=== PATIENT | female | born 1980 | race Native Hawaiian/Other Pacific Islander ===

== ENCOUNTER 2025-07-05 13:42 | Outpatient (AMB) | payer OTHER, SELFPAY ==
--- OUTSIDE RECORDS SUMMARY | 2024-07-29 15:38 | XMS_ITS | Encounter Summary ---
Author Organization [employer] Address [address] [place] [address] Care Team Providers Care National Accounts Sales Name Role Phone Sherly Donald MD Primary Care Provider [phone] Encounter Details Date Type Department Care Team [...] Description 07/19/2025 11:15 AM EDT Office Visit [facility] Hematology Oncology [address] [place] [address] Jaison Mendez MD [address] [place] [address] documented as of this encounter Visit Diagnoses Not on filedocumented in this encounter Care Teams National Accounts Sales Relationship Specialty Start Date End Date Sherly Donald MD [address] [place] [address] PCP - General Internal Medicine 05/29/21 documented as of this encounter
--- NOTE | 2025-07-05 14:00 | A.OFFPC_ITS ---
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 Protection Agent Required: No Accompanied by: Self / Same As Patient Allergies No Known Allergies Allergy (Verified 07/05/25 14:09) Tobacco use date assessed: 07/05/25 Dental Screening Dental Screen Date: 07/05/25 Did you have a dental visit in the last 12 months?: Yes Did you have a dental problem in the last 6 months where you did not have access to dental care?: No Was dental information given to patient?: Patient has dentist HPI HPI Comments History of Present Illness Details History of Present Illness The patient is a 45-year-old female presenting with metastatic colon cancer. Metastatic Colon Cancer: - Diagnosed approximately four and a chuck f years ago after severe, persistent abdominal pain led to a colonoscopy and biopsy. - Underwent multiple surgeries: one colo n surgery and four liver procedures. - Received 28-29 cycles of chemotherapy over the course of 11 months. - The disease has metastasized to the mazin ngs and possibly the pancreas. - Experiencing significant management ch allenges due to changes and discontinuities in insurance and care access. - Currently has severe discomfort, inclu ding hand sensitivity and possible cardiac-related symptoms post-chemotherapy. Health Maintenance - Hemoglobin and complete blood count, i ncluding hemoglobin A1c, lipid profile, magnesium, folate, vitamin D levels, and urinalysis were discussed. - Referral to nutrition for dietary and lifestyle management. - Recommended management with a multidis ciplinary team, including pain management, oncology, and gastroenterology. Review of Systems - General: Reports significant weight ch anges and eating pattern disruptions, eating once daily but consuming large quantities. - Respiratory: Reports shortness of monique th; denies any recent upper respiratory infections. - Cardiovascular: Reports feeling cardia c irregularities, including occasional palpitations. - Gastrointestinal: Reports significant abdominal pain leading to emergency visits prior to diagnosis. - Musculoskeletal: Reports sensitivity i n hands post-chemotherapy. - Neurological: No significant neurologi karina concerns reported. - Psychiatric: Denies any mood disorders but mentions feeling overwhelmed due to current circumstances. 10-point ROS reviewed and negative excep t as noted in HPI Allergies - No known drug allergies. Medication History - Acetaminophen - Amoxicillin 500 mg q.8h - Bupropion XL 150 mg - Bupropion XL 300 mg - Chlorhexidine gluconate 0.12% 10 mL - Fentanyl 25 mcg/hour, 1 patch Q 3D - Gabapentin 100 mg - Hydroquinone 4% topical - Ibuprofen 600 mg - Mirtazapine 45 mg - Morphine ER 60 mg P.o. b.i.d. - Oxycodone - Sennosides-docusate sodium 8.6-50 mg Current Substance Use - Limited to occasional alcohol use on s pecial occasions. Substance Use History - Occasional alcohol use, with no report ed history of substance abuse. Past Medical History - Diagnosed with metastatic colon cancer . - Persistent abdominal pain preceding di agnosis that required several emergency visits. Past Surgical History - Colon resection surgery. - Four liver resections. Family History - No specific family history provided. Social History - Currently lives alone, but children li ve in the same household occasionally. - Previously lived in [facility] before moving to [place]. - Has expressed feelings of being overwh elmed by caregiving duties due to insurance changes and cancer progression. Physical Exam - General- Well-appearing, in no acute d istress. - Vitals- Within normal limits. - HEENT- Normocephalic, atraumatic. PERR LA, EOMI. Conjunctiva clear, sclera anicteric. Oropharynx clear, moist mucous membranes. TMs intact bilaterally. - Neck- Supple, no lymphadenopathy, no t hyromegaly, no JVD or carotid bruits. - Cardiovascular- RRR, normal S1/S2, no murmurs, rubs, or gallops. Peripheral pulses 2+ and symmetric. No edema. - Respiratory- Lungs clear to auscultati on bilaterally, no wheezes, rales, or rhonchi. Normal effort. - Abdomen- Soft, non-tender, non-distend ed. Normoactive bowel sounds. No hepatosplenomegaly, no masses. - MSK- Full range of motion, no joint sw elling or deformity. Normal gait. - Skin- Warm, dry, intact. No rashes, le sions, or pallor. - Neuro- Alert and oriented x3. Cranial nerves II-XII intact. Strength 5/5 throughout. Sensation intact. Reflexes 2+ symmetric. Normal coordination and gait. - Psych- Appropriate mood and affect. No rmal judgment and insight. Discussion Notes The patient and I discussed in detail the current status of her metastatic colon cancer and the complications associated due to insurance coverage issues. I emphasized the importance of establishing a comprehensive care plan involving a multidisciplinary team approach. We reviewed the need for consistent oncological management and potential involvement in clinical trial opportunities. I provided guidance for possible symptom management and emphasized connecting with community resources for additional support. The need for nutritional support and pain management was highlighted. We also explored the logistics of referring the patient to relevant specialists, including oncology, gastroenterology, and pain management. The patient was informed about new referrals and testing planned for her current status. She was receptive to recommended interventions and understood the importance of following up on her condition. Plan 1. Malignant neoplasm of colon, unspecif ied C18.9 HCC 11 - Arrange labs for evaluation: hemoglobi n, CBC, A1c, lipids, magnesium, urinalysis, vitamin D, folate. - Refer to nutrition, pain management, a nd gastroenterology for comprehensive care. - Emphasized the need for multidisciplin michael support and regular check-ups. - Instructed patient to provide medical records to assess previous treatments. - Initiate high school social science teacher involvement for assistance with healthcare navigation. - Prescribed albuterol inhaler for respi ratory symptom relief. - Supervisor Finish End referral for further asse ssment of cardiac issues based on patient's description. Patient Instructions - Please complete the lab tests as sched uled to gain detailed insight into your current health status. - Follow up with the stretcher helper to man age dietary needs and enhance your nutrition. - Expect referrals to specialists for pa in management and gastrointestinal review. - Continue communicating with our team a nd provide medical records as available. - Use the albuterol inhaler as needed wh en experiencing any shortness of breath. - Contact a high school social science teacher for insurance and resource assistance. - Report any new or worsening symptoms, especially cardiac concerns, promptly. [facility] Medical History (Updated 07/05/25 @ 15:02 by Wan Mcknight MD) History of chemotherapy Colon cancer metastasized to lung Family History (Updated 07/05/25 @ 14:15 by Santos Briones MA) Father No problems noted. Mother High blood pressure Diabetes Social History (Updated 07/05/25 @ 14:03 by Santos Briones MA) Housing: House Alcohol intake: current Alcohol intake frequency: holidays/special occasions only Patient Tobacco Use Status: Never used Tobacco service: No Current occupational status: unemployed and disabled Cognitive needs: Yes (cane and walker) Hearing needs: No Vision needs: No Questionnaire PHQ-9 Over the last 2 weeks, how often have you been bothered by any of the following problems? 1. Little interest or pleasure in doing things: nearly every day 2. Feeling down, depressed, or hopeless: nearly every day 3. Trouble falling or staying asleep, or sleeping too much: nearly every day 4. Feeling tired or having little energy: nearly every day 5. Poor appetite or overeating: nearly every day 6. Feeling bad about yourself - or that you are a failure or have let yourself or your family down: nearly every day 7. Trouble concentrating on things, such as reading the newspaper or watching television: nearly every day 8. Moving or speaking so slowly that other people could have noticed. Or the opposite - being so fidgety or restless that you have been moving around a lot more than usual: nearly every day 9. Thoughts that you would be better off or of hurting yourself in some way: more than half the days Total score: 26 Depression Screening Interpretation: Positive Depression Screening Done: Yes Source: Developed by Drs. Bran Mason, Zoya Skinner, Dejan Olmedo and colleagues, with an educational wally from [employer]. Thrive Questionnaire Date Thrive assessed: 07/05/25 I am a: Patient What is your living situation today?: I have a place to live, but I am worried about losing it in the future Within the past 12 months, did the food you bought not last and you didn't have the money to get more?: Sometimes True Within the past 12 months, did you worry whether your food would run out before you got money to buy more?: Sometimes True Do you have trouble paying for medicines?: Yes Do you have trouble getting transportation to medical appointments?: Yes Do you have trouble paying your heating and electricity bill?: Yes Do you have trouble taking care of your child, family member or friend?: No Do you have trouble with day-to-day activities such as bathing, preparing meals, shopping, managing finances, etc.?: Yes Are you currently unemployed and looking for a job?: No Are you interested in more education?: No Please select the resources that you would like help with: Housing/Alf, Food, Paying for medicine, Transportation, Utilities and None Currently or been in a relationship where the following occur: No concerns reported THRIVE Score: 5 AUDIT C Alcohol Use Questionnaire (AUDIT-C) 1. How often do you have a drink containing alcohol?: Monthly or less 2. How many drinks containing alcohol do you have on a typical day when you are drinking?: 1 or 2 3. How often do you have six or more drinks on one occasion?: Never Total Score: 1 ALSYSA-7 AMB Questionnaire ALYSSA-7 Date ALYSSA - 7 assessed: 07/05/25 Feeling nervous, anxious, or on edge: 3 = Nearly every day Not being able to stop or control worryin = Nearly every day Worrying too much about different things: 3 = Nearly every day Trouble relaxin = Nearly every day Being so restless that it is hard to sit still: 3 = Nearly every day Becoming easily annoyed or irritable: 3 = Nearly every day Feeling afraid as if something awful might happen: 3 = Nearly every day Total ALYSSA-7 score (0-4 normal; 5-9 mild; 10-14 moderate; 15-21 severe): 21 Source: Developed by Drs. Bran Mason, Zoya Skinner, Dejan Olmedo and colleagues, with an educational wally from [employer]. Physical exam (Primary Care) Tobacco/Smoking Status: Tobacco use Status Tobacco use date assessed 07/05/25 07/05/25 14:04 Patient Tobacco Use Status Never used Tobacco 07/05/25 14:04 PHQ-9: PHQ-9 Score PHQ-9: Total score 0 07/05/25 14:04 Depression Screening Interpretation: Positive Thrive Assessment: Date of Thrive Assessment Date Thrive assessed 07/05/25 07/05/25 14:04 Currently or been in a relationship where the following occur: No concerns reported Coding Level of Care Code New Pt Level 3 (56244) Diagnoses Establishing care with new doctor, encounter for Z76.89 Routine lab draw Z01.89 Encounter for screening, unspecified Z13.9 Counseling, unspecified Z71.9 Screening for HIV (human immunodeficiency virus) Z11.4 Screening for depression Z13.31 Screening for diabetes mellitus Z13.1 Screening for lipoid disorders Z13.220 Hypertension screen Z13.6 Colon cancer metastasized to lung C18.9; C78.00 History of chemotherapy Z92.21 Assessment & Plan Assessment & Plan (1) Establishing care with new doctor, encounter for: Code(s): Z76.89 - Persons encountering health services in other specified circumstances (2) Routine lab draw: Code(s): Z01.89 - Encounter for other specified special examinations (3) Encounter for screening, unspecified: Code(s): Z13.9 - Encounter for screening, unspecified (4) Counseling, unspecified: Code(s): Z71.9 - Counseling, unspecified (5) Screening for HIV (human immunodeficiency virus): Code(s): Z11.4 - Encounter for screening for human immunodeficiency virus [HIV] (6) Screening for depression: Code(s): Z13.31 - Encounter for screening for depression (7) Screening for diabetes mellitus: Code(s): Z13.1 - Encounter for screening for diabetes mellitus (8) Screening for lipoid disorders: Code(s): Z13.220 - Encounter for screening for lipoid disorders (9) Hypertension screen: Code(s): Z13.6 - Encounter for screening for cardiovascular disorders (10) Colon cancer metastasized to lung: Code(s): C18.9 - Malignant neoplasm of colon, unspecified; C78.00 - Secondary malignant neoplasm of unspecified lung Category: Medical (11) History of chemotherapy: Code(s): Z92.21 - Personal history of antineoplastic chemotherapy Category: Medical Plan Orders: Orders Comprehensive Met. Panel Today Z13.9 - Encounter for screening, unspecified, Z76.89 - Persons encountering health services in other specified circumstances Hemoglobin A1c Today Z13.9 - Encounter for screening, unspecified, Z76.89 - Persons encountering health services in other specified circumstances Hepatitis B Surface Antigen Today Z13.9 - Encounter for screening, unspecified, Z76.89 - Persons encountering health services in other specified circumstances HIV Ab/Ag Today Z13.9 - Encounter for screening, unspecified, Z76.89 - Persons encountering health services in other specified circumstances Lipid Panel Today Z13.9 - Encounter for screening, unspecified, Z76.89 - Persons encountering health services in other specified circumstances Magnesium Today Z13.9 - Encounter for screening, unspecified, Z76.89 - Persons encountering health services in other specified circumstances XR chest 2V Today C18.9 - Malignant neoplasm of colon, unspecified, C78.00 - Secondary malignant neoplasm of unspecified lung, R06.00 - Dyspnea, unspecified Complete Blood Count Auto Diff Today Z13.9 - Encounter for screening, unspecified, Z76.89 - Persons encountering health services in other specified circumstances Hepatitis B Surface Antibody Today Z13.9 - Encounter for screening, unspecified, Z76.89 - Persons encountering health services in other specified circumstances Hepatitis C Antibody Today Z13.9 - Encounter for screening, unspecified, Z76.89 - Persons encountering health services in other specified circumstances UA CC w/rflx Micro + Cult Today Z13.9 - Encounter for screening, unspecified, Z76.89 - Persons encountering health services in other specified circumstances Vitamin B12 and Folate Today Z13.9 - Encounter for screening, unspecified, Z76.89 - Persons encountering health services in other specified circumstances Vitamin D 1,25 dihydroxy Today Z13.9 - Encounter for screening, unspecified, Z76.89 - Persons encountering health services in other specified circumstances CA Echo Limited Today C18.9 - Malignant neoplasm of colon, unspecified, C78.00 - Secondary malignant neoplasm of unspecified lung, Z13.9 - Encounter for screening, unspecified Referrals Core Fitter Referral C18.9 - Malignant neoplasm of colon, unspecified, C78.00 - Secondary malignant neoplasm of unspecified lung Cardiology Referral C18.9 - Malignant neoplasm of colon, unspecified, C78.00 - Secondary malignant neoplasm of unspecified lung, Z92.21 - Personal history of antineoplastic chemotherapy Nutrition/Dietitian Referral C18.9 - Malignant neoplasm of colon, unspecified, C78.00 - Secondary malignant neoplasm of unspecified lung, E66.01 - Morbid (severe) obesity due to excess calories Pain Management Referral C18.9 - Malignant neoplasm of colon, unspecified, C78.00 - Secondary malignant neoplasm of unspecified lung Gastroenterology Referral C18.9 - Malignant neoplasm of colon, unspecified, C78.00 - Secondary malignant neoplasm of unspecified lung Medications: New albuterol sulfate 90 mcg/actuation (Ventolin HFA) 2 puffs inhalation Q6H PRN 8.5 grams 0RF shortness of breath or wheezing
[2025-07-05 14:26] VITALS: BP 110/72; PULSE 81; RESP 16; TEMP 36.7; O2SAT 98; BMI 41.6
--- OUTSIDE RECORDS SUMMARY | 2025-07-05 17:34 | XMS_ITS | Clinical Summary ---
Author Organization [facility], Address [address] [place] [address] Phone Care Team Providers Care Survey Research Associate Name Role Phone Sherly Donald Primary Care Provider Allergies No known active allergies Medications oxyCODONE (ROXICODONE) 5 MG immediate release tablet Take 5 mg by mouth 11/27/2022 Active acetaminophen (TYLENOL 8 HOUR) 650 MG 8 hr tablet Take 650 mg by mouth 05/29/2021 Active Social History Tobacco Use Types Packs/Day Years Used Date Smoking Tobacco: Never Tobacco Cessation:Counseling Given: Not Answered Alcohol Use Standard Drinks/Week Comments Not Currently 0 (1 standard drink = 0.6 oz pur e alcohol) Comments Unknown Sex and Gender Information Value Date Recorded Sex Assigned at Not on file Legal Sex Female 1:41 PM EDT Gender Identity Not on file Sexual Orientation Not on file Last Filed Vital Signs Vital Sign Reading Time Taken Comments Blood Pressure 105/72 02/19/2024 9:10 AM EDT Pulse 85 02/19/2024 9:10 AM EDT Temperature 36.2 C (97.1 F) 02/19/2024 9:10 AM EDT Respiratory Rate - - Oxygen Saturation 99% 02/19/2024 9:10 AM EDT Inhaled Oxygen Concentration - - Weight 127 kg (280 lb) 02/19/2024 9:10 AM EDT Height 180.3 cm (5' 11 ) 02/19/2024 9:10 AM EDT Body Mass Index 39.05 02/19/2024 9:10 AM EDT Plan of Treatment Health Maintenance Due Date Last Done Comments Hepatitis B Vaccine (1 of 3 - 19+ 3-dose series) 2000 Influenza Vaccine (#1) 2025 Pneumococcal Vaccine: Peds ( 0 to 5 Years) and At-Risk Patients (6 to 49 Years) (3 of 3 - PCV20 or PCV21) 12/25/2025 05/29/2021, 12/25/2020 Insurance [facility] Medicaid [facility] Care Teams Survey Research Associate Relationship Specialty Start Date End Date Sherly Donald [address] [place] [address] PCP - General Internal Medicine 04/28/23
--- OUTSIDE RECORDS SUMMARY | 2025-07-05 17:34 | XMS_ITS | Clinical Summary ---
Author Organization [facility] Address [address] [place] [address] Phone Care Team Providers Care Camp Attendant Name Role Phone Sherly Donald MD Primary Care Provider [phone] Allergies No known active allergies Medications acetaminophen (TYLENOL) 325 mg tablet Take 2 tablets (650 mg total) by mouth every 6 (six) hours as needed for pain. Active mirtazapine (REMERON) 7.5 mg tablet Take 1 tablet (7.5 mg total) by mouth every night at bedtime. Active ondansetron (ZOFRAN) 8 mg tablet Take 1 tablet (8 mg total) by mouth every 8 (eight) hours as needed for nausea. 09/01/20 23 Active polyethylene glycol (MIRALAX) 17 gram packet Take 17 g by mouth daily. 09/01/20 23 Active senna (SENOKOT) 8.6 mg tablet Take 1 tablet (8.6 mg total) by mouth every night at bedtime. 12/01/19 24 Active traMADoL (ULTRAM) 50 mg tablet Take 50 mg by mouth every 6 (six) hours as needed for pain. 12/01/19 24 Active ascorbic acid (VITAMIN C) 500 mg tablet Take 1 tablet (500 mg total) by mouth 1 (one) time each day. Active buPROPion XL (WELLBUTRIN XL) 300 mg 24 hr tablet Take 1 tablet (300 mg total) by mouth 1 (one) time each day in the morning. 08/12/20 24 Active clonazePAM (KlonoPIN) 0.5 mg tablet Take 1 tablet (0.5 mg total) by mouth 2 (two) times a day if needed. 08/12/20 24 Active norethindrone (OLIVIA,SRAVANI,HE ATHER,MICRONOR) 0.35 mg tablet Take 1 tablet (0.35 mg total) by mouth 1 (one) time each day. Active gabapentin (NEURONTIN) 300 mg capsule Take 1 capsule (300 mg total) by mouth 2 (two) times a day. 60 capsule 1 01/27/20 25 Active oxyCODONE (ROXICODONE) 5 mg immediate release tabletIndication s:Metastatic colon cancer to liver (CMS/HCC V24, CMS/HCC V28) Take 1 tablet (5 mg total) by mouth every 4 (four) hours if needed for severe pain. Max Daily Amount: 30 mg 48 tablet 04/20/20 25 Active senna-docusate (PERICOLACE) 8.6-50 mg per tablet Take 1 tablet by mouth 1 (one) time each day. 30 tablet 11 04/21/20 25 026 Active cyclobenzaprine (FLEXERIL) 10 mg tablet TAKE 1 TABLET BY MOUTH 2 TIMES A DAY IF NEEDED FOR MUSCLE SPASMS FOR UP TO 15 DAYS. 30 tablet 05/09/20 25 Active morphine (MS CONTIN) 60 mg 12 hr tablet Take 1 tablet (60 mg total) by mouth 2 (two) times a day. Do not crush, chew, or split. Max Daily Amount: 120 mg 60 tablet 06/07/20 25 025 Active oxyCODONE (OxyCONTIN) 30 mg 12 hr abuse-deterrent tabletIndication s:Colon cancer metastasized to multiple sites (CMS/HCC V24, CMS/HCC V28),Pain management Take 1 tablet (30 mg total) by mouth every 12 (twelve) hours. Do not crush, chew, or split. Max Daily Amount: 60 mg 60 tablet 07/01/20 25 025 Active fentaNYL (DURAGESIC) 50 mcg/hrIndication s:Malignant neoplasm of splenic flexure (CMS/HCC V24, CMS/HCC V28),Metastases to the liver (CMS/HCC V24, CMS/HCC V28) Place 1 patch on the skin every 3rd (third) day. Max Daily Amount: 1 patch 10 patch 07/05/20 25 025 Active oxyCODONE (ROXICODONE) 10 mg immediate release tabletIndication s:Malignant neoplasm of splenic flexure (CMS/HCC V24, CMS/HCC V28),Metastases to the liver (CMS/HCC V24, CMS/HCC V28) Take 1 tablet (10 mg total) by mouth every 6 (six) hours if needed for severe pain for up to 12 days. Max Daily Amount: 40 mg 48 tablet 07/05/20 025 Active oxyCODONE (ROXICODONE) 10 mg immediate release tablet Take 1 tablet (10 mg total) by mouth every 6 (six) hours if needed for severe pain for up to 12 days. Max Daily Amount: 40 mg 48 tablet 05/27/20 025 Discontinued(Re order) oxyCODONE (OxyCONTIN) 30 mg 12 hr abuse-deterrent tabletIndication s:Colon cancer metastasized to multiple sites (CMS/HCC V24, CMS/HCC V28),Pain management Take 1 tablet (30 mg total) by mouth every 12 (twelve) hours. Do not crush, chew, or split. Max Daily Amount: 60 mg 60 tablet 06/06/20 025 Discontinued(Re order) oxyCODONE (ROXICODONE) 10 mg immediate release tablet Take 1 tablet (10 mg total) by mouth every 6 (six) hours if needed for severe pain for up to 12 days. Max Daily Amount: 40 mg 48 tablet 06/08/20 025 Discontinued(Re order) fentaNYL (DURAGESIC) 25 mcg/hr Place 1 patch on the skin every 3rd (third) day. Max Daily Amount: 1 patch 10 patch 06/14/20 025 Discontinued oxyCODONE (ROXICODONE) 10 mg immediate release tablet Take 1 tablet (10 mg total) by mouth every 6 (six) hours if needed for severe pain for up to 12 days. Max Daily Amount: 40 mg 48 tablet 06/17/20 025 Discontinued(Re order) fentaNYL (DURAGESIC) 50 mcg/hrIndication s:Malignant neoplasm of splenic flexure (CMS/HCC V24, CMS/HCC V28),Metastases to the liver (CMS/HCC V24, CMS/HCC V28) Place 1 patch on the skin every 3rd (third) day. Max Daily Amount: 1 patch 10 patch 07/01/20 25 025 Discontinued(Re order) Active Problems Problem Noted Date Diagnosed Date Multiple pulmonary nodules 12/14/2024 Overview (12/14/2024): -Also seen: New non enlarged mildly FDG avid Right lower quadrant lymph node in the mesentery -Seen in Pet CT scan done at [place] 10-28-24: bilateral FDG avid pulmonary nodules, new from PET/CT December 2023 suspicious for metastatic disease. No FDG avid thoracic lymphadenopathy Chronic low back pain 09/29/2024 Hypercholesterolemia 09/29/2024 Malignant neoplasm of colon (CMS/HCC V24, CMS/ C V28) 09/29/2024 Overview (09/29/2024): s/p chemotherapy and partial colectomy -PT4a, pNO, moderately differentiated carcinoma of transverse colon -Oncologist: Dr. Jason Mendez -involving pancreas and spleen. GI: Dr. Contreras. Surgeon: Dr. Anderson Metastatic malignant neoplasm (CMS/HCC V24, CMS/ HCC V28) 09/29/2024 Overview (09/29/2024): colon cancer with liver mets s/p partial hepatectomy and ablation Mild binge-eating disorder, in full remission Mixed anxiety depressive disorder 09/29/2024 Overview (09/29/2024): 04/17/12- [facility], sees both psych and therapist, whose name is Franci therapist in [place] Neuropathy 09/29/2024 Overview (09/29/2024): -2ary to chemotherapy Obstructive sleep apnea syndrome 09/29/2024 Overview (09/29/2024): -does not want to use CPAP Peripheral venous insufficiency 09/29/2024 Prediabetes 09/29/2024 Severe obesity (BMI 35.0-39. 9) with comorbidity (CMS/HCC V24, CMS/HCC V28) 09/29/2024 Steatosis of liver 09/29/2024 Overview (09/29/2024): -seen in [place] Metastases to the liver (CMS/HCC V24, CMS/HCC V2 8) 11/05/2022 Malignant neoplasm of spleni c flexure of colon (CMS/HCC V24, CMS/HCC V28) 05/27/2022 Overview (09/29/2024): Diagnosed in 04/2021 Varicose veins of bilateral lower extremities wi th pain 06/05/2017 Overview (12/29/2023): 06/05/2017 Pt reports Followed by PCP/Vein specialist, reports multiple surgeries Resolved Problems Problem Noted Date Diagnosed Date Resolved Date Abnormal Pap smear of cervix 06/05/2017 12/16/2024 Overview (12/29/2023): 05/07/2016 PAP Unsatisfactory cytology, + HPV, Neg 16, Neg 18/45 06/05/2017 PAP Neg cytology, neg HPV Repeat co-testing 3 yrs Encounters Date Type Department Care Team Description 07/05/2025 Telephone [facility] Hematology Oncology [address] [place] [phone] Moon Contreras MA 07/01/2025 Social Work [facility] [address] [place] [phone] Shade Worrell LMSW 06/16/2025 2:30 PM EDT - 06/16/2025 11:59 PM EDT Hospital Encounter [address] [phone] Jaison Mendez MD Malignant neoplasm of splenic flexure (CMS/HCC V24, CMS/HCC V28) Discharge Disposition: Home or Self Care 06/09/2025 Telephone [facility] Hematology Oncology [address] [place] [address] Moon Contreras MA 06/06/2025 11:45 AM EDT Office Visit [facility] Hematology Oncology [address] [place] [phone] Jaison Mendez MD Colon cancer metastasized to multiple sites (CMS/HCC V24, CMS/HCC V28) (Primary Dx); Pain management 05/26/2025 Telephone [facility] Hematology Oncology [address] [place] [phone] Jaison Mendez MD 05/17/2025 Telephone [facility] Hematology Oncology [address] [place] [phone] Moon Contreras MA 05/11/2025 11:15 AM EDT Office Visit [facility] Hematology Oncology [address] [place] [phone] Jaison Mendez MD Metastatic malignant neoplasm, unspecified site (CMS/HCC V24, CMS/HCC V28) (Primary Dx); Malignant neoplasm of splenic flexure of colon (CMS/HCC V24, CMS/HCC V28) 05/04/2025 Telephone [facility] Hematology Oncology [address] [place] [phone] Moon Contreras MA 04/21/2025 10:30 AM EDT Office Visit [facility] Hematology [facility]cology [address] [place] [phone] Jaison Mendez MD Metastatic colon cancer to liver (CMS/HCC V24, CMS/HCC V28) (Primary Dx); Colon cancer metastasized to lung (CMS/HCC V24, CMS/HCC V28) 04/21/2025 Telephone [facility] Hematology Oncology [address] [place] [phone] Lena Mckee MA 04/05/2025 2:30 PM EDT - 04/05/2025 11:59 PM EDT Hospital Encounter [facility] [address] [place] [address] Malignant neoplasm of splenic flexure ([facility] V24, [facility] V28) Discharge Disposition: Home or Self Care from Last 3 Months Immunizations Name Administration Dates Next Due HiB PRP-T conjugate (Acthib, Hiberix) 6wks and older 05/29/2021 Influenza Quadravalent, MDCK , 0.5ml, preservative free (Flucelvax) 6mo and older 09/16/2023,10/10/2022 Influenza Quadrivalent, 0.5m l, preservative free (Fluarix; FluLaval; Fluzone) ages 6mo and older (Afluria) 3yo and older 10/17/2021 Influenza trivalent, with pr eservative (Fluzone; Afluria) 6mo and older 09/01/2018,08/22/2017,08/16/2010,07/12 Meningococcal MCV4P 05/29/2021 Pfizer (ages 12 & older) ROSARIO S-CoV-2 COVID-19, mRNA, LNP-S, candi-sucrose, preservative free 02/06/2022 Pfizer SARS-CoV-2 COVID-19, mRNA, LNP-S, preservative free 02/06/2022,07/18/2021,06/05/2021 Pneumococcal conjugate 13 va lent (Prevnar 13, PCV13) 2mo and older 05/29/2021 Pneumococcal polysaccharide 23 valent (Pneumovax 23) 2yo and older 12/25/2020 Tdap Tetanus diptheria acell ular pertussis (Boostrix; Adacel) 7yo and older 05/11/2015 Surgical History Surgery Date Site/Laterality Comments KNEE SURGERY 2016 PROCEDURE: HISTORICAL KNEE SURGERY OTHER SURGICAL HISTORY PROCEDURE: HISTORY OTHER; COMMENT: Multiple lower extremeity venous surgeries VARICOSE VEIN SURGERY PROCEDURE: ID LIGJ DIVJ &/EXCJ VARICOSE VEIN CLUSTER 1 LEG OTHER SURGICAL HISTORY 05/18/2021 PROCEDURE: ID LAPAROSCOPY COLECTOMY PARTIAL W/ANASTOMOSIS; COMMENT: segmental colectomy with anastomosis, en bloc splenectomy, and en bloc distal pancreatectomy - to address adenocarcinoma of transverse colon (no jeronimo involvement or extension to spleen or distal pancreas) - Dr. Rossy Pierre OTHER SURGICAL HISTORY PROCEDURE: HISTORY OTHER; COMMENT: extended left hepatectomy, partial right hepatectomy, cholecystectomy @ [facility] Medical History Medical History Date Comments Anxiety state DX:Anxiety state Asthma DX:Asthma Abnormal cytological finding in specimen from cervix DX:Abnormal cytological find ing in specimen from cervix Colon cancer (CMS/HCC V24, C MS/HCC V28) 2020 DX:Colon cancer (HCC) Cancer of liver (CMS/HCC V24 , CMS/HCC V28) 2021 DX:Cancer of liver (HCC) Metastases to the liver (CMS /HCC V24, CMS/HCC V28) 11/05/2022 DX:Metastases to the liver ( HCC) Abnormal Pap smear of cervix 06/05/2017 For matting of this note might be different from the original. 05/07/2016 PAP Unsatisfactory cytology, + HPV, Neg 16, Neg 18/45 06/05/2017 PAP Neg cytology, neg HPV Repeat co-testing 3 yrs Family History Medical History Relation Name Comments No Known Problems Brother 1 No Known Problems Brother 2 No Known Problems Brother 3 Hypertension Father Cancer Maternal Grandmother Colon Diabetes Mother Other: Breast cysts- benign Mother Hypertension Sister 1 No Known Problems Sister 2 Relation Name Status Comments Brother 1 Alive Brother 2 Alive Brother 3 Alive Father Maternal Grandmother Mother Alive Sister 1 Alive Sister 2 Alive Sister 3 Alive Social History Tobacco Use Types Packs/Day Years [...] Orientation Straight 10/28/2024 2: 47 PM EST Obstetrics History Para Term AB IAB SAB Ectopic Multiple Livin g Live Births 4 4 4 4 4 Date Outcome GA Total Labor Labor/2nd/3rd Weight Sex Type Anes PTL Shikha A1 A5 Name Clin 1998 Term 40w0 d F Vag-S pont None Living 1999 Term 40w0 d M Vag-S pont None Living 2004 Term 40w0 d M Vag-S pont None Living 2005 Term 40w0 d F Vag-S pont None Living Last Filed Vital Signs Vital Sign Reading Time Taken Comments Blood Pressure 106/72 05/11/2025 11:25 AM EDT Pulse 87 05/11/2025 11:25 AM EDT Temperature 36.2 C (97.1 F) 05/11/2025 11:25 AM EDT Respiratory Rate - - Oxygen Saturation 99% 05/11/2025 11:25 AM EDT Inhaled Oxygen Concentration - - Weight 131 kg (289 lb) 05/11/2025 11:25 AM EDT Height 180.3 cm (5' 11 ) 12/16/2024 1:27 PM EST Body Mass Index 40.31 12/16/2024 1:27 PM EST Plan of Treatment Upcoming Encounters Date Type Department Care Team (Late st Contact Info) Description 07/19/2025 11:15 AM EDT Office Visit [facility] Hematology Oncology [address] [place] [phone] Jaison Mendez MD [address] [place] [address] Health Maintenance Due Date Last Done Comments Hepatitis A Vaccines (1 of 2 - Risk 2-dose series) 2000 Hepatitis B Vaccines (1 of 3 - 19+ 3-dose series) 2000 Cholesterol Screening (Lipid Panel) 09/27/2022 HIV Screening 09/27/2022 Hepatitis C Screening 09/27/2022 Social Influencers of Health Screening 09/27/2022 Depression Screening 10/20/2024 DTaP,Tdap,and Td Vaccines (2 - Td or Tdap) 05/11/2025 05/11/2015 COVID-19 Vaccine ( season) 2025 09/16/2023, 10/08/2022, 02/06/2022, Additional history exists Influenza Vaccine (#1) 2025 , 10/10/2022, 10/17/2021, Additional history exists Cervical Cancer Screening: Pap Smear 11/05/2025 11/05/2022, 08/17/2020 Pneumococcal Vaccine: Pediatrics (0 to 5 Years) and At-Risk Patients (6 to 49 Years) (3 of 3 - PPSV23, PCV20 or PCV21) 12/25/2025 05/29/2021, 12/25/2020 Breast Cancer Screening 10/29/2026 10/29/2024, 08/28 HIB Vaccines Aged Out 05/29/2021 No longer eligi ble based on patient's age to complete this topic Meningococcal ACWY Vaccine Aged Out 05/29/2021 N o longer eligible based on patient's age to complete this topic HPV Vaccines Aged Out No longer eligi ble based on patient's age to complete this topic IPV Vaccines Aged Out No longer eligi ble based on patient's age to complete this topic MMR Vaccines Aged Out No longer eligi ble based on patient's age to complete this topic Meningococcal B Vaccine Aged Out No l onger eligible based on patient's age to complete this topic RSV Immunization Patients Under 20 months Aged Out No longer eligible based on patient's age to complete this topic Varicella Vaccines Aged Out No longer eligible based on patient's age to complete this topic Procedures Procedure Name Priority Date/Time Associated Diagnosis Comments CBC WITH AUTO DIFFERENTIAL Routine 06/16/2025 3:02 PM EDT Malignant neoplasm of splenic flexure (CMS/HCC V24, CMS/HCC V28) CARCINOEMBRYONIC ANTIGEN Routine 025 3:02 PM EDT Malignant neoplasm of splenic flexure (CMS/HCC V24, CMS/HCC V28) COMPREHENSIVE METABOLIC PANEL Routine 06/16/2025 3:02 PM EDT Malignant neoplasm of splenic flexure (CMS/HCC V24, CMS/HCC V28) CBC AND DIFFERENTIAL Routine 06/16/2025 3:02 PM EDT Malignant neoplasm of splenic flexure (CMS/HCC V24, CMS/HCC V28) MOLECULAR INTELLIGENCE TUMOR PROFILING Routine 05/18/2025 10:57 AM EDT HC COLLECTION OF VENOUS BLOOD BY VENIPUNCTURE Routine 05/11/2025 2:44 PM EDT Metastatic cancer (CMS/HCC V24, CMS/HCC V28) Metastatic malignant neoplasm, unspecified site (CMS/HCC V24, CMS/HCC V28) CBC WITH AUTO DIFFERENTIAL Routine 05/11/2025 2:44 PM EDT Metastatic malignant neoplasm, unspecified site (CMS/HCC V24, CMS/HCC V28) HEPATIC FUNCTION PANEL Routine 2:44 PM EDT Metastatic malignant neoplasm, unspecified site (CMS/HCC V24, CMS/HCC V28) CBC AND DIFFERENTIAL Routine 05/11/2025 2:44 PM EDT Metastatic malignant neoplasm, unspecified site (CMS/HCC V24, CMS/HCC V28) CARCINOEMBRYONIC ANTIGEN Routine 025 2:44 PM EDT Metastatic malignant neoplasm, unspecified site (CMS/HCC V24, CMS/HCC V28) MANUAL DIFFERENTIAL - SYSMEX WAM Routine 04/05/2025 2:44 PM EDT Malignant neoplasm of splenic flexure (CMS/HCC V24, CMS/HCC V28) CBC WITH AUTO DIFFERENTIAL Routine 04/05/2025 2:44 PM EDT Malignant neoplasm of splenic flexure (CMS/HCC V24, CMS/HCC V28) CARCINOEMBRYONIC ANTIGEN Routine 025 2:44 PM EDT Malignant neoplasm of splenic flexure (CMS/HCC V24, CMS/HCC V28) COMPREHENSIVE METABOLIC PANEL Routine 04/05/2025 2:44 PM EDT Malignant neoplasm of splenic flexure (CMS/HCC V24, CMS/HCC V28) CBC AND DIFFERENTIAL Routine 04/05/2025 2:44 PM EDT Malignant neoplasm of splenic flexure (CMS/HCC V24, CMS/HCC V28) MG MAMMO DIGITAL SCREENING W VALDEMAR BILAT Routine 10/29/2024 1:49 PM EST Encounter for screening mammogram for breast cancer PAP SMEAR Routine 11/05/2022 from Last 3 Months or Most Recently Relevant to Health Maintenance Results * CBC auto differential (06/16/2025 3:02 PM EDT) Only the most recent of3 resultswithin the time period is included. WBC 8.9 4.8 - 10.8 K/mcL LAB HEMETOLOGY METHOD 06/16/2025 4:45 PM EDT [facility] RBC 4.20 3.80 - 4.80 M/mcL LAB [facility] Hemoglobin 12.3 11.5 - 16.0 g/dL LAB HEMETOLOGY METHOD 06/16/2025 4:45 PM [facility] Hematocrit 38.1 35.0 - 47.0 % LAB HEMETOLOGY METHOD 06/16/2025 4:45 PM [facility] MCV 90.1 79.0 - 98.0 FL LAB HEMETOLOGY METHOD 06/16/2025 4:45 PM [facility] MCH 29.1 27.0 - 32.0 pcg LAB HEMETOLOGY METHOD 06/16/2025 4:45 PM [facility] MCHC 32.3 32.0 - 37.0 g/dL LAB HEMETOLOGY METHOD 06/16/2025 4:45 PM [facility] RDW 14.8 11.0 - 15.0 % LAB HEMETOLOGY METHOD 06/16/2025 4:45 PM [facility] Platelets 368 130 - 400 K/mcL LAB HEMETOLOGY METHOD 06/16/2025 4:45 PM [facility] MPV 9.8 7.0 - 11.0 FL LAB HEMETOLOGY METHOD 06/16/2025 4:45 PM [facility] NRBC 0.0 <1.0 % LAB HEMETOLOGY METHOD 06/16/2025 4:45 PM EDT [facility] NRBC Absolute 0.00 <0.10 K/mcL LAB HEMETOLOGY METHOD 06/16/2025 4:45 PM [facility] Neutrophils Relative 53.0 % LAB HEMETOLOGY METHOD 06/16/2025 4:45 PM EDT [facility] Lymphocytes Relative 37.9 % LAB HEMETOLOGY METHOD 06/16/2025 4:45 PM EDT [facility] Monocytes Relative 7.3 % LAB HEMETOLOGY METHOD 06/16/2025 4:45 PM EDT [facility] Eosinophils Relative 1.0 % LAB HEMETOLOGY METHOD 06/16/2025 4:45 PM [facility] Basophils Relative 0.6 % LAB HEMETOLOGY METHOD 06/16/2025 4:45 PM [facility] Immature Granulocytes Relative 0.2 % LAB HEMETOLOGY METHOD 06/16/2025 4:45 PM [facility] Neutrophils Absolute 4.71 1.50 - 7.00 K/mcL LAB HEMETOLOGY METHOD 06/16/2025 4:45 PM [facility] Lymphocytes Absolute 3.37 1.00 - 5.00 K/mcL LAB HEMETOLOGY METHOD 06/16/2025 4:45 PM [facility] Monocytes Absolute 0.65 0.20 - 1.00 K/mcL LAB HEMETOLOGY METHOD 06/16/2025 4:45 PM [facility] Eosinophils Absolute 0.09 0.00 - 0.50 K/mcL LAB HEMETOLOGY METHOD 06/16/2025 4:45 PM [facility] Basophils Absolute 0.05 0.00 - 0.20 K/mcL LAB HEMETOLOGY METHOD 06/16/2025 4:45 PM [facility] Immature Granulocytes Absolute 0.02 0.00 - 0.03 K/mcL LAB HEMETOLOGY METHOD 06/16/2025 4:45 PM EDT [facility] Blood Blood sample taken from central line / Unknown Existing Catheter / Unknown 06/16/2025 3:02 PM EDT 06/16/2025 4:30 PM EDT [facility] Ramona Mendez MD LAB BLOOD ORDERABLES Final R esult Performing Organization Address City/[facility]/ZIP Co de Phone Number [facility] [address] [place] [address], [place] [phone] * (ABNORMAL) CEA (06/16/2025 3:02 PM EDT) Only the most recent of3 resultswithin the time period is included. CEA 79.8(H) 0.0 - 5.0 ng/mL LAB CHEMISTRY METHOD 06/16/2025 6:58 PM EDT [facility] Blood Blood sample taken from central line / Unknown Existing Catheter / Unknown 06/16/2025 3:02 PM EDT 06/16/2025 4:30 PM EDT Narrative [facility] - 06/16/2025 6:58 PM EDT The Siemens Advia Centaur Chemiluminescent Immunoassay is used. Results obtained with different assay methods or kits cannot be used interchangeably. Results cannot be interpreted as absolute evidence of the presence or absence of malignant disease. Jaison Mendez MD LAB BLOOD ORDERABLES Final R esult Performing Organization Address City/[facility]/ZIP Co de Phone Number [facility] [address] [place] [address], [place] [phone] * (ABNORMAL) Comprehensive metabolic panel (06/16/2025 3:02 PM EDT) Only the most recent of2 resultswithin the time period is included. Sodium 138 133 - 145 mmol/L LAB CHEMISTRY METHOD 06/16/2025 4:54 PM [facility] Potassium 4.1 3.5 - 5.5 mmol/L LAB CHEMISTRY METHOD 06/16/2025 4:54 PM [facility] Chloride 106 96 - 110 mmol/L LAB CHEMISTRY METHOD 06/16/2025 4:54 PM [facility] CO2 29 21 - 32 mmol/L LAB CHEMISTRY METHOD 06/16/2025 4:54 PM [facility] Anion Gap 3 3 - 11 LAB CHEMISTRY METHOD 06/16/2025 4:54 PM [facility] Glucose 107(H) 70 - 100 mg/dL LAB CHEMISTRY METHOD 06/16/2025 4:54 PM [facility] BUN 13 5 - 25 mg/dL LAB CHEMISTRY METHOD 06/16/2025 4:54 PM [facility] Creatinine 0.79 0.50 - 1.10 mg/dL LAB CHEMISTRY METHOD 06/16/2025 4:54 PM [facility] eGFR 95 >=60 mL/min/1. 73m2 LAB CHEMISTRY METHOD 06/16/2025 4:54 PM [facility] Comment:Calculation based on the Chronic Kidney Disease Epidemiology Collaboration (CKD-EPI) equation refit without adjustment for race. BUN/Creatinine Ratio 16.5 LAB CHEMISTRY METHOD 06/16/2025 4:54 PM [facility] Calcium 8.8 8.5 - 10.5 mg/dL LAB CHEMISTRY METHOD 06/16/2025 4:54 PM [facility] AST (SGOT) 20 10 - 42 unit/L LAB CHEMISTRY METHOD 06/16/2025 4:54 PM [facility] ALT (SGPT) 17 10 - 60 unit/L LAB CHEMISTRY METHOD 06/16/2025 4:54 PM [facility] Alkaline Phosphatase 89 42 - 121 unit/L LAB CHEMISTRY METHOD 06/16/2025 4:54 PM EDT [facility] Total Protein 7.0 6.0 - 8.0 g/dL LAB CHEMISTRY METHOD 06/16/2025 4:54 PM EDT [facility] Albumin 3.3 3.2 - 5.0 g/dL LAB CHEMISTRY METHOD 06/16/2025 4:54 PM EDT [facility] Total Bilirubin 0.5 0.0 - 1.4 mg/dL LAB CHEMISTRY METHOD 06/16/2025 4:54 PM EDT [facility] Blood Blood sample taken from central line / Unknown Existing Catheter / Unknown 06/16/2025 3:02 PM EDT 06/16/2025 4:30 PM EDT Jaison Mendez MD LAB BLOOD ORDERABLES Final R esult Performing Organization Address City/[facility]/ZIP Co de Phone Number [facility] [address] [place] [address], [place] [phone] * Molecular intelligence tumor profiling (05/18/2025 10:57 AM EDT) Tissue [facility] Provider LAB MOLECULAR DIAGNOSTICS ORDERABLES Final Result * Venipuncture charge (05/11/2025 2:44 PM EDT) Extra Tube Hold for add-ons. 05/11/2025 6:01 PM EDT [facility] Comment:Auto resulted. Blood Venous blood specimen / Unknown Venipuncture / Unknown 05/11/2025 2:44 PM EDT 05/11/2025 4:27 PM EDT Jaison Mendez MD LAB BLOOD ORDERABLES Final R esult Performing Organization Address City/[facility]/ZIP Co de Phone Number [facility] [address] [place] [address], [place] [phone] * Hepatic function panel (05/11/2025 2:44 PM EDT) Total Protein 7.1 6.0 - 8.0 g/dL LAB CHEMISTRY METHOD 05/11/2025 4:48 PM EDT [facility] Albumin 3.3 3.2 - 5.0 g/dL LAB CHEMISTRY METHOD 05/11/2025 4:48 PM EDT [facility] Total Bilirubin 0.6 0.0 - 1.4 mg/dL LAB CHEMISTRY METHOD 05/11/2025 4:48 PM EDT [facility] Bilirubin, Direct 0.1 0.0 - 0.3 mg/dL LAB CHEMISTRY METHOD 05/11/2025 4:48 PM EDT [facility] Bilirubin, Indirect 0.5 0.0 - 1.1 mg/dL LAB CHEMISTRY METHOD 05/11/2025 4:48 PM EDT [facility] ALT (SGPT) 17 10 - 60 unit/L LAB CHEMISTRY METHOD 05/11/2025 4:48 PM EDT [facility] AST (SGOT) 19 10 - 42 unit/L LAB CHEMISTRY METHOD 05/11/2025 4:48 PM EDT [facility] Alkaline Phosphatase 81 42 - 121 unit/L LAB CHEMISTRY METHOD 05/11/2025 4:48 PM EDT [facility] Blood Venous blood specimen / Unknown Venipuncture / Unknown 05/11/2025 2:44 PM EDT 05/11/2025 4:27 PM EDT us Jaison Mendez MD LAB BLOOD ORDERABLES Final R esult [facility] [address] [place] [address], [place] [phone] * (ABNORMAL) Manual differential (04/05/2025 2:44 PM EDT) Neutrophils % 67.0 % LAB HEMETOLOGY METHOD 04/05/2025 4:39 PM EDT [facility] Lymphocytes % 23.0 % LAB [facility] Monocytes % 8.0 % [facility]EM[facility]OLOGY [facility]25 [facility] Eosinophils % 0.0 % LAB HEMETOLOGY METHOD 04/05/2025 4:39 PM EDT [facility] Basophils % 2.0 % LAB HEMETOLOGY METHOD 04/05/2025 4:39 PM [facility] Neutrophils Absolute Manual 6.03 1.50 - 7.00 K/mcL LAB HEMETOLOGY METHOD 04/05/2025 4:39 PM [facility] Lymphocytes Absolute 2.07 1.00 - 5.00 K/mcL LAB HEMETOLOGY METHOD 04/05/2025 4:39 PM [facility] Monocytes Absolute Manual 0.72 0.20 - 1.00 K/mcL LAB HEMETOLOGY METHOD 04/05/2025 4:39 PM [facility] Eosinophils Absolute Manual 0.00 0.00 - 0.50 K/mcL LAB HEMETOLOGY METHOD 04/05/2025 4:39 PM [facility] Basophils Absolute Manual 0.18 0.00 - 0.20 K/mcL LAB HEMETOLOGY METHOD 04/05[facility]2025 4:[facility] Rbc Morphology Present( A) Consistent with indices, Normal for LAB HEMETOLOGY METHOD 04/05/2025 4:39 PM [facility] Comment:RBC: Morphology agre es with CBC Platelet Morphology - WAM See Note(A) Normal LAB HEMETOLOGY METHOD 04/05/2025 4:39 PM [facility] Comment:PLT: Normal [place] Bodies Present Present( A) (none) LAB HEMETOLOGY METHOD 04/05/2025 4:39 PM EDT [facility] Ovalocytes Present 5 - 10%(A) (none) LAB HEMETOLOGY METHOD 04/05/2025 4:39 PM EDT [facility] Target Cells Present 5 - 10%(A) (none) LAB HEMETOLOGY METHOD 04/05/2025 4:39 PM EDT [facility] Blood Blood sample taken from central line / Unknown Existing Catheter / Unknown 04/05/2025 2:44 PM EDT 04/05/2025 3:48 PM EDT us Jaison Mendez MD LAB BLOOD ORDERABLES Final R esult [facility] [address] [place] [address], [place] [phone] * MG Mammo Digital Screening w Valdemar bilat (10/29/2024 1:49 PM EST) Anatomical Region Laterality Modality Breast Bilateral Mammography 10/29/2024 3:12 PM EST Impressions 10/29/2024 3:36 PM EST No mammographic evidence of malignancy. No suspicious interval change. A negative mammogram in the presence of a clinically suspicious palpable abnormality does not preclude the possibility of malignancy or alter the indications for biopsy. ASSESSMENT: BI-RADS 1: NEGATIVE RECOMMENDATION(S): 1: Routine screening mammogram BILATERAL in 1 year. -------- FINAL REPORT -------- Dictated By: Den Larios Dictated Date: 10/29/2024 15:12 ET Assigned Physician: Den Larios Reviewed and Electronically Signed By: Den Larios Signed Date: 10/29/2024 15:36 ET Workstation ID: [id number] Transcribed By: Self Edit Transcribed Date: 10/29/2024 15:15 ET Narrative 10/29/2024 3:36 PM EST EXAM: SCREENING MAMMOGRAPHY, BILATERAL HISTORY: SCREENING. No additional history. COMPARISON: 08/27/2023, 06/28/2022 TECHNIQUE: Synthesized CC and MLO projections of each breast. Tomosynthesis of each breast in the CC and MLO projections. ADDITIONAL IMAGING: Craniocaudal view of each breast exaggerated toward the axilla using Tomosynthesis. Computer-aided detection was employed with the [email or web address] profound AI 3-D. TISSUE DENSITY: There are scattered areas of fibroglandular density. (BI-RADS category B) FINDINGS: RIGHT BREAST: No suspicious mass. No suspicious calcification. No distortion. No additional suspicious right breast findings LEFT BREAST: No suspicious mass. No suspicious calcification. No distortion. No additional suspicious left breast findings Procedure Note Den Larios MD - 10/29/2024 EXAM: SCREENING MAMMOGRAPHY, BILATERAL HISTORY: SCREENING. No additional history. COMPARISON: 08/27/2023, 06/28/2022 TECHNIQUE: Synthesized CC and MLO projections of each breast.Tomosynthesis of each breast in the CC and MLO projections. ADDITIONAL IMAGING: Craniocaudal view of each breast exaggerated towardthe axilla using Tomosynthesis. Computer-aided detection was employed with the [email or web address] profound AI 3-D. TISSUE DENSITY: There are scattered areas of fibroglandular density.(BI-RADS category B) FINDINGS: RIGHT BREAST: No suspicious mass. No suspicious calcification. No distortion. Noadditional suspicious right breast findings LEFT BREAST: No suspicious mass. No suspicious calcification. No distortion. Noadditional suspicious left breast findings IMPRESSION: No mammographic evidence of malignancy. No suspicious interval change. A negative mammogram in the presence of a clinically suspicious palpableabnormality does not preclude the possibility of malignancy or alter theindications for biopsy. ASSESSMENT: BI-RADS 1: NEGATIVE RECOMMENDATION(S): 1: Routine screening mammogram BILATERAL in 1 year. -------- FINAL REPORT -------- Dictated By: Den Larios Dictated Date: 10/29/2024 15:12 ET Assigned Physician: Den Larios Reviewed and Electronically Signed By: Den Larios Signed Date: 10/29/2024 15:36 ET Workstation ID: [id number] Transcribed By: Self Edit Transcribed Date: 10/29/2024 15:15 ET us Self Referral Sppl IMG BI PROCEDURES Final Resul t * Pap smear (11/05/2022) 11/05/2022 Narrative HISTORICAL TESTING LAB RESULTING AGENCY - 11/18/2022 7:41 AM EST [id number] THINPREP PAP: NEGATIVE FOR SQUAMOUS INTRAEPITHELIAL LESION AND MALIGNANCY . NOTE: THIS PAP TEST COULD NOT BE IMAGED UTILIZING THE IMAGING SYSTEM AND REQUIRED MANUAL REVIEW. KOLE RICHARDSON(ASCP) (CASE ELECTRONICALLY SIGNED 11 16 2022) RESULT OF APTIMA HIGH RISK HPV ASSAY: HIGH RISK HPV: NEGATIVE (SEROTYPES 16,18,31,33,35,39,45,51,52,56,58,59,66,68) COMPLETED ON 2022-11-08 ADEQUACY: SATISFACTORY ENDOCERVICAL/TRANSFORMATION ZONE COMPONENT ABSENT. SOURCE: THINPREP PAP HPV ANY DX: REFLEX 16 AND 18, CERVICAL CLINICAL INFORMATION: HPV ANY DIAGNOSIS. HORMONES, PAP HX NEGATIVE 2019, LMP 11/01/22, [Z01.419] us Katie SANTOS LAB CYTOLOGY ORDERABLES Final Result HISTORICAL TESTING LAB RESULTING AGENCY from Last 3 Months or Most Recently Relevant to Health Maintenance Insurance [facility] Advance Directives Documents on File Type Date Recorded Patient Tawer Expl anation Health Care Decision (hx) 10/02/2022 AD LEMONS DIRECTIVE Health Care Decision (hx) 10/02/2022 AD LEMONS DIRECTIVE Health Care Decision (hx) 10/02/2022 AD LEMONS DIRECTIVE Health Care Decision (hx) 10/02/2022 AD LEMONS DIRECTIVE Health Care Decision (hx) 10/02/2022 AD LEMONS DIRECTIVE Health Care Decision (hx) 10/02/2022 AD LEMONS DIRECTIVE Health Care Decision (hx) 10/02/2022 AD LEMONS DIRECTIVE Health Care Decision (hx) 10/02/2022 AD LEMONS DIRECTIVE Health Care Decision (hx) 10/02/2022 AD LEMONS DIRECTIVE Health Care Decision (hx) 10/02/2022 AD LEMONS DIRECTIVE Health Care Decision (hx) 10/02/2022 AD LEMONS DIRECTIVE Health Care Decision (hx) 10/02/2022 AD LEMONS DIRECTIVE Health Care Decision (hx) 10/02/2022 AD LEMONS DIRECTIVE Health Care Decision (hx) 10/02/2022 AD LEMONS DIRECTIVE Health Care Decision (hx) 10/02/2022 AD LEMONS DIRECTIVE Health Care Decision (hx) 10/02/2022 AD LEMONS DIRECTIVE Health Care Decision (hx) 10/02/2022 AD LEMONS DIRECTIVE Health Care Decision (hx) 10/02/2022 AD LEMONS DIRECTIVE Health Care Decision (hx) 10/02/2022 AD LEMONS DIRECTIVE Health Care Decision (hx) 10/02/2022 AD LEMONS DIRECTIVE Health Care Decision (hx) 10/02/2022 AD LEMONS DIRECTIVE Health Care Decision (hx) 10/02/2022 AD LEMONS DIRECTIVE Health Care Decision (hx) 10/02/2022 AD LEMONS DIRECTIVE Health Care Decision (hx) 10/02/2022 AD LEMONS DIRECTIVE Health Care Decision (hx) 10/02/2022 AD LEMONS DIRECTIVE Health Care Decision (hx) 10/02/2022 AD LEMONS DIRECTIVE Health Care Decision (hx) 10/02/2022 AD LEMONS DIRECTIVE Health Care Decision (hx) 10/02/2022 AD LEMONS DIRECTIVE Health Care Decision (hx) 10/02/2022 AD LEMONS DIRECTIVE Health Care Decision (hx) 10/02/2022 AD LEMONS DIRECTIVE Health Care Decision (hx) 10/02/2022 AD LEMONS DIRECTIVE Health Care Decision (hx) 10/02/2022 AD LEMONS DIRECTIVE Health Care Decision (hx) 10/02/2022 AD LEMONS DIRECTIVE Health Care Decision (hx) 10/02/2022 AD LEMONS DIRECTIVE Health Care Decision (hx) 10/02/2022 AD LEMONS DIRECTIVE Health Care Decision (hx) 10/02/2022 AD LEMONS DIRECTIVE Health Care Decision (hx) 10/02/2022 AD LEMONS DIRECTIVE Care Teams Camp Attendant Relationship Specialty Start Date End Date Sherly Donald MD [address] [place] [address] PCP - General Internal Medicine 05/29/21
--- OUTSIDE RECORDS SUMMARY | 2025-07-05 17:34 | XMS_ITS ---
Author Organization [facility] Address [address] [place] [address] Phone Care Team Providers Care Crew Manager Name Role Phone Sherly Donald MD Primary Care Provider [phone] [phone] Active Problems Problem Noted Date Diagnosed Date Multiple pulmonary nodules 12/14/2024 Overview (12/14/2024): -Also seen: New non enlarged mildly FDG avid Right lower quadrant lymph node in the mesentery -Seen in Pet CT scan done at [place] 10-28-24: bilateral FDG avid pulmonary nodules, new from PET/CT December 2023 suspicious for metastatic disease. No FDG avid thoracic lymphadenopathy Chronic low back pain 09/29/2024 Hypercholesterolemia 09/29/2024 Malignant neoplasm of colon (CMS/HCC V24, CMS/HC C V28) 09/29/2024 Overview (09/29/2024): s/p chemotherapy [...] anxiety depressive disorder 09/29/2024 Overview (09/29/2024): 04/17/12- [facility], sees both psych and therapist, whose name is Franci therapist in [place] [facility] 09/29/2024 Overview (09/29/2024): -2ary to chemotherapy [...] Followed by PCP/Vein specialist, reports multiple surgeries Current Oncology Plans CENTRAL VENOUS ACCESS ( CVA ) MAINTENANCE / BLOOD DRAW / CATHETER CLEARANCE / DRESSING CHANGE / FLUSH* Plan Start Date:01/19/2025 Plan Provider:Jaison Mendez MD Linked Problems Malignant neoplasm of spleni c flexure (CMS/HCC V24, CMS/HCC V28) Treatment Medications No medications scheduled. Past Plans No past plan information found. Radiation Treatments * No radiation treatments are documented for this patient in [facility]. Treatments may have been administered in another system. Resolved Problems Problem Noted Date Diagnosed Date Resolved Date Abnormal Pap smear of cervix 06/05/2017 12/16/2024 Overview (12/29/2023): 05/07/2016 PAP Unsatisfactory cytology, + HPV, Neg 16, Neg 18/45 06/05/2017 PAP Neg cytology, neg HPV Repeat co-testing 3 yrs
--- OUTSIDE RECORDS SUMMARY | 2025-07-05 17:35 | XMS_ITS | Encounter Summary ---
Author Organization [facility] Address [address] [place] [address] Care Team Providers Care Reception Manager Name Role Phone Sherly Donald MD Primary Care Provider [phone] Encounter Details Date Type Department Care Team (Late Contact Info) Description 02/07/2025 Lab Requisition [facility] - Main Lab [address] [place] [id number] Jorge Anderson MD [address] [place] [address] Microscopic colitis, unspecified Social History Tobacco Use Types Packs/Day Years [...] PM EST documented as of this encounter Plan of Treatment Upcoming Encounters Date Type Department Care Team (Late Contact Info) Description 07/19/2025 11:15 AM EDT Office Visit [facility] Hematology Oncology [address] [place] [phone] Jaison Mendez MD [address] [place] [address] documented as of this encounter Procedures Procedure Name Priority Date/Time Associated Diagnosis Comments HISTORICAL SURGICAL PATHOLOGY CASE Routine 02/07/2025 11:53 AM EDT Microscopic colitis, unspecified documented in this encounter Results * Historical Pathology Case (02/07/2025 11:53 AM EDT) Final Diagnosis This case was created to document slides being sent to another institution from an historical case accessioned in our prior laboratory information system. No additional diagnosis is rendered by this institution at this time. The outside institution's report is available upon request. 05/11/2025 1:33 PM EDT [facility] Clinical Information Historical slide request for [facility] ([facility]) [id number] & [id number] 05/11/2025 1:33 PM EDT [facility] Gross Description A. 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 Cabello slides ([id number] (23) and [id number] (8) sent: [facility] - path processing ([facility]) [address] [place] [address] FEDEX #[id number] 01/25/24 [place] -- received a second request for a block At the request of Dr. Cabello [phone] Block A1 sent /KK [employer] Tracking #: [id number] 05/11/2025 1:33 PM EDT EXTERNAL LAB (NON-INTERFAC ED) Disclaimer Unless otherwise specified, all tissue is 10% NB formalin fixed and paraffin embedded. 05/11/2025 1:33 PM EDT [facility] Tissue Colon structure / Unknown 02/07/2025 11:53 AM EDT 02/07/2025 11:54 AM EDT us Jorge Anderson MD LAB PATHOLOGY ORDERABLES Fi nal Result [facility] [address] [place] [address], EXTERNAL LAB (NON-INTERFACED) documented in this encounter Visit Diagnoses Diagnosis Microscopic colitis, unspecified documented in this encounter Care Teams Reception Manager Relationship Specialty Start Date End Date Sherly Donald MD [address] [place] [address] PCP - General Internal Medicine 05/29/21 documented as of this encounter
--- OUTSIDE RECORDS SUMMARY | 2025-07-05 17:35 | XMS_ITS | Encounter Summary ---
Author Organization [facility] Address [address] [place] [address] Care Team Providers Care Celery Cutter Name Role Phone Unavailable Primary Care Provider Unavailabl e Reason for Visit * Reason Onset Date Comments Appointment 07/01/2025 Referral 07/01/2025 Self-referral Encounter Details Date Type Department Care Team ([facility] Contact Info) Description 07/01/2025 Telephone [facility] [address] [place] [address] [phone] Obtain, Unable To Appointment; Referral (Self-referral) Social History Tobacco Use Types Packs/Day Years Used Date Smoking Tobacco: Never Assessed Comments Unknown Sex and Gender Information Value Date Recorded Sex Assigned at Not on file Legal Sex Female 11:37 AM EDT Gender Identity Not on file Sexual Orientation Not on file documented as of this encounter Miscellaneous Notes * Telephone Encounter - Neetu Rojas - 07/01/2025 11:39 AM EDT Received call from: Contacts Contact Date/Time Type Contact Phone/Fax 07/01/2025 11:39 AM EDT Phone (Incoming) Oscar Nieves (Self) [phone] (M) Referring provider is self-referral Referring provider office # Dr. Jaison Mendez at [facility] [place] [address] Phone: tel: fax: gave her the okay to check on her own for trials as there isn't anything for her in her area. DX is Colon Cancer Reason for referral interest in the following trials or any others Chelo may have: NCT [id number], NCT [id number], NCT [id number], NCT [id number] Was a referral entered for patient-Yes Did you request for patient records to be faxed Yes, in CareEverywhere Best telephone number for call back: [phone] Best time to return call: No particular time of day Permission to leave message: Yes *Patient is bahamian speaking and aware we are in [place] and is willing to travel. documented in this encounter Plan of Treatment Not on file documented as of this encounter Visit Diagnoses Not on filedocumented in this encounter
--- OUTSIDE RECORDS SUMMARY | 2025-07-05 17:35 | XMS_ITS | Clinical Summary ---
Author Organization [address] Address [address] [place] [phone] Care Team Providers Care Ediphone Operator Name Role Phone Unavailable Primary Care Provider Unavailabl e Encounters Date Type Department Care Team Description 07/01/2025 Telephone [facility] [address] [place] [address] [phone] Obtain, Unable To Appointment; Referral (Self-referral) from Last 3 Months Social History Tobacco Use Types Packs/Day Years Used Date Smoking Tobacco: Never Assessed Comments Unknown Sex and Gender Information Value Date Recorded Sex Assigned at Not on file Legal Sex Female 11:37 AM EDT Gender Identity Not on file Sexual Orientation Not on file Plan of Treatment Health Maintenance Due Date Last Done Comments HIV screening 1994 Hepatitis C screening 1999 Lipid disorder screening 2021 Tetanus adult (Td q 10,TDAP once) 05/11/2025 05/11/2015 Influenza vaccine 05/20/2025 09/16/2023, , 10/17/2021, Additional history exists Covid-19 vaccine series ( season) 2025 02/06/2022, 07/18/2021, 06/05/2021 Breast cancer screening 10/29/2026 10/29/2024, 10/29 Cervical cancer screening 11/05/2027 11/05/2022 RSV Immunization (1 - 1-dose 75+ series) 2056 Meningococcal Vaccine Aged Out 05/29/2021 No lesly lara eligible based on patient's age to complete this topic Pneumococcal Vaccine (2 - 49 years) Aged Out 05/29/2021, 12/25/2020 No longer eligibl e based on patient's age to complete this topic Meningococcal B Vaccine Aged Out No l onger eligible based on patient's age to complete this topic
--- OUTSIDE RECORDS SUMMARY | 2025-07-05 17:35 | XMS_ITS | Encounter Summary ---
Author Organization [facility] Address [address] [place] [address] Care Team Providers Care Oracle Applications Analyst Name Role Phone Sherly Donald MD Primary Care Provider [phone] [phone] Encounter Details Date Type Department Care Team (Late st Contact Info) Description 07/05/2025 Telephone [facility] Hematology Oncology [address] [place] [address] Moon Contreras [place] Social History Tobacco Use Types Packs/Day Years [...] PM EST documented as of this encounter Progress Notes * Pravin Estrada MA - 07/05/2025 2:35 PM EDT Pt will not be receiving oxycontin 30 per insurance. I spoke with pharmacy and resent fentranyl 50 mcg/hr and oxycodone IR 10 mg. * Moon Contreras MA - 07/05/2025 1:56 PM EDT Patient calling for refill on oxycodone 30 and fentanyl patch - patient states she went to pharmacyyesterday and was told there was nothing there for her. Patient asks that if there is a problem with her insurance approving the oxycodone 30 that if she can get 10 mg to help with the pain. documented in this encounter Plan of Treatment Upcoming Encounters Date Type Department Care Team (Late st Contact Info) Description 07/19/2025 11:15 AM EDT Office Visit [facility] Hematology Oncology [address] [place] [address] Jaison Mendez MD [address] [place] [address] documented as of this encounter Visit Diagnoses Not on filedocumented in this encounter Care Teams Oracle Applications Analyst Relationship Specialty Start Date End Date hSerly Donald MD [address] [place] [address] PCP - General Internal Medicine 05/29/21 documented as of this encounter
--- OUTSIDE RECORDS SUMMARY | 2025-07-05 17:35 | XMS_ITS | Clinical Summary ---
Author Organization [facility] Address [address] [facility] [address] [place] [address] Phone Care Team Providers Care Specification Manager Name Role Phone Sherly Hernández MD Primary Care Provider [phone] Self-Referred, Patient Unavailable Unavailab Castro Adam MD Unavailable [phone] Ying Salgado RN Unavailable [email or web address] Allergies No known active allergies Medications traMADoL (ULTRAM) 50 mg tablet Take 50 mg by mouth every 6 (six) hours as needed for pain (specific location in comments). 12/01/2023 Active senna (SENOKOT) 8.6 mg tablet Take 1 tablet by mouth nightly at bedtime. 12/01/2023 Active polyethylene glycol (MIRALAX) 17 gram packet Take 17 g by mouth daily. 09/01/2023 Active oxyCODONE 5 MG immediate release tablet Take 5 mg by mouth every 4 (four) hours as needed for pain (specific location in comments). 02/13/2024 Active ondansetron (ZOFRAN) 8 MG tablet Take 8 mg by mouth every 8 (eight) hours as needed. 09/01/2023 Active norethindrone (MICRONOR) 0.35 mg tablet Take 1 tablet by mouth daily. Active mirtazapine (REMERON) 45 MG tablet Take 45 mg by mouth nightly at bedtime. at bedtime. Active gabapentin (NEURONTIN) 300 MG capsule Take 300 mg by mouth 2 (two) times a day. 01/26/2025 Active diclofenac sodium (VOLTAREN) 75 MG EC tablet Take 75 mg by mouth 2 (two) times a day. 12/24/2023 Active clonazePAM (KLONOPIN) 0.5 MG tablet Take 0.5 mg by mouth 2 (two) times a day as needed. 08/12/2024 Active buPROPion (WELLBUTRIN XL) 300 MG ER 24 hr tablet Take 300 mg by mouth every morning. Active ascorbic acid, vitamin C, (VITAMIN C) 500 MG tablet Take 500 mg by mouth daily. Active acetaminophen (TYLENOL) 325 mg tablet Take 650 mg by mouth every 6 (six) hours as needed for pain (specific location in comments). 03/29/2024 Active Active Problems Patient Care Coordination No te Formatting of this note migh t be different from the original. Ying Problem Noted Date Diagnosed Date Steatosis of liver 01/31/2025 Overview (01/31/2025): -seen in [place] 2016 Severe obesity (BMI 35.0-39.9) with comorbidity 09/29/2024 Prediabetes 09/29/2024 Varicose veins of bilateral lower extremities wi th pain 11/29/2008 Overview (01/31/2025): 06/05/2017 Pt reports Followed by PCP/Vein specialist, reports multiple surgeries Family History Medical History Relation Comments Colon cancer Maternal Grandmother Relation Status Comments Maternal Grandmother Social History Tobacco Use Types Packs/Day Years Used Date Smoking Tobacco: Never Smokeless Tobacco: Never Tobacco Cessation:Counseling Given: Not Answered Education Answer Date Recorded Are you interested in more education? Not on nola e 12/29/2024 Are you concerned about learning? Not on file 12/29/2024 No 12/29/2024 No 12/29/2024 Digital Access Answer Date Recorded No 12/29/2024 No 12/29/2024 Reliable internet access at home? Not on file 12/29/2024 Device with a working camera? Not on file Comments Unknown Sex and Gender Information Value Date Recorded Sex Assigned at Female 07/02/2021 3:47 PM EDT Legal Sex Female 3:36 PM EDT Gender Identity Female 07/02/2021 3:47 PM EDT Sexual Orientation Straight 07/02/2021 3: 47 PM EDT Last Filed Vital Signs Vital Sign Reading Time Taken Comments Blood Pressure 104/61 01/31/2025 11:20 AM EDT Pulse 80 01/31/2025 11:20 AM EDT Temperature 36.6 C (97.9 F) 01/31/2025 11:21 AM EDT Respiratory Rate 18 01/31/2025 11:2 0 AM EDT Oxygen Saturation 96% 01/31/2025 11: 20 AM EDT Inhaled Oxygen Concentration - - Weight 127.4 kg (280 lb 13.9 oz) 2024 11:20 AM EDT Height 182.2 cm (5' 11.73 ) 01/31/2025 11:20 AM EDT Body Mass Index 38.38 01/31/2025 11:20 AM EDT Plan of Treatment Health Maintenance Due Date Last Done Comments Adult Td,Tdap Booster 1981 DEPRESSION SCREENING 1993 HEPATITIS C SCREENING 1999 HIV ONE-TIME SCREENING (18-65 YEARS) 1999 SCREENING FOR DIABETES 2016 INFLUENZA VACCINE (#1) 2025 , 10/10/2022, 10/17/2021 COVID-19 VACCINE ( season) 2025 09/16/2023, 10/08/2022, 02/06/2022, Additional history exists PAP SMEAR 11/05/2025 11/05/2022 PNEUMOCOCCAL VACCINES (0-49 years) (3 of 3 - PPSV23, PCV20 or PCV21) 12/25/2025 05/29/2021, 12/25/2020 MAMMOGRAM 10/29/2026 10/29/2024, 10/20, 10/29/2024, Additional history exists HIB VACCINES Aged Out 05/29/2021 No longer eligi ble based on patient's age to complete this topic MENINGOCOCCAL VACCINES (ACWY) Aged Out 05/29/2021 No longer eligible based on patient's age to complete this topic SMOKING STATUS SCREENING (Once After 26 Yrs) Completed 02/01/2025 HEPATITIS A VACCINES Aged Out No long er eligible based on patient's age to complete this topic MENINGOCOCCAL VACCINES (B) Aged Out N o longer eligible based on patient's age to complete this topic Medical Devices Not on file Procedures Procedure Name Priority Date/Time Associated Diagnosis Comments OUTSIDE LAB 05/18/2025 BI MAMMOGRAM OUTSIDE (NO INTERPRETATION) Routine 10/29/2024 12:00 AM EST from Last 3 Months or Most Recently Relevant to Health Maintenance Results * Outside Lab (05/18/2025) us Scanning Interface Provider LAB BLOOD ORDERABLES Final Result * Mammogram Outside (No Interpretation) (10/29/2024 12:00 AM EST) Other Narrative ALPHONSE - 01/24/2025 11:10 AM EDT This study is for PACS storage only and not for interpretation. us Castro Cabello MD IMStephanie OUTSIDE IMAGING W/OUT INT ERPRETATION Final Result Performing Organization Address City/State/[facility] Co de Phone Number RONDA_FERNIEH from Last 3 Months or Most Recently Relevant to Health Maintenance Insurance ACO ACO ACO ACO ACO ACO Care Teams Specification Manager Relationship Specialty Start Date End Date Sherly Hernández MD PCP - General 12/20/24 Self-Referred, Patient 01/14/25 Castro Cabello MD [address] [place] [phone] [email or web address] Medical Oncology 01/17/25 Ying Salgado, DIXIE [address] [place] [address] [email or web address] Registered Nurse 01/26/25 Additional Source Comments The information contained in this document represents components of the legal health record. It is not the complete legal health record.[facility]
--- OUTSIDE RECORDS SUMMARY | 2025-07-05 17:35 | XMS_ITS | Encounter Summary ---
Author Organization [facility] Address [address] [place] [address] Care Team Providers Care Production Team Leader Name Role Phone Sherly Donald MD Primary Care Provider [phone] Reason for Visit * Reason Comments Follow-up Encounter Details Date Type Department Care Team (Late Contact Info) Description 07/01/[address] [address] Shade Worrell LMSW Social History Tobacco Use Types Packs/Day Years [...] as of this encounter Progress Notes * Shade Worrell LMSW - 07/01/2025 10:47 AM EDT Progress Note: SW spoke with patient today for ongoing support.Patient requested a letter w/diagnosis for increment of [employer] hrs. ALIX explained process to follow. Beverly Worrell LMSW Petroleum Engineer . [facility] documented in this encounter Plan of Treatment Upcoming Encounters Date Type Department Care Team (Late Contact Info) Description 07/19/2025 11:15 AM EDT Office Visit [facility] Hematology Oncology [address] [place] [address] Jaison Mendez MD [address] [place] [address] documented as of this encounter Visit Diagnoses Not on filedocumented in this encounter Care Teams Production Team Leader Relationship Specialty Start Date End Date Sherly Donald MD [address] [place] [address] PCP - General Internal Medicine 05/29/21 documented as of this encounter
== END 2025-07-05 15:05 | disposition home or self-care (01) ==
LOC: HO.HMCFMS 13:42
PROVIDERS: PCP Student in an Organized Health Care Education/Training Program; Visit Provider Student in an Organized Health Care Education/Training Program
DX: C18.9 Malignant neoplasm of colon, unspecified (principal); C78.00 Secondary malignant neoplasm of unspecified lung; Z92.21 Personal history of antineoplastic chemotherapy

== ENCOUNTER → 2025-07-05 13:42 | Outpatient (BNVA) | payer OTHER, SELFPAY | PROVIDERS: PCP Family Medicine; Visit Provider Student in an Organized Health Care Education/Training Program | DX: Z76.89 Persons encountering health services in other specified circumstances (principal); C18.9 Malignant neoplasm of colon, unspecified; C78.00 Secondary malignant neoplasm of unspecified lung; Z79.891 Long term (current) use of opiate analgesic; Z79.899 Other long term (current) drug therapy; Z92.21 Personal history of antineoplastic chemotherapy; Z13.31 Encounter for screening for depression; Z13.39 Encounter for screening examination for other mental health and behavioral disorders | CPT/HCPCS: 99202 ==

== ENCOUNTER 2025-07-11 10:00 | Outpatient (REF) | payer OTHER, SELFPAY ==
--- OUTSIDE RECORDS SUMMARY | 2024-07-29 15:38 | XMS_ITS | Encounter Summary ---
Author Organization [employer] Address [address] [place] [address] Care Team Providers Care Insurance Territory Manager Name Role Phone Sherly Donald MD Primary Care Provider [phone] [phone] Encounter Details Date Type Department Care Team [...] Description 07/19/2025 11:15 AM EDT Office Visit [facility] Hematology Oncology [address] [place] [address] Jaison Mendez MD [address] [place] [address] documented as of this encounter Visit Diagnoses Not on filedocumented in this encounter Care Teams Insurance Territory Manager Relationship Specialty Start Date End Date Sherly Donald MD [address] [place] [address] PCP - General Internal Medicine 05/29/21 documented as of this encounter
--- OUTSIDE RECORDS SUMMARY | 2025-07-11 12:16 | XMS_ITS | Clinical Summary ---
Author Organization [facility] Address [address] [facility] [address] [place] [phone] Phone Care Team Providers Care Reference Investigator Name Role Phone Sherly Hernández MD Primary Care Provider [phone] Self-Referred, Patient Unavailable Unavailab Castro Adam MD Unavailable [phone] Ying Salgado RN Unavailable [email or web address] [...] INT ERPRETATION Final Result Performing Organization Address City/State/[facility] Co de Phone Number RONDA_FERNIEH from Last 3 Months or Most Recently Relevant to Health Maintenance Insurance ACO ACO ACO ACO ACO ACO Care Teams Reference Investigator Relationship Specialty Start Date End Date Sherly Hernández MD PCP - General 12/20/24 Self-Referred, Patient 01/14/25 Castro Cabello MD [address] [place] [address] [email or web address] Medical Oncology 01/17/25 Ying Salgado, DIXIE [address] [place] [phone] [email or web address] Registered Nurse 01/26/25 Additional Source Comments The information contained in this document represents components of the legal health record. It is not the complete legal health record.[facility]
--- OUTSIDE RECORDS SUMMARY | 2025-07-11 12:16 | XMS_ITS | Encounter Summary ---
Author Organization [facility] Address [address] [place] [phone] Care Team Providers Care Process Excellence Manager Name Role Phone Unavailable Primary Care Provider Unavailabl e Reason for Visit * Reason Onset Date Comments Appointment 07/01/2025 Referral 07/01/2025 Self-referral Encounter Details Date Type Department Care Team ([facility] Contact Info) Description 07/01/2025 Telephone [facility] [address] [place] [phone] Obtain, Unable To Appointment; Referral (Self-referral) Social History Tobacco Use Types Packs/Day Years Used Date Smoking Tobacco: Never Assessed Comments Unknown Sex and Gender Information Value Date Recorded Sex Assigned at Not on file Legal Sex Female 11:37 AM EDT Gender Identity Not on file Sexual Orientation Not on file documented as of this encounter Miscellaneous Notes * Telephone Encounter - Jessika Stoner RN - 07/07/2025 12:05 PM EDT Returned call to Oscar. Discussed specific trial inquiries:NCT [id number] for PDAC tx naive pt's, NCT [id number] hold by sponsor, NCT [id number] & NCT [id number]- not available at this site. Briefly discussed there potentially could be trials she maybe eligible for, but would need in-person evaluation. Pt is not on treatment-does not want chemo. Last scans 10/2024. Guardant report available in media tab. My chart sign up link sent. Will call pt for RN new pt intake closer to appointment. * Telephone Encounter - Neetu Rojas - 07/01/2025 11:39 AM EDT Received call from: Contacts Contact Date/Time Type Contact Phone/Fax 07/01/2025 11:39 AM EDT Phone (Incoming) Oscar Nieves (Self) [phone] (M) Referring provider is self-referral Referring provider office # Dr. Jaison Mendez at [facility] [place] [address] Phone: tel: fax: gave her the okay to check on her own for trials as there isn't anything for her in her area. DX is Colon Cancer Reason for referral interest in the following trials or any others [facility] may have: NCT [id number], NCT [id number], NCT [id number], NCT [id number] Was a referral entered for patient-Yes Did you request for patient records to be faxed Yes, in CareEverywhere Best telephone number for call back: [phone] Best time to return call: No particular time of day Permission to leave message: Yes *Patient is [place] speaking and aware we are in [place] and is willing to travel. documented in this encounter Plan of Treatment Upcoming Encounters Date Type Department Care Team ([facility] st Contact Info) Description 07/20/2025 10:45 AM EDT [facility] [address] [address] 07/20/2025 11:00 AM EDT Office Visit [facility] [address] [address] Gage Hussein MD [address] [place] [address] documented as of this encounter Visit Diagnoses Not on filedocumented in this encounter
--- OUTSIDE RECORDS SUMMARY | 2025-07-11 12:16 | XMS_ITS | Encounter Summary ---
Author Organization [facility] Address [address] [place] [address] Care Team Providers Care Tube Machine Operator Helper Name Role Phone Sherly Donald MD Primary Care Provider [phone] Encounter Details Date Type Department Care Team (Late Contact Info) Description 02/07/2025 Lab Requisition [facility] - Main Lab [address] [place] [phone] Jorge Anderson MD [address] [place] [address] Microscopic colitis, unspecified Social History Tobacco Use [...] Description 07/19/2025 11:15 AM EDT Office Visit [facility] Hematology Oncology [address] [place] [phone] Jaison Mendez MD [address] [place] [address] documented as of this encounter Procedures Procedure [...] available upon request. 05/11/2025 1:[address] [facility] Clinical Information Historical slide request for [facility] ([facility]) [id number] & [id number] 05/11/2025 1:[address] [facility] Gross Description A. 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 Cabello slides ([id number] ([id number]) and [id number] (8) sent: [facility] - path processing ([facility]) [address] [place] [address] FEDEX #[id number] 01/25/24 [place] -- received a second request for a block At the request of Dr. Cabello [phone] Block A1 sent /KK [employer] Tracking #: [id number] 05/11/2025 1:33 PM EDT EXTERNAL LAB (NON-INTERFAC ED) Disclaimer Unless otherwise specified, all tissue is 10% NB formalin fixed and paraffin embedded. 05/11/2025 1:[address] [facility] Tissue Colon structure / Unknown 02/07/2025 11:53 AM EDT 02/07/2025 11:54 AM EDT us Jorge Anderson MD LAB PATHOLOGY ORDERABLES Fi nal Result [facility] [address] [place] [address], EXTERNAL LAB (NON-INTERFACED) documented in this encounter Visit Diagnoses Diagnosis Microscopic colitis, unspecified documented in this encounter Care Teams Tube Machine Operator Helper Relationship Specialty Start Date End Date Sherly Donald MD [address] [place] [address] PCP - General Internal Medicine 05/29/21 documented as of this encounter
--- OUTSIDE RECORDS SUMMARY | 2025-07-11 12:16 | XMS_ITS | Clinical Summary ---
Author Organization [address] Address [address] [place] [address] Care Team Providers Care Inside Plant Supervisor Name Role Phone Unavailable Primary Care Provider Unavailabl e Encounters Date Type Department Care Team Description 07/01/2025 Telephone [facility] [address] [place] [phone] Obtain, Unable To Appointment; Referral (Self-referral) from Last 3 Months Social History Tobacco Use Types Packs/Day Years Used Date Smoking Tobacco: Never Assessed Comments Unknown Sex and Gender Information Value Date Recorded Sex Assigned at Not on file Legal Sex Female 11:37 AM EDT Gender Identity Not on file Sexual Orientation Not on file Plan of Treatment Upcoming Encounters Date Type Department Care Team ([facility] st Contact Info) Description 07/20/2025 10:45 AM EDT Clinical Support [facility] I INFUSION [address] [place] [phone] 07/20/2025 11:00 AM EDT Office Visit [facility] I CLINIC [address] [place] [phone] Gage Hussein MD [address] [place] [phone] Health Maintenance Due Date Last Done Comments [...]
--- OUTSIDE RECORDS SUMMARY | 2025-07-11 12:16 | XMS_ITS | Clinical Summary ---
Author Organization [facility] Address [address] [place] [address] Care Team Providers Care Manufacturing Operator Name Role Phone Sherly Donald Primary Care Provider Allergies No known active allergies Medications Medication Sig Dispensed Refills Start Date End Date Status ascorbic acid (VITAMIN C) 500 MG tablet Take 1 tablet (500 mg total) by mouth daily. 0 Active polyethylene glycol (MiraLax) 17 g packet Take 17 g by mouth daily. 14 each 5 09/01/2023 Active ondansetron (ZOFRAN) 8 MG tablet Take 1 tablet (8 mg total) by mouth every 8 (eight) hours as needed for nausea. 20 tablet 3 09/01/2023 Active mirtazapine (REMERON) 7.5 MG tablet Take 1 tablet (7.5 mg total) by mouth every night at bedtime. 0 Active traMADol (ULTRAM) 50 MG tablet Take 50 mg by mouth every 6 (six) hours as needed for pain. 30 tablet 0 12/01/2023 Active senna (SENOKOT) 8.6 MG TABS tablet Take 1 tablet (8.6 mg total) by mouth every night at bedtime. 120 tablet 0 12/01/2023 Active oxyCODONE (ROXICODONE) 5 MG immediate release tablet Take 1 tablet (5 mg total) by mouth every 4 (four) hours as needed for pain. 70 tablet 0 03/29/2024 Active acetaminophen (TYLENOL) 325 MG tablet Take 2 tablets (650 mg total) by mouth every 6 (six) hours as needed for pain. 120 tablet 4 03/29/2024 Active gabapentin (NEURONTIN) 300 MG capsule Take 1 capsule (300 mg total) by mouth 2 (two) times a day. 0 Active methocarbamol (ROBAXIN) 500 MG tablet Take 1 tablet (500 mg total) by mouth 2 (two) times a day. 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 06/05/2017 Overview: 06/05/2017 Pt reports Followed by PCP/Vein specialist, reports multiple surgeries Family History Medical History Relation Name Comments Cancer Maternal Grandmother Colon Relation Name Status Comments Maternal Grandmother Social History Tobacco Use Types Packs/Day Years Used Date Smoking Tobacco: Never Smokeless Tobacco: Never Alcohol Use Standard Drinks/Week Comments Yes 0 (1 standard drink = 0.6 oz pur e alcohol) Sex and Gender Information Value Date Recorded Sex Assigned at Female 06/05/2022 10:03 AM EDT Gender Identity Not on file Sexual Orientation Not on file Job Start Date Occupation Industry Not on file Not on file Not on file Last Filed Vital Signs Vital Sign Reading Time Taken Comments Blood Pressure 107/52 08/02/2024 11:39 AM EDT Pulse 75 08/02/2024 11:39 AM EDT Temperature 36 C (96.8 F) 08/02/2024 11:39 AM EDT Respiratory Rate - - Oxygen Saturation 100% 08/02/2024 11: 39 AM EDT Inhaled Oxygen Concentration - - Weight 130.7 kg (288 lb 3.2 oz) 024 11:39 AM EDT Height 180.3 cm (5' 11 ) 03/29/2024 10: 28 AM EDT Body Mass Index 40.2 03/29/2024 10:28 AM EDT Plan of Treatment Health Maintenance Due Date Last Done Comments Hepatitis B Vaccines (1 of 3 - 3-dose series) 1981 Hepatitis C Screening 1981 Depression Screening 1993 BMI Counseling 1999 Preventative Health Evaluation 1999 Cervical Cancer Screening (Pap Smear) 2002 DTap / Tdap / Td (2 - Td or Tdap) 05/11/2025 05/11/2015 COVID-19 Vaccine (4 - season) 2025 02/06/2022, 07/18/2021, 06/05/2021 Influenza Vaccine (#1) 2025 , 09/01/2018, 08/22/2017, Additional history exists Pneumococcal Vaccine (3 of 3 - PPSV23 or PCV20) 12/25/2025 05/29/2021, 12/25/2020 RSV Ped < 20 months Aged Out No longe r eligible based on patient's age to complete this topic Care Teams Manufacturing Operator Relationship Specialty Start Date End Date Sherly Donald [address] [place] [phone] PCP - General Internal Medicine 06/04/21
--- OUTSIDE RECORDS SUMMARY | 2025-07-11 12:16 | XMS_ITS ---
Author Organization [facility] Address [address] [place] [address] Phone Care Team Providers Care Fire Hydrant Operator Name Role Phone Sherly Donald MD Primary Care Provider [phone] Active Problems Problem Noted Date Diagnosed Date Multiple pulmonary nodules 12/14/2024 Overview (12/14/2024): -Also seen: New non enlarged mildly FDG avid Right lower quadrant lymph node in the mesentery -Seen in Pet CT scan done at [place] 10-28-24: bilateral FDG avid pulmonary nodules, new [...] therapist, whose name is Franci therapist in [place] [facility] 09/29/2024 Overview (09/29/2024): -2ary to chemotherapy [...] treatments are documented for this patient in [facility]. Treatments may have been administered in another system. Resolved Problems Problem Noted Date Diagnosed Date Resolved Date Abnormal Pap smear of cervix 06/05/2017 12/16/2024 Overview (12/29/2023): 05/07/2016 PAP Unsatisfactory cytology, + HPV, Neg 16, Neg 18/45 06/05/2017 PAP Neg cytology, neg HPV Repeat co-testing 3 yrs
--- OUTSIDE RECORDS SUMMARY | 2025-07-11 12:16 | XMS_ITS | Encounter Summary ---
Author Organization [facility] Address [address] [place] [address] Care Team Providers Care Head Coach Name Role Phone HernándezBenito Sherly Primary Care Provider [phone] Encounter Details Date Type Department Care Team Description 06/18/2021 Nurse Only [facility] Oncology Services [address] [place] [address] Rom Arboleda RN Social History Tobacco Use Types Packs/Day Years [...] file Not on file Not on file COVID-19 Exposure Response Date Recorded In the last month, have you been in contact with someone who was confirmed or suspected to have Coronavirus / COVID-19? No / Unsure 06/18/2021 1:27 PM EDT documented as of this encounter Progress Notes * Rom Arboleda RN - 06/18/2021 2:59 PM EDT Meet with patient and interrupter to explain process for oral chemotherapy and side effects. Scriptsent to [facility] RX awaiting out come. documented in this encounter Plan of Treatment Not on file documented as of this encounter Visit Diagnoses Not on filedocumented in this encounter Care Teams Head Coach Relationship Specialty Start Date End Date Sherly Donald [address] [place] [phone] PCP - General Internal Medicine 06/04/21 documented as of this encounter
--- OUTSIDE RECORDS SUMMARY | 2025-07-11 12:16 | XMS_ITS | Clinical Summary ---
Author Organization [facility], Address [address] [place] [address] Phone Care Team Providers Care Sustainability Officer Name Role Phone Sherly Donald Primary Care [...] Health Medicaid [facility] Medicaid Care Teams Sustainability Officer Relationship Specialty Start Date End Date Sherly Donald [address] [place] [address] PCP - General Internal Medicine 04/28/23
--- OUTSIDE RECORDS SUMMARY | 2025-07-11 12:16 | XMS_ITS | Clinical Summary ---
Author Organization [facility] Address [address] [place] [address] Phone Care Team Providers Care Education Analyst Name Role Phone Sherly Donald MD Primary Care Provider [phone] [phone] Allergies No known active allergies Medications acetaminophen [...] 15 DAYS. 30 tablet 05/09/20 25 Active oxyCODONE (OxyCONTIN) 30 mg 12 hr [...] mg 48 tablet 07/05/20 025 Active oxyCODONE (OxyCONTIN) 30 mg 12 hr abuse-deterrent tabletIndication s:Colon cancer metastasized to multiple sites (CMS/HCC V24, CMS/HCC V28),Pain management Take 1 tablet (30 mg total) by mouth every 12 (twelve) hours. Do not crush, chew, or split. Max Daily Amount: 60 mg 60 tablet 06/06/20 025 Discontinued(Re order) morphine (MS CONTIN) 60 mg 12 hr tablet Take 1 tablet (60 mg total) by mouth 2 (two) times a day. Do not crush, chew, or split. Max Daily Amount: 120 mg 60 tablet 06/07/20 oxyCODONE (ROXICODONE) 10 mg immediate release tablet [...] Daily Amount: 1 patch 10 patch 07/01/20 025 Discontinued(Re order) Active Problems Problem Noted Date Diagnosed Date Multiple pulmonary nodules 12/14/2024 Overview (12/14/2024): -Also seen: New non enlarged mildly FDG avid Right lower quadrant lymph node in the mesentery -Seen in Pet CT scan done at [place] 10-28-24: bilateral FDG avid pulmonary nodules, new [...] anxiety depressive disorder 09/29/2024 Overview (09/29/2024): 04/17/12- [facility], sees both psych and therapist, whose name is Franci therapist in [facility] 09/29/2024 Overview (09/29/2024): -2ary to chemotherapy Obstructive [...] Type Department Care Team Description 07/05/2025 Telephone [facility] Hematology Oncology [address] [place] [phone] Moon Contreras MA 07/01/2025 Social Work [facility] Infusion Center [address] [place] [phone] Shade Worrell LMSW 06/16/2025 2:30 PM EDT - 06/16/2025 11:59 PM EDT Hospital Encounter [facility] Infusion Center [address] [place] [phone] Jaison Mendez MD Malignant neoplasm of splenic flexure (CMS/HCC V24, CMS/HCC V28) Discharge Disposition: Home or Self Care 06/09/2025 Telephone [facility] Hematology Oncology [address] [place] [phone] Moon Contreras MA 06/06/2025 11:45 AM EDT Office Visit [facility] Hematology Oncology [address] [place] [phone] Jaison Mendez MD Colon cancer metastasized to multiple sites ([facility]/HCC V24, CMS/HCC V28) (Primary Dx); Pain management 05/26/2025 Telephone [facility] Hematology Oncology [address] [place] [phone] Jaison Mendez MD 05/17/2025 Telephone [facility] Hematology Oncology [address] [place] [phone] Moon Contreras [place] 05/11/2025 11:15 AM EDT Office Visit [facility] Hematology Oncology [address] [place] [phone] Jaison Mendez MD Metastatic malignant neoplasm, unspecified site (CMS/HCC V24, CMS/HCC V28) (Primary Dx); Malignant neoplasm of splenic flexure of colon (CMS/HCC V24, CMS/HCC V28) 05/04/2025 Telephone [facility] Hematology Oncology [address] [place] [phone] Moon Contreras [place] 04/21/2025 10:30 AM EDT Office Visit [facility] Hematology Oncology [address] [place] [phone] Jaison Mendez MD Metastatic colon cancer to liver (CMS/HCC V24, CMS/HCC V28) (Primary Dx); Colon cancer metastasized to lung ([facility]/HCC V24, CMS/HCC V28) 04/21/2025 Telephone [facility] Hematology Oncology [address] [place] [phone] Lena Mckee MA from Last 3 Months Immunizations Name Administration Dates Next Due HiB PRP-T conjugate (Acthib, Hiberix) 6wks and older 05/29/2021 Influenza Quadravalent, MDCK , 0.5ml, preservative free (Flucelvax) 6mo and older 09/16/2023,10/10/2022 Influenza Quadrivalent, 0.5m l, preservative free (Fluarix; FluLaval; Fluzone) ages 6mo and older (Afluria) 3yo and older 10/17/2021 Influenza trivalent, with pr eservative (Fluzone; Afluria) 6mo and older 09/01/2018,08/22/2017,08/16/2010,07/12 Meningococcal MCV4P 05/29/2021 [employer] (ages 12 & older) ROSARIO S-CoV-2 COVID-19, [...] extremeity venous surgeries VARICOSE VEIN SURGERY PROCEDURE: TX LIGJ DIVJ &/EXCJ VARICOSE VEIN CLUSTER 1 LEG OTHER SURGICAL HISTORY 05/18/2021 PROCEDURE: TX LAPAROSCOPY COLECTOMY PARTIAL W/ANASTOMOSIS; COMMENT: segmental colectomy with anastomosis, en bloc splenectomy, and en bloc distal pancreatectomy - to address adenocarcinoma of transverse colon (no jeronimo involvement or extension to spleen or distal pancreas) - Dr. Jorge Anderson [facility] OTHER SURGICAL HISTORY PROCEDURE: HISTORY OTHER; COMMENT: extended left hepatectomy, partial right hepatectomy, cholecystectomy @ [facility] Medical History Medical History Date [...] Description 07/19/2025 11:15 AM EDT Office Visit [facility] Hematology Oncology [address] [place] [phone] Jaison Mendez MD [address] [place] [address] Health Maintenance Due Date Last Done Comments [...] 12/25/2020 Breast Cancer Screening 10/29/2026 10/29/2024, 08/28 RSV Immunization Adult Patients (1 - 1-dose 75+ series) 2056 HIB Vaccines Aged Out 05/29/2021 No longer [...] neoplasm, unspecified site (CMS/HCC V24, CMS/HCC V28) MG MAMMO DIGITAL SCREENING W VALDEMAR BILAT Routine 10/29/2024 1:49 PM EST Encounter for screening mammogram for breast cancer PAP SMEAR Routine 11/05/2022 from Last 3 Months or Most Recently Relevant to Health Maintenance Results * CBC auto differential (06/16/2025 3:02 PM EDT) Only the most recent of2 resultswithin the time period is included. WBC 8.9 4.8 - 10.8 K/mcL LAB HEMETOLOGY METHOD 06/16/2025 4:45 PM EDT [facility] RBC 4.20 3.80 - 4.80 M/mcL LAB HEMETOLOGY METHOD 06/16/2025 4:45 PM EDT [facility] Hemoglobin 12.3 11.5 - 16.0 g/dL LAB HEMETOLOGY METHOD 06/16/2025 4:45 PM EDT [facility] Hematocrit 38.1 35.0 - 47.0 % LAB HEMETOLOGY METHOD 06/16/2025 4:45 PM EDT [facility] MCV 90.1 79.0 - 98.0 FL LAB HEMETOLOGY METHOD 06/16/2025 4:45 PM EDT [facility] MCH 29.1 27.0 - 32.0 pcg LAB HEMETOLOGY METHOD 06/16/2025 4:45 PM EDT [facility] MCHC 32.3 32.0 - 37.0 g/dL LAB HEMETOLOGY METHOD 06/16/2025 4:45 PM EDT [facility] RDW 14.8 11.0 - 15.0 % LAB HEMETOLOGY METHOD 06/16/2025 4:45 PM EDT [facility] Platelets 368 130 - 400 K/mcL LAB HEMETOLOGY METHOD 06/16/2025 4:45 PM EDT [facility] MPV 9.8 7.0 - 11.0 FL LAB HEMETOLOGY METHOD 06/16/2025 4:45 PM EDT [facility] NRBC 0.0 <1.0 % LAB HEMETOLOGY METHOD 06/16/2025 4:[facility] NRBC Absolute 0.00 <0.10 K/mcL LAB HEMETOLOGY METHOD 06/16/2025 4:45 [facility] Neutrophils Relative 53.0 % LAB HEMETOLOGY METHOD 06/16/2025 4:45 PM [facility] Lymphocytes Relative 37.9 % LAB HEMETOLOGY METHOD 06/16/2025 4:45 PM [facility] Monocytes Relative 7.3 % LAB HEMETOLOGY METHOD 06/16/2025 4:45 PM [facility] Eosinophils Relative 1.0 % LAB HEMETOLOGY METHOD 06/16/2025 4:45 PM [facility] Basophils Relative 0.6 % LAB HEMETOLOGY METHOD 06/16/2025 4:45 PM [facility] Immature Granulocytes Relative 0.2 % LAB HEMETOLOGY METHOD 06/16/2025 4:45 PM [facility] Neutrophils Absolute 4.71 1.50 - 7.00 K/mcL LAB HEMETOLOGY METHOD 06/16/2025 4:45 PM [facility] Lymphocytes Absolute 3.37 1.00 - 5.00 K/mcL LAB HEMETOLOGY METHOD 06/16/2025 4:45 PM EDT [facility] Monocytes Absolute 0.65 0.20 - 1.00 K/mcL LAB HEMETOLOGY METHOD 06/16/2025 4:45 PM EDT [facility] Eosinophils Absolute 0.09 0.00 - 0.50 K/[facility] LAB HEMETOLOGY METHOD 06/16/2025 4:45 PM EDT [facility] Basophils Absolute 0.05 0.00 - 0.20 K/[facility] LAB HEMETOLOGY METHOD 06/16/2025 4:45 PM EDT [facility] Immature Granulocytes Absolute 0.02 0.00 - 0.03 K/[facility] LAB HEMETOLOGY METHOD 06/16/2025 4:45 PM EDT [facility] Blood Blood sample taken from central line / Unknown Existing Catheter / Unknown 06/16/2025 3:02 PM EDT 06/16/2025 4:30 PM EDT Jaison Mendez MD LAB BLOOD ORDERABLES Final R esult [facility] [address] [place] [address], * (ABNORMAL) CEA (06/16/2025 3:02 PM EDT) Only the most recent of2 resultswithin the time period is included. CEA 79.8(H) 0.0 - 5.0 ng/mL LAB CHEMISTRY METHOD 06/16/2025 6:58 PM EDT [facility] Blood Blood sample taken from central line / Unknown Existing Catheter / Unknown 06/16/2025 3:02 PM EDT 06/16/2025 4:30 PM EDT Narrative [facility] - 06/16/2025 6:58 PM EDT The Siemens Advia Centaur Chemiluminescent Immunoassay is used. Results obtained with different assay methods or kits cannot be used interchangeably. Results cannot be interpreted as absolute evidence of the presence or absence of malignant disease. us Jaison Mendez MD LAB BLOOD ORDERABLES Final R esult [facility] [address] [place] [address], * (ABNORMAL) Comprehensive metabolic panel (06/16/2025 3:02 PM EDT) Sodium 138 133 - 145 mmol/L LAB CHEMISTRY METHOD 06/16/2025 4:54 PM EDT [facility] Potassium 4.1 3.5 - 5.5 mmol/L LAB CHEMISTRY METHOD 06/16/2025 4:54 PM [facility] Chloride 106 96 - 110 mmol/L LAB CHEMISTRY METHOD 06/16/2025 4:54 PM [facility] CO2 29 21 - 32 mmol/L LAB CHEMISTRY METHOD 06/16/2025 4:54 PM [facility] Anion Gap 3 3 - 11 LAB CHEMISTRY METHOD 06/16/2025 4:54 PM [facility] Glucose 107(H) 70 - 100 mg/dL LAB CHEMISTRY METHOD 06/16/2025 4:54 PM [facility] BUN 13 5 - 25 mg/dL LAB CHEMISTRY METHOD 06/16/2025 4:54 PM [facility] Creatinine 0.79 0.50 - 1.10 mg/dL LAB CHEMISTRY METHOD 06/16/2025 4:54 PM [facility] eGFR 95 >=60 mL/min/1. 73m2 LAB CHEMISTRY METHOD 06/16/2025 4:54 PM [facility] Comment:Calculation based on the Chronic Kidney Disease Epidemiology Collaboration (CKD-EPI) equation refit without adjustment for race. BUN/Creatinine Ratio 16.5 LAB CHEMISTRY METHOD 06/16/2025 4:54 PM [facility] Calcium 8.8 8.5 - 10.5 mg/dL LAB CHEMISTRY METHOD 06/16/2025 4:54 PM EDT [facility] AST (SGOT) 20 10 - 42 unit/L LAB CHEMISTRY METHOD 06/16/2025 4:54 PM EDT [facility] ALT (SGPT) 17 10 - 60 unit/L LAB CHEMISTRY METHOD 06/16/2025 4:54 PM EDT [facility] Alkaline Phosphatase 89 42 - 121 unit/L LAB CHEMISTRY METHOD 06/16/2025 4:54 PM EDT [facility] Total Protein 7.0 6.0 - 8.0 g/dL LAB CHEMISTRY METHOD 06/16/2025 4:54 PM EDT [facility] Albumin 3.3 3.2 - 5.0 g/dL LAB CHEMISTRY METHOD 06/16/2025 4:54 PM EDT [facility] Total Bilirubin 0.5 0.0 - 1.4 mg/dL LAB CHEMISTRY METHOD 06/16/2025 4:54 PM EDT [facility] Blood Blood sample taken from central line / Unknown Existing Catheter / Unknown 06/16/2025 3:02 PM EDT 06/16/2025 4:30 PM EDT Jaison Mendez MD LAB BLOOD ORDERABLES Final R esult [facility] [address] [place] [address], * Molecular intelligence tumor profiling (05/18/2025 10:57 AM EDT) Tissue [facility] Provider LAB MOLECULAR DIAGNOSTICS ORDERABLES Final Result * Venipuncture charge (05/11/2025 2:44 PM EDT) Extra Tube Hold for add-ons. 05/11/2025 6:01 PM EDT [facility] Comment:Auto resulted. Blood Venous blood specimen / Unknown Venipuncture / Unknown 05/11/2025 2:44 PM EDT 05/11/2025 4:27 PM EDT us Jaison Mendez MD LAB BLOOD ORDERABLES Final R esult [facility] [address] [place] [address], [place] [phone] * Hepatic function panel (05/11/2025 2:44 PM EDT) Total Protein 7.1 6.0 - 8.0 g/dL LAB CHEMISTRY METHOD 05/11/2025 4:48 PM [facility] Albumin 3.3 3.2 - 5.0 g/dL LAB CHEMISTRY METHOD 05/11/2025 4:48 PM [facility] Total Bilirubin 0.6 0.0 - 1.4 mg/dL LAB CHEMISTRY METHOD 05/11/2025 4:48 PM [facility] Bilirubin, Direct 0.1 0.0 - 0.3 mg/dL LAB CHEMISTRY METHOD 05/11/2025 4:48 PM [facility] Bilirubin, Indirect 0.5 0.0 - 1.1 mg/dL LAB CHEMISTRY METHOD 05/11/2025 4:48 PM [facility] ALT (SGPT) 17 10 - 60 unit/L LAB CHEMISTRY METHOD 05/11/2025 4:48 PM [facility] AST (SGOT) 19 10 - 42 unit/L LAB CHEMISTRY METHOD 05/11/2025 4:48 PM [facility] Alkaline Phosphatase 81 42 - 121 unit/L LAB CHEMISTRY METHOD 05/11/2025 4:48 PM [facility] Blood Venous blood specimen / Unknown Venipuncture / Unknown 05/11/2025 2:44 PM EDT 05/11/2025 4:27 PM EDT Jaison Mendez MD LAB BLOOD ORDERABLES Final R esult [facility] [address] [place] [address], [place] [phone] * MG Mammo Digital Screening w Valdemar [...] Signed Date: 10/29/2024 15:36 ET Workstation ID: [id number] Transcribed By: Self Edit Transcribed Date: 10/29/2024 [...] Tomosynthesis. Computer-aided detection was employed with the MapSense AI 3-D. TISSUE DENSITY: There are scattered [...] Tomosynthesis. Computer-aided detection was employed with the Voovio aka 3Ditize 3-D. TISSUE DENSITY: There are scattered areas [...] Signed Date: 10/29/2024 15:36 ET Workstation ID: [id number] Transcribed By: Self Edit Transcribed Date: 10/29/2024 15:15 ET us Self Referral Sppl IMG BI PROCEDURES Final Resul t * Pap smear (11/05/2022) 11/05/2022 Narrative HISTORICAL TESTING LAB RESULTING AGENCY - 11/18/2022 7:41 AM EST [id number] THINPREP PAP: NEGATIVE FOR SQUAMOUS INTRAEPITHELIAL LESION AND MALIGNANCY . NOTE: THIS PAP TEST COULD NOT BE IMAGED UTILIZING THE IMAGING SYSTEM AND REQUIRED MANUAL REVIEW. DHRUV BARBA CT(ASCP) (CASE ELECTRONICALLY SIGNED 11 16 2022) RESULT OF APTIMA HIGH RISK HPV ASSAY: HIGH RISK HPV: NEGATIVE (SEROTYPES 16,18,31,33,35,39,45,51,52,56,58,59,66,68) COMPLETED ON 2022-11-08 ADEQUACY: SATISFACTORY ENDOCERVICAL/TRANSFORMATION ZONE COMPONENT ABSENT. SOURCE: THINPREP PAP HPV ANY DX: REFLEX 16 AND 18, CERVICAL CLINICAL INFORMATION: HPV ANY DIAGNOSIS. HORMONES, PAP HX NEGATIVE 2019, LMP 11/01/22, [Z01.419] Katie Fields [facility] CYTOLOGY ORDERABLES Final Result HISTORICAL TESTING LAB RESULTING AGENCY from Last 3 Months or Most Recently Relevant to Health Maintenance Insurance Advance Directives Documents on File Type Date Recorded Patient Director Of Manufacturing Expl anation Health Care Decision (hx) 10/02/2022 [...] (hx) 10/02/2022 AD LEMONS DIRECTIVE Care Teams Education Analyst Relationship Specialty Start Date End Date Sherly Donald MD [address] [place] [address] PCP - General Internal Medicine 05/29/21
[2025-07-11 12:58] LABS: MANUAL DIFF FLAG NO
[2025-07-11 13:13] LABS: Appearance Urine Clear; Glucose Urine UA Negative (Negative); PH 6.5 (5.0-9.0); Specific Gravity - Urine 1.015 (1.005-1.025)
[2025-07-11 13:14] LABS: Hematocrit 40.1 % (37.0-47.0); Hemoglobin 13.2 g/dl (12.0-16.0); Imm Gran Abs Auto 0.02 X10*3/uL (0.00-0.03); Imm Gran Pct Auto 0.3 % (0.0-0.4); Lymphocytes Absolute Auto 2.4 X10*3/uL (1.2-4.9); Mean Corpuscular HGB Conc 32.9 g/dl (31.0-35.0); Mean Corpuscular Hemoglobin 29.6 pg (27.0-33.0); Mean Corpuscular Volume 89.9 fL (80.0-98.0); NRBC Abs Auto 0.000 X10*3/uL (0.0-0.012); NRBC Pct Auto 0.0 /100WBC (0.0-0.2); Platelet Count 341 X10*3/uL (160-400); Red Blood Count 4.46 X10*6/uL (4.20-5.50); White Blood Count 7.7 X10*3/uL (4.8-10.8)
[2025-07-11 13:27] LABS: Hemoglobin A1C 139.7538 umol/L; Total Hemoglobin (HGBA1C) 3494.6314 umol/L
[2025-07-11 13:38] LABS: Alanine Aminotransferase 20 U/L (0-31); Albumin Level 4.2 g/dL (3.5-5.0); Alkaline Phosphatase 95 U/L (39-117); Anion Gap 9 (12-20); Aspartate Amino Transferase 32 U/L (5-31); Blood Urea Nitrogen 14 mg/dL (9-16); Calcium 9.5 mg/dL (8.4-10.2); Carbon Dioxide 26 mmol/L (22-29); Chloride 107 mmol/L (96-108); Cholesterol 222 mg/dL (<200); Estimated Glomerular Filt Rate > 60; HDL Cholesterol 63 mg/dL (>40); Magnesium 2.3 mg/dL (1.6-2.6); Potassium 3.9 mmol/L (3.3-5.1); Sodium 138 mmol/L (135-145); Total Protein 8.0 g/dL (6.5-8.0); Triglycerides 93 mg/dL (<150)
[2025-07-11 14:07] LABS: HBS Num1 0.00 mIU/mL (0-7.99); HBsAGNum1 0.54 S/CO (0.00-0.99); HIV Num 1 0.07 S/CO (0.00-0.99); Hepatitis B Surface Antigen Negative (Negative); ~HepC Num1 0.12 S/CO (0.00-0.79); ~Hepatitis B Surface Antibody NONREACTIVE (Nonreactive); ~Hepatitis C Antibody Nonreactive (Nonreactive)
[2025-07-11 14:13] LABS: Folate 11.7 ng/mL (> or = 4.0); Vitamin B12 307 pg/mL (200-900)
[2025-07-17 12:38] LABS: VITAMIN D (1,25 OH) D3 67 pg/mL; Vit D (1,25-Dihydroxy) Total 67 pg/mL (18-72); Vitamin D (1,25 OH) D2 <8 pg/mL
== END 2025-07-11 10:01 | disposition home or self-care (01) ==
LOC: HO.HKASLDS 10:00
PROVIDERS: Visit Provider Student in an Organized Health Care Education/Training Program
DX: Z11.4 Encounter for screening for human immunodeficiency virus [HIV] (principal); Z13.89 Encounter for screening for other disorder; Z11.59 Encounter for screening for other viral diseases; Z76.89 Persons encountering health services in other specified circumstances
CPT/HCPCS: 36415; 80053; 80061; 81003; 82607; 82652; 82746; 83036; 83735; 85025; 86706; 86803; 87340; 87389

== ENCOUNTER 2025-07-14 07:42 | Outpatient (REF) | payer OTHER, SELFPAY ==
--- OUTSIDE RECORDS SUMMARY | 2024-07-29 15:38 | XMS_ITS | Encounter Summary ---
Author Organization [employer] Address [address] [place] [address] Care Team Providers Care Software Developer Intern Name Role Phone Sherly Donald MD Primary Care Provider [phone] Encounter Details Date Type Department Care Team [...] Care Team (Late st Contact Info) Description 07/19/2025 11:15 AM EDT Office Visit [facility] Hematology Oncology [address] [place] [address] Jaison Mendez MD [address] [place] [address] documented as of this encounter Visit Diagnoses Not on filedocumented in this encounter Care Teams Software Developer Intern Relationship Specialty Start Date End Date Sherly Donald MD [address] [place] [address] PCP - General Internal Medicine 05/29/21 documented as of this encounter
--- NOTE | ~2025-07-14 | XR_ITS ---
EXAMINATION: XR CHEST CLINICAL INFORMATION: R06.00 - Dyspnea, unspecified COMPARISON: 03/07/2017. TECHNIQUE: 2 views of the chest were obtained. FINDINGS: There is a right chest port in place with tip terminating in the right brachiocephalic vein at the junction of the SVC. The cardiac, hilar, and mediastinal contours are normal. Lungs demonstrate mild linear thickening of the lingular segment of the left upper lobe abutting the major fissure, best appreciated on the lateral projection. This may represent atelectasis although pneumonia is not excluded. The right lung is clear. There is no pneumothorax or pleural effusion. There is no focal osseous or soft tissue abnormality. Surgical clips noted in the epigastric region and left upper quadrant. XR/XR chest 2V IMPRESSION: 1. Right-sided port in place as detailed. 2. Mild linear thickening of the lingular segment of the left upper lobe abutting the major fissure, best appreciated on the lateral projection. This may represent atelectasis although pneumonia is not excluded. Recommend radiographic follow-up. Electronically signed by: Jared Elizabeth MD 07/14/2025 08:21 AM EDT
--- OUTSIDE RECORDS SUMMARY | 2025-07-14 07:47 | XMS_ITS | Encounter Summary ---
Author Organization [facility] Address [address] [place] [address] Care Team Providers Care Rotary Shear Worker Helper Name Role Phone Sherly Donald MD Primary Care Provider +1 -[phone] Encounter Details Date Type Department Care Team (Late Contact Info) Description 02/07/2025 Lab Requisition [facility] - Main Lab [address] [place] [phone] Jorge Anderson MD [address] [place] [address] Microscopic colitis, unspecified Social History Tobacco Use [...] Description 07/19/2025 11:15 AM EDT Office Visit [facility] Hematology Oncology [address] [place] [phone] Jaison Mendez MD [address] [place] [address] documented as of this encounter Procedures Procedure [...] available upon request. 05/11/2025 1:33 PM EDT [facility] Clinical Information Historical slide request for [facility] Cancer ([facility]) [id number] & [id number] 05/11/2025 1:33 PM EDT [facility] Gross Description A. 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 Cabello slides ([id number] (23) and [id number] (8) sent: [facility] - path processing ([facility]) [address] [place] [address] FEDEX #[id number] [id number] 01/25/24 [place] -- received a second request for a block At the request of Dr. Cabello [phone] Block A1 sent /KK [employer] Tracking #: [id number] 05/11/2025 1:33 PM EDT EXTERNAL LAB (NON-INTERFAC ED) Disclaimer Unless otherwise specified, all tissue is 10% NB formalin fixed and paraffin embedded. 05/11/2025 1:33 PM EDT [facility] Tissue Colon structure / Unknown 02/07/2025 11:53 AM EDT 02/07/2025 11:54 AM EDT us Jorge Anderson MD LAB PATHOLOGY ORDERABLES Fi nal Result [facility] [address] [place] [address], EXTERNAL LAB (NON-INTERFACED) documented in this encounter Visit Diagnoses Diagnosis Microscopic colitis, unspecified documented in this encounter Care Teams Rotary Shear Worker Helper Relationship Specialty Start Date End Date Sherly Donald MD [address] [place] [address] PCP - General Internal Medicine 05/29/21 documented as of this encounter
--- OUTSIDE RECORDS SUMMARY | 2025-07-14 07:47 | XMS_ITS | Clinical Summary ---
Author Organization [address] Address [address] [place] [address] Care Team Providers Care Silk Brusher Name Role Phone Castro Gomes MD Primary Care Provider +1- [phone] Encounters Date Type Department Care Team Description 07/01/2025 Telephone [facility] [address] [place] [phone] Obtain, Unable To Appointment; Referral (Self-referral) from [...] Upcoming Encounters Date Type Department Care Team ([facility] st Contact Info) Description 07/20/2025 10:45 AM EDT Clinical Support [facility] PHASE I INFUSION [address] [address] 07/20/2025 11:00 AM EDT Office Visit [facility] I CLINIC [address] [place] [address] Gage Hussein MD [address] [place] [address] Health Maintenance Due Date Last Done Comments HIV screening 1994 Hepatitis C screening 1999 Lipid disorder screening 2021 Tetanus adult (Td q 10,TDAP once) 05/11/2025 05/11/2015 Influenza vaccine 05/20/2025 09/16/2023, , 10/17/2021, Additional history exists Covid-19 vaccine series (2024- season) 2025 02/06/2022, 07/18/2021, 06/05/2021 Breast cancer [...] on patient's age to complete this topic Insurance [facility] [facility] M[facility] [employer] [facility] [facility]GD Care Teams Silk Brusher Relationship Specialty Start Date End Date Castro Gomes MD [address] [place] [address] PCP - General Family Medicine 07/12/25
--- OUTSIDE RECORDS SUMMARY | 2025-07-14 07:47 | XMS_ITS | Encounter Summary ---
Author Organization [facility] Address [address] [place] [address] Care Team Providers Care Top Hat Body Maker Name Role Phone Castro Gomes MD Primary Care Provider +1- [phone] Reason for Visit * Reason Onset Date Comments Appointment 07/01/2025 Referral 07/01/2025 Self-referral Encounter Details Date Type Department Care Team ([facility] st Contact Info) Description 07/01/2025 Telephone [facility] PHASE [facility] CLINIC [address] [place] [phone] Obtain, Unable To Appointment; Referral (Self-referral) Social [...] * Telephone Encounter - Neetu Rojas - 07/12/2025 3:19 PM EDT Spoke with Oscar to inform her of need to speak with Central Registration to have insurance information put into Epic chart as well as need to contact her insurance regarding the visit to ensure they will cover her coming next week (transferred her to Central Registration). Pathology also requested from [facility]-Pathology Dept. P. [phone] F. [phone],tracking # [id number]. Unable to get through to Radiology, will continue to try (hospital main #[phone]). * Telephone Encounter - Jessika Stoner RN - 07/07/2025 12:05 PM EDT Returned call to Oscar. Discussed specific trial inquiries:NCT [id number] for PDAC tx naive pt's, NCT [id number] hold by sponsor, NCT [id number] & NCT [id number]- not available at this site. Briefly discussed [...] AM EDT Phone (Incoming) Oscar Nieves (Self) [phone] (M) Referring provider is self-referral Referring provider office # Dr. Jaison Mendez at [facility]-[address] [place] [address] Phone: tel: fax: gave her the okay to check on her own for trials as there isn't anything for her in her area. DX is Colon Cancer Reason for referral interest in the following trials or any others Patolow may have: NCT [id number], NCT [id number], NCT [id number], NCT [id number] Was a referral entered for patient-Yes Did you request for patient records to be faxed Yes, in CareEverywhere Best telephone number for call back: [phone] Best time to return call: No particular time of day Permission to leave message: Yes *Patient is italian speaking and aware we are in [place] and is willing to travel. documented in this encounter Plan of Treatment Upcoming Encounters Date Type Department Care Team (Late st Contact Info) Description 07/20/2025 10:45 AM EDT Clinical Support [facility] PHASE I INFUSION [address] [address] 07/20/2025 11:00 AM EDT Office Visit [facility] PH[facility] CLINIC [address] [address] Gage Hussein MD [address] [place] [address] documented as of this encounter Visit Diagnoses Not on filedocumented in this encounter Care Teams Top Hat Body Maker Relationship Specialty [place] [address] [place] [address] PCP - General Family Medicine 07/12/25 documented as of this encounter
--- OUTSIDE RECORDS SUMMARY | 2025-07-14 07:47 | XMS_ITS | Clinical Summary ---
Author Organization [facility] Address [address] [place] [address] Care Team Providers Care Floor Service Worker Spring Name Role Phone Sherly Donald Primary Care [...] age to complete this topic Care Teams Floor Service Worker Spring Relationship Specialty Start Date End Date Sherly Donald [address] [place] [phone] PCP - General Internal Medicine 06/04/21
--- OUTSIDE RECORDS SUMMARY | 2025-07-14 07:47 | XMS_ITS ---
Author Organization [facility] Address [address] [place] [address] Phone Care Team Providers Care Electrical And Electronic Assembler Name Role Phone Sherly Donald MD Primary Care Provider [phone] -[phone] Active Problems Problem Noted Date Diagnosed Date Multiple pulmonary nodules 12/14/2024 Overview (12/14/2024): -Also seen: New non enlarged mildly FDG avid Right lower quadrant lymph node in the mesentery -Seen in Pet CT scan done at [place] 10-28-24: bilateral FDG avid pulmonary nodules, new [...] therapist, whose name is Franci therapist in [place] [facility] 09/29/2024 Overview (09/29/2024): -2ary to chemotherapy [...] treatments are documented for this patient in [facility]. Treatments may have been administered in another system. Resolved Problems Problem Noted Date Diagnosed Date Resolved Date Abnormal Pap smear of cervix 06/05/2017 12/16/2024 Overview (12/29/2023): 05/07/2016 PAP Unsatisfactory cytology, + HPV, Neg 16, Neg 18/45 06/05/2017 PAP Neg cytology, neg HPV Repeat co-testing 3 yrs
--- OUTSIDE RECORDS SUMMARY | 2025-07-14 07:47 | XMS_ITS | Clinical Summary ---
Author Organization [facility], Address [address] [place] [address] Phone Care Team Providers Care Roll Bucker Name Role Phone Sherly Donald Primary Care [...] Health Medicaid [employer] Medicaid Care Teams Roll Bucker Relationship Specialty Start Date End Date Sherly Donald [address] [place] [address] PCP - General Internal Medicine 04/28/23
--- OUTSIDE RECORDS SUMMARY | 2025-07-14 07:47 | XMS_ITS | Clinical Summary ---
Author Organization [facility] Address [address] [place] [address] Phone Care Team Providers Care Band Tumbler Name Role Phone Sherly Donald MD Primary Care Provider [phone] Allergies No known active allergies Medications acetaminophen [...] -Seen in Pet CT scan done at [place] 10-28-24: bilateral FDG avid pulmonary nodules, new [...] anxiety depressive disorder 09/29/2024 Overview (09/29/2024): 04/17/12- [place] psych, sees both psych and therapist, whose name is Franci therapist in [facility] 09/29/2024 Overview (09/29/2024): -2ary to chemotherapy Obstructive [...] Type Department Care Team Description 07/05/2025 Telephone [facility] Hematology Oncology [address] [place] [phone] Moon Contreras MA 07/01/2025 Social Work [facility] Infusion Center [address] [place] [phone] Shade Worrell LMSW 06/16/2025 2:30 PM EDT - 06/16/2025 11:59 PM EDT Hospital Encounter [facility] [address] [place] [phone] Jaison Mendez MD Malignant neoplasm of splenic flexure (CMS/HCC V24, CMS/HCC V28) Discharge Disposition: Home or Self Care 06/09/2025 Telephone [facility] Hematology Oncology [address] [place] [phone] Moon Contreras MA 06/06/2025 11:45 AM EDT Office Visit [facility] Hematology Oncology [address] [place] [phone] Jaison Mendez MD Colon cancer metastasized to multiple sites ([facility]/HCC V24, CMS/HCC V28) (Primary Dx); Pain management 05/26/2025 Telephone [facility] Hematology Oncology [address] [place] [phone] Jaison Mendez MD 05/17/2025 Telephone [facility] Hematology Oncology [address] [place] [phone] Moon Contreras [place] 05/11/2025 11:15 AM EDT Office Visit [facility] Hematology Oncology [address] [place] [phone] Jaison Mendez MD Metastatic malignant neoplasm, unspecified site (CMS/HCC V24, CMS/HCC V28) (Primary Dx); Malignant neoplasm of splenic flexure of colon (CMS/HCC V24, CMS/HCC V28) 05/04/2025 Telephone [facility] Hematology Oncology [address] [place] [phone] Moon Contreras CA 04/21/2025 10:30 AM EDT Office Visit [facility] Hematology Oncology [address] [place] [phone] Jaison Mendez MD Metastatic colon cancer to liver (CMS/HCC V24, CMS/HCC V28) (Primary Dx); Colon cancer metastasized to lung ([facility]/HCC V24, CMS/HCC V28) 04/21/2025 Telephone [facility] Hematology Oncology [address] [place] [phone] Lena Mckee MA from Last 3 Months [...] 6mo and older 09/01/2018,08/22/2017,08/16/2010,07/12 Meningococcal MCV4P 05/29/2021 M-Changa (ages 12 & older) ROSARIO S-CoV-2 COVID-19, [...] extremeity venous surgeries VARICOSE VEIN SURGERY PROCEDURE: OK LIGJ DIVJ &/EXCJ VARICOSE VEIN CLUSTER 1 LEG OTHER SURGICAL HISTORY 05/18/2021 PROCEDURE: OK LAPAROSCOPY COLECTOMY PARTIAL W/ANASTOMOSIS; COMMENT: segmental colectomy with anastomosis, en bloc splenectomy, and en bloc distal pancreatectomy - to address adenocarcinoma of transverse colon (no jeronimo involvement or extension to spleen or distal pancreas) - Dr. Jorge Anderson [facility] OTHER SURGICAL HISTORY PROCEDURE: HISTORY OTHER; COMMENT: extended left hepatectomy, partial right hepatectomy, cholecystectomy @ [facility] Medical History Medical History Date Comments Anxiety [...] Description 07/19/2025 11:15 AM EDT Office Visit [facility] Hematology Oncology [address] [place] [phone] Jaison Mendez MD [address] [place] [address] Health Maintenance Due Date Last Done Comments [...] % LAB [facility] Absolute 0.00 <0.10 K/mcL LAB HEMETOLOGY METHOD [facility] Neutrophils Relative 53.0 % LAB HEMETOLOGY METHOD 06/16/2025 4:45 PM [facility] Lymphocytes Relative 37.9 % LAB HEMETOLOGY METHOD 06/16/2025 4:45 PM [facility] Monocytes Relative 7.3 % LAB HEMETOLOGY METHOD 06/16/2025 4:45 PM [facility] Eosinophils Relative 1.0 % LAB HEMETOLOGY METHOD 06/16/2025 4:45 PM [facility] Basophils Relative 0.6 % LAB HEMETOLOGY METHOD [facility] Immature Granulocytes Relative 0.2 % LAB HEMETOLOGY METHOD 06/16[facility]2025 4:[facility] Neutrophils Absolute 4.71 1.50 - 7.00 K/mcL LAB HEMETOLOGY METHOD [facility]/16[facility]25 4[facility] Lymphocytes Absolute 3.37 1.00 - 5.00 K/mcL LAB HEMETOLOGY METHOD 06/16/2025 4:45 PM EDT [facility] Monocytes Absolute 0.65 0.20 - 1.00 K/mcL LAB HEMETOLOGY METHOD 06/16/2025 4:45 PM EDT [facility] Eosinophils Absolute 0.09 0.00 - 0.50 K/[facility] LAB HEMETOLOGY METHOD 06/16/2025 4:45 PM EDT [facility] Basophils Absolute 0.05 0.00 - 0.20 K/[facility] LAB HEMETOLOGY METHOD 06/16/2025 4:45 PM EDT [facility] Immature Granulocytes Absolute 0.02 0.00 - 0.03 K/[facility] LAB HEMETOLOGY METHOD 06/16/2025 4:45 PM EDT [facility] Blood Blood sample taken from central line / Unknown Existing Catheter / Unknown 06/16/2025 3:02 PM EDT 06/16/2025 4:30 PM EDT Jasion Mendez MD LAB BLOOD ORDERABLES Final R esult [facility] [address] [place] [address], * (ABNORMAL) CEA (06/16/2025 3:02 PM EDT) [...] R esult [facility] [address] [place] [address], * (ABNORMAL) Comprehensive metabolic panel (06/16/2025 3:02 PM EDT) Sodium 138 133 - 145 mmol/L LAB CHEMISTRY METHOD 06/16/2025 4:54 PM EDT [facility] Potassium 4.1 3.5 - 5.5 mmol/L LAB CHEMISTRY METHOD 06/16/2025 4:54 PM [facility] Chloride 106 96 - 110 mmol/L LAB CHEMISTRY METHOD 06/16/2025 4:54 PM [facility] CO2 29 21 - 32 mmol/L LAB CHEMISTRY METHOD 06/16/2025 4:54 PM [facility] Anion Gap 3 3 - 11 LAB CHEMISTRY METHOD 06/16/2025 4:54 PM [facility] Glucose 107(H) 70 - 100 mg/dL LAB CHEMISTRY METHOD 06/16/2025 4:54 PM [facility] BUN 13 5 - 25 mg/dL LAB CHEMISTRY METHOD 06/16/2025 4:54 PM [facility] Creatinine 0.79 0.50 - 1.10 mg/dL LAB CHEMISTRY METHOD 06/16/2025 4:54 PM [facility] eGFR 95 >=60 mL/min/1. 73m2 LAB CHEMISTRY METHOD 06/16/2025 4:54 PM [facility] Comment:Calculation based on the Chronic Kidney Disease Epidemiology Collaboration (CKD-EPI) equation refit without adjustment for race. BUN/Creatinine Ratio 16.5 LAB CHEMISTRY METHOD 06/16/2025 4:54 PM [facility] Calcium 8.8 8.5 - 10.5 mg/dL [...] R esult [facility] [address] [place] [address], * Molecular intelligence tumor profiling (05/18/2025 10:57 AM EDT) Tissue [facility] Provider LAB MOLECULAR DIAGNOSTICS ORDERABLES Final Result * Venipuncture charge (05/11/2025 2:44 PM EDT) Extra Tube Hold for add-ons. 05/11/2025 6:01 PM EDT [facility] Comment:Auto resulted. Blood Venous blood specimen / Unknown Venipuncture / Unknown 05/11/2025 2:44 PM EDT 05/11/2025 4:27 PM EDT us Jaison Mendez MD LAB BLOOD ORDERABLES Final R esult [facility] [address] [place] [address], [place] [phone] * Hepatic function panel (05/11/2025 2:44 PM EDT) Total Protein 7.1 6.0 - 8.0 g/dL LAB CHEMISTRY METHOD 05/11/2025 4:48 PM [facility] Albumin 3.3 3.2 - 5.0 g/dL LAB CHEMISTRY METHOD 05/11/2025 4:48 PM [facility] Total Bilirubin 0.6 0.0 - 1.4 mg/dL LAB CHEMISTRY METHOD 05/11/2025 4:48 PM [facility] Bilirubin, Direct 0.1 0.0 - 0.3 mg/dL LAB CHEMISTRY METHOD 05/11/2025 4:48 PM [facility] Bilirubin, Indirect 0.5 0.0 - 1.1 mg/dL LAB CHEMISTRY METHOD 05/11/2025 4:48 PM [facility] ALT (SGPT) 17 10 - 60 unit/L LAB CHEMISTRY METHOD 05/11/2025 4:48 PM [facility] AST (SGOT) 19 10 - 42 unit/L LAB CHEMISTRY METHOD 05/11/2025 4:48 PM [facility] Alkaline Phosphatase 81 42 - 121 unit/L LAB CHEMISTRY METHOD 05/11/2025 4:48 PM [facility] Blood Venous blood specimen / Unknown Venipuncture / Unknown 05/11/2025 2:44 PM EDT 05/11/2025 4:27 PM EDT Jaison Mendez MD LAB BLOOD ORDERABLES Final R esult [facility] [address] [place] [address], [place] [phone] * MG Mammo Digital Screening w Valdemar [...] Signed Date: 10/29/2024 15:36 ET Workstation ID: [id number] Transcribed By: Self Edit Transcribed Date: 10/29/2024 [...] Tomosynthesis. Computer-aided detection was employed with the [employer] 3-D. TISSUE DENSITY: There are scattered [...] Tomosynthesis. Computer-aided detection was employed with the [employer] 3-D. TISSUE DENSITY: There are scattered areas [...] Signed Date: 10/29/2024 15:36 ET Workstation ID: [id number] Transcribed By: Self Edit Transcribed Date: 10/29/2024 15:15 ET us Self Referral Sppl IMG BI PROCEDURES Final Resul t * Pap smear (11/05/2022) 11/05/2022 Narrative HISTORICAL TESTING LAB RESULTING AGENCY - 11/18/2022 7:41 AM EST [id number] THINPREP PAP: NEGATIVE FOR SQUAMOUS INTRAEPITHELIAL LESION [...] NEGATIVE 2019, LMP 11/01/22, [[id number]] Katie Fields [facility] CYTOLOGY ORDERABLES Final Result HISTORICAL TESTING LAB RESULTING AGENCY from Last 3 Months or Most Recently Relevant to Health Maintenance Insurance Advance Directives Documents on File Type Date Recorded Patient Monitor Technician Expl anation Health Care Decision (hx) 10/02/2022 [...] (hx) 10/02/2022 AD LEMONS DIRECTIVE Care Teams Band Tumbler Relationship Specialty Start Date End Date Sherly Donald MD [address] [place] [address] PCP - General Internal Medicine 05/29/21
--- OUTSIDE RECORDS SUMMARY | 2025-07-14 07:47 | XMS_ITS | Clinical Summary ---
Author Organization [facility] Address [address] [facility] [address] [place] [phone] Phone Care Team Providers Care Quality And Reliability Engineer Name Role Phone Sherly Hernández MD Primary Care Provider [phone] Self-Referred, Patient Unavailable Unavailab Castro Adam MD Unavailable [phone] Ying Salgado RN Unavailable [email or web address] Allergies [...] not for interpretation. us Castro Cabello MD IMG OUTSIDE IMAGING W/OUT INT ERPRETATION Final Result Performing Organization Address City/State/[facility] Co de Phone Number [facility] from Last 3 Months or Most Recently Relevant to Health Maintenance Insurance ACO ACO ACO ACO ACO ACO Care Teams Quality And Reliability Engineer Relationship Specialty Start Date End Date Sherly Hernández MD PCP - General 12/20/24 Self-Referred, Patient 01/14/25 Castro Cabello MD [address] [place] [phone] [email or web address] Medical Oncology 01/17/25 Ying Salgado, DIXIE [address] [place] [phone] [email or web address] Registered Nurse 01/26/25 Additional Source Comments The information contained in this document represents components of the legal health record. It is not the complete legal health record.[facility]
--- OUTSIDE RECORDS SUMMARY | 2025-07-14 07:47 | XMS_ITS | Encounter Summary ---
Author Organization [facility] Address [address] [place] [address] Care Team Providers Care Tool Design Draftsperson Name Role Phone HernándezBenito Sherly Primary Care Provider Encounter Details Date Type Department Care Team Description 06/18/2021 Nurse Only [facility] Oncology Services [address] [place] [address] Rom Arboleda RN Social History Tobacco Use [...] oral chemotherapy and side effects. Scriptsent to [facility] awaiting out come. documented in this encounter Plan of Treatment Not on file documented as of this encounter Visit Diagnoses Not on filedocumented in this encounter Care Teams Tool Design Draftsperson Relationship Specialty Start Date End Date Sherly Donald [address] [place] [phone] PCP - General Internal Medicine 06/04/21 documented as of this encounter
== END 2025-07-14 07:43 | disposition home or self-care (01) ==
LOC: HO.XRAY 07:42
PROVIDERS: PCP Student in an Organized Health Care Education/Training Program; Visit Provider Student in an Organized Health Care Education/Training Program
DX: R06.00 Dyspnea, unspecified (principal); C18.9 Malignant neoplasm of colon, unspecified; C78.00 Secondary malignant neoplasm of unspecified lung; R74.8 Abnormal levels of other serum enzymes; E78.5 Hyperlipidemia, unspecified; R06.2 Wheezing; Z71.2 Person consulting for explanation of examination or test findings
CPT/HCPCS: 71046

== ENCOUNTER → 2025-07-14 07:48 | Outpatient (BNV) | payer OTHER, SELFPAY | PROVIDERS: PCP Student in an Organized Health Care Education/Training Program; Visit Provider Radiology Diagnostic Radiology | DX: R06.00 Dyspnea, unspecified (principal) | CPT/HCPCS: 71046 ==

== ENCOUNTER 2025-07-14 09:55 | Outpatient (AMB) | payer OTHER, SELFPAY ==
--- NOTE | 2025-07-14 10:15 | A.OFFPC_ITS ---
Vital Signs 07/14/25 10:17 Height 5 ft 11.85 in Weight 300 lb BMI 40.9 BP 109/62 Blood Pressure Location Lt brachial Position Sitting Respiration 16 Pulse 85 Pulse Source Pulse Oximeter Temp 97.7 F Temp Source Rectal Pulse Oximetry (%) 98 Oxygen Delivery Method Room Air Intake Visit Reasons: 1 week follow up Intake Note: establish care have colon cancer stage 4 metastasized shes in her last days. Foreign Car Mechanic Required: No Accompanied by: Self / Same As Patient Allergies No Known Allergies Allergy (Verified 07/14/25 10:15) Tobacco use date assessed: 07/05/25 Dental Screening Dental Screen Date: 07/05/25 Did you have a dental visit in the last 12 months?: Yes Did you have a dental problem in the last 6 months where you did not have access to dental care?: No Was dental information given to patient?: Patient has dentist HPI HPI Comments History of Present Illness Details History of Present Illness The patient is a 45-year-old female presenting for follow-up on labs ordered on 1st encounter. She has received numerous calls and hamate appointments with all referrals provided to her. She is nervous about her current situation and little anxious Hyperlipidemia: - The patient has elevated cholesterol l evels with a total cholesterol of 222 mg/dL and LDL cholesterol of 141 mg/dL, which should be below 200 mg/dL and 100 mg/dL respectively. - The patient acknowledges a diet high i n cheese, which may contribute to the elevated cholesterol levels. Liver enzyme elevation: - The patient has a slight elevation in liver enzymes, with a level of 32 U/L, just above the normal range of 5-31 U/L. - Other liver enzymes are within normal limits, and the patient does not express concern over this finding. Respiratory symptoms: - The patient reports feeling like her b reathing is obstructed and is using albuterol to manage symptoms. Instructed to continue use of inhalers and if gets worse to go immediately to the emergency room she did perform her chest x-ray this morning Review of Systems - Respiratory: Reports feeling like monique thing is obstructed, using albuterol. Denies other respiratory symptoms. 10-point ROS reviewed and negative excep t as noted in HPI Health Maintenance - Hepatitis B and C screenings are negat venus. - HIV screening is negative. Physical Exam General: Well-appearing, in no acute distress. Vital signs: Within normal limits. HEENT: Normocephalic, atraumatic. PERRLA, EOMI. Conjunctiva clear, sclera anicteric. Oropharynx clear, mucous membranes moist. TMs intact bilaterally. Neck: Supple, no lymphadenopathy, no thyromegaly, no JVD or carotid bruits. Cardiovascular: RRR, normal S1/S2, no murmurs, rubs, or gallops. Peripheral pulses 2+ and symmetric. No edema. Respiratory: Lungs clear to auscultation bilaterally, no wheezes, rales, or rhonchi. Normal effort. Patient reports feeling like breathing is getting stuck, uses albuterol. Abdomen: Soft, non-tender, non-distended. Normoactive bowel sounds. No hepatosplenomegaly, no masses. MSK: Full range of motion, no joint swelling or deformity. Normal gait. Skin: Warm, dry, intact. No rashes, lesions, or pallor. Patient reports waking up with a lot of pimples again. Neuro: Alert and oriented x3. Cranial nerves II-XII intact. Strength 5/5 throughout. Sensation intact. Reflexes 2+ symmetric. Normal coordination and gait. Psych: Appropriate mood and affect. Normal judgment and insight. Plan 1. Hyperlipidemia - Discussed dietary modifications to red uce cholesterol intake, particularly reducing cheese consumption. - Recommended follow-up lipid panel to m onitor cholesterol levels. 2. Liver Enzyme Elevation - Advised monitoring liver enzyme levels , although current elevation is slight and not concerning. 3. Respiratory Symptoms - Recommended continued use of albuterol as needed for respiratory symptoms. - Suggested further evaluation if sympto ms persist or worsen. ED instructions provided Discussion Notes I discussed with the patient the importance of managing her cholesterol levels through dietary changes, specifically reducing cheese intake. We also reviewed her liver enzyme levels, noting the slight elevation, and agreed to monitor them. For her respiratory symptoms, I advised continued use of albuterol and suggested further evaluation if symptoms persist. Patient was informed and verbally consented to the use of an ambient scribe for clinic note documentation during this visit. Patient Instructions - Reduce cheese intake to help lower cho lesterol levels. - Continue using albuterol as needed for breathing difficulties. - Schedule a follow-up appointment for a lipid panel. - Monitor liver enzyme levels and report any new symptoms. [facility] Medical History History of chemotherapy Colon cancer metastasized to lung Family History Father No problems noted. Mother High blood pressure Diabetes Social History Housing: House Alcohol intake: current Alcohol intake frequency: holidays/special occasions only Patient Tobacco Use Status: Never used Tobacco service: No Current occupational status: unemployed and disabled Cognitive needs: Yes (cane and walker) Hearing needs: No Vision needs: No Questionnaire PHQ-9 Over the last 2 weeks, how often have you been bothered by any of the following problems? 1. Little interest or pleasure in doing things: more than half the days 2. Feeling down, depressed, or hopeless: nearly every day 3. Trouble falling or staying asleep, or sleeping too much: nearly every day 4. Feeling tired or having little energy: nearly every day 5. Poor appetite or overeating: nearly every day 6. Feeling bad about yourself - or that you are a failure or have let yourself or your family down: more than half the days 7. Trouble concentrating on things, such as reading the newspaper or watching television: nearly every day 8. Moving or speaking so slowly that other people could have noticed. Or the opposite - being so fidgety or restless that you have been moving around a lot more than usual: more than half the days 9. Thoughts that you would be better off or of hurting yourself in some way: several days Total score: 22 Source: Developed by Drs. Bran Mason, Zoya Skinner, Dejan Olmedo and colleagues, with an educational wally from [employer]. Thrive Questionnaire Date Thrive assessed: 07/05/25 I am a: Patient What is your living situation today?: I have a steady place to live Within the past 12 months, did the food you bought not last and you didn't have the money to get more?: Often true Within the past 12 months, did you worry whether your food would run out before you got money to buy more?: Sometimes True Do you have trouble paying for medicines?: Yes Do you have trouble getting transportation to medical appointments?: No Do you have trouble paying your heating and electricity bill?: Yes Do you have trouble taking care of your child, family member or friend?: No Are you currently unemployed and looking for a job?: No Are you interested in more education?: No Please select the resources that you would like help with: None Currently or been in a relationship where the following occur: I choose not to answer THRIVE Score: 3 AUDIT C Alcohol Use Questionnaire (AUDIT-C) 1. How often do you have a drink containing alcohol?: Never Total Score: 0 ALYSSA-7 AMB Questionnaire ALYSSA-7 Date ALYSSA - 7 assessed: 07/05/25 Feeling nervous, anxious, or on edge: 2 = More than half the days Not being able to stop or control worryin = More than half the days Worrying too much about different things: 2 = More than half the days Trouble relaxin = More than half the days Being so restless that it is hard to sit still: 2 = More than half the days Becoming easily annoyed or irritable: 2 = More than half the days Feeling afraid as if something awful might happen: 2 = More than half the days Total ALYSSA-7 score (0-4 normal; 5-9 mild; 10-14 moderate; 15-21 severe): 14 Source: Developed by Drs. Bran Mason, Zoya Skinner, Dejan Olmedo and colleagues, with an educational wally from [employer]. Physical exam (Primary Care) Vital Signs: Last Vital Signs Temp 97.7 F 07/14/25 10:17 Pulse 85 07/14/25 10:17 Resp 16 07/14/25 10:17 BP 109/62 07/14/25 10:17 Pulse Ox 98 07/14/25 10:17 Oxygen Delivery Method Room Air 07/14/25 10:17 BMI result Body Mass Index 40.9 Tobacco/Smoking Status: Tobacco use Status Tobacco use date assessed 07/05/25 07/14/25 10:26 Patient Tobacco Use Status Never used Tobacco 07/14/25 10:26 PHQ-9: PHQ-9 Score PHQ-9: Total score 22 07/14/25 10:26 Thrive Assessment: Date of Thrive Assessment Date Thrive assessed 09/16/25 09/25/25 10:26 Currently or been in a relationship where the following occur: I choose not to answer Coding Level of Care Code Est Pt Level 3 (33893) Diagnoses Encounter to discuss test results Z71.2 Elevated liver enzymes R74.8 Dyslipidemia E78.5 Wheezing R06.2 Assessment & Plan Assessment & Plan (1) Encounter to discuss test results: Code(s): Z71.2 - Person consulting for explanation of examination or test findings (2) Elevated liver enzymes: Code(s): R74.8 - Abnormal levels of other serum enzymes (3) Dyslipidemia: Code(s): E78.5 - Hyperlipidemia, unspecified (4) Wheezing: Code(s): R06.2 - Wheezing Plan
[2025-07-14 10:17] VITALS: BP 109/62; PULSE 85; RESP 16; TEMP 36.5; O2SAT 98; BMI 40.9
== END 2025-07-14 10:38 | disposition home or self-care (01) ==
LOC: HO.HMCFMS 09:56
PROVIDERS: PCP Student in an Organized Health Care Education/Training Program; Visit Provider Student in an Organized Health Care Education/Training Program
DX: R74.8 Abnormal levels of other serum enzymes (principal); E78.5 Hyperlipidemia, unspecified; R06.2 Wheezing

== ENCOUNTER 2025-07-22 14:03 | Outpatient (AMB) | payer OTHER, SELFPAY ==
--- OUTSIDE RECORDS SUMMARY | 2024-07-29 15:38 | XMS_ITS | Encounter Summary ---
Author Organization [employer] Address [address] [place] [address] Care Team Providers Care Open Hearth Door Liner Name Role Phone Sherly Donald MD Primary Care Provider [phone] [phone] Encounter Details Date Type Department Care Team [...] 10:28 AM EDT documented in this encounter Progress Notes * Historical, Notes [...] Description 08/30/2025 11:00 AM EST Office Visit [facility] Hematology Oncology [address] [place] [address] Jaison Mendez MD [address] [place] [address] documented as of this encounter Visit Diagnoses Not on filedocumented in this encounter Care Teams Open Hearth Door Liner Relationship Specialty Start Date End Date Sherly Donald MD [address] [place] [address] PCP - General Internal Medicine 05/29/21 documented as of this encounter
--- OUTSIDE RECORDS SUMMARY | 2025-07-19 11:15 | XMS_ITS | Encounter Summary ---
Author Organization Powered Address [address] [place] [address] Care Team Providers Care Drapery Worker Name Role Phone Sherly Donald MD Primary Care Provider [phone] Reason for Visit * Reason Comments Follow-up Encounter Details Date Type Department Care Team ([facility] st Contact Info) Description 07/19/2025 11:15 AM EDT Office Visit [facility] Hematology Oncology [address] [place] [phone] Jaison Mendez MD [address] [place] [address] Colon cancer metastasized to multiple sites (CMS/HCC V24, CMS/HCC V28) (Primary Dx) Social History Tobacco Use Types Packs/Day Years [...] Sign Reading Time Taken Comments Blood Pressure 108/59 07/19/2025 11:25 AM EDT Pulse 89 07/19/2025 11:25 AM EDT Temperature 36.3 C (97.3 F) 07/19/2025 11:25 AM EDT Respiratory Rate - - Oxygen Saturation 99% 07/19/2025 11:25 AM EDT Inhaled Oxygen Concentration - - Weight 137 kg (301 lb) 07/19/2025 11:25 AM EDT Height - - Body Mass Index 41.98 12/16/2024 1:27 PM EST documented in this encounter Ordered Prescriptions Prescription Sig Dispense Quantity Refills Last Filled Start Date End Date albuterol HFA (PROAIR HFA ; PROVENTIL HFA ; VENTOLIN HFA) 90 mcg/actuation inhaler Inhale 2 puffs by mouth every 6 (six) hours if needed for wheezing. 6.7 g 11 07/19/2025 07/19/2026 documented in this encounter Progress Notes * Jaison Mendez MD - 07/19/2025 11:15 AM EDT CHIEF COMPLAINT: Follow-up IDENTIFIER:Oscar Morrow is a 45 y.o. female. HPI: 45-year-old Chinese-speaking female (history and physical done with the help of interpretation), who has metastatic colon cancer, treated with different therapy regimen but patient for last many months does not want to have any palliative chemotherapy, we were looking into clinical trial as well astargeted therapy, unfortunately molecular studies of the tumor as well as liquid biopsy did not show any significant finding for targeted therapy, patient apparently is still exploring for phase 1 phase 2 clinical trial (like KRAS inhibitor etc.), patient is here today with her daughter, has not been feeling great ROS: Has been noticing increasing shortness of breath and wheezing Had no weight loss Still having some significant pain despite taking pain medication, though pain medication helped but not enough Patient had no black stool blood in stool Patient neurological symptoms are unchanged Oncology History Malignant neoplasm of colon (CMS/HCC V24, CMS/HCC V28) 09/29/2024 Initial Diagnosis Malignant neoplasm of colon 01/19/2025 - Supportive Therapy CENTRAL VENOUS ACCESS ( CVA ) MAINTENANCE / BLOOD DRAW / CATHETER CLEARANCE / DRESSING CHANGE / FLUSH Plan Provider: Jaison Mendez MD Oncology History Overview Note Patient was having intermittent abdominal pain since early 2019 but ignored because of pandemic, her pain gradually got worse In February of this year patient noticed that her pain is not intermittent anymore and it was constant, she apparently went to emergency room without any work-up and treated for UTI On May 15 patient had worsening abdominal pain and she was unable to take this pain and came to emergency room and had a CT scan that showed thickening of the distal transverse colon and some evidence of pericolonic inflammation and mesenteric lymphadenopathy, there was also a 2 cm lesion in the liver of unclear etiology Patient underwent colonoscopy by Dr. Contreras and found to have near obstructing transverse colon tumor Patient underwent partial colectomy by Dr. Anderson on 05/18/2021, pathology results showed moderately differentiated adenocarcinoma tumor was 9 cm in maximum dimension, perineural invasion not identified, lymphovascular invasion not identified but unfortunately tumor has perforation identified, there were 33 lymph node resected none of them have any evidence of malignancy, patient has pathological stage T4a N0 disease (stage IIb) I sawpatient on 06/04/2021, because of some abnormal finding on the CT scan I did a PET scan and tumor marker CEA, her tumor marker CEA was 32.6 (high), patient's PET CT scan showed some uptake in theright lobe of the liver which was very small, also some FDG activity in the region of hepatic vein confluence I saw patient again on June 18, 2021 and discuss in detail about PET scan finding, after discussion decision made to have further work-up like tissue sampling of the liver lesion if possible, but unfortunately according to interventional radiologist and general surgery/Dr. Anderson it is difficult to biopsy those areas of FDG activity (Dr. Anderson thinks, there is a possibility it could be metastatic disease), so decision made to start patient on capecitabine with oxaliplatin and after 4-6 cycle reassess with a follow-up scan to make further recommendation After 3 cycle of [place] ox, patient was switched to FOLFOX because of GI toxicity and significant hand-foot syndrome, patient tolerated FOLFOX except for some neuropathy and finish total of 8 cycle in third week of October [address]'s [address] scan showed no evidence of any recurrence or adenopathy but there is a hypoattenuating hepatic lesion noted on the initial study is less conspicuous now, there is no new lesion, patient CEA is normal around 3 as well as normal liver function test Patient repeat CT scan on 03/22/2022 showed again no evidence of any recurrence or metastatic disease Patient's CEA in January was 4.6 Patient CEA increased to 34 in June 2022, patient underwent a follow-up CT scan in July 2022 that showed a new 3 cm lesion in the liver suspicious for malignancy Patient was evaluated by Dr. Rigo Lopez in July 2022, he did further work-up including PET scanning/MRI and he is planning to do resection of liver mets in first week of September Patient underwent resection of oligometastatic disease on 09/26/2022, have to excise lesion 1 was 3.8 cm which has focally involves inked margin and the other lesion was completely excised with clear margin which was 1.3 cm in size Patient surveillance labs including CEA only 2.0 and LFTs normal on 12/16/2022, patient continued toimprove clinically Patient CT scan on 02/25/2023 showed new hypodensity within segment 5 of the liver compatible with new hepatic metastasis, patient CEA also increased to 21 Patient was seen by Dr. Rigo Lopez, who did further workup including PET scan that showed some worsening of liver disease otherwise no distant disease, patient underwent local liver directed therapy by interventional radiologist in [facility] in first week of May 2023, patient was supposed to have laparoscopic procedure but turned into laparotomy with frequency ablation of metastatic lesion of the liver Patient on surveillance of CT scan in 2023 has no evidence of any recurrence until CT scan done in the fall 2023 that showed a subcentimeter suspicious lesion in the lung as well as slight increase in CEA Patient underwent PET CT scan in October 2024 that showed extensive metastatic disease, there is bilateral FDG avid lung lesion as well as non-FDG avid enlarging mass/lymph node in the right mesentery/right lower quadrant Patient was seen by Dr. Castro Kamara at [facility] GI oncology, in January 2025, not eligible for any clinical trial, he recommended palliative chemotherapy with FOLFIRI but patient chose not to haveany cytotoxic therapy because there is no potential cure I did liquid biopsy (360 guardian) that unfortunately showed no high MSI but K- zelda G12D mutation, for that there is a clinical trial in [place] PAST MEDICAL HISTORY: Asthma Metastatic colon cancer Anxiety disorder Abnormal Pap smear SOCIAL HISTORY: She never smoked She drinks occasionally She is single Her daughters are very involved in her care FAMILY HISTORY: Noncontributory Current Medications[1] Current Allergies[2] PHYSICAL EXAM: Visit Vitals BP 108/59 (BP Location: Left arm, Patient Position: Sitting, BP Cuff Size: Adult long) Pulse 89 Temp 36.3 ??C (97.3 ??F) (Temporal) Wt 137 kg (301 lb) SpO2 99% BMI 41.98 kg/m?? OB Status Having periods Smoking Status Never BSA 2.51 m?? ECOG 1 APPEARANCE: Alert and oriented in no acute distress EYES: nonicteric sclera pink conjunctiva ORAL CAVITY: No mucositis or thrush NECK: Neck supple, no significant cervical adenopathy, HEART: normal S1 and S2 with mild tachycardia LUNG: Distant breath sounds with few wheezing LYMPH NODES: No palpable superficial adenopathy ABDOMEN: Obese, distended, soft, with mild generalized tenderness, no gross organomegaly or significant palpable mass appreciated EXTREMITIES: No significant edema erythema or tenderness IMPRESSION: Encounter Diagnosis Name Primary? Colon cancer metastasized to multiple sites (CMS/HCC V24, CMS/HCC V28) Yes Patient is a 45-year-old Chinese-speaking female who has metastatic colon cancer, has been treated with different therapeutic regimen (please see oncology history for detail), currently patient has not been on any therapeutic intervention, patient unfortunately does not have any significant molecular marker for targeted therapy, patient refused to have palliative chemotherapy. I discussed with the patient and her daughter with the help of interpretation that her liquid biopsy as well as molecular marker on tissue were not significant for any targeted therapy, I told her she does not have PD-L1 or high MSI etc. for checkpoint inhibitor treatment. I told patient she had some K-rasp G12D mutation and there may be some phase 1 phase 2 clinical trial around but apparently there is no clinical trial available in [place] at this time. Patient will be going to [facility] [place] tomorrow to discuss with some oncologist regarding extremital trial We discussed about her symptom management, I told patient since she have some wheezing and gets short of breath I would like to try albuterol inhaler as needed I also told patient since current dose of oxycodone 10 mg has been helping but not enough so I willincrease the dose of oxycodone, again explained about potential risk benefit of narcotic pain medication PLAN: Patient will be going for discussion regarding possible clinical trial at [facility] tomorrow I will send prescription of albuterol as well as oxycodone higher dose I will see her back in 6 to 8 weeks but earlier if any issues Patient change her mind for palliative chemotherapy because start palliative chemotherapy like FOLFIRI with bevacizumab etc. Jaison Mendez MD [1] Current Outpatient Medications: acetaminophen (TYLENOL) 325 mg tablet, Take 2 tablets (650 mg total) by mouth every 6 (six) hours as needed for pain., Disp: , Rfl: ascorbic acid (VITAMIN C) 500 mg tablet, Take 1 tablet (500 mg total) by mouth 1 (one) time each day., Disp: , Rfl: buPROPion XL (WELLBUTRIN XL) 300 mg 24 hr tablet, Take 1 tablet (300 mg total) by mouth 1 (one) time each day in the morning., Disp: , Rfl: clonazePAM (KlonoPIN) 0.5 mg tablet, Take 1 tablet (0.5 mg total) by mouth 2 (two) times a day if needed., Disp: , Rfl: cyclobenzaprine (FLEXERIL) 10 mg tablet, TAKE 1 TABLET BY MOUTH 2 TIMES A DAY IF NEEDED FOR MUSCLE SPASMS FOR UP TO 15 DAYS., Disp: 30 tablet, Rfl: 0 fentaNYL (DURAGESIC) 50 mcg/hr, Place 1 patch on the skin every 3rd (third) day. Max Daily Amount: 1 patch, Disp: 10 patch, Rfl: 0 gabapentin (NEURONTIN) 300 mg capsule, Take 1 capsule (300 mg total) by mouth 2 (two) times a day.,Disp: 60 capsule, Rfl: 1 mirtazapine (REMERON) 7.5 mg tablet, Take 1 tablet (7.5 mg total) by mouth every night at bedtime.,Disp: , Rfl: norethindrone (OLIVIA,SRAVANI,PETE,MICRONOR) 0.35 mg tablet, Take 1 tablet (0.35 mg total) by mouth 1 (one) time each day., Disp: , Rfl: ondansetron (ZOFRAN) 8 mg tablet, Take 1 tablet (8 mg total) by mouth every 8 (eight) hours as needed for nausea., Disp: , Rfl: oxyCODONE (OxyCONTIN) 30 mg 12 hr abuse-deterrent tablet, Take 1 tablet (30 mg total) by mouth every 12 (twelve) hours. Do not crush, chew, or split. Max Daily Amount: 60 mg, Disp: 60 tablet, Rfl: 0 oxyCODONE (ROXICODONE) 10 mg immediate release tablet, Take 1 tablet (10 mg total) by mouth every 6(six) hours if needed for severe pain for up to 12 days. Max Daily Amount: 40 mg, Disp: 48 tablet, Rfl: 0 oxyCODONE (ROXICODONE) 5 mg immediate release tablet, Take 1 tablet (5 mg total) by mouth every 4 (four) hours if needed for severe pain. Max Daily Amount: 30 mg, Disp: 48 tablet, Rfl: 0 polyethylene glycol (MIRALAX) 17 gram packet, Take 17 g by mouth daily., Disp: , Rfl: senna (SENOKOT) 8.6 mg tablet, Take 1 tablet (8.6 mg total) by mouth every night at bedtime., Disp:, Rfl: senna-docusate (PERICOLACE) 8.6-50 mg per tablet, Take 1 tablet by mouth 1 (one) time each day., Disp: 30 tablet, Rfl: 11 traMADoL (ULTRAM) 50 mg tablet, Take 50 mg by mouth every 6 (six) hours as needed for pain., Disp: , Rfl: [2] No Known Allergies documented in this encounter Plan of Treatment Upcoming Encounters Date Type Department Care Team (Late st Contact Info) Description 08/30/2025 11:00 AM EST Office Visit [facility] Hematology Oncology [address] [place] [phone] Jaison Mendez MD [address] [place] [address] documented as of this encounter Visit Diagnoses Diagnosis Colon cancer metastasized to multiple sites (CMS/HCC V24, CMS/HCC V28)- Primary documented in this encounter Care Teams Drapery Worker Relationship Specialty Start Date End Date Sherly Donald MD [address] [place] [address] PCP - General Internal Medicine 05/29/21 documented as of this encounter
--- OUTSIDE RECORDS SUMMARY | 2025-07-20 10:45 | XMS_ITS | Encounter Summary ---
Author Organization [facility] Address [address] [place] [phone] Care Team Providers Care Online Marketing Strategist Name Role Phone Castro Gomes MD Primary Care Provider [phone] Encounter Details Date Type Department Care Team ([facility] st Contact Info) Description 07/20/2025 10:45 AM EDT Clinical Support [facility] [address] [id number] Gage Hussein MD [address] [place] [phone] Arrived Social History Tobacco Use Types Packs/Day Years Used Date Smoking Tobacco: Never Assessed Comments Unknown Sex and Gender Information Value Date Recorded Sex Assigned at Not on file Legal Sex Female 11:37 AM EDT Gender Identity Not on file Sexual Orientation Not on file documented as of this encounter Last Filed Vital Signs Vital Sign Reading Time Taken Comments Blood Pressure 111/75 07/20/2025 10:47 AM EDT Pulse 81 07/20/2025 10:47 AM EDT Temperature 36.4 C (97.5 F) 07/20/2025 10:47 AM EDT Respiratory Rate 18 07/20/2025 10:47 AM EDT Oxygen Saturation 97% 07/20/2025 10:47 AM EDT Inhaled Oxygen Concentration - - Weight 136 kg (299 lb 12.8 oz) 07/20/2025 10:47 AM EDT Height 181.6 cm (5' 11.5 ) 07/20/2025 10:47 AM E DT Body Mass Index 41.24 07/20/2025 10:47 AM EDT documented in this encounter Plan of Treatment Not on file documented as of this encounter Visit Diagnoses Not on filedocumented in this encounter Care Teams Online Marketing Strategist Relationship Specialty Start Date End Date Castro Gomes MD [address] [place] [address] PCP - General Family Medicine 07/12/25 documented as of this encounter
--- OUTSIDE RECORDS SUMMARY | 2025-07-20 11:00 | XMS_ITS | Encounter Summary ---
Author Organization [facility] Address [address] [place] [id number] Care Team Providers Care Crabber Name Role Phone Castro Gomes MD Primary Care Provider [phone] Reason for Referral * Imaging (Routine) - New Request Specialty Diagnoses / Procedures Referred By Contac t Referred To Contact Diagnostic Radiology Diagnoses Malignant neoplasm of colon, unspecified part of colon (HC Code) (HC CODE) Procedures CT Abdomen Pelvis w IV Contrast Gage Posadas MD [address] [place] [phone] Phone: tel: fax: Referral ID Status Reason Start Date Expiration Date V isits Requested Visits Authorized [id number] New Request 07/21/2025 07/21/2026 1 1 * Imaging (Routine) - New Request Specialty Diagnoses / Procedures Referred By Contac t Referred To Contact Diagnostic Radiology Diagnoses Malignant neoplasm of colon, unspecified part of colon (HC Code) (HC CODE) Procedures CT Chest w IV Contrast Gage Posadas MD [address] [place] [phone] Phone: tel: fax: Referral ID Status Reason Start Date Expiration Date V isits Requested Visits Authorized [id number] New Request 07/21/2025 07/21/2026 1 1 Reason for Visit * Consultation (Routine) - New Request Specialty Diagnoses / Procedures Referred By Contac t Referred To Contact Oncology Diagnoses Colon cancer (HC Code) (HC CODE) Referral, Self [facility] [address] [address] Phone: tel: Referral ID Status Reason Start Date Expiration Date V isits Requested Visits Authorized [id number] New Request 06/28/2025 06/28/2026 1 1 Encounter Details Date Type Department Care Team ([facility] Contact Info) Description 07/20/2025 11:00 AM EDT Office Visit [facility] PHASE I [facility] [address] [address] Gage Posadas MD [address] [place] [id number] Malignant neoplasm of colon, unspecified part of colon (HC Code) (HC CODE) (Primary Dx) Social History Tobacco Use Types Packs/Day Years Used Date Smoking Tobacco: Never Assessed Comments Unknown Sex and Gender Information Value Date Recorded Sex Assigned at Not on file Legal Sex Female 11:37 AM EDT Gender Identity Not on file Sexual Orientation Not on file documented as of this encounter Progress Notes * Gage Posadas MD - 07/20/2025 11:00 AM EDT [facility] - PHASE I CLINIC Re: Pricilla Nieves (1980) Provider: Fran Posadas* Referring Provider: Castro Cabello ([facility]). Dr. Damon ([facility]) Race:I Do Not Know Ethnicity: Or /A/E Date of Service: 07/20/2025 NEW CONSULTATION NOTE Reason for Referral: mCRC Current Treatment: None Previous Treatments: 05/2021-10/2021 CapeOx ? FOLFOX (adjuvant/systemic, total 8 cycles) Tumor Profiling: Liquid biopsy ([facility]): KRAS G12D APC [id number]* TA 03/21/2025 Liver NGS: [id number] Anticoagulation: None History of Present Illness: Early 2019 - Patient initially developed intermittent abdominal pain which became constant by February 2021. 05/15/21 - She presented to the ER on with worsening abdominal pain. CT showed distal transverse colon thickening, pericolonic inflammation, mesenteric adenopathy, and a 2 cm liver lesion. Colonoscopy revealed a near-obstructing transverse colon mass. 05/18/21 partial colectomy (Dr. [place]): 9 cm moderately differentiated adenocarcinoma, perineural and lymphovascular invasion negative, but tumor perforation present. nodes negative. Pathologic stage pT4aN0 (stage IIb). 06/04/21 PET scan showed uptake in right hepatic lobe and hepatic vein confluence; CEA 32.6. Lesionnot biopsyable. Decision for systemic therapy. 05/2021-10/2021: Capecitabine/oxaliplatin, switched to FOLFOX after 3 cycles due to GI toxicity, skin toxicity and hand-foot syndrome. Completed 8 cycles total. Post-therapy CT: no recurrence, hepatic lesion less conspicuous, CEA normalized (~3). 03/22/22 CT: no recurrence. CEA January 2022: 4.6. 06/2022: CEA 34. 07/2022 CT: new 3 cm liver lesion. Evaluated by Dr. Lopez; work-up confirmed resectable oligometastatic disease. 09/26/22 liver resection: 3.8 cm lesion with focal positive margin; 1.3 cm lesion clear margin. 12/16/22 surveillance: CEA 2.0, LFTs normal. 02/25/23 CT: new hepatic lesion (segment 5); CEA 21. PET confirmed isolated liver progression. 05/2023 underwent laparotomy with frequency ablation (Dr. Velásquez). 11/2023 - Resection of a liver lesion (Per patient, did not see records of it) Surveillance CTs through early 2023: JODY. Fall 2023 CT: subcentimeter suspicious lung lesion, rising CEA. 10/2024 PET: extensive bilateral lung mets (FDG-avid) and enlarging non-FDG avid RLQ mesenteric mass/lymph node. 01/2025: Evaluated by Dr. Castro Kamara ([facility]). Not eligible for trials. Recommended palliative FOLFIRI. Patient declined cytotoxic therapy given no curative potential. Since October, she has not been on any treatment. The rational was that the treatments are not curative, and since she had very bad side effects from it in the past, she feels that being off treatment offers. Abdominal pain, daily, pressure. Can be severe some times, 07/29. She also has anxiety, and feels mentally poor. However, physically, she is still doing relatively well, and able to do most of her ADLs, with some rest in between. She washes the dishes, but has some back pain, and has to sit down for example. No constitutional symptoms, no f/c/ns/wt loss. Stable appetite and energy. No headaches, lightheadedness, or vision changes. No dyspnea/cough/chest pain, no abd pain/n/v/d/c/melena/brbpr, no back pain, no new edema. No new lumps or bumps concerning for adenopathy. ROS: 12pt ROS queried and negative except as per HPI Past Medical History[1] Anxiety/Depression Past Surgical History[2] Family History Problem Relation Age of Onset Colon cancer Maternal Grandmother Social History: ETOH: has no history on file for alcohol use. Nicotine: has no history on file for tobacco use. Recreational drug use: has no history on file for drug use. Medications: No outpatient medications have been marked as taking for the 07/20/25 encounter (Appointment) with Gage Posadas MD. Allergies: Allergies[3] Social: Annie 1 h and 30min from hospital She has 4 kids, and lives with them, but they are in their house frequently. 2 small ones. 18, 19. 25 27 Physical Exam: Temp: [97.5 ??F (36.4 ??C)] 97.5 ??F (36.4 ??C) Pulse: [81] 81 Resp: [18] 18 BP: (111)/(75) 111/75 SpO2: [97 %] 97 % Wt Readings from Last 3 Encounters: 07/20/25 136 kg ECOG 1 Gen: appears well, comfortable, pleasant. Obese HEENT: moist mucous membranes, no oral lesions, PERRLA CV: regular rate and rhythm, no murmurs, gallops, rubs appreciated. No bruits Pulm: clear to auscultation bilaterally, no wheezes, rhonchi, rales Back: no spinal or CVA tenderness with palpation Abdomen: + bowel sounds, soft, nontender, no masses, no hepatomegaly, no splenomegaly Extremities: warm, no lower extremity edema, no calf tenderness Lymph node survey: no evidence of cervical, supraclavicular, axillary or inguinal LAD Neurologic: alert and oriented, grossly intact, CN II-XII intact, light touch intact and symmetric UE/LE, motor strength 5/5 UE/LE bilaterally, normal DTRs patellar, achilles, and radial Skin: no rash, ecchymoses, petechiae Port in place, and clean Labs: Results for orders placed or performed in visit on 07/15/25 Surgical consults ([facility]) Collection Time: 07/15/25 10:52 AM Result Value Ref Range Surgical Consults SURGICAL PATHOLOGY CONSULT REPORT Patient: PRICILLA NIEVES MR #: [id number] Submitted by: Gage Vidal MD FINAL DIAGNOSIS 1. [place], [id number], 8 [facility], 81: COLON, TRANSVERSE, BIOPSY: - INVASIVE MODERATELY DIFFERENTIATED ADENOCARCINOMA, SEE NOTE NOTE: The provided immunostains of MMR stains (MLH1, MSH2, MSH6, and PMS2) performed at the referring hospital and reviewed show no loss of expression of any of the proteins. HER2 immunostain score 1+ (negative). 2. [place], [place], [id number], 24 [facility], 05/18/21: COLON, SPLENIC FLEXURE WITH SPLEEN AND DISTAL PANCREASE, SEGMENTAL RESECTION: - MODERATELY-DIFFERENTIATED ADENOCARCINOMA (9.0 CM). - PERFORATION OF THE BOWEL THROUGH TUMOR AND CONTINUOUS INVASION OF TUMOR THROUGH AREA OF THE INFLAMMATION TO THE SURFACE OF THE VISCERAL PERITONIUM - SURGICAL RESECTION MARGINS ARE NEGATIVE - NONE OF 32 LYMPH NODES ARE POSITIVE FOR METASTASIS (0/32) - NO LYMPHOVASCULAR OR PERINEURAL INVASION IDENTIFIED - SPLEEN AND PANCREAS WITHOUT SIGNIFICANT ABNORMALITY - AJCC STAGING: pT4a pN0 Note: For details see pathology report from the primary pathologist. Pathologist: Vandana Johnson M.D. 07/19/2025 16:06 * Report Electronically Signed Out * This electronic signature indicates that the pathologist has personally reviewed the available gross and/or microscopic material as well as reviewed and edited the final report. Specimen(s) Received: 1:[place], [id number], 8 [facility], 81 2:[place], [id number], 24 [facility], 05/18/21 Clinical History and Impression: 1. Carcinoma colon 2. Colitis Impressions/Recommendations: Ms. Nieves is a 45 y.o. female is here for a new patient visit. She has been off systemic therapyfor a long period of time, because she felt that the impact of a palliative intent chemotherapy in her quality of life was not worth the gain in OS. Thus, she has not getting regular scans, and priorto actually going on a trial, she will need to re-establish the stat ef her disease. She has a [id number], and although we have 6 trials, slots are extremely hard, and waiting list is very long. The trials that she should be screen for are: [facility]#: [id number] - [employer]ili[employer] [id number] (BYRD KHADRA) HIC#: [id number] - [employer] [id number] The following two will be screened if she is not eligible for the first two: [facility]# [id number] - [employer] [id number] (TGF?) [employer] -[id number] (anti-CEA ADC) I will call her Friday or Friday after the meeting to discuss if she is eligible for the trials All of Ms. Nieves's questions were answered during today's visit. I encouraged Ms. Nieves to call if she has any further questions or concerns. I spent greater than 50% of our over 90 minute visit in direct counseling and coordination of care. Signed: Gage Vidal Manager Of Financial Reporting Phase I / [employer] 07/20/2025 [1] Past Medical History: Diagnosis Date Hypercholesterolemia Malignant neoplasm of colon Obstructive sleep apnea syndrome [2] Past Surgical History: Procedure Laterality Date extended left hepatectomy, partial right hepatectomy, cholecystectomy KNEE SURGERY 2016 segmental colectomy with distal pancreatectomy and splenectomy 05/18/2021 VARICOSE VEIN SURGERY [3] No Known Allergies documented in this encounter Miscellaneous Notes * Addendum Note - Gage Posadas MD - 07/20/2025 11:00 AM EDT Addended by: GAGE POSADAS on: 07/21/2025 08:15 AM Modules accepted: Orders documented in this encounter Plan of Treatment Scheduled Orders Name Type Priority Associated Diagnoses Order Schedule CBC and differential Lab - Test Panel Order Routine Malignant neoplasm of colon, unspecified part of colon (HC Code) Expected: 07/19/2025, Expires: 07/19/2026 Comprehensive metabolic panel Lab - Test Panel Order Routine Malignant neoplasm of colon, unspecified part of colon (HC Code) Expected: 07/19/2025, Expires: 07/19/2026 CT Chest w IV Contrast Imaging Routine Malignant neoplasm of colon, unspecified part of colon (HC Code) 1 Occurrences starting 07/21/2025 until 07/21/2026 CT Abdomen Pelvis w IV Contrast Imaging Routine Malignant neoplasm of colon, unspecified part of colon (HC Code) 1 Occurrences starting 07/21/2025 until 07/21/2026 documented as of this encounter Visit Diagnoses Diagnosis Malignant neoplasm of colon, unspecified part of colon (HC Code) (HC CODE)- Primary documented in this encounter Care Teams Crabber Relationship Specialty Start Date End Date Castro Gomes MD [address] [place] [address] PCP - General Family Medicine 07/12/25 documented as of this encounter
[2025-07-22 14:05] VITALS: BP 126/73; PULSE 92; RESP 16; TEMP 36.7; O2SAT 96; BMI 41.0
--- NOTE | 2025-07-22 14:05 | A.OFFPC_ITS ---
Vital Signs 07/22/25 14:05 Height 5 ft 11.85 in Weight 301 lb BMI 41.0 BP 126/73 Blood Pressure Location Rt brachial Position Sitting Respiration 16 Pulse 92 Pulse Source Pulse Oximeter Temp 98.1 F Temp Source Oral Pulse Oximetry (%) 96 Oxygen Delivery Method Room Air Intake Visit Reasons: 1 week follow up Intake Note: establish care have colon cancer stage 4 metastasized shes in her last days. Tearer Press Clipping Required: No Accompanied by: Self / Same As Patient Allergies No Known Allergies Allergy (Verified 07/22/25 14:09) Tobacco use date assessed: 07/05/25 Dental Screening Dental Screen Date: 07/05/25 Did you have a dental visit in the last 12 months?: Yes Did you have a dental problem in the last 6 months where you did not have access to dental care?: No Was dental information given to patient?: Patient has dentist HPI HPI Comments History of Present Illness Details History of Present Illness The patient is a 45-year-old female presenting with concerns related colon cancer with mets and its management options. She also recently had a chest x- ray performed which was ordered on initial encounter she wants to go over the results Metastatic cancer: - The cancer has metastasized, and the p atient is exploring treatment options, including clinical trials involving chemotherapy and immunotherapy. - The patient is hesitant about chemothe rapy due to previous adverse effects and is considering immunotherapy, although there are concerns about its efficacy for her specific cancer type. Respiratory distress: - The patient reports episodes of respir atory distress, which cause panic and anxiety. She is using the albuterol inhaler prescribed to her on the last visit which has helped her with her breathing - These episodes contribute to her overa ll reluctance to pursue aggressive cancer treatments. Imaging review Discuss x-ray results of the chest which showed no acute processes at the current moment MOLST form discussion Had a lengthy discussion with the patient about medical orders for life- sustaining treatments since her prognosis at this current moment does not look good due to her current diagnosis of colon cancer metastasized to lung and liver as per patient's I have not received medical records to review MOLST form was handed to patient and she will review and decide on what treatments she desires will discuss on next encounter Review of Systems - Respiratory: Reports episodes of dyspn ea and associated panic. 10-point ROS reviewed and negative excep t as noted in HPI Past Medical History - Bladder cancer diagnosed three years a go, initially stage 2. - Previous treatments included chemother apy and radiotherapy. Health Maintenance Physical Exam General: Well-appearing, in no acute distress. Vital signs: Within normal limits. HEENT: Normocephalic, atraumatic. PERRLA, EOMI. Conjunctiva clear, sclera anicteric. Oropharynx clear, mucous membranes moist. TMs intact bilaterally. Neck: Supple, no lymphadenopathy, no thyromegaly, no JVD or carotid bruits. Cardiovascular: RRR, normal S1/S2, no murmurs, rubs, or gallops. Peripheral pulses 2+ and symmetric. No edema. Respiratory: Lungs clear to auscultation bilaterally, no wheezes, rales, or rhonchi. Normal effort. Abdomen: Soft, non-tender, non-distended. Normoactive bowel sounds. No hepatosplenomegaly, no masses. MSK: Full range of motion, no joint swelling or deformity. Normal gait. Skin: Warm, dry, intact. No rashes, lesions, or pallor. Port-A-Cath in place on the right side Neuro: Alert and oriented x3. Cranial nerves II-XII intact. Strength 5/5 throughout. Sensation intact. Reflexes 2+ symmetric. Normal coordination and gait. Psych: Appropriate mood and affect. Normal judgment and insight. Plan 1. Bladder Cancer - The patient is considering participati on in clinical trials for new treatments, including chemotherapy and immunotherapy. - The patient is advised to weigh the po tential benefits and risks of these treatments, considering her previous adverse experiences with chemotherapy. 2. Metastatic Cancer - The patient is exploring clinical tria ls aimed at targeting metastatic cancer cells, including advanced immunotherapy options. - Discussions include the potential for these treatments to reduce tumor size significantly, although availability and eligibility remain concerns. 3. Respiratory Distress - The patient is advised to manage anxie ty related to respiratory distress through supportive care and monitoring. Discussion Notes During the consultation, we discussed the patient's current condition of colon cancer and its metastasis. We explored various treatment options, including chemotherapy and immunotherapy, and the patient expressed concerns about the side effects of chemotherapy based on past experiences. We also discussed the potential benefits of participating in clinical trials, which may offer advanced treatment options. The patient was advised to consider the risks and benefits of these treatments carefully. Additionally, we addressed the patient's respiratory distress and the importance of managing anxiety related to this symptom. We also discussed the MOLST form which she will go over and discuss with her family members and bringing any other documentation as far as proxy [id number] etc. Patient was informed and verbally consented to the use of an ambient scribe for clinic note documentation during this visit. Patient Instructions - Consider participation in clinical tri als for new cancer treatments. - Weigh the potential benefits and risks of chemotherapy and immunotherapy. - Manage anxiety related to respiratory distress through supportive care. Total time spent caring for the patient today was 30 minutes. This includes time spent before the visit reviewing the chart, time spent documenting, and time spent reviewing laboratory results, diagnostic imaging, medications, performing a medically necessary evaluation, counseling on diagnoses, care coordination,reporting test results with the patient [facility] Medical History (Updated 07/23/25 @ 11:39 by Wan Mcknight MD) Morbid obesity due to excess calories History of chemotherapy Colon cancer metastasized to lung Family History Father No problems noted. Mother High blood pressure Diabetes Social History Housing: House Alcohol intake: current Alcohol intake frequency: holidays/special occasions only Patient Tobacco Use Status: Never used Tobacco service: No Current occupational status: unemployed and disabled Cognitive needs: Yes (cane and walker) Hearing needs: No Vision needs: No Questionnaire PHQ-9 Over the last 2 weeks, how often have you been bothered by any of the following problems? 1. Little interest or pleasure in doing things: more than half the days 2. Feeling down, depressed, or hopeless: nearly every day 3. Trouble falling or staying asleep, or sleeping too much: nearly every day 4. Feeling tired or having little energy: nearly every day 5. Poor appetite or overeating: nearly every day 6. Feeling bad about yourself - or that you are a failure or have let yourself or your family down: more than half the days 7. Trouble concentrating on things, such as reading the newspaper or watching television: nearly every day 8. Moving or speaking so slowly that other people could have noticed. Or the opposite - being so fidgety or restless that you have been moving around a lot more than usual: more than half the days 9. Thoughts that you would be better off or of hurting yourself in some way: several days Total score: 22 Source: Developed by Drs. Bran Mason, Dejan Thornton and colleagues, with an educational wally from [employer]. Thrive Questionnaire Date Thrive assessed: 07/14/25 I am a: Patient What is your living situation today?: I have a steady place to live Within the past 12 months, did the food you bought not last and you didn't have the money to get more?: Often true Within the past 12 months, did you worry whether your food would run out before you got money to buy more?: Sometimes True Do you have trouble paying for medicines?: Yes Do you have trouble getting transportation to medical appointments?: No Do you have trouble paying your heating and electricity bill?: Yes Do you have trouble taking care of your child, family member or friend?: No Are you currently unemployed and looking for a job?: No Are you interested in more education?: No Please select the resources that you would like help with: None Currently or been in a relationship where the following occur: I choose not to answer THRIVE Score: 3 AUDIT C Alcohol Use Questionnaire (AUDIT-C) 1. How often do you have a drink containing alcohol?: Never Total Score: 0 ALYSSA-7 AMB Questionnaire ALYSSA-7 Date ALYSSA - 7 assessed: 07/05/25 Feeling nervous, anxious, or on edge: 2 = More than half the days Not being able to stop or control worryin = More than half the days Worrying too much about different things: 2 = More than half the days Trouble relaxin = More than half the days Being so restless that it is hard to sit still: 2 = More than half the days Becoming easily annoyed or irritable: 2 = More than half the days Feeling afraid as if something awful might happen: 2 = More than half the days Total ALYSSA-7 score (0-4 normal; 5-9 mild; 10-14 moderate; 15-21 severe): 14 Source: Developed by Drs. Bran Mason, Dejan Thornton and colleagues, with an educational wally from [employer]. Physical exam (Primary Care) Vital Signs: Last Vital Signs Temp 98.1 F 07/22/25 14:05 Pulse 92 07/22/25 14:05 Resp 16 07/22/25 14:05 BP 126/73 07/22/25 14:05 Pulse Ox 96 07/22/25 14:05 Oxygen Delivery Method Room Air 07/22/25 14:05 BMI result Body Mass Index 41.0 Tobacco/Smoking Status: Tobacco use Status Tobacco use date assessed 07/05/25 07/22/25 14:08 Patient Tobacco Use Status Never used Tobacco 07/22/25 14:08 PHQ-9: PHQ-9 Score PHQ-9: Total score 22 07/22/25 14:33 Thrive Assessment: Date of Thrive Assessment Date Thrive assessed 07/14/25 07/22/25 14:08 Currently or been in a relationship where the following occur: I choose not to answer Coding Level of Care Code Est Pt Level 4 (74158) Diagnoses Colon cancer metastasized to lung C18.9; C78.00 Dyspnea R06.00 Fatigue R53.83 Port-A-Cath in place Z95.828 Morbid obesity due to excess calories E66.01 Assessment & Plan Assessment & Plan (1) Colon cancer metastasized to lung: Code(s): C18.9 - Malignant neoplasm of colon, unspecified; C78.00 - Secondary malignant neoplasm of unspecified lung Category: Medical (2) Dyspnea: Code(s): R06.00 - Dyspnea, unspecified (3) Fatigue: Code(s): R53.83 - Other fatigue (4) Port-A-Cath in place: Code(s): Z95.828 - Presence of other vascular implants and grafts (5) Morbid obesity due to excess calories: Code(s): E66.01 - Morbid (severe) obesity due to excess calories Category: Medical Plan
--- OUTSIDE RECORDS SUMMARY | 2025-07-22 14:16 | XMS_ITS | Encounter Summary ---
Author Organization [facility] Address [address] [place] [address] Care Team Providers Care Billing Customer Service Representative Name Role Phone HernándezBenito Sherly Primary Care Provider [phone] Encounter Details Date Type Department Care Team Description 06/18/2021 Nurse Only [facility] Oncology Services [address] [place] [address] Rom Arboleda RN Social History Tobacco Use [...] oral chemotherapy and side effects. Scriptsent to [facility] RX awaiting out come. documented in this encounter Plan of Treatment Not on file documented as of this encounter Visit Diagnoses Not on filedocumented in this encounter Care Teams Billing Customer Service Representative Relationship Specialty Start Date End Date Sherly Donald [address] [place] [phone] PCP - General Internal Medicine 06/04/21 documented as of this encounter
--- OUTSIDE RECORDS SUMMARY | 2025-07-22 14:16 | XMS_ITS | Clinical Summary ---
Author Organization [facility], Address [address] [place] [address] Phone Care Team Providers Care Government Program Manager Name Role Phone Sherly Donald Primary Care Provider [phone] Allergies No known active allergies Medications oxyCODONE [...] Health Medicaid [facility] Medicaid Care Teams Government Program Manager Relationship Specialty Start Date End Date Sherly Donald [address] [place] [address] PCP - General Internal Medicine 04/28/23
--- OUTSIDE RECORDS SUMMARY | 2025-07-22 14:16 | XMS_ITS | Clinical Summary ---
Author Organization [facility] Address [address] [place] [address] Care Team Providers Care Smoking Pipe Mounter Name Role Phone Sherly Donald Primary Care [...] age to complete this topic Care Teams Smoking Pipe Mounter Relationship Specialty Start Date End Date Sherly Donald [address] [place] [phone] PCP - General Internal Medicine 06/04/21
--- OUTSIDE RECORDS SUMMARY | 2025-07-22 14:16 | XMS_ITS | Encounter Summary ---
Author Organization [facility] Address [address] [place] [phone] Care Team Providers Care Client Delivery Specialist Name Role Phone Castro Gomes MD Primary Care Provider [phone] Encounter Details Date Type Department Care Team (Late st Contact Info) Description 07/19/2025 Abstract [facility] [address] [place] [phone] Jessika Stoner, RN Social History Tobacco Use Types Packs/Day Years Used Date Smoking Tobacco: Never Assessed Comments Unknown Sex and Gender Information Value Date Recorded Sex Assigned at Not on file Legal Sex Female 11:37 AM EDT Gender Identity Not on file Sexual Orientation Not on file documented as of this encounter Plan of Treatment Not on file documented as of this encounter Visit Diagnoses Not on filedocumented in this encounter Care Teams Client Delivery Specialist Relationship Specialty Start Date End Date Castro Gomes MD [address] [place] [address] PCP - General Family Medicine 07/12/25 documented as of this encounter
--- OUTSIDE RECORDS SUMMARY | 2025-07-22 14:16 | XMS_ITS | Encounter Summary ---
Author Organization [facility] Address [address] [place] [phone] Care Team Providers Care Territory Sales Representative Name Role Phone Castro Gomes MD Primary Care Provider [phone] Reason for Visit * Reason Onset Date Comments RN New Pt Intake 07/19/2025 Encounter Details Date Type Department Care Team ([facility] st Contact Info) Description 07/19/2025 Telephone [facility] [address] [place] [address] Jessika Stoner RN RN New Pt Intake Social History Tobacco Use Types Packs/Day Years Used Date Smoking Tobacco: Never Assessed Comments Unknown Sex and Gender Information Value Date Recorded Sex Assigned at Not on file Legal Sex Female 11:37 AM EDT Gender Identity Not on file Sexual Orientation Not on file documented as of this encounter Miscellaneous Notes * Telephone Encounter - Jessika Stoner RN - 07/19/2025 2:37 PM EDT Called pt for RN new pt intake with mold stamper ID# [id number]. Call was disconnected. Called back with 2nd mold stamper ID# [id number]. No answer. Delicatessen Slicer left voicemail to returncall. documented in this encounter Plan of Treatment Not on file documented as of this encounter Visit Diagnoses Not on filedocumented in this encounter Care Teams Territory Sales Representative Relationship Specialty Start Date End Date Castro Gomes MD [address] [place] [address] PCP - General Family Medicine 07/12/25 documented as of this encounter
--- OUTSIDE RECORDS SUMMARY | 2025-07-22 14:16 | XMS_ITS | Encounter Summary ---
Author Organization [facility] Address [address] [place] [address] Care Team Providers Care Roll Setter Name Role Phone Sherly Donald MD Primary Care Provider [phone] Reason for Visit * Reason Onset Date Comments Referral 07/21/2025 Encounter Details Date Type Department Care Team (Late st Contact Info) Description 07/21/2025 Telephone [facility] [address] [phone] Jaison Mendez MD [address] [place] [address] Social History Tobacco Use Types Packs/Day Years [...] Progress Notes * Pravin Estrada MA - 07/21/2025 1:25 PM EDT Please inform pt she has already seen [facility] and there is nothing new, she must wait for Angelo do her own research to find clinical trials. * Kelsey Lujan - 07/21/2025 10:00 AM EDT Niuean speaking patient [facility] Had a consult with [facility] but they are not offering anything for a few weeks. Please contact patient's main number. documented in this encounter Plan of Treatment Upcoming Encounters Date Type Department Care Team (Late st Contact Info) Description 08/30/2025 11:00 AM EST Office Visit [facility] Hematology Oncology [address] [place] [address] Jaison Mendez MD [address] [place] [address] documented as of this encounter Visit Diagnoses Not on filedocumented in this encounter Care Teams Roll Setter Relationship Specialty Start Date End Date Sherly Donald MD [address] [place] [address] PCP - General Internal Medicine 05/29/21 documented as of this encounter
--- OUTSIDE RECORDS SUMMARY | 2025-07-22 14:16 | XMS_ITS | Encounter Summary ---
Author Organization [facility] Address [address] [place] [address] Care Team Providers Care Clinical Trials Nurse Name Role Phone Sherly Donald MD Primary Care Provider [phone] Encounter Details Date Type Department Care Team (Late Contact Info) Description 02/07/2025 Lab Requisition [facility] - Main Lab [address] [place] [phone] Jorge Anderson MD [address] [place] [address] Microscopic colitis, unspecified Social History Tobacco Use [...] Department Care Team (Late Contact Info) Description 08/30/2025 11:00 AM EST Office Visit [facility] Hematology Oncology [address] [place] [phone] Jaison Mendez MD [address] [place] [address] documented as of this encounter Procedures Procedure [...] available upon request. 05/11/2025 1:33 PM EDT [facility] Clinical Information Historical slide request for [facility] ([facility]) [id number] & [id number] 05/11/2025 1:33 PM EDT [facility] Gross Description A. 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 Cabello slides ([id number] ([id number]) and [id number] (8) sent: [facility] - path processing ([facility]) [address] [place] [address] [employer] #[id number] 01/25/24 NE -- received a second request for a block At the request of Dr. Cabello [phone] Block A1 sent /KK [employer] Tracking #: [id number] 05/11/2025 1:33 PM EDT EXTERNAL LAB (NON-INTERFAC ED) Disclaimer Unless otherwise specified, all tissue is 10% NB formalin fixed and paraffin embedded. 05/11/2025 1:33 PM EDT [facility] Tissue Colon structure / Unknown 02/07/2025 11:53 AM EDT 02/07/2025 11:54 AM EDT us Jorge Anderson MD LAB PATHOLOGY ORDERABLES Fi nal Result [facility] [address] [place] [address], EXTERNAL LAB (NON-INTERFACED) documented in this encounter Visit Diagnoses Diagnosis Microscopic colitis, unspecified documented in this encounter Care Teams Clinical Trials Nurse Relationship Specialty Start Date End Date Sherly Donald MD [address] [place] [address] PCP - General Internal Medicine 05/29/21 documented as of this encounter
--- OUTSIDE RECORDS SUMMARY | 2025-07-22 14:16 | XMS_ITS | Encounter Summary ---
Author Organization [facility] Address [address] [place] [phone] Care Team Providers Care Plaster Die Maker Name Role Phone Castro Gomes MD Primary Care Provider [phone] Reason for Visit * Reason Onset Date Comments Appointment 07/20/2025 Encounter Details Date Type Department Care Team ([facility] st Contact Info) Description 07/20/2025 [facility] [address] [place] [phone] CatGage Mendoza MD [address] [place] [phone] Appointment Social History Tobacco Use Types Packs/Day Years Used Date Smoking Tobacco: Never Assessed Comments Unknown Sex and Gender Information Value Date Recorded Sex Assigned at Not on file Legal Sex Female 11:37 AM EDT Gender Identity Not on file Sexual Orientation Not on file documented as of this encounter Miscellaneous Notes * Telephone Encounter - Ade Saunders - 07/20/2025 9:28 AM EDT Oscar is calling to verify facility address for todays visit with Phase 1; pt given address [address] [place] [facility]. 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 documented in this encounter Plan of Treatment Not on file documented as of this encounter Visit Diagnoses Not on filedocumented in this encounter Care Teams Plaster Die Maker Relationship Specialty Start Date End Date Castro Gomes MD [address] [place] [address] PCP - General Family Medicine 07/12/25 documented as of this encounter
--- OUTSIDE RECORDS SUMMARY | 2025-07-22 14:17 | XMS_ITS ---
Author Organization [facility] Address [address] [place] [address] Phone Care Team Providers Care Outpatient Case Manager Name Role Phone Sherly Donald MD Primary Care Provider [phone] Active Problems Problem Noted Date Diagnosed Date Multiple pulmonary nodules 12/14/2024 Overview (12/14/2024): -Also seen: New non enlarged mildly FDG avid Right lower quadrant lymph node in the mesentery -Seen in Pet CT scan done at [place] 10-28-24: bilateral FDG avid pulmonary nodules, new [...] therapist, whose name is Franci therapist in [place] Neuropathy 09/29/2024 Overview (09/29/2024): -2ary to chemotherapy [...] by PCP/Vein specialist, reports multiple surgeries Current Treatment and Therapy Plans CENTRAL VENOUS ACCESS ( CVA ) MAINTENANCE / BLOOD DRAW / CATHETER CLEARANCE / DRESSING CHANGE / FLUSH* Plan Start Date:01/19/2025 Plan Provider:Jaison Mendez MD Linked Problems Malignant neoplasm of spleni c flexure (CMS/HCC V24, CMS/HCC V28) Treatment Medications No medications scheduled. Past Treatment and Therapy Plans No past plan information found. Resolved Problems Problem Noted Date Diagnosed Date Resolved Date Abnormal Pap smear of cervix 06/05/2017 12/16/2024 Overview (12/29/2023): 05/07/2016 PAP Unsatisfactory cytology, + HPV, Neg 16, Neg 18/45 06/05/2017 PAP Neg cytology, neg HPV Repeat co-testing 3 yrs
--- OUTSIDE RECORDS SUMMARY | 2025-07-22 14:17 | XMS_ITS | Clinical Summary ---
Author Organization [facility] Address [address] [place] [address] Phone Care Team Providers Care Auto Machinist Name Role Phone Sherly Donald MD Primary Care Provider [phone] Allergies No known active allergies Medications acetaminophen [...] 15 DAYS. 30 tablet 05/09/20 25 Active fentaNYL (DURAGESIC) 50 mcg/hrIndication s:Malignant neoplasm of splenic flexure (CMS/HCC V24, CMS/HCC V28),Metastases to the liver (CMS/HCC V24, CMS/HCC V28) Place 1 patch on the skin every 3rd (third) day. Max Daily Amount: 1 patch 10 patch 07/05/20 25 025 Active oxyCODONE (OxyCONTIN) 30 mg 12 hr abuse-deterrent tabletIndication s:Colon cancer metastasized to multiple sites (CMS/HCC V24, CMS/HCC V28),Pain management Take 1 tablet (30 mg total) by mouth every 12 (twelve) hours. Do not crush, chew, or split. Max Daily Amount: 60 mg 60 tablet 07/15/20 25 025 Active oxyCODONE (ROXICODONE) 10 mg immediate release tabletIndication s:Malignant neoplasm of splenic flexure (CMS/HCC V24, CMS/HCC V28),Metastases to the liver (CMS/HCC V24, CMS/HCC V28) Take 1 tablet (10 mg total) by mouth every 6 (six) hours if needed for severe pain for up to 12 days. Max Daily Amount: 40 mg 48 tablet 07/15/20 25 025 Active albuterol HFA (PROAIR HFA ; PROVENTIL HFA ; VENTOLIN HFA) 90 mcg/actuation inhaler Inhale 2 puffs by mouth every 6 (six) hours if needed for wheezing. 6.7 g 11 07/19/20 026 Active oxyCODONE (ROXICODONE) 15 mg immediate release tabletIndication s:Colon cancer metastasized to multiple sites (CMS/HCC V24, CMS/HCC V28) Take 1 tablet (15 mg total) by mouth every 4 (four) hours if needed (as needed for severe pain). Max Daily Amount: 90 mg 90 tablet 07/19/20 25 Active oxyCODONE (OxyCONTIN) 30 mg 12 [...] 120 mg 60 tablet 06/07/20 25 025 fentaNYL (DURAGESIC) 25 mcg/hr Place 1 patch on the skin every 3rd (third) day. Max Daily Amount: 1 patch 10 patch 06/14/20 25 025 Discontinued oxyCODONE (ROXICODONE) 10 mg immediate release tablet Take 1 tablet (10 mg total) by mouth every 6 (six) hours if needed for severe pain for up to 12 days. Max Daily Amount: 40 mg 48 tablet 06/17/20 25 025 Discontinued(Re order) oxyCODONE (OxyCONTIN) 30 mg 12 hr abuse-deterrent tabletIndication s:Colon cancer metastasized to multiple sites (CMS/HCC V24, CMS/HCC V28),Pain management Take 1 tablet (30 mg total) by mouth every 12 (twelve) hours. Do not crush, chew, or split. Max Daily Amount: 60 mg 60 tablet 07/01/20 025 Discontinued(Re order) fentaNYL (DURAGESIC) 50 mcg/hrIndication s:Malignant neoplasm of splenic flexure (CMS/HCC V24, CMS/HCC V28),Metastases to the liver (CMS/HCC V24, CMS/HCC V28) Place 1 patch on the skin every 3rd (third) day. Max Daily Amount: 1 patch 10 patch 07/01/20 025 Discontinued(Re order) oxyCODONE (ROXICODONE) 10 mg immediate release tabletIndication s:Malignant neoplasm of splenic flexure (CMS/HCC V24, CMS/HCC V28),Metastases to the liver (CMS/HCC V24, CMS/HCC V28) Take 1 tablet (10 mg total) by mouth every 6 (six) hours if needed for severe pain for up to 12 days. Max Daily Amount: 40 mg 48 tablet 07/05/20 025 Discontinued(Re order) Active Problems Problem Noted Date Diagnosed Date Multiple pulmonary nodules 12/14/2024 Overview (12/14/2024): -Also seen: New non enlarged mildly FDG avid Right lower quadrant lymph node in the mesentery -Seen in Pet CT scan done at [facility] 10-28-24: bilateral FDG avid pulmonary nodules, new [...] therapist, whose name is Franci therapist in [place] Neuropathy 09/29/2024 Overview (09/29/2024): -2ary to chemotherapy [...] Encounters Date Type Department Care Team Description 07/21/2025 Telephone [facility] [address] [place] [phone] Jaison Mendez MD 07/19/2025 11:15 AM EDT Office Visit [facility] [address] [place] [phone] Jaison Mendez MD Colon cancer metastasized to multiple sites (CMS/HCC V24, CMS/HCC V28) (Primary Dx) 07/05/2025 Telephone [facility] [address] [place] [phone] Moon Contreras MA 07/01/[address] [phone] Shade Worrell LMSW 06/16/2025 2:30 PM EDT - 06/16/2025 11:59 PM EDT Hospital Encounter [facility] [address] [place] [phone] Jaison Mendez MD Malignant neoplasm of splenic flexure (CMS/HCC V24, [facility]/HCC V28) Discharge Disposition: Home or Self Care 06/09/2025 Telephone [facility] [address] [place] [phone] Moon Contreras MA 06/06/2025 11:45 AM EDT Office Visit [facility] [address] [place] [phone] Jaison Mendez MD Colon cancer metastasized to multiple sites (CMS/HCC V24, CMS/HCC V28) (Primary Dx); Pain management 05/26/2025 Telephone [facility] [address] [place] [phone] Jaison Mendez MD 05/17/2025 Telephone [facility] [address] [place] [phone] Moon Contreras MA 05/11/2025 11:15 AM EDT Office Visit [facility] [address] [place] [phone] Jaison Mendez MD Metastatic malignant neoplasm, unspecified site ([facility]/HCC V24, [facility]/HCC V28) (Primary Dx); Malignant neoplasm of splenic flexure of colon ([facility]/HCC V24, [facility]/HCC V28) 05/04/2025 Telephone [facility] [address] [place] [phone] Moon Contreras MA 04/21/2025 10:30 AM EDT Office Visit [facility] [address] [place] [phone] Jaison Mendez MD Metastatic colon cancer to liver ([facility]/HCC V24, [facility]/HCC V28) (Primary Dx); Colon cancer metastasized to lung ([facility]/HCC V24, [facility]/HCC V28) 04/21/2025 Telephone [facility] [address] [place] [phone] Lena Mckee MA from Last 3 Months Immunizations Immunization Administration Dates Next Due HiB PRP-T conjugate [...] History Surgery Date Site/Laterality Comments KNEE SURGERY 2015 PROCEDURE: HISTORICAL KNEE SURGERY OTHER SURGICAL HISTORY PROCEDURE: HISTORY OTHER; COMMENT: Multiple lower extremeity venous surgeries VARICOSE VEIN SURGERY PROCEDURE: [place] LIGJ DIVJ &/EXCJ VARICOSE VEIN CLUSTER 1 LEG OTHER SURGICAL HISTORY 05/18/2021 PROCEDURE: [place] LAPAROSCOPY COLECTOMY PARTIAL W/ANASTOMOSIS; COMMENT: segmental colectomy with anastomosis, en bloc splenectomy, and en bloc distal pancreatectomy - to address adenocarcinoma of transverse colon (no jeronimo involvement or extension to spleen or distal pancreas) - Dr. Jorge Anderson, [facility] OTHER SURGICAL HISTORY PROCEDURE: HISTORY OTHER; COMMENT: extended left hepatectomy, partial right hepatectomy, cholecystectomy @ [facility] Medical History Medical History Date Comments Anxiety state DX:Anxiety state Asthma DX:Asthma Abnormal cytological finding in specimen from cervix DX:Abnormal cytological find ing in specimen from cervix Colon cancer (CMS/HCC V24, C HI/HCC V28) 2020 DX:Colon cancer (HCC) Cancer of [...] (301 lb) 07/19/2025 11:25 AM EDT Height 180.3 cm (5' 11 ) 12/16/2024 1:27 PM EST Body Mass Index 41.98 12/16/2024 1:27 PM EST Plan of Treatment Upcoming Encounters Date Type Department Care Team (Late st Contact Info) Description 08/30/2025 11:00 AM EST Office Visit [facility] [address] [place] [phone] Jaison Mendez MD [address] [place] [address] Health Maintenance Due Date Last Done Comments Hepatitis A Vaccines (1 of 2 - Risk 2-dose series) 2000 Hepatitis B Vaccines (1 of 3 - 19+ 3-dose series) 2000 HPV Vaccines (1 - Risk 3-dose SCDM series) 2008 Cholesterol Screening (Lipid Panel) 09/27/2022 HIV Screening [...] - PCV20 or PCV21) 12/25/2025 05/29/2021, 12/25/2020 Breast [...] V24, CMS/HCC V28) HEPATIC FUNCTION PANEL Routine 5 2:44 PM EDT Metastatic malignant neoplasm, unspecified [...] HEMETOLOGY METHOD 06/16/2025 4:45 PM EDT [facility] RBC 4.20 3.80 - 4.80 M/mcL LAB HEMETOLOGY METHOD 06/16/2025 4:45 PM EDT [facility] Hemoglobin 12.3 11.5 - 16.0 g/dL LAB HEMETOLOGY METHOD [facility]25 [facility] Hematocrit 38.1 35.0 - 47.0 % LAB HEMETOLOGY METHOD 06/16/2025 4:45 PM EDT [facility] MCV 90.1 79.0 - 98.0 FL LAB HEMETOLOGY METHOD 06/16/2025 4:45 PM EDT [facility] MCH 29.1 27.0 - 32.0 pcg LAB HEMETOLOGY METHOD 06/16/2025 4:[facility] MCHC 32.3 32.0 - 37.0 g/dL LAB HEMETOLOGY METHOD 06/16/2025 4:45 PM EDT [facility] RDW 14.8 11.0 - 15.0 % LAB HEMETOLOGY METHOD 06/16/2025 4:45 PM EDT [facility] Platelets 368 130 - 400 K/mcL LAB HEMETOLOGY METHOD 06/16/2025 4:45 PM EDT [facility] MPV 9.8 7.0 - 11.0 FL LAB HEMETOLOGY METHOD 06/16/2025 4:45 PM EDT [facility] NRBC 0.0 <1.0 % LAB HEMETOLOGY METHOD 06/16/2025 4:45 PM EDT [facility] NRBC Absolute 0.00 <0.10 K/mcL LAB HEMETOLOGY METHOD 06/16/2025 4:[facility] Neutrophils Relative 53.0 % LAB HEMETOLOGY METHOD 06/16/2025 4:45 PM EDT [facility] Lymphocytes Relative 37.9 % LAB HEMETOLOGY METHOD 06/16/2025 4:45 PM EDT [facility] Monocytes Relative 7.3 % LAB HEMETOLOGY METHOD 06/16/2025 4:[facility] Eosinophils Relative 1.0 % LAB HEMETOLOGY METHOD 06/16/2025 4:[facility] Basophils Relative 0.6 % LAB HEMETOLOGY METHOD 06/16/2025 4:45 PM [facility] Immature Granulocytes Relative 0.2 % LAB HEMETOLOGY METHOD 06/16/2025 4:[facility] Neutrophils Absolute 4.71 1.50 - 7.00 K/mcL LAB HEMETOLOGY METHOD 06/16/2025 4:[facility] Lymphocytes Absolute 3.37 1.00 - 5.00 K/mcL LAB HEMETOLOGY METHOD 06/16/2025 4:45 PM EDT [facility] Monocytes Absolute 0.65 0.20 - 1.00 K/mcL LAB HEMETOLOGY METHOD 06/16/2025 4:[facility] Eosinophils Absolute 0.09 0.00 - 0.50 K/mcL LAB HEMETOLOGY METHOD 06/16/2025 4:[facility] Basophils Absolute 0.05 0.00 - 0.20 K/mcL LAB HEMETOLOGY METHOD 06/16/2025 4:45 PM EDT [facility] Immature Granulocytes Absolute 0.02 0.00 - 0.03 K/[facility] LAB HEMETOLOGY METHOD 06/16/2025 4:45 PM EDT [facility] Blood Blood sample taken from central line / Unknown Existing Catheter / Unknown 06/16/2025 3:02 PM EDT 06/16/2025 4:30 PM EDT Jaison Mendez MD LAB BLOOD ORDERABLES Final R esult Performing Organization Address City/[facility]/ZIP Co de Phone Number [facility] [address] [place] [address], [place] [phone] * (ABNORMAL) CEA (06/16/2025 3:02 PM EDT) Only the most recent of2 resultswithin the time period is included. CEA 79.8(H) 0.0 - 5.0 ng/mL LAB CHEMISTRY METHOD 06/16/2025 6:58 PM EDT [facility] Blood Blood sample taken from central line / Unknown Existing Catheter / Unknown 06/16/2025 3:02 PM EDT 06/16/2025 4:30 PM EDT Narrative [facility] - 06/16/2025 6:58 PM EDT The Siemens Advia Centaur Chemiluminescent Immunoassay is used. Results obtained with different assay methods or kits cannot be used interchangeably. Results cannot be interpreted as absolute evidence of the presence or absence of malignant disease. Jaison Mendez MD LAB BLOOD ORDERABLES Final R esult Performing Organization Address City/[facility]/ZIP Co de Phone Number [facility] [address] [place] [address], [place] [phone] * (ABNORMAL) Comprehensive metabolic panel (06/16/2025 3:02 PM EDT) Sodium 138 133 - 145 mmol/L LAB CHEMISTRY METHOD 06/16/2025 4:54 PM [facility] Potassium 4.1 3.5 - 5.5 mmol/L LAB CHEMISTRY METHOD 06/16/2025 4:54 PM [facility] Chloride 106 96 - 110 mmol/L LAB CHEMISTRY METHOD 06/16/2025 4:54 PM [facility] CO2 29 21 - 32 mmol/L LAB CHEMISTRY METHOD 06/16/2025 4:54 PM [facility] Anion Gap 3 3 - 11 LAB CHEMISTRY METHOD 06/16/2025 4:54 PM [facility] Glucose 107(H) 70 - 100 mg/dL LAB CHEMISTRY METHOD 06/16/2025 4:54 PM [facility] BUN 13 5 - 25 mg/dL LAB CHEMISTRY METHOD 06/16/2025 4:54 PM [facility] Creatinine 0.79 0.50 - 1.10 mg/dL LAB CHEMISTRY METHOD 06/16/2025 4:54 PM [facility] eGFR 95 >=60 mL/min/1. 73m2 LAB CHEMISTRY METHOD 06/16/2025 4:54 PM [facility] Comment:Calculation based on the Chronic Kidney Disease Epidemiology Collaboration (CKD-EPI) equation refit without adjustment for race. BUN/Creatinine Ratio 16.5 LAB CHEMISTRY METHOD 06/16/2025 4:54 PM [facility] Calcium 8.8 8.5 - 10.5 mg/dL LAB CHEMISTRY METHOD 06/16/2025 4:54 PM [facility] AST (SGOT) 20 10 - 42 unit/L LAB CHEMISTRY METHOD 06/16/2025 4:54 PM [facility] ALT (SGPT) 17 10 - 60 unit/L LAB CHEMISTRY METHOD 06/16/2025 4:54 PM [facility] Alkaline Phosphatase 89 42 - 121 unit/L LAB CHEMISTRY METHOD 06/16/2025 4:54 PM EDT [facility] Total Protein 7.0 6.0 - 8.0 g/dL LAB CHEMISTRY METHOD 06/16/2025 4:54 PM EDT [facility] Albumin 3.3 3.2 - 5.0 g/dL LAB CHEMISTRY METHOD 06/16/2025 4:54 PM EDT [facility] Total Bilirubin 0.5 0.0 - 1.4 mg/dL LAB CHEMISTRY METHOD 06/16/2025 4:54 PM EDT [facility] Blood Blood sample taken from central line / Unknown Existing Catheter / Unknown 06/16/2025 3:02 PM EDT 06/16/2025 4:30 PM EDT Jaison Mendez MD LAB BLOOD ORDERABLES Final R esult Performing Organization Address City/[facility]/ZIP Co de Phone Number [facility] [address] [place] [address], [place] [phone] * Molecular intelligence tumor profiling (05/18/2025 10:57 AM EDT) Tissue [facility] Provider LAB MOLECULAR DIAGNOSTICS ORDERABLES Final Result * Venipuncture charge (05/11/2025 2:44 PM EDT) Extra Tube Hold for add-ons. 05/11/2025 6:01 PM EDT [facility] Comment:Auto resulted. Blood Venous blood specimen / Unknown Venipuncture / Unknown 05/11/2025 2:44 PM EDT 05/11/2025 4:27 PM EDT Jaison Mendez MD LAB BLOOD ORDERABLES Final R esult [facility] [address] [place] [address], [place] [phone] * Hepatic function panel (05/11/2025 2:44 PM EDT) Total Protein 7.1 6.0 - 8.0 g/dL LAB CHEMISTRY METHOD 05/11/2025 4:48 PM EDT [facility] Albumin 3.3 3.2 - 5.0 g/dL LAB CHEMISTRY METHOD 05/11/2025 4:48 PM EDT [facility] Total Bilirubin 0.6 0.0 - 1.4 mg/dL LAB CHEMISTRY METHOD 05/11/2025 4:48 PM EDT [facility] Bilirubin, Direct 0.1 0.0 - 0.3 mg/dL LAB CHEMISTRY METHOD 05/11/2025 4:48 PM EDT [facility] Bilirubin, Indirect 0.5 0.0 - 1.1 mg/dL LAB CHEMISTRY METHOD 05/11/2025 4:48 PM EDT [facility] ALT (SGPT) 17 10 - 60 unit/L LAB CHEMISTRY METHOD 05/11/2025 4:48 PM EDT [facility] AST (SGOT) 19 10 - 42 unit/L LAB CHEMISTRY METHOD 05/11/2025 4:48 PM EDT [facility] Alkaline Phosphatase 81 42 - 121 unit/L LAB CHEMISTRY METHOD 05/11/2025 4:48 PM EDT [facility] Blood Venous blood specimen / Unknown Venipuncture / Unknown 05/11/2025 2:44 PM EDT 05/11/2025 4:27 PM EDT Jaison Mendez MD LAB BLOOD ORDERABLES Final R esult [facility] [address] [place] [address], [place] [phone] * MG Mammo Digital Screening w Valdemar [...] Signed Date: 10/29/2024 15:36 ET Workstation ID: [id number] Transcribed By: Self Edit Transcribed Date: 10/29/2024 [...] Tomosynthesis. Computer-aided detection was employed with the [employer] AI 3-D. TISSUE DENSITY: There are scattered [...] Tomosynthesis. Computer-aided detection was employed with the [employer] AI 3-D. TISSUE DENSITY: There are scattered [...] Signed Date: 10/29/2024 15:36 ET Workstation ID: [id number] Transcribed By: Self Edit Transcribed Date: 10/29/2024 15:15 ET us Self Referral Sppl IMG BI PROCEDURES Final Resul t * Pap smear (11/05/2022) 11/05/2022 Narrative HISTORICAL TESTING LAB RESULTING AGENCY - 11/18/2022 7:41 AM EST [id number] THINPREP PAP: NEGATIVE FOR SQUAMOUS INTRAEPITHELIAL LESION [...] HX NEGATIVE 2019, LMP 11/01/22, [Z01.419] Katie Donnie [facility] CYTOLOGY ORDERABLES Final Result HISTORICAL TESTING LAB RESULTING AGENCY from Last 3 Months or Most Recently Relevant to [place] [address] Advance Directives Documents on File Type Date Recorded 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
--- OUTSIDE RECORDS SUMMARY | 2025-07-22 14:17 | XMS_ITS | Clinical Summary ---
Author Organization [address] Address [address] [place] [phone] Care Team Providers Care Marble Polisher Name Role Phone Castro Gomes MD Primary Care Provider [phone] Allergies No known active allergies Medications albuterol sulfate 90 mcg/actuation HFA aerosol inhaler Inhale 2 puffs into the lungs every 6 (six) hours as needed. 5 07/19/20 26 Active oxyCODONE (OXYCONTIN) 30 mg 12 hr extended release tablet Take 1 tablet (30 mg total) by mouth every 12 (twelve) hours. 5 08/14/20 25 Active oxyCODONE (ROXICODONE) 10 mg Immediate Release tablet Take 1 tablet (10 mg total) by mouth every 6 (six) hours as needed. 5 07/27/20 25 Active senna-docusate (SENNOSIDES-DOCU SATE SODIUM) 8.6-50 mg tablet Take 1 tablet by mouth daily. Active cyclobenzaprine (FLEXERIL) 10 mg tablet Take 1 tablet (10 mg total) by mouth 3 (three) times daily as needed for muscle spasms. Active acetaminophen (TYLENOL) [address] 1 suppository (650 mg total) rectally every 4 (four) hours as needed. Active ascorbic Acid (VITAMIN C) 500 mg CpSR SR capsule Take 1 capsule (500 mg total) by mouth daily. Active buPROPion XL (WELLBUTRIN XL) 300 mg 24 hr tablet Take 1 tablet (300 mg total) by mouth every morning. Active clonazePAM (KLONOPIN) 0.5 mg tablet Take 1 tablet (0.5 mg total) by mouth 2 (two) times daily. Active fentaNYL (DURAGESIC) 50 mcg/hr transdermal patch Place 1 patch onto the skin every third day. Active gabapentin (NEURONTIN) 300 mg capsule Take 1 capsule (300 mg total) by mouth 3 (three) times daily with meals. Active mirtazapine (REMERON) 7.5 mg tablet Take 1 tablet (7.5 mg total) by mouth nightly. Active ondansetron (ZOFRAN) 8 mg tablet Take 1 tablet (8 mg total) by mouth every 8 (eight) hours as needed for nausea or vomiting. Active norethindrone (MICRONOR) 0.35 mg tablet Take 1 tablet (0.35 mg total) by mouth daily. Active polyethylene glycol (MIRALAX) 17 gram packet Take 1 packet (17 g total) by mouth daily. Mix in 8 ounces of water, juice, soda, coffee or tea prior to taking. Active senna (SENOKOT) 8.6 mg tablet Take 1 tablet (8.6 mg total) by mouth every evening before dinner. Active Encounters Date Type Department Care Team Description 07/21/2025 Telephone [facility] PHASE I [address] [address] Obtain, Unable To 07/20/2025 11:00 AM EDT Office Visit [facility] I [address] [address] Gage Hussein MD Malignant neoplasm of colon, unspecified part of colon (HC Code) (HC CODE) (Primary Dx) 07/20/2025 10:45 AM EDT Clinical Support [facility] I [address] [address] Gage Hussein MD Arrived 07/20/2025 Telephone [facility] I [address] [address] Gage Hussein MD Appointment 07/19/2025 Telephone [facility] I [address] [address] Jessika Stoner RN RN New Pt Intake 07/19/2025 Abstract [facility] I [address] [address] Jessika Stoner RN 07/01/2025 Telephone [facility] PHASE I CLINIC [address] [address] Obtain, Unable To Appointment; Referral (Self-referral) from Last 3 Months Immunizations Immunization Administration Dates Next Due Hib (PRP-T) 05/29/2021 Influenza, injectable, MDCK, quad, preservative free 09/16/2023,10/10/2022 Influenza, injectable, quadr ivalent, preservative free 10/17/2021 Influenza, trivalent, inject able, contains preservative 09/01/2018,08/22/2017,08/16/2010,07/12 Meningococcal MCV4P - Menactra 05/29/2021 Pneumococcal conjugate PCV 13 05/29/2021 Pneumococcal polysaccharide PPSV23 12/25/2020 Tdap 05/11/2015 Family History Medical History Relation Name Comments Colon cancer Maternal Grandmother Relation Name Status Comments Maternal Grandmother Social [...] Mass Index 41.24 07/20/2025 10:47 AM EDT Plan of Treatment Health Maintenance [...] Procedure Name Priority Date/Time Associated Diagnosis Comments SURGICAL CONSULTS ([facility]) Routine 07/15/2025 10:52 AM EDT from Last 3 Months Results * Surgical consults ([facility]) (07/15/2025 10:52 AM EDT) Surgical Consults SURGICAL PATHOLOGY CONSULT REPORT Patient: PRICILLA NIEVES MR #: [id number] Submitted by: Gage Vidal MD FINAL DIAGNOSIS 1. [place], [id number], 8 SLS, 81: COLON, TRANSVERSE, BIOPSY: - INVASIVE MODERATELY DIFFERENTIATED ADENOCARCINOMA, SEE NOTE NOTE: The provided immunostains of MMR stains (MLH1, MSH2, MSH6, and PMS2) performed at the referring hospital and reviewed show no loss of expression of any of the proteins. HER2 immunostain score 1+ (negative). 2. [place], [place], [id number], 24 SLS, 05/18/21: COLON, SPLENIC FLEXURE WITH SPLEEN AND DISTAL PANCREASE, SEGMENTAL RESECTION: - MODERATELY-DIFFERE NTIATED ADENOCARCINOMA (9.0 CM). - PERFORATION OF THE [...] and edited the final report. Specimen(s) Received: 1:[place], [id number], 8 [facility], 81 2:[place], [id number], 24 [facility], 05/18/21 Clinical History and Impression: 1. Carcinoma colon 2. Colitis [facility] SURGICAL PATHOLOGY 07/15/2025 10:5 2 AM EDT Comment:[place], [place], [id number], 8 SLS, 81/[place], [place], [id number], 24 SLS, 05/18/21 Gage Vidal MD PATHOLOGY/CYTOLOGY ORDERABLES Final Result Performing Organization Address [facility]/State/[facility] Co de Phone Number [facility] SURGICAL PATHOLOGY Department of Pathology [address] [place] [phone] from Last 3 Months [facility] [place] [address] [employer] [facility] MGD Care Teams Marble Polisher Relationship Specialty Start Date End Date Castro Gomes MD [address] [place] [address] PCP - General Family Medicine 07/12/25
--- OUTSIDE RECORDS SUMMARY | 2025-07-22 14:17 | XMS_ITS | Encounter Summary ---
Author Organization [facility] Address [address] [place] [id number] Care Team Providers Care Mophead Sewer Name Role Phone Castro Gomes MD Primary Care Provider [phone] Encounter Details Date Type Department Care Team ([facility] st Contact Info) Description 07/21/2025 Telephone [facility] [address] [place] [id number] Obtain, Unable To Social History Tobacco Use Types Packs/Day Years [...] on filedocumented in this encounter Care Teams Mophead Sewer Relationship Specialty Start Date End Date Castro Gomes MD [address] [place] [address] PCP - General Family Medicine 07/12/25 documented as of this encounter
--- OUTSIDE RECORDS SUMMARY | 2025-07-22 14:17 | XMS_ITS | Clinical Summary ---
Author Organization [facility] Address [address] [place] [phone] Phone Care Team Providers Care Automation Sales Manager Name Role Phone Sherly Hernández MD Primary Care Provider [phone] Self-Referred, Patient Unavailable Unavailab Castro Adam MD Unavailable [phone] Ying Salgado RN Unavailable [email or web address] [...] INT ERPRETATION Final Result Performing Organization Address City/State/[facility] Co de Phone Number [facility] from Last 3 Months or Most Recently Relevant to Health Maintenance Insurance ACO ACO ACO ACO ACO ACO Care Teams Automation Sales Manager Relationship Specialty Start Date End Date Sherly Hernández MD PCP - General 12/20/24 Self-Referred, Patient 01/14/25 Castro Cabello MD [address] [place] [id number] [email or web address] Oncology 01/17/25 Ying Salgado, DIXIE [address] [place] [id number] [email or web address] Registered Nurse 01/26/25 Additional Source Comments The information contained in this document represents components of the legal health record. It is not the complete legal health record.[facility]
== END 2025-07-22 14:40 | disposition home or self-care (01) ==
LOC: HO.HMCFMS 14:04
PROVIDERS: PCP Student in an Organized Health Care Education/Training Program; Visit Provider Student in an Organized Health Care Education/Training Program
DX: C18.9 Malignant neoplasm of colon, unspecified (principal); C78.00 Secondary malignant neoplasm of unspecified lung; R06.00 Dyspnea, unspecified; R53.83 Other fatigue; Z95.828 Presence of other vascular implants and grafts; E66.01 Morbid (severe) obesity due to excess calories

== ENCOUNTER → 2025-07-22 14:03 | Outpatient (BNVA) | payer OTHER, SELFPAY | PROVIDERS: PCP Student in an Organized Health Care Education/Training Program; Visit Provider Student in an Organized Health Care Education/Training Program | DX: C18.9 Malignant neoplasm of colon, unspecified (principal); C78.00 Secondary malignant neoplasm of unspecified lung; R06.00 Dyspnea, unspecified; R53.83 Other fatigue; E66.01 Morbid (severe) obesity due to excess calories; Z95.828 Presence of other vascular implants and grafts; Z68.41 Body mass index [BMI] 40.0-44.9, adult | CPT/HCPCS: 99212 ==

== ENCOUNTER 2025-08-05 10:06 | Outpatient (AMB) | payer OTHER, SELFPAY ==
--- OUTSIDE RECORDS SUMMARY | 2024-07-29 15:38 | XMS_ITS | Encounter Summary ---
Author Organization [employer] Address [address] [place] [address] Care Team Providers Care Monument Erector Name Role Phone Sherly Donald MD Primary Care Provider [phone] [phone] Encounter Details Date Type Department Care Team [...] Date of Assessment Author No Risk Indicated 07/31/2025 11:09 PM EDT Angella Herrera, DIXIE * [place] Suicide Severity Rating Scale (Screener/Recent Self-Report) Question Answer Date of Assessment Author 1. Wish to be (Past 1 Month) No 10/12/2 025 11:09 PM EDT Angella Herrera, RN 2. Non-Specific Active Suici nathan Thoughts (Past 1 Month) No 07/31/2025 11:09 PM EDT Rehan Herrera i, DIXIE 6. Suicidal Behavior (Lifetime) No 11:09 PM EDT Angella Herrera, RN documented as of this encounter Progress [...] Care Team (Late st Contact Info) Description 08/05/2025 3:30 PM EDT Appointment [facility] CT Scan [address] [place] [address] 08/30/2025 11:00 AM EST Office Visit [facility] Hematology Oncology [address] [place] [address] Jaison Mendez MD [address] [place] [address] documented as of this encounter Visit Diagnoses Not on filedocumented in this encounter Additional Health Concerns Infection Onset Date Last Indicated Resolved Time Respiratory Rule-Out 08/01/2025 08/01/2025 025 6:13 AM EDT COVID-19 Rule-Out 08/01/2025 08/01/2025 08/01/2025 6:13 AM EDT documented as of this encounter Care Teams Monument Erector Relationship Specialty Start Date End Date Sherly Donald MD [address] [place] [address] PCP - General Internal Medicine 05/29/21 documented as of this encounter
--- OUTSIDE RECORDS SUMMARY | 2025-07-31 23:19 | XMS_ITS | Encounter Summary ---
Author Organization [employer] Address [address] [place] [address] Care Team Providers Care Director Of Teaching And Learning Name Role Phone Sherly Donald MD Primary Care Provider [phone] Reason for Visit * Reason Comments Chest Pain Since yesterday Encounter Details Date Type Department Care Team (Late st Contact Info) Description 07/31/2025 11:19 PM EDT - 08/01/2025 7:[address] [facility] Emergency [address] [place] [id number] Sheyla Mazariegos MD [address] [place] [address] Chest pain, unspecified type (Primary Dx); Left upper quadrant abdominal pain; Gastritis without bleeding, unspecified chronicity, unspecified gastritis type Discharge Disposition: Home or Self Care Social History Tobacco Use Types Packs/Day Years [...] Sign Reading Time Taken Comments Blood Pressure 114/65 08/01/2025 5:20 AM EDT Pulse 77 08/01/2025 5:20 AM EDT Temperature 36.8 C (98.3 F) 08/01/2025 5:20 AM EDT Respiratory Rate 15 08/01/2025 5:20 AM EDT Oxygen Saturation 96% 08/01/2025 5:20 AM EDT Inhaled Oxygen Concentration - - Weight 132 kg (290 lb) 07/31/2025 11:07 PM EDT Height 180.3 cm (5' 11 ) 07/31/2025 11:07 PM EDT Body Mass Index 40.45 07/31/2025 11:07 PM EDT documented in this encounter Functional Status * Calculated C-SSRS Risk Score (Lifetime/Recent) Answer Date of Assessment Author No Risk Indicated 07/31/2025 11:09 PM EDT Angella Herrera RN * [place] Suicide Severity Rating Scale (Screener/Recent Self-Report) Question Answer Date of Assessment Author 1. Wish to be (Past 1 Month) No 025 11:09 PM EDT Angella Hererra RN 2. Non-Specific Active Suici nathan Thoughts (Past 1 Month) No 07/31/2025 11:09 PM EDT Rehan Herrera i, RN 6. Suicidal Behavior (Lifetime) No 11:09 PM EDT Angella Herrera RN documented as of this encounter Discharge Instructions * Discharge Instructions* Sheyla Mazarigeos MD - 08/01/2025 6:43 AM EDT Please keep your follow-up with your cancer doctors. A prescription for Protonix for acid lowering was sent to your pharmacy. Please take this every morning before eating first thing in the morning. Return to the emergency department if you develop any chest pain or trouble breathing. * Attachments The following attachments cannot be sent through Care Everywhere. * Abdominal Pain (Togolese) * Chest Pain (Togolese) * Gastritis (Togolese) documented in this encounter Medications at Time of Discharge acetaminophen (TYLENOL) 325 mg tablet Take 2 tablets (650 mg total) by mouth every 6 (six) hours as needed for pain. albuterol HFA (PROAIR HFA ; PROVENTIL HFA ; VENTOLIN HFA) 90 mcg/actuation inhaler Inhale 2 puffs by mouth every 6 (six) hours if needed for wheezing. 6.7 g 11 07/27/2025 albuterol HFA (PROAIR HFA ; PROVENTIL HFA ; VENTOLIN HFA) 90 mcg/actuation inhaler Inhale 2 puffs by mouth every 6 (six) hours if needed for wheezing. 6.7 g 11 07/27/2025 ascorbic acid (VITAMIN C) 500 mg tablet Take 1 tablet (500 mg total) by mouth 1 (one) time each day. buPROPion XL (WELLBUTRIN XL) 300 mg 24 hr tablet Take 1 tablet (300 mg total) by mouth 1 (one) time each day in the morning. 08/12/2024 clonazePAM (KlonoPIN) 0.5 mg tablet Take 1 tablet (0.5 mg total) by mouth 2 (two) times a day if needed. 08/12/2024 cyclobenzaprine (FLEXERIL) 10 mg tablet TAKE 1 TABLET BY MOUTH 2 TIMES A DAY IF NEEDED FOR MUSCLE SPASMS FOR UP TO 15 DAYS. 30 tablet 05/09/2025 gabapentin (NEURONTIN) 300 mg capsule Take 1 capsule (300 mg total) by mouth 2 (two) times a day. 60 capsule 1 01/26/2025 mirtazapine (REMERON) 7.5 mg tablet Take 1 tablet (7.5 mg total) by mouth every night at bedtime. norethindrone (OLIVIA,SRAVANI,HEAT HER,MICRONOR) 0.35 mg tablet Take 1 tablet (0.35 mg total) by mouth 1 (one) time each day. ondansetron (ZOFRAN) 8 mg tablet Take 1 tablet (8 mg total) by mouth every 8 (eight) hours as needed for nausea. 09/01/2023 oxyCODONE (OxyCONTIN) 30 mg 12 hr abuse-deterrent tabletIndications: Colon cancer metastasized to multiple sites (CMS/HCC V24, CMS/HCC V28),Pain management Take 1 tablet (30 mg total) by mouth every 12 (twelve) hours. Do not crush, chew, or split. Max Daily Amount: 60 mg 60 tablet 07/15/2025 5 oxyCODONE (ROXICODONE) 10 mg immediate release tabletIndications: Malignant neoplasm of splenic flexure (CMS/HCC V24, CMS/HCC V28),Metastases to the liver (CMS/HCC V24, CMS/HCC V28) Take 1 tablet (10 mg total) by mouth every 6 (six) hours if needed for severe pain for up to 12 days. Max Daily Amount: 40 mg 48 tablet 07/27/2025 5 oxyCODONE (ROXICODONE) 10 mg immediate release tabletIndications: Malignant neoplasm of splenic flexure (CMS/HCC V24, CMS/HCC V28),Metastases to the liver (CMS/HCC V24, CMS/HCC V28) Take 1 tablet (10 mg total) by mouth every 6 (six) hours if needed for severe pain for up to 12 days. Max Daily Amount: 40 mg 48 tablet 07/27/2025 5 oxyCODONE (ROXICODONE) 5 mg immediate release tabletIndications: Metastatic colon cancer to liver (CMS/HCC V24, CMS/HCC V28) Take 1 tablet (5 mg total) by mouth every 4 (four) hours if needed for severe pain. Max Daily Amount: 30 mg 48 tablet 04/20/2025 pantoprazole (PROTONIX) 40 mg EC tablet Take 1 tablet (40 mg total) by mouth 1 (one) time each day before breakfast. Do not crush, chew, or split. 30 each 08/01/2025 polyethylene glycol (MIRALAX) 17 gram packet Take 17 g by mouth daily. 09/01/2023 senna (SENOKOT) 8.6 mg tablet Take 1 tablet (8.6 mg total) by mouth every night at bedtime. 12/01/2023 senna-docusate (PERICOLACE) 8.6-50 mg per tablet Take 1 tablet by mouth 1 (one) time each day. 30 tablet 11 04/21/2025 traMADoL (ULTRAM) 50 mg tablet Take 50 mg by mouth every 6 (six) hours as needed for pain. 12/01/2023 fentaNYL (DURAGESIC) 50 mcg/hrIndications: Malignant neoplasm of splenic flexure (CMS/HCC V24, CMS/HCC V28),Metastases to the liver (CMS/HCC V24, CMS/HCC V28) Place 1 patch on the skin every 3rd (third) day. Max Daily Amount: 1 patch 10 patch 07/05/2025 oxyCODONE (ROXICODONE) 15 mg immediate release tabletIndications: Colon cancer metastasized to multiple sites (CMS/HCC V24, CMS/HCC V28) Take 1 tablet (15 mg total) by mouth every 4 (four) hours if needed (as needed for severe pain). Max Daily Amount: 90 mg 90 tablet 07/19/2025 documented as of this encounter Ordered Prescriptions Prescription Sig Dispense Quantity Refills Last Filled Start Date End Date pantoprazole (PROTONIX) 40 mg EC tablet Take 1 tablet (40 mg total) by mouth 1 (one) time each day before breakfast. Do not crush, chew, or split. 30 each 08/01/2025 08/31/2025 documented in this encounter Discharge Disposition Disposition Code Departure Means Destination Comment s Home or Self Care documented in this encounter Progress Notes * Angella Herrera RN - 07/31/2025 11:08 PM EDT Pt here with c/o mid sternal chest pain since yesterday. Also c/o dry cough * Sheyla Mazariegos MD - 07/31/2025 10:54 PM EDT EMERGENCY DEPARTMENT Provider Note Room: Patient: Oscar Morrow PCP: Sherly Donald MD Patient : 1980 Patient Department: [facility] EMERGENCY [address] [facility] [address] Dept: [phone] Triage Chief Complaint: Chest Pain (Since yesterday ) History of Present Illness: 45-year-old female resenting with substernal and left-sided chest pain as well as left upper quadrant abdominal pain ongoing for the last few days but worsened from yesterday into today. No nausea orvomiting. No diarrhea. She has history of metastatic colon cancer with lung and liver metastasis. Not currently undergoingany treatment. Previously had chemotherapy about 3 years ago and states she does not want to do chemotherapy again. She has also had several surgeries, partial colectomy and several to remove some kind of mass in her liver per the patient. She has noticed she felt some wheezing when she was breathing and her doctor told her to use an inhaler. She does not have any known history of asthma. ED Course / Medications given / MDM: Patient with chest pain, no dyspnea but pain worse with inspiration. Also has some left upper quadrant abdominal pain. Active colon cancer, untreated, newly, recurrent and with metastasis to lung and liver. Differential diagnosis: Pulmonary embolism, cardiac event, costochondritis, pericarditis, pleurisy,pneumonia, URI, intra-abdominal pathology/colitis/diverticulitis/gastritis. Will check CTA chest/abdomen/pelvis to evaluate her multiple sources of pain and for potential pulmonary embolism. ED Course as of 08/01/252100Aug 01, [id number] CT scan shows no pulmonary embolism but early/ low-grade SBO. Discussed with surgery. [AK] 0355 Updated the patient on CT findings and need for surgery evaluation and possibly NG tube. She states she thinks she had a bowel obstruction in the past related to adhesions or scarring. [AK] 0432 The surgical PA came to evaluate the patient. Nontender on exam now. No distention. The patient is passing gas and has had bowel movements and no vomiting. They do not believe the patient has a small bowel obstruction based on her physical exam findings and clinical history. They recommend GI cocktail and p.o. challenge. They do not recommend admission at this time. [AK] 0642 Patient tolerated the GI cocktail well. Did not vomit. P.o. challenge was successful as well. The patient is feeling better. Stable for discharge. [AK] ED Course User Index [AK] Sheyla Mazariegos MD Clinical Impressions as of 08/01/252100 Chest pain, unspecified type Left upper quadrant abdominal pain Gastritis without bleeding, unspecified chronicity, unspecified gastritis type Medications ketorolac (TORADOL) injection 15 mg (has no administration in time range) Clinical Impression(s): Final diagnoses: [R07.9] Chest pain, unspecified type Disposition: Data Unavailable Physical Examination: Temp: 36.6 ??C (97.8 ??F) BP: (!) 132/92 Heart Rate: 76 Resp: 18 SpO2: 98 % Nursing notes and vitals reviewed. Constitutional: Well-developed, well-nourished, and in no distress. Head: Normocephalic and atraumatic. Eyes: Conjunctivae and EOM are normal. ENT: Moist mucous membranes Neck: Normal range of motion. No tracheal deviation present. Cardiovascular: Normal rate, extremities warm and well-perfused. Pulmonary/Chest: Effort normal. No respiratory distress. Abdominal: Soft. No distension. Left upper quadrant tenderness, no rebound or guarding. Musculoskeletal: Normal range of motion. No deformity. Calves symmetric, soft, nontender to palpation. Neurological: Alert. GCS 15. Psych: Normal mood, normal affect Skin: Warm and dry. Lab & Imaging Results: Encounter Date: 07/31/25 ECG 12 lead Result Value Ventricular Rate ECG 84 Atrial Rate 84 P-R Interval 156 QRS Duration 88 Q-T Interval 374 QTc 441 P Wave [place] 71 R [place] 74 T [place] 49 ECG Interpretation Normal sinus rhythm Normal ECG When compared with ECG of 27-SEP-2022 16:25, No significant change was found *Note: Due to a large number of results and/or encounters for the requested time period, some results have not been displayed. A complete set of results can be found in Results Review. If an EKG was performed on today's visit and is documented above I independently interpreted/read the EKG as noted above at the time of service as above. EKG: At 11 PM. Normal sinus rhythm rate 84, no acute ischemia, no STEMI. Labs Reviewed TROPONIN I HIGH SENSITIVITY TROPONIN I HIGH SENSITIVITY CBC AND DIFFERENTIAL Narrative: The following orders were created for panel order CBC and differential. Procedure Abnormality Status --------- ------ CBC auto differential[[id number]] Please view results for these tests on the individual orders. COMPREHENSIVE METABOLIC PANEL LIPASE MAGNESIUM B-TYPE NATRIURETIC PEPTIDE CBC WITH AUTO DIFFERENTIAL URINALYSIS WITH REFLEX MICROSCOPIC POC , URINE DIAGNOSTIC CT Angio Chest/Abdomen/Pelvis wo and/or w Contrast (Results Pending) Procedures: Procedures Previous Medications ACETAMINOPHEN (TYLENOL) 325 MG TABLET Take 2 tablets (650 mg total) by mouth every 6 (six) hours asneeded for pain. ALBUTEROL HFA (PROAIR HFA ; PROVENTIL HFA ; VENTOLIN HFA) 90 MCG/ACTUATION INHALER Inhale 2 puffs by mouth every 6 (six) hours if needed for wheezing. ALBUTEROL HFA (PROAIR HFA ; PROVENTIL HFA ; VENTOLIN HFA) 90 MCG/ACTUATION INHALER Inhale 2 puffs by mouth every 6 (six) hours if needed for wheezing. ASCORBIC ACID (VITAMIN C) 500 MG TABLET Take 1 tablet (500 mg total) by mouth 1 (one) time each day. BUPROPION XL (WELLBUTRIN XL) 300 MG 24 HR TABLET Take 1 tablet (300 mg total) by mouth 1 (one) timeeach day in the morning. CLONAZEPAM (KLONOPIN) 0.5 MG TABLET Take 1 tablet (0.5 mg total) by mouth 2 (two) times a day if needed. CYCLOBENZAPRINE (FLEXERIL) 10 MG TABLET TAKE 1 TABLET BY MOUTH 2 TIMES A DAY IF NEEDED FOR MUSCLE SPASMS FOR UP TO 15 DAYS. FENTANYL (DURAGESIC) 50 MCG/HR Place 1 patch on the skin every 3rd (third) day. Max Daily Amount: 1patch GABAPENTIN (NEURONTIN) 300 MG CAPSULE Take 1 capsule (300 mg total) by mouth 2 (two) times a day. MIRTAZAPINE (REMERON) 7.5 MG TABLET Take 1 tablet (7.5 mg total) by mouth every night at bedtime. NORETHINDRONE (OLIVIA,SRAVANI,PETE,MICRONOR) 0.35 MG TABLET Take 1 tablet (0.35 mg total) by mouth1 (one) time each day. ONDANSETRON (ZOFRAN) 8 MG TABLET Take 1 tablet (8 mg total) by mouth every 8 (eight) hours as needed for nausea. OXYCODONE (OXYCONTIN) 30 MG 12 HR ABUSE-DETERRENT TABLET Take 1 tablet (30 mg total) by mouth every12 (twelve) hours. Do not crush, chew, or split. Max Daily Amount: 60 mg OXYCODONE (ROXICODONE) 10 MG IMMEDIATE RELEASE TABLET Take 1 tablet (10 mg total) by mouth every 6 (six) hours if needed for severe pain for up to 12 days. Max Daily Amount: 40 mg OXYCODONE (ROXICODONE) 10 MG IMMEDIATE RELEASE TABLET Take 1 tablet (10 mg total) by mouth every 6 (six) hours if needed for severe pain for up to 12 days. Max Daily Amount: 40 mg OXYCODONE (ROXICODONE) 15 MG IMMEDIATE RELEASE TABLET Take 1 tablet (15 mg total) by mouth every 4 (four) hours if needed (as needed for severe pain). Max Daily Amount: 90 mg OXYCODONE (ROXICODONE) 5 MG IMMEDIATE RELEASE TABLET Take 1 tablet (5 mg total) by mouth every 4 (four) hours if needed for severe pain. Max Daily Amount: 30 mg POLYETHYLENE GLYCOL (MIRALAX) 17 GRAM PACKET Take 17 g by mouth daily. SENNA (SENOKOT) 8.6 MG TABLET Take 1 tablet (8.6 mg total) by mouth every night at bedtime. SENNA-DOCUSATE (PERICOLACE) 8.6-50 MG PER TABLET Take 1 tablet by mouth 1 (one) time each day. TRAMADOL (ULTRAM) 50 MG TABLET Take 50 mg by mouth every 6 (six) hours as needed for pain. Allergies: Patient has no known allergies. Medical History[1] Surgical History[2] Social History[3] Sheyla Mazariegos MD 07/31/25 9988 [1] Past Medical History: Diagnosis Date ??? Abnormal cytological finding in specimen from cervix DX:Abnormal cytological finding in specimen from cervix ??? Abnormal Pap smear of cervix 06/05/2017 05/07/2016 PAP Unsatisfactory cytology, + HPV, Neg 16, Neg 18/45 06/05/2017 PAP Neg cytology, neg HPV Repeat co-testing 3 yrs ??? Anxiety state DX:Anxiety state ??? Asthma DX:Asthma ??? Cancer of liver (CMS/HCC V24, CMS/HCC V28) 2021 DX:Cancer of liver (HCC) ??? Colon cancer (CMS/HCC V24, CMS/HCC V28) 2020 DX:Colon cancer (HCC) ??? Metastases to the liver (CMS/HCC V24, CMS/HCC V28) 11/05/2022 DX:Metastases to the liver (HCC) [2] Past Surgical History: Procedure Laterality Date ??? KNEE SURGERY 2016 PROCEDURE: HISTORICAL KNEE SURGERY ??? OTHER SURGICAL HISTORY PROCEDURE: HISTORY OTHER; COMMENT: Multiple lower extremeity venous surgeries ??? OTHER SURGICAL HISTORY 05/18/2021 PROCEDURE: DE LAPAROSCOPY COLECTOMY PARTIAL W/ANASTOMOSIS; COMMENT: segmental colectomy with anastomosis, en bloc splenectomy, and en bloc distal pancreatectomy - to address adenocarcinoma of transverse colon (no jeronimo involvement or extension to spleen or distal pancreas) - Rossy Alejandro ??? OTHER SURGICAL HISTORY PROCEDURE: HISTORY OTHER; COMMENT: extended left hepatectomy, partial right hepatectomy, cholecystectomy @ [facility] ??? VARICOSE VEIN SURGERY PROCEDURE: DE LIGJ DIVJ &/EXCJ VARICOSE VEIN CLUSTER 1 LEG [3] Social History Tobacco Use ??? Smoking status: Never ??? Smokeless tobacco: Never Substance Use Topics ??? Alcohol use: Yes ??? Drug use: Never Sheyla Mazariegos MD 08/01/252102 documented in this encounter Consult Notes * DEVIKA Kelly - 08/01/2025 6:23 AM EDT General Surgery Consult Note Date of Consult: 08/01/2025 Patient's Primary Care Physician: Sherly Donald MD Physician Requesting Consult: ER Reason for Consultation: concern for ileus/psbo on CT Name: Oscar Morrow Age: 45 y.o. Sex: female Chief Complaint Left sided chest pain History of Present Illness This is a 45-year-old pleasant Togolese-speaking female with a history is as follows: In 2020 was found to have an obstruction colon mass and liver lesion. Underwent a partial colectomywith anastomosis. Pathology consistent with moderately differentiated adenocarcinoma. 05/2021 had a positive PET scan but the liver mass was not able to be biopsied and was initiated on systemic treatment with chemotherapy. 06/2022 a new 3 cm liver lesion was noted and Dr. Lopez did a liver resection 05/2023 underwent a laparotomy with frequency ablation In 2023 underwent a third surgery which included a liver lesion resection with a midline incisionalhernia repair with mesh October 2024 was found to have bilateral lung metastatic disease In January 2025 was seen by [facility] and found to be not eligible for current clinical trials. Recommended palliative chemotherapy but patient declined. July 2025 underwent a bone scan without bone mets noted Currently in talks with [place] to discuss clinical trials for metastatic cancer She presents to the ER today with complaints of left-sided chest pain worse on inspiration. She hasrecently been under a lot of stress. She denies any nausea, vomiting, fever, chills, shortness of breath. She has been passing flatus and having bowel movements. She denies any abdominal pain at thistime. She has been tolerating a diet. States she typically gets a respiratory infection around this time of year. She is not currently on chemotherapy treatment at this time. States she came to the ER for her respiratory complaints. Her cough has been dry and nonproductive and although she has not been feeling well for the past month has been worse the past 48 hours. In the emergency department underwent a CT angio of the chest with no evidence of pulmonary embolism just persistent metastatic lung disease. CT of the abdomen and pelvis showed findings concerning for an ileus versus early partial small bowel obstruction. Anticoagulation: none Review of Systems Review of Systems Constitutional: Negative for chills and fever. HENT: Negative for drooling, mouth sores, postnasal drip, rhinorrhea, sore throat and trouble swallowing. Respiratory: Positive for cough and shortness of breath. Negative for chest tightness and wheezing. Cardiovascular: Negative for chest pain and palpitations. Gastrointestinal: Negative for abdominal distention, constipation, diarrhea, nausea and vomiting. Genitourinary: Negative for dysuria. Neurological: Negative for dizziness, light-headedness and headaches. Objective Past History Medical History[1] Surgical History[2] Family History[3] Social History Tobacco Use Smoking status: Never Smokeless tobacco: Never Substance Use Topics Alcohol use: Yes Allergies Allergies[4] Physical Exam Patient Vitals for the past 8 hrs: BP Temp Temp src Pulse Resp SpO2 Height Weight 08/01/25 0520 114/65 36.8 ??C (98.3 ??F) Oral 77 15 96 % -- -- 08/01/25 0210 115/59 36.9 ??C (98.4 ??F) Oral 87 14 98 % -- -- 07/31/25 2307 (!) 132/92 36.6 ??C (97.8 ??F) Oral 76 18 98 % 1.803 m (71 ) 132 kg (290 lb) No intake or output data in the 24 hours ending 08/01/25 0623 Physical Exam Constitutional: General: She is not in acute distress. Appearance: She is obese. She is not ill-appearing, toxic-appearing or diaphoretic. HENT: Head: Normocephalic and atraumatic. Eyes: Pupils: Pupils are equal, round, and reactive to light. Cardiovascular: Rate and Rhythm: Normal rate. Heart sounds: No murmur heard. Pulmonary: Effort: Pulmonary effort is normal. No respiratory distress. Breath sounds: Normal breath sounds. No stridor. No rales. Chest: Chest wall: No tenderness. Abdominal: General: Bowel sounds are normal. There is no distension. Tenderness: There is no abdominal tenderness. Hernia: No hernia is present. Musculoskeletal: Right lower leg: No edema. Left lower leg: No edema. Skin: Coloration: Skin is not jaundiced. Neurological: Mental Status: She is alert. Psychiatric: Mood and Affect: Mood normal. Relevant data reviewed Lab Results Component Value Date WBC 12.3 (H) 07/31/2025 HGB 12.6 07/31/2025 HCT 38.0 07/31/2025 MCV 89.8 07/31/2025 PLT 320 07/31/2025 Lab Results Component Value Date GLUCOSE 99 07/31/2025 CALCIUM 9.2 07/31/2025 NA 138 07/31/2025 K 3.9 07/31/2025 CO2 25 07/31/2025 CL 106 07/31/2025 BUN 13 07/31/2025 CREATININE 0.77 07/31/2025 Lab Results Component Value Date ALT 22 07/31/2025 AST 25 07/31/2025 ALKPHOS 86 07/31/2025 BILITOT 0.4 07/31/2025 No results found for: INR , PROTIME No results found for: ABORH Imaging Studies CT Abdomen Pelvis w Contrast Addendum Date: 08/01/2025 Addendum: ADDENDUM: This report was discussed with MEREDITH Brown MD on Aug 01, 2025 03:27:00 EDT. This document has been electronically signed by: Marianne Gerber on 08/01/2025 03:29:15 Result Date: 08/01/2025 Narrative: INDICATION: abdo pain colon CA LUQ pain CT abdomen and pelvis with contrast Comparison: CT/OT/SR - ABDOMEN AND PELVIS C+ CT - 07/01/24 09:01 EDT Findings: The gallbladder is surgically absent. Postsurgical changes compatible with partial hepatectomy present. The spleen is surgically absent. The pancreas and bilateral adrenal glands are within normal limits for appearance. No hydronephrosis or hydroureter. There is mildly limited evaluation of the stomach related to gastric underdistention. No free intraperitoneal air. Mildly dilated small bowel loops are present at the left upper abdominal quadrant, measuring up to 3.2 cm in diameter. There are postsurgical changes of the distal colon of the left upper abdominal quadrant with mild upstream gaseous distention of the colon. Tiny, fat containing umbilical hernia. Pelvic contents unremarkable. No focal bladder wall thickening. Normal appendix. No acute fracture visualized. Impression: 1. Mildly dilated small bowel loops present at the left upper abdominal quadrant, measuring up to 3.2 cm in maximum diameter, possibly consistent with a partial/low-grade small bowel obstruction or mild bowel ileus. There are also postsurgical changes of the colon at the left upper abdominal quadrant with mild upstream gaseous distention of the colon. The mild/partial colonic obstruction related to postsurgical change at this site is not excluded. Clinical correlation is advised. This document has been electronically signed by: Cale Meléndez MD on 08/01/2025 03:23:11 CT Angio Chest wo and/or w Contrast Result Date: 08/01/2025 Narrative: INDICATION: pulmonary embolism CT angiography chest using contrast. 3-D postprocessing Comparison: CT/KO/DE/SR - CT CHEST ABD PEL W CONTRAST - 08/26/24 10:29 EST Findings: Evaluation of thepulmonary arterial system is mildly limited by motion artifact. This limits evaluation of the subsegmental pulmonary arterial branches. Mildly limited evaluation of the segmental pulmonary arterial branches. No pulmonary embolism visualized. No thoracic aorta aneurysm or dissection identified. Limited evaluation of the aortic root and ascending thoracic aorta related to motion artifact at these sites. Right-sided chest port in place. Enlarged subcarinal lymph node present, measuring up to a proximally 1.6 cm in maximal short axis dimension. Heart size within normal limits. RV/LV ratio normal.2.7 x 2.5 cm nodule present at the right lower lobe with a 2.6 x 1.9 cm nodule at the medial aspectof the left lower lobe. There are [id number] opacities at the left upper lobe/lingula with associated volume loss, suggesting some degree of atelectasis. There is partial obstruction of the left upper lobe bronchus. No pneumothorax or pleural effusion. No acute fractures. Impression: Impression: 1. Mildly motion limited examination as described above, limiting evaluation of the distal pulmonary arterial branches. No pulmonary embolism identified. 2. Bilateral lower lobe pulmonary nodules present with partial obliteration of the left upper lobe bronchus, suggesting sequela of malignancy/metastatic disease. There are zasa-[id number] left upper lobe and lingula opacities with volume loss in this region, suggesting postobstructive atelectasis. 3. Enlarged subcarinal lymph node. This document has been electronically signed by: Cale Meléndez MD on 08/01/2025 03:11:21 NM Bone/Joint Scan Whole Body Addendum Date: 07/25/2025 Addendum: Addendum: The patient returned for additional spot imaging of the upper extremities to fully include the humeri. No evidence of osteoblastic disease is seen. NC -------- ADDENDUM -------- Dictated By: Hanane Chen Dictated Date: 07/25/2025 15:34 ET Assigned Physician: Hanane Chen Reviewed and Electronically Signed By: Hanane Chen Signed Date: 07/25/2025 15:35 ET Workstation ID: [id number] Transcribed By: Self Edit Transcribed Date: 07/25/2025 15:34 ET Result Date: 07/25/2025 Narrative: HISTORY: Personal history of metastatic colon carcinoma. Bilateral shoulder pain. COMPARISON: PET/CT 10/28/24 TECHNIQUE: 3 hour delayed whole body bone imaging was performed in the anterior and posterior projections from the top of the head through the tips the toes following the intravenous administration of 25.5 mCi technetium 99m MDP. Delayed anterior and posterior oblique spot imaging of the thorax was also performed. Note: Due to patient body habitus, the upper extremities are incompletely imaged on the whole-body views and no specific upper extremity spot imaging was performed.The bilateral shoulders and the proximal half to two thirds of the humeri are included on the wholebody images. FINDINGS: Radiotracer distribution throughout the axial skeleton is within normal limits. No focal accumulation of abnormal radiotracer activity is seen to suggest osteoblastic metastatic disease. The included portions of the appendicular skeleton are also unremarkable. Normal bladder and bilateral renal activity is demonstrated. Impression: No evidence of osteoblastic metastatic disease is seen. Teledivina FORTUNE ([id number]) -------- FINAL REPORT -------- Dictated By: Hanane Chen Dictated Date: 07/25/2025 14:08 ET Assigned Physician: Hanane Chen Reviewed and Electronically Signed By: Hanane Chen Signed Date: 07/25/2025 14:18 ET Workstation ID: [id number] Transcribed By: Self Edit Transcribed Date: 07/25/2025 14:08 ET Assessment & Plan This is a 45-year-old complex patient who presented herself with complaints of shortness of breath and chest pain/upper quadrant discomfort who was incidentally found on imaging to have a PSBO versusa an ileus. I recommended a GI cocktail and an hour later she started to feel better with her chest discomfort.This pain was not reproducible on exam and mostly upper left chest. She had no abdominal pain nausea or vomiting. EKG and troponins within normal limits. I recommended a nasal swab and a p.o. challenge with PPI. There is no need for any sort of intervention at this time. If patient tolerates her diet she can be discharged home without patient follow-up with her oncologist. Patient discussed with Dr. Ruiz who is in agreement. Sign: Sim Bass PA-C General Surgery [facility] Available on wikifolio/Staff Physician [1] Past Medical History: Diagnosis Date Abnormal cytological finding in specimen from cervix DX:Abnormal cytological finding in specimen from cervix Abnormal Pap smear of cervix 06/05/2017 05/07/2016 PAP Unsatisfactory cytology, + HPV, Neg 16, Neg 18/45 06/05/2017 PAP Neg cytology, neg HPV Repeat co-testing 3 yrs Anxiety state DX:Anxiety state Asthma DX:Asthma Cancer of liver (CMS/HCC V24, CMS/HCC V28) 2021 DX:Cancer of liver (HCC) Colon cancer (CMS/HCC V24, CMS/HCC V28) 2020 DX:Colon cancer (HCC) Metastases to the liver (CMS/HCC V24, CMS/HCC V28) 11/05/2022 DX:Metastases to the liver (HCC) [2] Past Surgical History: Procedure Laterality Date KNEE SURGERY 2015 PROCEDURE: HISTORICAL KNEE SURGERY OTHER SURGICAL HISTORY PROCEDURE: HISTORY OTHER; COMMENT: Multiple lower extremeity venous surgeries OTHER SURGICAL HISTORY 05/18/2021 PROCEDURE: DE LAPAROSCOPY COLECTOMY PARTIAL W/ANASTOMOSIS; COMMENT: segmental colectomy with anastomosis, en bloc splenectomy, and en bloc distal pancreatectomy - to address adenocarcinoma of transverse colon (no jeronimo involvement or extension to spleen or distal pancreas) - Dr. Jorge Anderson [facility] OTHER SURGICAL HISTORY PROCEDURE: HISTORY OTHER; COMMENT: extended left hepatectomy, partial right hepatectomy, cholecystectomy @ [facility] VARICOSE VEIN SURGERY PROCEDURE: DE LIGJ DIVJ &/EXCJ VARICOSE VEIN CLUSTER 1 LEG [3] Family History Problem Relation Name Age of Onset Hypertension Sister No Known Problems Sister No Known Problems Brother No Known Problems Brother No Known Problems Brother Diabetes Mother Other (Other: Breast cysts- benign) Mother Hypertension Father 38.00 Cancer Maternal Grandmother Colon [4] No Known Allergies Cosigned by Cristina Ruiz MD at 08/01/2025 9:49 AM EDT Associated attestation - Cristina Ruiz MD - 08/01/2025 9:49 AM EDT Discussed patient's care with PA, went over history, exam, results, images.... agree with plan. documented in this encounter Plan of Treatment Upcoming Encounters Date Type Department Care Team (Late st Contact Info) Description 08/05/2025 3:[address] [facility] CT Scan [address] [place] [phone] 08/30/2025 11:00 AM EST Office Visit [facility] Hematology Oncology [address] [place] [phone] Jaison Mendez MD [address] [place] [address] documented as of this encounter Procedures Procedure Name Priority Date/Time Associated Diagnosis Comments ECG ANNOTATED 08/02/2025 [id number], RSV, FLU A AND B QUALITATIVE RT-PCR, INTERNAL LAB STAT 08/01/2025 4:[address] ABDOMEN PELVIS W CONTRAST STAT 08/01/2025 2:[address] ANGIO CHEST WO AND/OR W CONTRAST Routine 08/01/2025 2:08 AM EDT Chest pain, unspecified type TROPONIN I HIGH SENSITIVITY Timed 08/01/2025 1:24 AM EDT ECG 12-LEAD STAT 08/01/2025 1:08 AM EDT POC , URINE DIAGNOSTIC STAT 08/01/2025 12:21 AM EDT URINALYSIS WITH REFLEX MICROSCOPIC STAT 08/01/2025 12:15 AM EDT URINALYSIS WITH REFLEX MICROSCOPIC STAT 08/01/2025 12:15 AM EDT TROPONIN I HIGH SENSITIVITY Timed 07/31/2025 11:50 PM EDT CBC WITH AUTO DIFFERENTIAL STAT 07/31/2025 11:50 PM EDT CBC AND DIFFERENTIAL STAT 07/31/2025 11:50 PM EDT B-TYPE NATRIURETIC PEPTIDE STAT 07/31/2025 11:50 PM EDT MAGNESIUM STAT 07/31/2025 11:50 PM EDT LIPASE STAT 07/31/2025 11:50 PM EDT COMPREHENSIVE METABOLIC PANEL STAT 07/31/2025 11:50 PM EDT ECG 12-LEAD STAT 07/31/2025 11:00 PM EDT documented in this encounter Results * ECG-Annotated (08/02/2025) us Provider Onbase MD ECG ORDERABLES Final Result * [id number], RSV, Influenza A and B qualitative RT-PCR (08/01/2025 4:36 AM EDT) Influenza A PCR Not Detected Not Detected LAB MICROBIOLOGY METHOD 08/01/2025 6:13 AM EDT [facility] Influenza B PCR Not Detected Not Detected LAB MICROBIOLOGY METHOD 08/01/2025 6:13 AM EDT [facility] RSV PCR Not Detected Not Detected LAB MICROBIOLOGY METHOD 08/01/2025 6:13 AM EDT [facility] SARS COV-2 Not Detected Not Detected LAB MICROBIOLOGY METHOD 08/01/2025 6:13 AM EDT [facility] Swab Both anterior nares / Unknown Non-blood Collection / Unknown 08/01/2025 4:36 AM EDT 08/01/2025 5:29 AM EDT Sheyla Mazariegos MD LAB MICROBIOLOGY - GENERAL ORDERABLES Final Result [facility] [address] [place] [address], [place] [phone] * CT Abdomen Pelvis w Contrast (08/01/2025 2:08 AM EDT) Anatomical Region Laterality Modality Body Computed Tomogra phy 08/01/2025 3:23 AM EDT Addenda Addendum by Cale Meléndez MD on 08/01/2025 3:29 AM EDT ADDENDUM: This report was discussed with MEREDITH Brown MD on Aug 01, 2025 03:27:00 EDT. This document has been electronically signed by: Marianne Gerber on 08/01/2025 03:29:15 Impressions 08/01/2025 3:23 AM EDT 1. Mildly dilated small bowel loops present at the left upper abdominal quadrant, measuring up to 3.2 cm in maximum diameter, possibly consistent with a partial/low-grade small bowel obstruction or mild bowel ileus. There are also postsurgical changes of the colon at the left upper abdominal quadrant with mild upstream gaseous distention of the colon. The mild/partial colonic obstruction related to postsurgical change at this site is not excluded. Clinical correlation is advised. This document has been electronically signed by: Cale Meléndez MD on 08/01/2025 03:23:11 Narrative 08/01/2025 3:23 AM EDT INDICATION: abdo pain colon CA LUQ pain CT abdomen and pelvis with contrast Comparison: CT/OT/SR - ABDOMEN AND PELVIS C+ CT - 07/01/24 09:01 EDT Findings: The gallbladder is surgically absent. Postsurgical changes compatible with partial hepatectomy present. The spleen is surgically absent. The pancreas and bilateral adrenal glands are within normal limits for appearance. No hydronephrosis or hydroureter. There is mildly limited evaluation of the stomach related to gastric underdistention. No free intraperitoneal air. Mildly dilated small bowel loops are present at the left upper abdominal quadrant, measuring up to 3.2 cm in diameter. There are postsurgical changes of the distal colon of the left upper abdominal quadrant with mild upstream gaseous distention of the colon. Tiny, fat containing umbilical hernia. Pelvic contents unremarkable. No focal bladder wall thickening. Normal appendix. No acute fracture visualized. Procedure Note Cale Meléndez MD - 08/01/2025 INDICATION: abdo pain colon CA LUQ pain CT abdomen and pelvis with contrast Comparison: CT/OT/SR - ABDOMEN AND PELVIS C+ CT - 07/01/24 09:01 EDT Findings: The gallbladder is surgically absent. Postsurgical changes compatiblewith partial hepatectomy present. The spleen is surgically absent. Thepancreas and bilateral adrenal glands are within normal limits for appearance. No hydronephrosis or hydroureter. There is mildly limited evaluation of the stomach related to gastric underdistention. No free intraperitoneal air. Mildly dilated small bowel loops are present at the left upper abdominal quadrant, measuring up to 3.2 cm in diameter. There are postsurgical changes of the distal colonof the left upper abdominal quadrant with mild upstream gaseous distentionof the colon. Tiny, fat containing umbilical hernia. Pelvic contents unremarkable. No focal bladder wall thickening. Normal appendix. No acute fracture visualized. IMPRESSION: 1. Mildly dilated small bowel loops present at the left upper abdominal quadrant, measuring up to 3.2 cm in maximum diameter, possiblyconsistent with a partial/low-grade small bowel obstruction or mild bowel ileus. There are also postsurgical changes of the colon at the left upper abdominal quadrant with mild upstream gaseous distention of the colon.The mild/partial colonic obstruction related to postsurgical change at this site is not excluded. Clinical correlation is advised. This document has been electronically signed by: Cale Meléndez MD on 08/01/2025 03:23:11 us Sheyla Mazariegos MD IMG CT PROCEDURES Edited Re sult - Final * CT Angio Chest wo and/or w Contrast (08/01/2025 2:08 AM EDT) Anatomical Region Laterality Modality Body Computed Tomogra phy 08/01/2025 3:11 AM EDT Impressions 08/01/2025 3:11 AM EDT Impression: 1. Mildly motion limited examination as described above, limiting evaluation of the distal pulmonary arterial branches. No pulmonary embolism identified. 2. Bilateral lower lobe pulmonary nodules present with partial obliteration of the left upper lobe bronchus, suggesting sequela of malignancy/metastatic disease. There are [id number] left upper lobe and lingula opacities with volume loss in this region, suggesting postobstructive atelectasis. 3. Enlarged subcarinal lymph node. This document has been electronically signed by: Cale Meléndez MD on 08/01/2025 03:11:21 Narrative 08/01/2025 3:11 AM EDT INDICATION: pulmonary embolism CT angiography chest using contrast. 3-D postprocessing Comparison: CT/KO/DE/SR - CT CHEST ABD PEL W CONTRAST - 08/26/24 10:29 EST Findings: Evaluation of the pulmonary arterial system is mildly limited by motion artifact. This limits evaluation of the subsegmental pulmonary arterial branches. Mildly limited evaluation of the segmental pulmonary arterial branches. No pulmonary embolism visualized. No thoracic aorta aneurysm or dissection identified. Limited evaluation of the aortic root and ascending thoracic aorta related to motion artifact at these sites. Right-sided chest port in place. Enlarged subcarinal lymph node present, measuring up to a proximally 1.6 cm in maximal short axis dimension. Heart size within normal limits. RV/LV ratio normal. 2.7 x 2.5 cm nodule present at the right lower lobe with a 2.6 x 1.9 cm nodule at the medial aspect of the left lower lobe. There are [id number] opacities at the left upper lobe/lingula with associated volume loss, suggesting some degree of atelectasis. There is partial obstruction of the left upper lobe bronchus. No pneumothorax or pleural effusion. No acute fractures. Procedure Note Cale Meléndez MD - 08/01/2025 INDICATION: pulmonary embolism CT angiography chest using contrast. 3-D postprocessing Comparison: CT/KO/DE/SR - CT CHEST ABD PEL W CONTRAST - 08/26/24 10:29EST Findings: Evaluation of the pulmonary arterial system is mildly limited by motion artifact. This limits evaluation of the subsegmental pulmonary arterial branches. Mildly limited evaluation of the segmental pulmonary arterial branches. No pulmonary embolism visualized. No thoracic aorta aneurysm or dissection identified. Limited evaluationof the aortic root and ascending thoracic aorta related to motion artifactat these sites. Right-sided chest port in place. Enlarged subcarinal lymph node present, measuring up to a proximally 1.6 cm in maximal short axis dimension. Heart size within normal limits. RV/LV ratio normal. 2.7 x 2.5 cm nodule present at the right lower lobe with a 2.6 x 1.9 cm nodule at the medial aspect of the left lower lobe. There are fxdk-[id number]-[id number] opacities at the left upper lobe/lingula withassociated volume loss, suggesting some degree of atelectasis. There is partial obstruction of the left upper lobe bronchus. No pneumothorax or pleural effusion. No acute fractures. IMPRESSION: Impression: 1. Mildly motion limited examination as described above, limiting evaluation of the distal pulmonary arterial branches. No pulmonary embolism identified. 2. Bilateral lower lobe pulmonary nodules present with partial obliteration of the left upper lobe bronchus, suggesting sequela of malignancy/metastatic disease. There are kldk-wi-hlcuxblc left upperlobe and lingula opacities with volume loss in this region, suggesting postobstructive atelectasis. 3. Enlarged subcarinal lymph node. This document has been electronically signed by: Cale Meléndez MD on 08/01/2025 03:11:21 us Sheyla Mazariegos MD IMG CT PROCEDURES Final Res ult * Troponin I high sensitivity (08/01/2025 1:24 AM EDT) [facility] High Sensitivity Troponin I 4 <=54 ng/L LAB CHEMISTRY METHOD 08/01/2025 2:02 AM EDT [facility] Blood Venous blood specimen / Unknown Venipuncture / Unknown 08/01/2025 1:24 AM EDT 08/01/2025 1:30 AM EDT Narrative [facility] - 08/01/2025 2:02 AM EDT High levels of biotin in samples may falsely decrease hsTroponin values. Use caution when interpreting hsTroponin results in patients taking biotin who exhibit renal impairment (eGFR <60) or in patients taking more than 20 mg/day of biotin. Xuan An QUAL RESEARCH MANAGER LAB BLOOD ORDERABLES Eboni l Result [facility] [address] [place] [address], * ECG 12 lead (08/01/2025 1:08 AM EDT) [facility] Ventricular Rate ECG 76 BPM GEMUSE Atrial Rate 76 BPM GEMUSE P-R Interval 172 ms GEMUSE QRS Duration 94 ms GEMUSE Q-T Interval 392 ms GEMUSE QTc 441 ms GEMUSE P Wave [place] 71 degrees GEMUSE R [place] 75 degrees GEMUSE T [place] 51 degrees GEMUSE ECG Interpretation Normal sinus rhythm Incomplete right bundle branch block Borderline ECG When compared with ECG of 31-JUL-2025 23:00, (unconfirmed) No significant change was found Confirmed by Latanya LI JAMES ([id number]) on 08/01/2025 5:00:13 PM GEMUSE 08/01/2025 1:08 AM EDT 08/01/2025 5:00 PM EDT us Xuan An QUAL RESEARCH MANAGER ECG ORDERABLES Final Res ult GEMUSE * POC , urine manually resulted (08/01/2025 12:21 AM EDT) HCG, Ur POC Negative Negative POC hCG Int QC Pass? Yes Yes Urine Urine specimen obtained by clean catch procedure / Unknown 08/01/2025 12:21 AM EDT us Sheyla Mazariegos MD POINT OF CARE TEST ENTER/ED IT ORDERABLES Final Result * Urinalysis with reflex microscopic (08/01/2025 12:15 AM EDT) Specific [place] Urine 1.006 1.003 - 1.030 LAB URINALYSIS - AUTOMATED METHOD 08/01/2025 12:36 AM [facility] pH, Urine 7.0 5.0 - 8.0 pH LAB URINALYSIS - AUTOMATED METHOD 08/01/2025 12:36 AM [facility] Leukocytes, Urine Negative Negative LAB URINALYSIS - AUTOMATED METHOD 08/01/2025 12:36 AM [facility] Nitrite, Urine Negative Negative LAB URINALYSIS - AUTOMATED METHOD 08/01/2025 12:36 AM [facility] Protein, Urine Negative <=Trace mg/dL LAB URINALYSIS - AUTOMATED METHOD 08/01/2025 12:36 AM [facility] Glucose, Urine Negative Negative mg/dL LAB URINALYSIS - AUTOMATED METHOD 08/01/2025 12:36 AM [facility] Ketones, Urine Negative Negative mg/dL LAB URINALYSIS - AUTOMATED METHOD 08/01/2025 12:36 AM EDT [facility] Urobilinogen, Urine 0.2 0.2 - 1.0 mg/dL LAB URINALYSIS - AUTOMATED METHOD 08/01/2025 12:36 AM T [facility] Bilirubin, Urine Negative Negative LAB URINALYSIS - AUTOMATED METHOD 08/01/2025 12:36 AM [facility] Blood, Urine Negative Negative LAB URINALYSIS - AUTOMATED METHOD 08/01/2025 12:36 AM [facility] Urine Urine specimen obtained by clean catch procedure / Unknown Non-blood Collection / Unknown 08/01/2025 12:15 AM EDT 08/01/2025 12:30 AM EDT Sheyla Mazariegos MD LAB URINE ORDERABLES Final Result [facility] [address] [place] [address], [place] [phone] * (ABNORMAL) CBC auto differential (07/31/2025 11:50 PM EDT) WBC 12.3(H) 4.8 - 10.8 K/mcL LAB HEMETOLOGY METHOD 08/01/2025 12:36 AM T [facility] RBC 4.20 3.80 - 4.80 M/[facility] LAB HEMETOLOGY METHOD 08/01/2025 12:36 AM T [facility] Hemoglobin 12.6 11.5 - 16.0 g/dL LAB HEMETOLOGY METHOD 08/01/2025 12:36 AM [facility] Hematocrit 38.0 35.0 - 47.0 % LAB HEMETOLOGY METHOD 08/01/2025 12:36 AM [facility] MCV 89.8 79.0 - 98.0 FL LAB HEMETOLOGY METHOD 08/01/2025 12:36 AM [facility] MCH 29.8 27.0 - 32.0 pcg LAB HEMETOLOGY METHOD 08/01/2025 12:36 AM [facility] MCHC 33.2 32.0 - 37.0 g/dL LAB HEMETOLOGY METHOD 08/01/2025 12:36 AM [facility] RDW 14.6 11.0 - 15.0 % LAB HEMETOLOGY METHOD 08/01/2025 12:36 AM [facility] Platelets 320 130 - 400 K/mcL LAB HEMETOLOGY METHOD 08/01/2025 12:36 AM [facility] MPV 10.0 7.0 - 11.0 FL LAB HEMETOLOGY METHOD 08/01/2025 12:36 AM [facility] NRBC 0.0 <1.0 % LAB HEMETOLOGY METHOD 08/01/2025 12:36 AM [facility] NRBC Absolute 0.00 <0.10 K/mcL LAB HEMETOLOGY METHOD 08/01/2025 12:36 AM [facility] Neutrophils Relative 59.5 % LAB HEMETOLOGY METHOD 08/01/2025 12:36 AM [facility] Lymphocytes Relative 30.7 % LAB HEMETOLOGY METHOD 08/01/2025 12:36 AM [facility] Monocytes Relative 7.8 % LAB HEMETOLOGY METHOD 08/01/2025 12:36 AM [facility] Eosinophils Relative 1.2 % LAB HEMETOLOGY METHOD 08/01/2025 12:36 AM [facility] Basophils Relative 0.5 % LAB HEMETOLOGY METHOD 08/01/2025 12:36 AM [facility] Immature Granulocytes Relative 0.3 % LAB HEMETOLOGY METHOD 08/01/2025 12:36 AM EDT [facility] Neutrophils Absolute 7.30(H) 1.50 - 7.00 K/mcL LAB HEMETOLOGY METHOD 08/01/2025 12:36 AM EDT [facility] Lymphocytes Absolute 3.77 1.00 - 5.00 K/mcL LAB HEMETOLOGY METHOD 08/01/2025 12:36 AM EDT [facility] Monocytes Absolute 0.96 0.20 - 1.00 K/mcL LAB HEMETOLOGY METHOD 08/01/2025 12:36 AM EDT [facility] Eosinophils Absolute 0.15 0.00 - 0.50 K/[facility] LAB HEMETOLOGY METHOD 08/01/2025 12:36 AM EDT [facility] Basophils Absolute 0.06 0.00 - 0.20 K/mcL LAB HEMETOLOGY METHOD 08/01/2025 12:36 AM EDT [facility] Immature Granulocytes Absolute 0.04(H) 0.00 - 0.03 K/[facility] LAB HEMETOLOGY METHOD 08/01/2025 12:36 AM EDT [facility] Blood Venous blood specimen / Unknown Venipuncture / Unknown 07/31/2025 11:50 PM EDT 08/01/2025 12:30 AM EDT us Xuan An QUAL RESEARCH MANAGER LAB BLOOD ORDERABLES Eboni l Result [facility] [address] [place] [address], * B-type natriuretic peptide (07/31/2025 11:50 PM EDT) BNP 13 <=100 pcg/mL LAB CHEMISTRY METHOD 08/01/2025 1:05 AM EDT [facility] Blood Venous blood specimen / Unknown Venipuncture / Unknown 07/31/2025 11:50 PM EDT 08/01/2025 12:30 AM EDT us Xuan An NP LAB BLOOD ORDERABLES Eboni l Result Performing Organization Address City/[facility]/ZIP Co de Phone Number [facility] [address] [place] [address], [place] [phone] * Magnesium (07/31/2025 11:50 PM EDT) [facility] Magnesium 2.0 1.9 - 2.6 mg/dL LAB CHEMISTRY METHOD 08/01/2025 12:58 AM EDT [facility] Blood Venous blood specimen / Unknown Venipuncture / Unknown 07/31/2025 11:50 PM EDT 08/01/2025 12:30 AM EDT us Xuan An NP LAB BLOOD ORDERABLES Eboni l Result Performing Organization Address [facility]/ZIP Co de Phone Number [facility] [address] [place] [address], [place] [phone] * Lipase (07/31/2025 11:50 PM EDT) [facility] Lipase 23 13 - 75 unit/L LAB CHEMISTRY METHOD 08/01/2025 12:58 AM EDT [facility] Blood Venous blood specimen / Unknown Venipuncture / Unknown 07/31/2025 11:50 PM EDT 08/01/2025 12:30 AM EDT us Xuan An NP LAB BLOOD ORDERABLES Eboni l Result [facility] [address] [place] [address], [place] [phone] * Comprehensive metabolic panel (07/31/2025 11:50 PM EDT) [facility] Sodium 138 133 - 145 mmol/L LAB CHEMISTRY METHOD 08/01/2025 12:58 AM [facility] Potassium 3.9 3.5 - 5.5 mmol/L LAB CHEMISTRY METHOD 08/01/2025 12:58 AM [facility] Chloride 106 96 - 110 mmol/L LAB CHEMISTRY METHOD 08/01/2025 12:58 AM [facility] CO2 25 21 - 32 mmol/L LAB CHEMISTRY METHOD 08/01/2025 12:58 AM [facility] Anion Gap 7 3 - 11 LAB CHEMISTRY METHOD 08/01/2025 12:58 AM [facility] Glucose 99 70 - 100 mg/dL LAB CHEMISTRY METHOD 08/01/2025 12:58 AM [facility] BUN 13 5 - 25 mg/dL LAB CHEMISTRY METHOD 08/01/2025 12:58 AM [facility] Creatinine 0.77 0.50 - 1.10 mg/dL LAB CHEMISTRY METHOD 08/01/2025 12:58 AM [facility] eGFR 98 >=60 mL/min/1. 73m2 LAB CHEMISTRY METHOD 08/01/2025 12:58 AM [facility] Comment:Calculation based on the Chronic Kidney Disease Epidemiology Collaboration (CKD-EPI) equation refit without adjustment for race. BUN/Creatinine Ratio 16.9 LAB CHEMISTRY METHOD 08/01/2025 12:58 AM [facility] Calcium 9.2 8.5 - 10.5 mg/dL LAB CHEMISTRY METHOD 08/01/2025 12:58 AM [facility] AST (SGOT) 25 10 - 42 unit/L LAB CHEMISTRY METHOD 08/01/2025 12:58 AM [facility] ALT (SGPT) 22 10 - 60 unit/L LAB CHEMISTRY METHOD 08/01/2025 12:58 AM [facility] Alkaline Phosphatase 86 42 - 121 unit/L LAB CHEMISTRY METHOD 08/01/2025 12:58 AM EDT [facility] Total Protein 7.3 6.0 - 8.0 g/dL LAB CHEMISTRY METHOD 08/01/2025 12:58 AM EDT [facility] Albumin 3.5 3.2 - 5.0 g/dL LAB CHEMISTRY METHOD 08/01/2025 12:58 AM EDT [facility] Total Bilirubin 0.4 0.0 - 1.4 mg/dL LAB CHEMISTRY METHOD 08/01/2025 12:58 AM EDT [facility] Blood Venous blood specimen / Unknown Venipuncture / Unknown 07/31/2025 11:50 PM EDT 08/01/2025 12:30 AM EDT Xuan An NP LAB BLOOD ORDERABLES Eboni l Result Performing Organization Address City/[facility]/ZIP Co de Phone Number [facility] [address] [place] [address], [place] [phone] * Troponin I high sensitivity (07/31/2025 11:50 PM EDT) [facility] High Sensitivity Troponin I 4 <=54 ng/L LAB CHEMISTRY METHOD 08/01/2025 12:59 AM EDT [facility] Blood Venous blood specimen / Unknown Venipuncture / Unknown 07/31/2025 11:50 PM EDT 08/01/2025 12:30 AM EDT Narrative [facility] - 08/01/2025 12:59 AM EDT High levels of biotin in samples may falsely decrease hsTroponin values. Use caution when interpreting hsTroponin results in patients taking biotin who exhibit renal impairment (eGFR <60) or in patients taking more than 20 mg/day of biotin. Xuan An NP LAB BLOOD ORDERABLES Eboni l Result [facility] [address] [place] [address], * ECG 12 lead (07/31/2025 11:00 PM EDT) Ventricular Rate ECG 84 BPM GEMUSE Atrial Rate 84 BPM GEMUSE P-R Interval 156 ms GEMUSE QRS Duration 88 ms GEMUSE Q-T Interval 374 ms GEMUSE QTc 441 ms GEMUSE P Wave [place] 71 degrees GEMUSE R [place] 74 degrees GEMUSE T [place] 49 degrees GEMUSE ECG Interpretation Normal sinus rhythm Normal ECG When compared with ECG of 27-SEP-2022 16:25, No significant change was found Confirmed by Latanya LI JAMES ([id number]) on 08/01/2025 12:57:25 PM GEMUSE 07/31/2025 11:0 0 PM EDT 08/01/2025 12:57 PM EDT us Sheyla Mazariegos MD ECG ORDERABLES Final Resul t CHRISTOPHER documented in this encounter Visit Diagnoses Diagnosis Chest pain, unspecified type- Primary Left upper quadrant abdominal pain Gastritis without bleeding, unspecified chronicity, unspecified gastritis type documented in this encounter Administered Medications Inactive Administered Medications - up to 3 most recent administrations Medication Order MAR Action Action Date Dose Rate Site aluminum-magnesium hydroxide-simethicone (MAALOX) 200-200-20 mg/5 mL suspension 30 mL 30 mL, oral, Once, On Fri08/01/25 at 0434, For 1 dose Given 08/01/2025 4:58 AM EDT 30 mL iopamidoL (ISOVUE-370) 370 mg iodine /mL (76 %) injection 90 mL 90 mL, intravenous, Once in imaging, Starting on Fri08/01/25 at 0139, For 1 dose Given 08/01/2025 1:56 AM EDT 90 mL ketorolac (TORADOL) injection 15 mg 15 mg, intravenous, Once, On 07/31/25 at 2343, For 1 dose Given 08/01/2025 12:03 AM EDT 15 mg ketorolac (TORADOL) injection 15 mg 15 mg, intravenous, Once, On Fri08/01/25 at 0653, For 1 dose Given 08/01/2025 6:54 AM EDT 15 mg sodium chloride 0.9 % flush 10 mL 10 mL, intravenous, Once, On Fri08/01/25 at 0140, For 1 dose Given 08/01/2025 1:56 AM EDT 10 mL documented in this encounter Active and Recently Administered Medications Times are shown in EDT. Scheduled Medication Order 07/30/2025 07/31/2025 08/01/2025 aluminum-magnesium hydroxide-simethicone (MAALOX) 200-200-20 mg/5 mL suspension 30 mL (COMPLETED) 30 mL, oral, Once, On Fri08/01/25 at 0434, For 1 dose 0458 (Given - Provid er: Leonarda Lee RN) iopamidoL (ISOVUE-370) 370 mg iodine /mL (76 %) injection 90 mL (COMPLETED) 90 mL, intravenous, Once in imaging, Starting on Fri08/01/25 at 0139, For 1 dose 0156 (Given - Provid er: Konrad Kinsey) ketorolac (TORADOL) injection 15 mg (COMPLETED) 15 mg, intravenous, Once, On Fri07/31/25 at 2343, For 1 dose 0003 (Given - Provid er: Leonarda Lee RN) ketorolac (TORADOL) injection 15 mg (COMPLETED) 15 mg, intravenous, Once, On Fri08/01/25 at 0653, For 1 dose 0654 (Given - Provid er: Leonarda Lee RN) sodium chloride 0.9 % flush 10 mL (COMPLETED) 10 mL, intravenous, Once, On Fri08/01/25 at 0140, For 1 dose 0156 (Given - Provid er: Konrad Kinsey) documented in this encounter Orders EKG Orders Without Results Count Last Ordered D ate First Ordered Date ECG 12-LEAD 1 07/31/2025 documented in this encounter Additional Health Concerns Infection Onset Date Last Indicated Resolved Time Respiratory Rule-Out 08/01/2025 08/01/2025 025 6:13 AM EDT COVID-19 Rule-Out 08/01/2025 08/01/2025 08/01/2025 6:13 AM EDT documented as of this encounter Care Teams Director Of Teaching And Learning Relationship Specialty Start Date End Date Sherly Donald MD [address] [place] [address] PCP - General Internal Medicine 05/29/21 documented as of this encounter
--- OUTSIDE RECORDS SUMMARY | 2025-08-01 11:17 | XMS_ITS | Encounter Summary ---
Author Organization [facility] Address [address] [place] [phone] Care Team Providers Care Cnc Maintenance Mechanic Name Role Phone Castro Gomes MD Primary Care Provider [phone] Encounter Details Date Type Department Care Team ([facility] st Contact Info) Description 08/01/2025 11:17 AM EDT Hospital Encounter [facility] ROOM [address] [place] [address] System, Provider Not In Social History Tobacco Use Types Packs/Day Years Used Date Smoking Tobacco: Never Assessed Comments Unknown Sex and Gender Information Value Date Recorded Sex Assigned at Not on file Legal Sex Female 11:37 AM EDT Gender Identity Not on file Sexual Orientation Not on file documented as of this encounter Plan of Treatment Not on file documented as of this encounter Procedures Procedure Name Priority Date/Time Associated Diagnosis Comments [facility] CT CHEST Routine 08/01/2025 11:17 AM EDT documented in this encounter Results * [facility] CT Chest (08/01/2025 11:17 AM EDT) Narrative [facility] - 08/01/2025 11:17 AM EDT DISCLAIMER This procedure captures images only. There is no report. us Provider Not In System IMG [facility] NON REP ORDERABLE S Final Result [facility] documented in this encounter Visit Diagnoses Not on filedocumented in this encounter Care Teams Cnc Maintenance Mechanic Relationship Specialty Start Date End Date Castro Gomes MD [address] [place] [address] PCP - General Family Medicine 07/12/25 documented as of this encounter
--- OUTSIDE RECORDS SUMMARY | 2025-08-01 11:18 | XMS_ITS | Encounter Summary ---
Author Organization [facility] Address [address] [place] [phone] Care Team Providers Care Ranger Aide Name Role Phone Castro Gomes MD Primary Care Provider [phone] Encounter Details Date Type Department Care Team ([facility] st Contact Info) Description 08/01/2025 11:18 AM EDT Hospital Encounter [facility] ROOM [address] [place] [address] System, Provider Not In Social History Tobacco [...] Priority Date/Time Associated Diagnosis Comments [facility] CT ABDOMEN PELVIS Routine 08/01/2025 11:18 AM EDT documented in this encounter Results * [facility] CT Abdomen Pelvis (08/01/2025 11:18 AM EDT) Narrative [facility] - 08/01/2025 11:18 AM EDT DISCLAIMER This procedure captures images only. There is no report. us Provider Not In System IMG [facility] NON REP ORDERABLE S Final Result [facility] documented in this encounter Visit Diagnoses Not on filedocumented in this encounter Care Teams Ranger Aide Relationship Specialty Start Date End Date Castro Gomes MD [address] [place] [address] PCP - General Family Medicine 07/12/25 documented as of this encounter
[2025-08-05 10:11] VITALS: BP 115/65; PULSE 89; RESP 16; TEMP 36.4; O2SAT 95; BMI 39.8
--- NOTE | 2025-08-05 10:11 | MHC.PC.OV ---
Vital Signs 08/05/25 10:11 Height 5 ft 11.85 in Weight 292 lb 8 oz BMI 39.8 BP 115/65 Blood Pressure Location Rt brachial Position Sitting Respiration 16 Pulse 89 Pulse Source Pulse Oximeter Temp 97.5 F Temp Source Oral Pulse Oximetry (%) 95 Oxygen Delivery Method Room Air Intake Visit Reasons: 2 wk f/u Intake Note: establish care have colon cancer stage 4 metastasized shes in her last days. Merchandise Processor Required: No Accompanied by: Self / Same As Patient Allergies No Known Allergies Allergy (Verified 08/05/25 10:11) Tobacco use date assessed: 08/05/25 Dental Screening Dental Screen Date: 08/05/25 Did you have a dental visit in the last 12 months?: Yes Did you have a dental problem in the last 6 months where you did not have access to dental care?: No Was dental information given to patient?: Patient has dentist HPI HPI Comments History of Present Illness Details Consent Patient was informed and verbally consented to the use of an ambient scribe for clinic note documentation during this visit. History of Present Illness The patient is a 45-year-old female presenting with follow-up for metastatic colon cancer and respiratory symptoms. Colon cancer with metastasis to liver and lungs: The patient has a history of colon cancer initially diagnosed with metastasis to the liver and lungs, for which she has undergone multiple abdominal surgeries. She was recorded as exploring clinical trials for YARDAGE TUFTING MACHINE OPERATOR G12D mutation-targeted immunotherapy, seeking alternatives due to her preference to avoid chemotherapy. She had previously not filled out the MOLST form due to distress and intended to discuss it with her family for future care planning. She reported receiving calls from multiple investigational sites, thus indicating God's intervention in her treatment quest. The patient is awaiting the oncologist's guidance on proceeding with the selected trial and has reflected a proactive stance on making informed treatment decisions for her cancer management. Wheezing and difficulty breathing: The patient reports a history of wheezing and difficulty breathing for which a chest X-ray previously concluded with normal findings. She is prescribed an albuterol inhaler, which has been effective in relieving symptoms. During a recent emergency room visit additional chest scans revealed nodules and sequelae of metastatic malignancy, with suggestive obstructive respiratory implications causing her shortness of breath. Emotional and physical stress appears to exacerbate respiratory issues, although pharmacologic management has provided symptomatic relief. Surgical History: - Multiple abdominal surgeries related to colon cancer Medications: - Albuterol inhaler for wheezing and difficulty breathing as needed Social History: - The patient reports experiencing fatigue and requires assistance with daily tasks. She is supported by a Manager Home Healthcare (COMMISSIONED SECURITY OFFICER) but is seeking more COMMISSIONED SECURITY OFFICER hours due to her health status and frequent aid necessity. Diagnostic Results: - Tests and Diagnostics: - Chest X-ray: Normal - CT of chest, abdomen, and pelvis: Pulmonary nodules, partial obliteration of left upper lobe bronchus, sequelae of metastatic disease Review of Systems - Respiratory: Reports wheezing, difficulty breathing, and shortness of breath 10-point ROS reviewed and negative except as noted in HPI Past Medical History - Colon cancer with metastasis to liver and lungs Health Maintenance Physical Exam General: Well-appearing, in no acute distress. Vital signs: Within normal limits. HEENT: Normocephalic, atraumatic. PERRLA, EOMI. Conjunctiva clear, sclera anicteric. Oropharynx clear, mucous membranes moist. TMs intact bilaterally. Neck: Supple, no lymphadenopathy, no thyromegaly, no JVD or carotid bruits. Cardiovascular: RRR, normal S1/S2, no murmurs, rubs, or gallops. Peripheral pulses 2+ and symmetric. No edema. Respiratory: Lungs clear to auscultation bilaterally, no wheezes, rales, or rhonchi. Normal effort. Abdomen: Soft, non-tender, non-distended. Normoactive bowel sounds. No hepatosplenomegaly, no masses. MSK: Full range of motion, no joint swelling or deformity. Normal gait. Skin: Warm, dry, intact. No rashes, lesions, or pallor. Neuro: Alert and oriented x3. Cranial nerves II-XII intact. Strength 5/5 throughout. Sensation intact. Reflexes 2+ symmetric. Normal coordination and gait. Psych: Appropriate mood and affect. Normal judgment and insight. Patient reports fatigue and difficulty sleeping despite medication. Plan 1. Colon Cancer With Metastasis To Liver And Lungs - Continue exploration of clinical trials for YARDAGE TUFTING MACHINE OPERATOR G12D mutation immunotherapy - Facilitate discussion and completion of the MOLST form with family - Consider consults for oncology referral to Dr. Mario Rodriguez at [facility] for potential trial enrollment 2. Wheezing And Difficulty Breathing - Continue using albuterol inhaler as needed for symptom relief - Referral to pulmonology for further evaluation due to CT findings of bronchial obstruction and nodules - Discuss possible interventions, including bronchoscopy, to assess and manage metastatic respiratory involvement Discussion Notes During this visit, I reviewed the patient's cancer diagnosis with metastasis to the liver and lungs. We discussed various treatment options, including targeted immunotherapy trials relevant to her YARDAGE TUFTING MACHINE OPERATOR G12D mutation. The patient expressed a strong preference against chemotherapy and elected to pursue trials despite the emotional difficulty of facing MOLST form decisions. Additionally, for her respiratory symptoms, I emphasized continued use of the albuterol inhaler and outlined the potential need for further pulmonology intervention given the CT findings suggestive of metastatic involvement. Detailed consideration was given to the overall treatment trajectory and emergency management preparedness, including better COMMISSIONED SECURITY OFFICER coverage. Patient Instructions - Continue using the albuterol inhaler as prescribed for respiratory symptoms. - Discuss MOLST form with family and complete it as soon as possible. - Reach out to your oncologist for guidance on the clinical trial at [facility]. - Follow up with any calls from pulmonology regarding evaluation and potential bronchoscopy. Medical Decision Making I reviewed the patient's history of metastatic colon cancer and her determination to explore targeted immunotherapy trials due to her genetic mutation. My decision to recommend advancing on this trial was influenced by the patient's strong chemotherapy aversion and patient-driven trial access initiative. The completion of the MOLST form is advised for her holistic plan of care. Regarding her wheezing and breathing difficulties, continual monitoring with an albuterol inhaler was essential, grounded on the observed improvement of symptoms, while emphasizing pulmonary referral due to CT findings of bronchial obstruction and potential malignant replication. Balancing cancer advancement and respiratory symptom management remains critical, with all decisions aligned with the patient?s informed preferences and overall health strategy. Total time spent caring for the patient today was 45 minutes. This includes time spent before the visit reviewing the chart, time spent documenting, and time spent reviewing laboratory results, diagnostic imaging, medications, performing a medically necessary evaluation, counseling on diagnoses, care coordination, ordering appropriate tests, ordering appropriate medications, review of tests performed by other providers, reporting test results with the patient. [facility] Medical History (Updated 08/05/25 @ 11:12 by Wan Mcknight MD) Atelectasis pulmonary Metastatic carcinoma Pulmonary nodules Morbid obesity due to excess calories History of chemotherapy Colon cancer metastasized to lung Family History Father No problems noted. Mother High blood pressure Diabetes Social History Housing: House Alcohol intake: current Alcohol intake frequency: holidays/special occasions only Patient Tobacco Use Status: Never used Tobacco service: No Current occupational status: unemployed and disabled Cognitive needs: Yes (cane and walker) Hearing needs: No Vision needs: No Questionnaire Thrive Questionnaire Date Thrive assessed: 08/05/25 I am a: Patient What is your living situation today?: I have a steady place to live Within the past 12 months, did the food you bought not last and you didn't have the money to get more?: Often true Within the past 12 months, did you worry whether your food would run out before you got money to buy more?: Sometimes True Do you have trouble paying for medicines?: Yes Do you have trouble getting transportation to medical appointments?: No Do you have trouble paying your heating and electricity bill?: Yes Do you have trouble taking care of your child, family member or friend?: No Are you currently unemployed and looking for a job?: No Are you interested in more education?: No Please select the resources that you would like help with: None Currently or been in a relationship where the following occur: I choose not to answer THRIVE Score: 3 AUDIT C Alcohol Use Questionnaire (AUDIT-C) 1. How often do you have a drink containing alcohol?: Never Total Score: 0 ALYSSA-7 AMB Questionnaire ALYSSA-7 Date ALYSSA - 7 assessed: 08/05/25 Source: Developed by Drs. Bran Mason, Zoya Skinner, Dejan Olmedo and colleagues, with an educational wally from [employer]. Physical exam (Primary Care) Vital Signs: Last Vital Signs Temp 97.5 F 08/05/25 10:11 Pulse 89 08/05/25 10:11 Resp 16 08/05/25 10:11 BP 115/65 08/05/25 10:11 Pulse Ox 95 08/05/25 10:11 Oxygen Delivery Method Room Air 08/05/25 10:11 BMI result Body Mass Index 39.8 Tobacco/Smoking Status: Tobacco use Status Tobacco use date assessed 08/05/25 08/05/25 10:13 Patient Tobacco Use Status Never used Tobacco 08/05/25 10:13 Thrive Assessment: Date of Thrive Assessment Date Thrive assessed 08/05/25 08/05/25 10:13 Currently or been in a relationship where the following occur: I choose not to answer Coding Level of Care Code Est Pt Level 4 (62786) Diagnoses Colon cancer metastasized to lung C18.9; C78.00 Metastatic carcinoma C79.9 History of chemotherapy Z92.21 Pulmonary nodules R91.8 Atelectasis pulmonary J98.11 Morbid obesity due to excess calories E66.01 Dyspnea R06.00 Fatigue R53.83 Port-A-Cath in place Z95.828 Assessment & Plan Assessment & Plan (1) Colon cancer metastasized to lung: Code(s): C18.9 - Malignant neoplasm of colon, unspecified; C78.00 - Secondary malignant neoplasm of unspecified lung Category: Medical (2) Metastatic carcinoma: Code(s): C79.9 - Secondary malignant neoplasm of unspecified site Category: Medical (3) History of chemotherapy: Code(s): Z92.21 - Personal history of antineoplastic chemotherapy Category: Medical (4) Pulmonary nodules: Code(s): R91.8 - Other nonspecific abnormal finding of lung field Category: Medical (5) Atelectasis pulmonary: Code(s): J98.11 - Atelectasis Category: Medical (6) Morbid obesity due to excess calories: Code(s): E66.01 - Morbid (severe) obesity due to excess calories Category: Medical (7) Dyspnea: Code(s): R06.00 - Dyspnea, unspecified (8) Fatigue: Code(s): R53.83 - Other fatigue (9) Port-A-Cath in place: Code(s): Z95.828 - Presence of other vascular implants and grafts Plan Orders: Referrals Hematology & Oncology Referral C18.9 - Malignant neoplasm of colon, unspecified, C78.00 - Secondary malignant neoplasm of unspecified lung, Z92.21 - Personal history of antineoplastic chemotherapy Pulmonology Referral C79.9 - Secondary malignant neoplasm of unspecified site, J98.11 - Atelectasis, R91.8 - Other nonspecific abnormal finding of lung field
--- OUTSIDE RECORDS SUMMARY | 2025-08-05 11:52 | XMS_ITS | Encounter Summary ---
Author Organization [facility] Address [address] [place] [address] Care Team Providers Care Feather Maker Name Role Phone HernándezBenito Sherly Primary Care Provider [phone] Encounter Details Date Type Department Care Team Description 06/18/2021 Nurse Only [facility] Oncology Services [address] [place] [address] Rom Arboleda RN Social History Tobacco Use [...] oral chemotherapy and side effects. Scriptsent to [facility] RX awaiting out come. documented in this encounter Plan of Treatment Not on file documented as of this encounter Visit Diagnoses Not on filedocumented in this encounter Care Teams Feather Maker Relationship Specialty Start Date End Date Sherly Donald [address] [place] [phone] PCP - General Internal Medicine 06/04/21 documented as of this encounter
--- OUTSIDE RECORDS SUMMARY | 2025-08-05 11:52 | XMS_ITS | Encounter Summary ---
Author Organization [facility] Address [address] [place] [address] Care Team Providers Care Tile Fitter Name Role Phone Sherly Donald MD Primary Care Provider [phone] Encounter Details Date Type Department Care Team (Late Contact Info) Description 02/07/2025 Lab Requisition [facility] - Main Lab [address] [place] [phone] Jorge Anderson MD [address] [place] [address] Microscopic colitis, unspecified Social History Tobacco Use [...] Department Care Team (Late Contact Info) Description 08/05/2025 3:[address] [facility] CT Scan [address] [place] [phone] 08/30/2025 11:00 AM EST Office Visit [facility] Hematology Oncology [address] [place] [phone] Jaison Mendez MD [address] [place] [address] documented as of this encounter Procedures Procedure [...] available upon request. 05/11/2025 1:33 PM EDT [facility] Clinical Information Historical slide request for [facility] ([facility]) [id number] & [id number] 05/11/2025 1:33 PM EDT [facility] Gross Description A. 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 Cabello slides ([id number] (23) and [id number] (8) sent: DFCI - path processing ([facility]) [address] [facility] [address] [address] FED[employer] #[id number] 01/25/24 OK -- received a second request for a block At the request of Dr. Cabello [phone] Block A1 sent /KK [employer] Tracking #: [id number] 05/11/2025 1:33 PM EDT EXTERNAL LAB (NON-INTERFAC ED) Disclaimer Unless otherwise specified, all tissue is 10% NB formalin fixed and paraffin embedded. 05/11/2025 1:33 PM EDT [facility] Tissue Colon structure / Unknown 02/07/2025 11:53 AM EDT 02/07/2025 11:54 AM EDT us Jorge Anderson MD LAB PATHOLOGY ORDERABLES Fi nal Result [facility] ([facility]) [facility] [address] [place] [address], EXTERNAL LAB (NON-INTERFACED) documented in this encounter Visit Diagnoses Diagnosis Microscopic colitis, unspecified documented in this encounter Additional Health Concerns Infection Onset Date Last Indicated Resolved Time Respiratory Rule-Out 08/01/2025 08/01/2025 025 6:13 AM EDT COVID-19 Rule-Out 08/01/2025 08/01/2025 08/01/2025 6:13 AM EDT documented as of this encounter Care Teams Tile Fitter Relationship Specialty Start Date End Date Sherly Donald MD [address] [place] [address] PCP - General Internal Medicine 05/29/21 documented as of this encounter
--- OUTSIDE RECORDS SUMMARY | 2025-08-05 11:52 | XMS_ITS | Clinical Summary ---
Author Organization [employer] [facility] Address [address] [place] [address] Care Team Providers Care Shooting Gallery Operator Name Role Phone Sherly Donald Primary [...] age to complete this topic Care Teams Shooting Gallery Operator Relationship Specialty Start Date End Date Sherly Donald [address] [place] [phone] PCP - General Internal Medicine 06/04/21
--- OUTSIDE RECORDS SUMMARY | 2025-08-05 11:52 | XMS_ITS | Encounter Summary ---
Author Organization [facility] Address [address] [place] [phone] Care Team Providers Care Edi Programmer Name Role Phone Castro Gomes MD Primary Care Provider [phone] Encounter Details Date Type Department Care Team ([facility] st Contact Info) Description 07/21/2025 [facility] [address] [place] [address] Obtain, Unable To Social History Tobacco Use [...] on filedocumented in this encounter Care Teams Edi Programmer Relationship Specialty Start Date End Date Castro Gomes MD [address] [place] [address] PCP - General Family Medicine 07/12/25 documented as of this encounter
--- OUTSIDE RECORDS SUMMARY | 2025-08-05 11:52 | XMS_ITS | Encounter Summary ---
Author Organization [facility] Address [address] [place] [address] Care Team Providers Care Sports Medicine Masseur Name Role Phone Sherly Donald MD Primary Care Provider [phone] Encounter Details Date Type Department Care Team (Late st Contact Info) Description 08/04/2025 Telephone [facility] Hematology Oncology [address] [place] [address] Moon Contreras MA Social History [...] as of this encounter Progress Notes * Moon Contreras MA - 08/04/2025 2:12 PM EDT Patient is next in line for Phase 1 Bispecific antibody clinical trial at [facility] [place] and would like to know if recommends this for her since is with immunotherapy. If not, there will be ainhibitor KRAS clinical trial coming up at [place] but not sure when. Patient also asks for a referralto be sent to Dr. Mario Stearns @ [facility] - - KRAS clinical trial [id number] Phase 2. documented in this encounter Plan of Treatment Upcoming Encounters Date Type Department Care Team (Late st Contact Info) Description 08/05/2025 3:30 PM EDT Appointment [facility] CT Scan [address] [place] [address] 08/30/2025 11:00 AM EST Office Visit [facility] Hematology Oncology [address] [place] [address] Jaison Mendez MD [address] [place] [address] documented as of this encounter Visit Diagnoses Not on filedocumented in this encounter Care Teams Sports Medicine Masseur Relationship Specialty Start Date End Date Sherly Donald MD [address] [place] [address] PCP - General Internal Medicine 05/29/21 documented as of this encounter
--- OUTSIDE RECORDS SUMMARY | 2025-08-05 11:53 | XMS_ITS | Clinical Summary ---
Author Organization [facility] Address [address] [facility] [address] [place] [address] Phone Care Team Providers Care Aeronautical Inspector Name Role Phone Sherly Hernández MD Primary Care Provider [phone] Self-Referred, Patient Unavailable Unavailab Castro Adam MD Unavailable [phone] Ying Salgado RN Unavailable [email or web address] [...] Health Maintenance Due Date Last Done Comments DEPRESSION SCREENING 1993 HEPATITIS C SCREENING 1999 HIV ONE-TIME SCREENING (18-65 YEARS) 1999 SCREENING FOR DIABETES 2016 Adult Td,Tdap Booster 05/11/2025 05/11/2015 INFLUENZA VACCINE (#1) 2025 , 10/10/2022, 10/17/2021 COVID-19 VACCINE (2024- season) 2025 09/16/2023, 10/08/2022, 02/06/2022, Additional history [...] INT ERPRETATION Final Result Performing Organization Address City/State/[facility] Co de Phone Number [email or web address] from Last 3 Months or Most Recently Relevant to Health Maintenance Insurance ACO ACO ACO ACO ACO ACO Care Teams Aeronautical Inspector Relationship Specialty Start Date End Date Sherly Hernández MD PCP - General 12/20/24 Self-Referred, Patient 01/14/25 Castro Cabello MD [address] [place] [phone] [email or web address] Medical Oncology 01/17/25 Ying Salgado, DIXIE [address] [place] [address] Registered Nurse 4/9/25 Additional Source Comments The information contained in this document represents components of the legal health record. It is not the complete legal health record.[facility]
--- OUTSIDE RECORDS SUMMARY | 2025-08-05 11:53 | XMS_ITS | Clinical Summary ---
Author Organization [facility] Address [address] [place] [address] Phone Care Team Providers Care Head Of Strategy Name Role Phone Sherly Donald MD Primary Care Provider [phone] Allergies No known active allergies Medications acetaminophen [...] 8 (eight) hours as needed for nausea. 3 Active polyethylene glycol (MIRALAX) 17 gram packet Take 17 g by mouth daily. 3 Active senna (SENOKOT) 8.6 mg tablet Take 1 tablet (8.6 mg total) by mouth every night at bedtime. 4 Active traMADoL (ULTRAM) 50 mg tablet Take 50 mg by mouth every 6 (six) hours as needed for pain. 4 Active ascorbic acid (VITAMIN C) 500 mg tablet Take 1 tablet (500 mg total) by mouth 1 (one) time each day. Active buPROPion XL (WELLBUTRIN XL) 300 mg 24 hr tablet Take 1 tablet (300 mg total) by mouth 1 (one) time each day in the morning. 4 Active clonazePAM (KlonoPIN) 0.5 mg tablet Take 1 tablet (0.5 mg total) by mouth 2 (two) times a day if needed. 4 Active norethindrone (OLIVIA,SRAVANI,HE ATHER,MICRONOR) 0.35 mg tablet Take 1 tablet (0.35 mg total) by mouth 1 (one) time each day. Active gabapentin (NEURONTIN) 300 mg capsule Take 1 capsule (300 mg total) by mouth 2 (two) times a day. 60 capsule 1 5 Active oxyCODONE (ROXICODONE) 5 mg immediate release tabletIndication s:Metastatic colon cancer to liver (CMS/HCC V24, CMS/HCC V28) Take 1 tablet (5 mg total) by mouth every 4 (four) hours if needed for severe pain. Max Daily Amount: 30 mg 48 tablet 5 Active senna-docusate (PERICOLACE) 8.6-50 mg per tablet Take 1 tablet by mouth 1 (one) time each day. 30 tablet 11 5 04/21/20 26 Active cyclobenzaprine (FLEXERIL) 10 mg tablet TAKE 1 TABLET BY MOUTH 2 TIMES A DAY IF NEEDED FOR MUSCLE SPASMS FOR UP TO 15 DAYS. 30 tablet 5 Active oxyCODONE (OxyCONTIN) 30 mg 12 hr abuse-deterrent tabletIndication s:Colon cancer metastasized to multiple sites (CMS/HCC V24, CMS/HCC V28),Pain management Take 1 tablet (30 mg total) by mouth every 12 (twelve) hours. Do not crush, chew, or split. Max Daily Amount: 60 mg 60 tablet 5 08/14/20 25 Active oxyCODONE (ROXICODONE) 10 mg immediate release tabletIndication s:Malignant neoplasm of splenic flexure (CMS/HCC V24, CMS/HCC V28),Metastases to the liver (CMS/HCC V24, CMS/HCC V28) Take 1 tablet (10 mg total) by mouth every 6 (six) hours if needed for severe pain for up to 12 days. Max Daily Amount: 40 mg 48 tablet 5 08/08/20 25 Active albuterol HFA (PROAIR HFA ; PROVENTIL HFA ; VENTOLIN HFA) 90 mcg/actuation inhaler Inhale 2 puffs by mouth every 6 (six) hours if needed for wheezing. 6.7 g 11 5 07/27/20 26 Active oxyCODONE (ROXICODONE) 10 mg immediate release tabletIndication s:Malignant neoplasm of splenic flexure (CMS/HCC V24, CMS/HCC V28),Metastases to the liver (CMS/HCC V24, CMS/HCC V28) Take 1 tablet (10 mg total) by mouth every 6 (six) hours if needed for severe pain for up to 12 days. Max Daily Amount: 40 mg 48 tablet 5 08/08/20 25 Active albuterol HFA (PROAIR HFA ; PROVENTIL HFA ; VENTOLIN HFA) 90 mcg/actuation inhaler Inhale 2 puffs by mouth every 6 (six) hours if needed for wheezing. 6.7 g 11 5 07/27/20 26 Active pantoprazole (PROTONIX) 40 mg EC tablet Take 1 tablet (40 mg total) by mouth 1 (one) time each day before breakfast. Do not crush, chew, or split. 30 each 5 08/31/20 25 Active oxyCODONE (ROXICODONE) 15 mg immediate release tabletIndication s:Colon cancer metastasized to multiple sites (CMS/HCC V24, CMS/HCC V28) Take 1 tablet (15 mg total) by mouth every 4 (four) hours if needed (as needed for severe pain). Max Daily Amount: 90 mg 90 tablet 5 Active morphine (MS CONTIN) 60 mg 12 hr tablet Take 1 tablet (60 mg total) by mouth 2 (two) times a day. Do not crush, chew, or split. Max Daily Amount: 120 mg 60 tablet 5 07/07/20 25 oxyCODONE (OxyCONTIN) 30 mg 12 hr abuse-deterrent tabletIndication s:Colon cancer metastasized to multiple sites (CMS/HCC V24, CMS/HCC V28),Pain management Take 1 tablet (30 mg total) by mouth every 12 (twelve) hours. Do not crush, chew, or split. Max Daily Amount: 60 mg 60 tablet 5 07/14/20 25 Discontinue d(Reorder) fentaNYL (DURAGESIC) 50 mcg/hrIndication s:Malignant neoplasm of splenic flexure (CMS/HCC V24, CMS/HCC V28),Metastases to the liver (CMS/HCC V24, CMS/HCC V28) Place 1 patch on the skin every 3rd (third) day. Max Daily Amount: 1 patch 10 patch 5 08/04/20 oxyCODONE (ROXICODONE) 10 mg immediate release tabletIndication s:Malignant neoplasm of splenic flexure (CMS/HCC V24, CMS/HCC V28),Metastases to the liver (CMS/HCC V24, CMS/HCC V28) Take 1 tablet (10 mg total) by mouth every 6 (six) hours if needed for severe pain for up to 12 days. Max Daily Amount: 40 mg 48 tablet 5 07/14/20 Discontinue d(Reorder) oxyCODONE (ROXICODONE) 10 mg immediate release tabletIndication s:Malignant neoplasm of splenic flexure (CMS/HCC V24, CMS/HCC V28),Metastases to the liver (CMS/HCC V24, CMS/HCC V28) Take 1 tablet (10 mg total) by mouth every 6 (six) hours if needed for severe pain for up to 12 days. Max Daily Amount: 40 mg 48 tablet 5 07/25/20 Discontinue d(Reorder) albuterol HFA (PROAIR HFA ; PROVENTIL HFA ; VENTOLIN HFA) 90 mcg/actuation inhaler Inhale 2 puffs by mouth every 6 (six) hours if needed for wheezing. 6.7 g 11 5 07/25/20 25 Discontinue d(Reorder) oxyCODONE (ROXICODONE) 15 mg immediate release tabletIndication s:Colon cancer metastasized to multiple sites (CMS/HCC V24, CMS/HCC V28) Take 1 tablet (15 mg total) by mouth every 4 (four) hours if needed (as needed for severe pain). Max Daily Amount: 90 mg 90 tablet 5 08/02/20 25 Discontinue d(Reorder) Active Problems Problem Noted Date Diagnosed Date Multiple pulmonary nodules 12/14/2024 Overview (12/14/2024): -Also seen: New non enlarged mildly FDG avid Right lower quadrant lymph node in the mesentery -Seen in Pet CT scan done at [facility] 10-28-24: bilateral FDG avid pulmonary nodules, new [...] anxiety depressive disorder 09/29/2024 Overview (09/29/2024): 04/17/12- [facility], sees both psych and therapist, whose name is Franci therapist in [facility] 09/29/2024 Overview (09/29/2024): -2ary to chemotherapy [...] Encounters Date Type Department Care Team Description 08/04/2025 Telephone [facility] Hematology Oncology [address] [place] [phone] Moon Contreras [place] 07/31/2025 11:19 PM EDT - 08/01/2025 7:15 AM EDT Emergency [facility] Emergency [address] [place] [phone] Sheyla Mazariegos MD Chest pain, unspecified type (Primary Dx); Left upper quadrant abdominal pain; Gastritis without bleeding, unspecified chronicity, unspecified gastritis type Discharge Disposition: Home or Self Care 07/29/2025 Telephone [facility] Hematology Oncology [address] [place] [phone] Jaison Mendez MD 07/26/2025 [facility] Hematology Oncology [address] [place] [phone] Lena Mckee MA 07/25/2025 1:00 PM EDT - 07/25/2025 11:59 PM EDT Hospital Encounter [facility] Nuclear Medicine [address] [place] [phone] Discharge Disposition: Home or Self Care 07/25/2025 8:00 AM EDT - 07/25/2025 11:59 PM EDT Hospital Encounter [facility] Nuclear Medicine [address] [place] [phone] Metastatic colon cancer to liver ([facility]/HCC V24, [facility]/HCC V28); Colon cancer metastasized to lung ([facility]/HCC V24, [facility]/HCC V28) Discharge Disposition: Home or Self Care 07/21/2025 Telephone [facility] Infusion Center [address] [place] [phone] Jaison Mendez MD 07/19/2025 11:15 AM EDT Office Visit [facility] Hematology Oncology [address] [place] [phone] Jaison Mendez MD Colon cancer metastasized to multiple sites ([facility]/HCC V24, [facility]/HCC V28) (Primary Dx) 07/05/2025 Telephone [facility] Hematology Oncology [address] [place] [phone] Moon Contreras MA 07/01/2025 Social Work [facility] Infusion [facility] [address] [place] [phone] Shade Worrell LMSW 06/16/2025 2:30 PM EDT - 06/16/2025 11:59 PM EDT Hospital Encounter [facility] Infusion Center [address] [place] [phone] Jaison Mendez MD Malignant ne[facility] splenic flexure [facility]) Discharge Disposition: Home or Self Care 06/09/2025 Telephone [facility] Hematology Oncology [address] [place] [phone] Moon Contreras MA 06/06/2025 11:45 AM EDT Office Visit [facility] Hematology Oncology [address] [place] [phone] Jaison Mendez MD Colon cancer metastasized to multiple sites ([facility] V24, [facility] V28) (Primary Dx); Pain management 05/26/2025 Telephone [facility] Hematology Oncology [address] [place] [phone] Jaison Mendez MD 05/17/2025 Telephone [facility] Hematology Oncology [address] [place] [phone] Moon Contreras [place] 05/11/2025 11:15 AM EDT Office Visit [facility] Hematology Oncology [address] [place] [phone] Jaison Mendez MD Metastatic malignant neoplasm, unspecified site ([facility]/HCC V24, [facility]/HCC V28) (Primary Dx); Malignant neoplasm of splenic flexure of colon ([facility] V24, [facility] V28) from Last 3 Months Immunizations Immunization Administration [...] extremeity venous surgeries VARICOSE VEIN SURGERY PROCEDURE: WA LIGJ DIVJ &/EXCJ VARICOSE VEIN CLUSTER 1 LEG OTHER SURGICAL HISTORY 05/18/2021 PROCEDURE: WA LAPAROSCOPY COLECTOMY PARTIAL W/ANASTOMOSIS; COMMENT: segmental colectomy with anastomosis, en bloc splenectomy, and en bloc distal pancreatectomy - to address adenocarcinoma of transverse colon (no jeronimo involvement or extension to spleen or distal pancreas) - Dr. Jorge Anderson, [facility] OTHER SURGICAL HISTORY PROCEDURE: HISTORY OTHER; COMMENT: extended left hepatectomy, partial right hepatectomy, cholecystectomy @ [facility] Medical History Medical History Date Comments Anxiety state DX:Anxiety state Asthma DX:Asthma Abnormal cytological finding in specimen from cervix DX:Abnormal cytological find ing in specimen from cervix Colon cancer (CMS/HCC V24, [place]/HCC V28) 2020 DX:Colon cancer (HCC) Cancer of [...] Mass Index 40.45 07/31/2025 11:07 PM EDT Plan of Treatment Upcoming Encounters Date Type Department Care Team (Late st Contact Info) Description 08/05/2025 3:30 PM EDT Appointment [facility] CT Scan [address] [place] [phone] 08/30/2025 11:00 AM EST Office Visit [facility] Hematology Oncology [address] [place] [phone] Jaison Mendez MD [address] [place] [address] Health Maintenance Due Date Last Done Comments [...] Date/Time Associated Diagnosis Comments ECG ANNOTATED 08/02/2025 [id number], RSV, FLU A AND B QUALITATIVE RT-PCR, INTERNAL LAB STAT 08/01/2025 4:[address] ANGIO CHEST WO AND/OR W CONTRAST Routine 08/01/2025 2:08 AM EDT Chest pain, unspecified type CT ABDOMEN PELVIS W CONTRAST STAT 08/01/2025 2:08 AM EDT TROPONIN I HIGH SENSITIVITY Timed 08/01/2025 1:24 AM EDT ECG 12-LEAD STAT 08/01/2025 1:08 AM EDT POC , URINE DIAGNOSTIC STAT 08/01/2025 12:21 AM EDT URINALYSIS WITH REFLEX MICROSCOPIC STAT 08/01/2025 12:15 AM EDT URINALYSIS WITH REFLEX MICROSCOPIC STAT 08/01/2025 12:15 AM EDT CBC WITH AUTO DIFFERENTIAL STAT 07/31/2025 11:50 PM EDT B-TYPE NATRIURETIC PEPTIDE STAT 07/31/2025 11:50 PM EDT MAGNESIUM STAT 07/31/2025 11:50 PM EDT LIPASE STAT 07/31/2025 11:50 PM EDT COMPREHENSIVE METABOLIC PANEL STAT 07/31/2025 11:50 PM EDT CBC AND DIFFERENTIAL STAT 07/31/2025 11:50 PM EDT TROPONIN I HIGH SENSITIVITY Timed 07/31/2025 11:50 PM EDT ECG 12-LEAD STAT 07/31/2025 11:00 PM EDT NM BONE/JOINT SCAN WHOLE BODY STAT 07/25/2025 1:50 PM EDT Metastatic colon cancer to liver (CMS/HCC V24, CMS/HCC V28) Colon cancer metastasized to lung (CMS/HCC V24, CMS/HCC V28) CBC WITH AUTO DIFFERENTIAL Routine 06/16/2025 3:02 [...] Recently Relevant to Health Maintenance Results * ECG-Annotated (08/02/2025) us Provider Onbase MD ECG ORDERABLES Final Result * [id number], RSV, Influenza A and B qualitative RT-PCR (08/01/2025 4:36 AM EDT) Influenza A PCR Not Detected Not Detected LAB MICROBIOLOGY METHOD 08/01/2025 6:13 AM EDT [facility] Influenza B PCR Not Detected Not Detected LAB MICROBIOLOGY METHOD 08/01/2025 6:13 AM EDT [facility] RSV PCR Not Detected Not Detected LAB MICROBIOLOGY METHOD 08/01/2025 6:13 AM EDT [facility] SARS COV-2 Not Detected Not Detected LAB MICROBIOLOGY METHOD 08/01/2025 6:13 AM EDT [facility] Swab Both anterior nares / Unknown Non-blood Collection / Unknown 08/01/2025 4:36 AM EDT 08/01/2025 5:29 AM EDT Sheyla Mazariegos MD LAB MICROBIOLOGY - GENERAL ORDERABLES Final Result [facility] [address] [place] [address], [place] [phone] * CT Abdomen Pelvis w Contrast (08/01/2025 [...] by: Cale Meléndez MD on 08/01/2025 03:23:11 Sheyla Mazariegos MD IMG CT PROCEDURES Edited [...] suggesting sequela of malignancy/metastatic disease. There are isrp-ni-mqszictg left upper lobe and lingula opacities with volume loss in this region, suggesting postobstructive atelectasis. 3. Enlarged subcarinal lymph node. This document has been electronically signed by: Cale Meléndez MD on 08/01/2025 03:11:21 Narrative 08/01/2025 3:11 AM EDT INDICATION: pulmonary embolism CT angiography chest using contrast. 3-D postprocessing Comparison: CT/KO/WA/SR - CT CHEST ABD PEL W CONTRAST [...] of the left lower lobe. There are skrn-hi-cutpizyl opacities at the left upper lobe/lingula with associated volume loss, suggesting some degree of atelectasis. There is partial obstruction of the left upper lobe bronchus. No pneumothorax or pleural effusion. No acute fractures. Procedure Note Cale Meléndez MD - 08/01/2025 INDICATION: pulmonary embolism CT angiography chest using contrast. 3-D postprocessing Comparison: CT/KO/WA/SR - CT CHEST ABD PEL W CONTRAST [...] of the left lower lobe. There are qbgu-yh-qidchwte opacities at the left upper lobe/lingula withassociated [...] suggesting sequela of malignancy/metastatic disease. There are ggyn-pe-ugkwamwr left upperlobe and lingula opacities with volume loss in this region, suggesting postobstructive atelectasis. 3. Enlarged subcarinal lymph node. This document has been electronically signed by: Cale Meléndez MD on 08/01/2025 03:11:21 Sheyla Mazariegos MD IMG CT PROCEDURES Final Res ult * Troponin I high sensitivity (08/01/2025 1:24 AM EDT) Only the most recent of2 resultswithin the time period is included. [facility] High Sensitivity Troponin I 4 <=54 ng/L LAB CHEMISTRY METHOD 08/01/2025 2:02 AM EDT [facility] Blood Venous blood specimen / Unknown Venipuncture / Unknown 08/01/2025 1:24 AM EDT 08/01/2025 1:30 AM EDT Narrative [facility] - 08/01/2025 2:02 AM EDT High levels of biotin in samples may falsely decrease hsTroponin values. Use caution when interpreting hsTroponin results in patients taking biotin who exhibit renal impairment (eGFR <60) or in patients taking more than 20 mg/day of biotin. Xuan An CYTOLOGIST LAB BLOOD ORDERABLES Eboni l Result [facility] [address] [place] [address], * ECG 12 lead (08/01/2025 1:08 AM EDT) Only the most recent of2 resultswithin the time period is included. [facility] Ventricular Rate ECG 76 BPM GEMUSE Atrial Rate 76 BPM GEMUSE P-R Interval 172 ms GEMUSE QRS Duration 94 ms GEMUSE Q-T Interval 392 ms GEMUSE QTc 441 ms GEMUSE P Wave [place] 71 degrees GEMUSE R [place] 75 degrees GEMUSE T [place] 51 degrees GEMUSE ECG Interpretation Normal sinus rhythm Incomplete right bundle branch block Borderline ECG When compared with ECG of 31-JUL-2025 23:00, (unconfirmed) No significant change was found Confirmed by Latanya LI JAMES ([id number]) on 08/01/2025 5:00:13 PM GEMUSE 08/01/2025 1:08 AM EDT 08/01/2025 5:00 PM EDT us Xuan An CYTOLOGIST ECG ORDERABLES Final Res ult GEMUSE * POC , urine manually resulted (08/01/2025 12:21 AM EDT) Pathologist [facility] HCG, Ur POC Negative Negative POC hCG Int QC Pass? Yes Yes Urine Urine specimen obtained by clean catch procedure / Unknown 08/01/2025 12:21 AM EDT Sheyla Mazariegos MD POINT OF CARE TEST ENTER/ED IT ORDERABLES Final Result * Urinalysis with reflex microscopic (08/01/2025 12:15 AM EDT) Pathologist [facility] Specific [place] Urine 1.006 1.003 - 1.030 LAB URINALYSIS - AUTOMATED METHOD 08/01/2025 12:36 AM EDT [facility] pH, Urine 7.0 5.0 - 8.0 pH LAB URINALYSIS - AUTOMATED METHOD 08/01/2025 12:36 AM T [facility] Leukocytes, Urine Negative Negative LAB URINALYSIS - AUTOMATED METHOD 08/01/2025 12:36 AM [facility] Nitrite, Urine Negative Negative LAB URINALYSIS - AUTOMATED METHOD 08/01/2025 12:36 AM [facility] Protein, Urine Negative <=Trace mg/dL LAB URINALYSIS - AUTOMATED METHOD 08/01/2025 12:36 AM EDT [facility] Glucose, Urine Negative Negative mg/dL LAB URINALYSIS - AUTOMATED METHOD 08/01/2025 12:36 AM EDT [facility] Ketones, Urine Negative Negative mg/dL LAB URINALYSIS - AUTOMATED METHOD 08/01/2025 12:36 AM EDT [facility] Urobilinogen, Urine 0.2 0.2 - 1.0 mg/dL LAB URINALYSIS - AUTOMATED METHOD 08/01/2025 12:36 AM EDT [facility] Bilirubin, Urine Negative Negative LAB URINALYSIS - AUTOMATED METHOD 08/01/2025 12:36 AM EDT [facility] Blood, Urine Negative Negative LAB URINALYSIS - AUTOMATED METHOD 08/01/2025 12:36 AM T [facility] Urine Urine specimen obtained by clean catch procedure / Unknown Non-blood Collection / Unknown 08/01/2025 12:15 AM EDT 08/01/2025 12:30 AM EDT us Sheyla Mazariegos MD LAB URINE ORDERABLES Final Result [facility] [address] [place] [address], [place] [phone] * (ABNORMAL) CBC auto differential (07/31/2025 11:50 PM EDT) Only the most recent of3 resultswithin the time period is included. WBC 12.3(H) 4.8 - 10.8 K/mcL LAB HEMETOLOGY METHOD 08/01/2025 12:36 AM EDT [facility] RBC 4.20 3.80 - 4.80 [facility] LAB HEMETOLOGY METHOD 08/01/2025 12:36 AM EDT [facility] Hemoglobin 12.6 11.5 - 16.0 g/dL LAB HEMETOLOGY METHOD [facility] Hematocrit 38.0 35.0 - 47.0 % LAB HEMETOLOGY METHOD 08/01/2025 12:36 AM [facility] MCV 89.8 79.0 - 98.0 FL LAB HEMETOLOGY METHOD 08/01/2025 12:36 AM [facility] MCH 29.8 27.0 - 32.0 pcg LAB HEMETOLOGY METHOD 08/01/2025 12:36 AM [facility] MCHC 33.2 32.0 - 37.0 g/dL LAB HEMETOLOGY METHOD 08/01/2025 12:36 AM [facility] RDW 14.6 11.0 - 15.0 % LAB HEMETOLOGY METHOD 08/01/2025 12:36 AM [facility] Platelets 320 130 - 400 K/mcL LAB HEMETOLOGY METHOD 08/01/2025 12:36 AM [facility] MPV 10.0 7.0 - 11.0 FL LAB HEMETOLOGY METHOD 08/01/2025 12:36 AM [facility] NRBC 0.0 <1.0 % LAB HEMETOLOGY METHOD 08/01/2025 12:36 AM [facility] NRBC Absolute 0.00 <0.10 K/mcL LAB HEMETOLOGY METHOD 08/01/2025 12:36 AM [facility] Neutrophils Relative 59.5 % LAB HEMETOLOGY METHOD 08/01/2025 12:36 AM [facility] Lymphocytes Relative 30.7 % LAB HEMETOLOGY METHOD 08/01/2025 12:36 AM [facility] Monocytes Relative 7.8 % LAB HEMETOLOGY METHOD 08/01/2025 12:36 AM [facility] Eosinophils Relative 1.2 % LAB HEMETOLOGY METHOD 08/01/2025 12:36 AM EDT [facility] Basophils Relative 0.5 % LAB HEMETOLOGY METHOD 08/01/2025 12:36 AM EDT [facility] Immature Granulocytes Relative 0.3 % LAB HEMETOLOGY METHOD 08/01/2025 12:36 AM EDT [facility] Neutrophils Absolute 7.30(H) 1.50 - 7.00 K/mcL LAB HEMETOLOGY METHOD 08/01/2025 12:36 AM EDT [facility] Lymphocytes Absolute 3.77 1.00 - 5.00 K/mcL LAB HEMETOLOGY METHOD 08/01/2025 12:36 AM EDT [facility] Monocytes Absolute 0.96 0.20 - 1.00 K/mcL LAB HEMETOLOGY METHOD 08/01/2025 12:36 AM EDT [facility] Eosinophils Absolute 0.15 0.00 - 0.50 K/mcL LAB HEMETOLOGY METHOD 08/01/2025 12:36 AM EDT [facility] Basophils Absolute 0.06 0.00 - 0.20 K/mcL LAB HEMETOLOGY METHOD 08/01/2025 12:36 AM EDT [facility] Immature Granulocytes Absolute 0.04(H) 0.00 - 0.03 K/mcL LAB HEMETOLOGY METHOD 08/01/2025 12:36 AM EDT [facility] Blood Venous blood specimen / Unknown Venipuncture / Unknown 07/31/2025 11:50 PM EDT 08/01/2025 12:30 AM EDT us Xuan An NP LAB BLOOD ORDERABLES Eboni l Result [facility] [address] [place] [address], * B-type natriuretic peptide (07/31/2025 11:50 PM EDT) [facility] BNP 13 <=100 pcg/mL LAB CHEMISTRY METHOD 08/01/2025 1:05 AM EDT [facility] Blood Venous blood specimen / Unknown Venipuncture / Unknown 07/31/2025 11:50 PM EDT 08/01/2025 12:30 AM EDT us Xuan An CYTOLOGIST LAB BLOOD ORDERABLES Eboni l Result [facility] [address] [place] [address], [place] [phone] * Magnesium (07/31/2025 11:50 PM EDT) [facility] Magnesium 2.0 1.9 - 2.6 mg/dL LAB CHEMISTRY METHOD 08/01/2025 12:58 AM EDT [facility] Blood Venous blood specimen / Unknown Venipuncture / Unknown 07/31/2025 11:50 PM EDT 08/01/2025 12:30 AM EDT us Xuan An NP LAB BLOOD ORDERABLES Eboni l Result Performing Organization Address [facility] Co de Phone Number [facility] [address] [place] [address], [place] [phone] * Lipase (07/31/2025 11:50 PM EDT) [facility] Lipase 23 13 - 75 unit/L LAB CHEMISTRY METHOD 08/01/2025 12:58 AM EDT [facility] Blood Venous blood specimen / Unknown Venipuncture / Unknown 07/31/2025 11:50 PM EDT 08/01/2025 12:30 AM EDT us Xuan An NP LAB BLOOD ORDERABLES Eboni l Result [facility] [address] [place] [address], * Comprehensive metabolic panel (07/31/2025 11:50 PM EDT) Only the most recent of2 resultswithin the time period is included. Sodium 138 133 - 145 mmol/L LAB CHEMISTRY METHOD 08/01/2025 12:58 AM [facility] Potassium 3.9 3.5 - 5.5 mmol/L LAB CHEMISTRY METHOD 08/01/2025 12:58 AM [facility] Chloride 106 96 - 110 mmol/L LAB CHEMISTRY METHOD 08/01/2025 12:58 AM [facility] CO2 25 21 - 32 mmol/L LAB CHEMISTRY METHOD 08/01/2025 12:58 AM [facility] Anion Gap 7 3 - 11 LAB CHEMISTRY METHOD 08/01/2025 12:58 AM [facility] Glucose 99 70 - 100 mg/dL LAB CHEMISTRY METHOD 08/01/2025 12:58 AM [facility] [facility] BUN 13 5 - 25 mg/dL LAB CHEMISTRY METHOD 08/01/2025 12:58 AM [facility] Creatinine 0.77 0.50 - 1.10 mg/dL LAB CHEMISTRY METHOD 08/01/2025 12:58 AM [facility] eGFR 98 >=60 mL/min/1. 73m2 LAB CHEMISTRY METHOD 08/01/2025 12:58 AM [facility] Comment:Calculation based on the Chronic Kidney Disease Epidemiology Collaboration (CKD-EPI) equation refit without adjustment for race. BUN/Creatinine Ratio 16.9 LAB CHEMISTRY METHOD 08/01/2025 12:58 AM [facility] Calcium 9.2 8.5 - 10.5 mg/dL LAB CHEMISTRY METHOD 08/01/2025 12:58 AM [facility] AST (SGOT) 25 10 - 42 unit/L LAB CHEMISTRY METHOD 08/01/2025 12:58 AM EDT [facility] ALT (SGPT) 22 10 - 60 unit/L LAB CHEMISTRY METHOD 08/01/2025 12:58 AM EDT [facility] Alkaline Phosphatase 86 42 - 121 unit/L LAB CHEMISTRY METHOD 08/01/2025 12:58 AM EDT [facility] Total Protein 7.3 6.0 - 8.0 g/dL LAB CHEMISTRY METHOD 08/01/2025 12:58 AM EDT [facility] Albumin 3.5 3.2 - 5.0 g/dL LAB CHEMISTRY METHOD 08/01/2025 12:58 AM EDT [facility] Total Bilirubin 0.4 0.0 - 1.4 mg/dL LAB CHEMISTRY METHOD 08/01/2025 12:58 AM EDT [facility] Blood Venous blood specimen / Unknown Venipuncture / Unknown 07/31/2025 11:50 PM EDT 08/01/2025 12:30 AM EDT Xuan An NP LAB BLOOD ORDERABLES Eboni hart Result [facility] [address] [place] [address], [place] [phone] * NM Bone/Joint Scan Whole Body (07/25/2025 1:50 PM EDT) Anatomical Region Laterality Modality Nuclear Medicine 07/25/2025 2:08 PM EDT Addenda Addendum by Hanane Chen MD on 07/25/2025 3:35 PM EDT Addendum: The patient returned for additional spot imaging of the upper extremities to fully include the humeri. No evidence of osteoblastic disease is seen. NC -------- ADDENDUM -------- Dictated By: Hanane Chen Dictated Date: 07/25/2025 15:34 ET Assigned Physician: Hanane Chen Reviewed and Electronically Signed By: Hanane Chen Signed Date: 07/25/2025 15:35 ET Workstation ID: [id number] Transcribed By: Self Edit Transcribed Date: 07/25/2025 15:34 ET Impressions 07/25/2025 2:18 PM EDT No evidence of osteoblastic metastatic disease is seen. Telerad PA ([id number]) -------- FINAL REPORT -------- Dictated By: Hanane Chen Dictated Date: 07/25/2025 14:08 ET Assigned Physician: Hanane Chen Reviewed and Electronically Signed By: Hanane Chen Signed Date: 07/25/2025 14:18 ET Workstation ID: [id number] Transcribed By: Self Edit Transcribed Date: 07/25/2025 14:08 ET Narrative 07/25/2025 2:18 PM EDT HISTORY: Personal history of metastatic colon carcinoma. [...] no specific upper extremity spot imaging was performed. The bilateral shoulders and the proximal half to two thirds of the humeri are included on the whole body images. FINDINGS: Radiotracer distribution throughout the axial skeleton is within normal limits. No focal accumulation of abnormal radiotracer activity is seen to suggest osteoblastic metastatic disease. The included portions of the appendicular skeleton are also unremarkable. Normal bladder and bilateral renal activity is demonstrated. Procedure Note Hanane Chen MD - 07/25/2025 HISTORY: Personal history of metastatic colon carcinoma. Bilateralshoulder pain. COMPARISON: PET/CT 10/28/24 TECHNIQUE: 3 hour delayed whole body bone imaging was performed in theanterior and posterior projections from the top of the head through thetips the toes following the intravenous administration of 25.5 mCitechnetium 99m MDP. Delayed anterior and posterior oblique spot imaging ofthe thorax was also performed. Note: Due to patient body habitus, the upper extremities are incompletelyimaged on the whole-body views and no specific upper extremity spotimaging was performed. The bilateral shoulders and the proximal half totwo thirds of the humeri are included on the whole body images. FINDINGS: Radiotracer distribution throughout the axial skeleton is within normallimits. No focal accumulation of abnormal radiotracer activity is seen tosuggest osteoblastic metastatic disease. The included portions of theappendicular skeleton are also unremarkable. Normal bladder and bilateral renal activity is demonstrated. IMPRESSION: No evidence of osteoblastic metastatic disease is seen. Telerad PA ([id number]) -------- FINAL REPORT -------- Dictated By: Hanane Chen Dictated Date: 07/25/2025 14:08 ET Assigned Physician: Hanane Chen Reviewed and Electronically Signed By: Hanane Chen Signed Date: 07/25/2025 14:18 ET Workstation ID: [id number] Transcribed By: Self Edit Transcribed Date: 07/25/2025 14:08 ET Jaison Mendez MD IMG NM PROCEDURES Edited Res ult - Final * (ABNORMAL) CEA (06/16/2025 3:02 PM EDT) Only the most recent of2 resultswithin the time period is included. CEA 79.8(H) 0.0 - 5.0 ng/mL LAB CHEMISTRY METHOD 06/16/2025 6:58 PM EDT [facility] Blood Blood sample taken from central line / Unknown Existing Catheter / Unknown 06/16/2025 3:02 PM EDT 06/16/2025 4:30 PM EDT Narrative [facility] - 06/16/2025 6:58 PM EDT The Siemens Advia Centaur Chemiluminescent Immunoassay is used. Results obtained with different assay methods or kits cannot be used interchangeably. Results cannot be interpreted as absolute evidence of the presence or absence of malignant disease. Jaison Mendez MD LAB BLOOD ORDERABLES Final R esult Performing Organization Address City/[facility]/ZIP Co de Phone Number [facility] [address] [place] [address], * Molecular intelligence tumor profiling (05/18/2025 10:57 AM EDT) Tissue [facility] Provider LAB MOLECULAR DIAGNOSTICS ORDERABLES Final Result * Venipuncture charge (05/11/2025 2:44 PM EDT) [facility] Extra Tube Hold for add-ons. 05/11/2025 6:01 PM EDT [facility] Comment:Auto resulted. Blood Venous blood specimen / Unknown Venipuncture / Unknown 05/11/2025 2:44 PM EDT 05/11/2025 4:27 PM EDT Jaison Mendez MD LAB BLOOD ORDERABLES Final R esult Performing Organization Address [facility]/ZIP Co de Phone Number [facility] [address] [place] [address], * Hepatic function panel (05/11/2025 2:44 PM EDT) [facility] Total Protein 7.1 6.0 - 8.0 g/dL LAB CHEMISTRY METHOD 05/11/2025 4:48 PM EDT [facility] Albumin 3.3 3.2 - 5.0 g/dL LAB CHEMISTRY METHOD 05/11/2025 4:48 PM EDT [facility] Total Bilirubin 0.6 0.0 - 1.4 mg/dL LAB CHEMISTRY METHOD 05/11/2025 4:48 PM EDT [facility] Bilirubin, Direct 0.1 0.0 - 0.3 mg/dL LAB CHEMISTRY METHOD 05/11/2025 4:48 PM EDT [facility] Bilirubin, Indirect 0.5 0.0 - 1.1 mg/dL LAB CHEMISTRY METHOD 05/11/2025 4:48 PM EDT [facility] ALT (SGPT) 17 10 - 60 unit/L LAB CHEMISTRY METHOD 05/11/2025 4:48 PM EDT [facility] AST (SGOT) 19 10 - 42 unit/L LAB CHEMISTRY METHOD 05/11/2025 4:48 PM EDT [facility] Alkaline Phosphatase 81 42 - 121 unit/L LAB CHEMISTRY METHOD 05/11/2025 4:48 PM EDT [facility] Blood Venous blood specimen / Unknown Venipuncture / Unknown 05/11/2025 2:44 PM EDT 05/11/2025 4:27 PM EDT Jaison U Andrea ARITA LAB BLOOD ORDERABLES Final R esult [facility] [address] [place] [address], [place] [phone] * MG Mammo Digital Screening w Valdemar [...] Signed Date: 10/29/2024 15:36 ET Workstation ID: [id number] Transcribed By: Self Edit Transcribed Date: 10/29/2024 [...] Tomosynthesis. Computer-aided detection was employed with the Nevro AI 3-D. TISSUE DENSITY: There are scattered [...] Tomosynthesis. Computer-aided detection was employed with the Anctu profound AI 3-D. TISSUE DENSITY: There are [...] Signed Date: 10/29/2024 15:36 ET Workstation ID: [id number] Transcribed By: Self Edit Transcribed Date: 10/29/2024 15:15 ET us Self Referral Sppl IMG BI PROCEDURES Final Resul t * Pap smear (11/05/2022) 11/05/2022 Narrative HISTORICAL TESTING LAB RESULTING AGENCY - 11/18/2022 7:41 AM EST [id number] THINPREP PAP: NEGATIVE FOR SQUAMOUS INTRAEPITHELIAL LESION [...] Most Recently Relevant to Health Maintenance Insurance [employer] Advance Directives Documents on File Type Date Recorded Patient Pre School Manager Expl anation Health Care Decision (hx) 10/02/2022 [...] (hx) 10/02/2022 AD LEMONS DIRECTIVE Care Teams Head Of Strategy Relationship Specialty Start Date End Date Sherly Donald MD [address] [place] [address] PCP - General Internal Medicine 05/29/21
--- OUTSIDE RECORDS SUMMARY | 2025-08-05 11:53 | XMS_ITS | Encounter Summary ---
Author Organization [facility] Address [address] [place] [phone] Care Team Providers Care Purchasing Intern Name Role Phone Castro Gomes MD Primary Care Provider [phone]- [phone] Encounter Details Date Type Department Care Team (Late st Contact Info) Description 08/01/2025 Orders Only [facility] [address] [place] [address] System, Provider Not In Social History Tobacco [...] on file documented as of this encounter Results * [facility] CT Abdomen Pelvis (08/01/2025 11:18 AM EDT) Narrative [facility] - 08/01/2025 11:18 AM EDT DISCLAIMER This procedure captures images only. There is no report. us Provider Not In System IMG [facility] NON REP ORDERABLE S Final Result [facility] documented in this encounter Visit Diagnoses Not on filedocumented in this encounter Care Teams Purchasing Intern Relationship Specialty Start Date End Date Castro Gomes MD [address] [place] [address] PCP - General Family Medicine 07/12/25 documented as of this encounter
--- OUTSIDE RECORDS SUMMARY | 2025-08-05 11:53 | XMS_ITS | Encounter Summary ---
Author Organization [facility] Address [address] [place] [phone] Care Team Providers Care Candy Dipper Hand Name Role Phone Castro Gomes MD Primary Care Provider +1 [phone] Encounter Details Date Type Department Care Team ([facility] st Contact Info) Description 08/01/[address] [facility] [address] [phone] Felicity Rodriguez, SENIOR GAMEMASTER [address] [place] [address] Social History Tobacco Use Types Packs/Day Years [...] on filedocumented in this encounter Care Teams Candy Dipper Hand Relationship Specialty Start Date End Date Castro Gomes MD [address] [place] [id number] PCP - General Family Medicine 07/12/25 documented as of this encounter
--- OUTSIDE RECORDS SUMMARY | 2025-08-05 11:53 | XMS_ITS | Encounter Summary ---
Author Organization [facility] Address [address] [place] [phone] Care Team Providers Care Shorthand Reporter Name Role Phone Castro Gomes MD Primary Care Provider [phone]- [phone] Encounter Details Date Type Department Care Team (Late st Contact Info) Description 08/01/2025 Orders Only [facility] [address] [place] [address] System, Provider Not In Social History Tobacco [...] of this encounter Results * [facility] CT Chest (08/01/2025 11:17 AM EDT) Narrative [facility] - 08/01/2025 11:17 AM EDT DISCLAIMER This procedure captures images only. There is no report. us Provider Not In System IMG [facility] NON REP ORDERABLE S Final Result [facility]4 documented in this encounter Visit Diagnoses Not on filedocumented in this encounter Care Teams Shorthand Reporter Relationship Specialty Start Date End Date Csatro Gomes MD [address] [place] [address] PCP - General Family Medicine 07/12/25 documented as of this encounter
--- OUTSIDE RECORDS SUMMARY | 2025-08-05 11:53 | XMS_ITS | Encounter Summary ---
Author Organization [facility] Address [address] [place] [phone] Care Team Providers Care Chiropractic Care Name Role Phone Castro Gomes MD Primary Care Provider [phone] Reason for Visit * Reason Onset Date Comments Appointment 08/01/2025 FYI 08/01/2025 Encounter Details Date Type Department Care Team ([facility] st Contact Info) Description 08/01/2025 Telephone [facility] [address] [phone] Gage Hussein MD [address] [place] [phone] Appointment; I Social History Tobacco Use Types Packs/Day Years Used Date Smoking Tobacco: Never Assessed Comments Unknown Sex and Gender Information Value Date Recorded Sex Assigned at Not on file Legal Sex Female 11:37 AM EDT Gender Identity Not on file Sexual Orientation Not on file documented as of this encounter Miscellaneous Notes * Telephone Encounter - Neetu Rojas - 08/01/2025 11:01 AM EDT Oscar called in looking to set up her next visit with Dr. Juan Francisco Vidal. She says he instructed her tolet him know when she had her scans in order to move forward with clinical trials. She reports having some CT scans and blood work while in the ER today at [facility] ([facility]) and a Bone scan last week-07/25/25. *I am currently working on having images sent to us to be pushed into Epic from [facility]-Radiology [phone]. documented in this encounter Plan of Treatment Not on file documented as of this encounter Visit Diagnoses Not on filedocumented in this encounter Care Teams Chiropractic Care Relationship Specialty Start Date End Date Castro Gomes MD [address] [place] [address] PCP - General Family Medicine 07/12/25 documented as of this encounter
--- OUTSIDE RECORDS SUMMARY | 2025-08-05 11:53 | XMS_ITS | Encounter Summary ---
Author Organization [facility] Address [address] [place] [phone] Care Team Providers Care Material Expediter Name Role Phone Castro Gomes MD Primary Care Provider [phone] [phone] Reason for Visit * Reason Onset Date Comments Advice Only 08/02/2025 Encounter Details Date Type Department Care Team ([facility] st Contact Info) Description 08/02/2025 Telephone [facility] [address] [place] [phone] Gage Hussein MD [address] [place] [phone] Advice Only Social History Tobacco Use Types Packs/Day Years Used Date Smoking Tobacco: Never Assessed Comments Unknown Sex and Gender Information Value Date Recorded Sex Assigned at Not on file Legal Sex Female 11:37 AM EDT Gender Identity Not on file Sexual Orientation Not on file documented as of this encounter Miscellaneous Notes * Telephone Encounter - Gage Hussein MD - 08/02/2025 3:57 PM EDT I spoke with her, and she is currently in the wait list for Exelexis immunotherapy trial and Arvinas KRAS trial. She reports that the reason she went to the hospital was bc of cough, and phlem, which feels that is improving, but still has some. She feelings that is an upper respiratory infection. In the scans they did in the hospital there were some signs that could suggest a mild SBO, but she has no symptoms. I told her that we will see if slots in those two trials will be available, and if not, I will lookfor other ones on . documented in this encounter Plan of Treatment Not on file documented as of this encounter Visit Diagnoses Not on filedocumented in this encounter Care Teams Material Expediter Relationship Specialty Start Date End Date Castro Gomes MD [address] [place] [address] PCP - General Family Medicine 07/12/25 documented as of this encounter
--- OUTSIDE RECORDS SUMMARY | 2025-08-05 11:53 | XMS_ITS ---
Author Organization [facility] Address [address] [place] [address] Phone Care Team Providers Care Journal Clerk Name Role Phone Sherly Donald MD Primary Care Provider +1 -[phone] Active Problems Problem Noted Date Diagnosed Date Multiple pulmonary nodules 12/14/2024 Overview (12/14/2024): -Also seen: New non enlarged mildly FDG avid Right lower quadrant lymph node in the mesentery -Seen in Pet CT scan done at [facility] 10-28-24: bilateral FDG avid pulmonary nodules, new [...] therapist, whose name is Franci therapist in [place] [facility] 09/29/2024 Overview (09/29/2024): -2ary to chemotherapy [...]
--- OUTSIDE RECORDS SUMMARY | 2025-08-05 11:53 | XMS_ITS | Encounter Summary ---
Author Organization [facility] Address [address] [place] [phone] Care Team Providers Care Perinatal Coordinator Name Role Phone Castro Gomes MD Primary Care Provider +1- [phone] Encounter Details Date Type Department Care Team (Late st Contact Info) Description 08/01/2025 Orders Only [facility] [address] [place] [address] System, Provider Not In Social History Tobacco [...] as of this encounter Results * [facility] [place] Bone Scan (07/25/2025 12:00 AM EDT) Narrative RAD4 - 08/01/2025 11:18 AM EDT DISCLAIMER This procedure captures images only. There is no report. us Provider Not In System IMG [facility] NON REP ORDERABLE S Final Result RAD4 documented in this encounter Visit Diagnoses Not on filedocumented in this encounter Care Teams Perinatal Coordinator Relationship Specialty Start Date End Date Castro Gomes MD [address] [place] [address] PCP - General Family Medicine 07/12/25 documented as of this encounter
--- OUTSIDE RECORDS SUMMARY | 2025-08-05 11:53 | XMS_ITS | Encounter Summary ---
Author Organization [facility] Address [address] [place] [phone] Care Team Providers Care Rabbet Operator Name Role Phone Castro Gomes MD Primary Care Provider +1- [phone] Encounter Details Date Type Department Care Team (Late st Contact Info) Description 08/01/2025 Orders Only [facility] [address] [place] [address] System, Provider Not In Social History Tobacco [...] Results * [facility] [place] Bone Scan (07/25/2025 12:05 AM EDT) Narrative RAD4 - 08/01/2025 11:20 AM EDT DISCLAIMER This procedure captures images only. There is no report. us Provider Not In System IMG [facility] NON REP ORDERABLE S Final Result RAD4 documented in this encounter Visit Diagnoses Not on filedocumented in this encounter Care Teams Rabbet Operator Relationship Specialty Start Date End Date Castro Gomes MD [address] [place] [address] PCP - General Family Medicine 07/12/25 documented as of this encounter
--- OUTSIDE RECORDS SUMMARY | 2025-08-05 11:53 | XMS_ITS | Clinical Summary ---
Author Organization [address] Address [address] [place] [phone] Care Team Providers Care Rn Clinical Appeals Name Role Phone Castro Gomes MD Primary Care Provider [phone]- [phone] Allergies No known active allergies Medications albuterol sulfate 90 mcg/actuation HFA aerosol inhaler Inhale 2 puffs into the lungs every 6 (six) hours as needed. 5 07/19/20 26 Active oxyCODONE (OXYCONTIN) 30 mg 12 hr extended release tablet Take 1 tablet (30 mg total) by mouth every 12 (twelve) hours. 5 08/14/20 25 Active senna-docusate (SENNOSIDES-DOC USATE SODIUM) 8.6-50 mg tablet Take 1 tablet [...] by mouth every evening before dinner. Active oxyCODONE (ROXICODONE) 10 mg Immediate Release tablet Take 1 tablet (10 mg total) by mouth every 6 (six) hours as needed. 07/27/20 25 Encounters Date Type Department Care Team Description 08/02/2025 Telephone [facility] [address] [place] [address] Gage Hussein MD Advice Only 08/01/2025 11:18 AM EDT Hospital Encounter [facility] [address] [place] [address] System, Provider Not In 08/01/2025 11:17 AM EDT Hospital Encounter [facility] [address] [place] [address] System, Provider Not In 08/01/2025 Orders Only [facility] [address] [place] [address] System, Provider Not In 08/01/2025 Orders Only [facility] [address] [place] [address] System, Provider Not In 08/01/2025 Orders Only [facility] [address] [place] [address] System, Provider Not In 08/01/2025 Orders Only [facility] [address] [place] [address] System, Provider Not In 08/01/2025 Telephone [facility] [address] [place] [phone] Gage Hussein MD Appointment; FYI 08/01/2025 Documentation [facility] [address] [place] [address] Felicity Rodriguez NP 07/27/2025 Orders Only [facility] [address] [place] [address] System, Provider Not In 07/27/2025 Orders Only [facility] [address] [place] [address] System, Provider Not In 07/27/2025 Orders Only [facility] [address] [place] [address] System, Provider Not In 07/27/2025 Orders Only [facility] [address] [place] [address] System, Provider Not In 07/25/2025 12:05 AM EDT - 07/25/2025 11:59 PM EDT Hospital Encounter [facility] [address] [place] [address] System, Provider Not In Discharge Disposition: Home or Self Care 07/25/2025 - 07/25/2025 12:04 AM EDT Hospital Encounter [facility] ROOM [address] [place] [address] System, Provider Not In Discharge Disposition: Home or Self Care 07/21/2025 Telephone [facility] [address] [place] [address] Obtain, Unable To 07/20/2025 11:00 AM EDT Office Visit [facility] [address] [place] [address] Gage Hussein MD Malignant neoplasm of colon, unspecified part of colon (HC Code) (HC CODE) (Primary Dx) 07/20/2025 10:45 AM EDT Clinical Support [facility] [address] [address] Gage Hussein MD 07/20/2025 Telephone [facility] [address] [address] Gage Hussein MD Appointment 07/19/2025 Telephone [facility] [address] [address] Jessika Stoner RN RN New Pt Intake 07/19/2025 Abstract [facility] [address] [address] Jessika Stoner RN 07/01/2025 Telephone [facility] [address] [place] [phone] Obtain, Unable To Appointment; Referral (Self-referral) from [...] ABDOMEN PELVIS Routine 08/01/2025 11:[address] [facility] [address] CHEST Routine 08/01/2025 11:17 AM EDT [facility] BONE SCAN Routine 07/25/2025 12:0 5 AM EDT [facility] NM BONE SCAN Routine 07/25/2025 12:0 0 AM EDT SURGICAL CONSULTS ( [facility] LMW YH) Routine 07/15/2025 10:52 AM EDT from Last 3 Months Results * [facility] CT Abdomen Pelvis (08/01/2025 11:18 AM EDT) Narrative RAD4 - 08/01/2025 11:18 AM EDT DISCLAIMER This procedure captures images only. There is no report. us Provider Not In System IMG [facility] NON REP ORDERABLE S Final Result Performing Organization Address [facility] de Phone Number RAD4 * [facility] CT Chest (08/01/2025 11:17 AM EDT) Narrative RAD4 - 08/01/2025 11:17 AM EDT DISCLAIMER This procedure captures images only. There is no report. us Provider Not In System IMG [facility] NON REP ORDERABLE S Final Result Performing Organization Address [facility] de Phone Number RAD4 * [facility] NM Bone Scan (07/25/2025 12:05 AM EDT) Only the most recent of2 resultswithin the time period is included. Narrative RAD4 - 08/01/2025 11:20 AM EDT DISCLAIMER This procedure captures images only. There is no report. us Provider Not In System IMG [facility] NON REP ORDERABLE S Final Result Performing Organization Address [facility] de Phone Number RAD4 * Surgical consults ([facility]) (07/15/2025 10:52 AM EDT) Surgical Consults SURGICAL PATHOLOGY CONSULT REPORT Patient: PRICILLA NIEVES MR #: [id number] Submitted by: Gage Vidal MD FINAL DIAGNOSIS 1. [place], [place], [id number], 8 SLS, 81: COLON, TRANSVERSE, BIOPSY: - INVASIVE MODERATELY DIFFERENTIATED ADENOCARCINOMA, SEE NOTE NOTE: The provided immunostains of MMR stains (MLH1, MSH2, MSH6, and PMS2) performed at the referring hospital and reviewed show no loss of expression of any of the proteins. HER2 immunostain score 1+ (negative). 2. [place], [place], [id number], 24 SLS, 05/18/21: COLON, SPLENIC FLEXURE WITH [...] and edited the final report. Specimen(s) Received: 1:[place], [place], [id number], 8 SLS, 81 2:[place], [place], [id number], 24 [facility], 05/18/21 Clinical History and Impression: 1. Carcinoma colon 2. Colitis [facility] SURGICAL PATHOLOGY 07/15/2025 10:5 2 AM EDT Comment:[place], [place], [id number], 8 [facility], 81/[place], [place], [id number], 24 SLS, 05/18/21 us Gage Vidal MD PATHOLOGY/CYTOLOGY ORDERABLES Final Result Performing Organization Address City/State/[facility] Co de Phone Number [facility] SURGICAL PATHOLOGY Department of Pathology [address] [place] [phone] from Last 3 Months Insurance [facility] [place] [address] [place] [address] [employer] [facility] [place] [address] [place] [address] [employer] [facility] MGD Care Teams Rn Clinical Appeals Relationship Specialty Start Date End Date Castro Gomes MD [address] [place] [phone] PCP - General Family Medicine 07/12/25
--- OUTSIDE RECORDS SUMMARY | 2025-08-05 11:53 | XMS_ITS | Clinical Summary ---
Author Organization [facility], Address [address] [place] [address] Phone Care Team Providers Care Custom Studio Coordinator Name Role Phone Sherly Donald Primary Care [...] Health Medicaid [facility] Medicaid Care Teams Custom Studio Coordinator Relationship Specialty Start Date End Date Sherly Donald [address] [place] [address] PCP - General Internal Medicine 04/28/23
== END 2025-08-05 11:20 | disposition home or self-care (01) ==
LOC: HO.HMCFMS 10:07
PROVIDERS: PCP Student in an Organized Health Care Education/Training Program; Visit Provider Student in an Organized Health Care Education/Training Program
DX: C18.9 Malignant neoplasm of colon, unspecified (principal); C78.00 Secondary malignant neoplasm of unspecified lung; C79.9 Secondary malignant neoplasm of unspecified site; Z92.21 Personal history of antineoplastic chemotherapy; R91.8 Other nonspecific abnormal finding of lung field; J98.11 Atelectasis; E66.01 Morbid (severe) obesity due to excess calories; R06.00 Dyspnea, unspecified; R53.83 Other fatigue; Z95.828 Presence of other vascular implants and grafts

== ENCOUNTER → 2025-08-05 10:06 | Outpatient (BNVA) | payer OTHER, SELFPAY | PROVIDERS: PCP Student in an Organized Health Care Education/Training Program; Visit Provider Student in an Organized Health Care Education/Training Program | DX: R91.8 Other nonspecific abnormal finding of lung field (principal); C18.9 Malignant neoplasm of colon, unspecified; C78.7 Secondary malignant neoplasm of liver and intrahepatic bile duct; C78.02 Secondary malignant neoplasm of left lung; J98.11 Atelectasis; E66.01 Morbid (severe) obesity due to excess calories; R06.00 Dyspnea, unspecified; R53.83 Other fatigue; Z95.828 Presence of other vascular implants and grafts; Z92.21 Personal history of antineoplastic chemotherapy; Z68.39 Body mass index [BMI] 39.0-39.9, adult | CPT/HCPCS: 99212 ==

== ENCOUNTER → 2025-08-08 14:11 | Outpatient (REF) | payer OTHER, SELFPAY ==
--- NOTE | 2025-08-08 14:14 | CA_ITS ---
Transthoracic Echocardiogram Patient (Last, First, Middle): Oscar Nieves, Gender: F Date of : 1980 Age: 45 Procedure Date: 08/08/2025 Procedure Type: Transthoracic Echocardiogram Location: OP Height: 180.34 cm Weight: 129.73 kg BSA: 2.46 m2 Heart Rate: bpm BP: 124 / 70 mmHg Semiconductor Processor: Referring MD: Wan Mcknight MD Supervisor Scouring Pads: Wild Marie MD Symptoms: C18.9 Malignant neoplasm of colon, Z13.9 screening Study Quality: Adequate ECG Rhythm: Sinus Conclusions: - Essentially normal study Findings Left Ventricle Normal left ventricular size, thickness, and systolic function. The visually estimated ejection fraction is between 60-65%. Spectral Doppler is indicative of a normal filling pattern. Peak GLS is -20.0%, within normal limits Right Ventricle Normal right ventricular cavity size and systolic function. Atria Both atria are normal in size. There is no evidence of interatrial shunt. Aortic Valve Normal aortic valve structure and function. There is no aortic valve stenosis. There is no aortic valve regurgitation. Mitral Valve Normal mitral valve structure and function. There is trace mitral valve regurgitation. There is no mitral valve stenosis. Pulmonic Valve The pulmonic valve is likely normal. Tricuspid Valve Normal tricuspid valve structure. There is trace tricuspid valve regurgitation. The right ventricular systolic pressure is normal. The right ventricular systolic pressure is 13 mmHg. Normal right atrial pressure. There is no evidence of pulmonary hypertension. Great Vessels All visible segments of the aorta are normal in size. The pulmonary artery was not well visualized. Venous The inferior vena cava is normal in size and collapses greater than 50% with inspiration. Pericardium/Pleural There is no evidence of pericardial effusion. Prior Study Comparison No prior study available for comparison. Measurements 2D Linear Measurements IVSd: 1.00 0.6-0.9/0.6-1.0 cm LVIDd: 4.71 3.9-5.3/4.2-5.9 cm LVIDd Index: 1.91 2.4-3.2/2.2-3.1 cm/m2 LVIDs: 2.92 2.0-3.6 cm LVPWd: 1.04 0.7-1.1 cm Ao Root: 2.50 2.1-3.5 cm LA Diam: 3.40 2.7-3.8/3.0-4.0 cm LAIDs Index: 1.38 1.5-2.3 cm/m2 LV Mass: 211.18 67-162/88-224 g LV Mass Index: 85.85 43-95/49-115 g/m2 LVOT Diam: 2.10 3.0+(-)1.3 cm 2D Systolic Function EF 4C: 60.40 >55% EF 2C: 68.00 >55% EF BiP: 63.30 >55% Mitral Valve MV Pk E: 0.66 MV PK A: 0.57 MV Decel Time: 121.00 E/A: 1.10 E'Lateral: 12.10 E'Medial: 8.05 E/E' Med: 8.10 E/E' Lat: 5.40 PHT: 36.00 MVA PHT: 6.11 Decel [place]: 5.41 Aortic Valve AoV Pk Rm: 1.16 AoV Mn Rm: 0.80 AoV VTI: 0.23 AoV Pk Grad: 5.00 Aov Mn Grad: 3.00 MARIBEL Cont.VTI: 2.96 LVOT LVOT Pk Rm: 0.93 LVOT Mn Rm: 0.66 LVOT VTI: 0.20 LVOT Pk Grad: 3.00 LVOT Mn Grad: 2.00 LVOT Diam: 2.10 LVOT Area: 3.46 Diastolic Function MV Pk E: 0.66 MV Pk A: 0.57 E/A: 1.10 E'Medial: 8.05 E/E' Med: 8.10 E' Laterial: 12.10 E/E' Lat: 5.40 Right Ventricle TAPSE (mm): 26.00 TVS' Rm: 14.00 Tricuspid Valve TR Pk Rm: 1.59 TR Pk Grad: 10.00 RA Press: 3.00 RVSP: 13.00 Great Vessels Aorta Ao Root-2D: 2.50 2.0-3.7 cm Ao Asc: 2.50 2.1-3.4 cm Pulmonary Valve PV Pk Rm: 1.46 Peak PV Grad: 9.00 Updated in Other Vendor System with Status of Final Wild Marie MD electronically signed on 08/08/2025 3:09:45 PM with status of Final
== END ==
LOC: HO.CARD 14:11
PROVIDERS: PCP Student in an Organized Health Care Education/Training Program; Visit Provider Student in an Organized Health Care Education/Training Program
DX: Z13.6 Encounter for screening for cardiovascular disorders (principal); C18.9 Malignant neoplasm of colon, unspecified; C78.00 Secondary malignant neoplasm of unspecified lung
CPT/HCPCS: 93306

== ENCOUNTER → 2025-08-08 14:14 | Outpatient (BNV) | payer OTHER, SELFPAY | PROVIDERS: PCP Student in an Organized Health Care Education/Training Program; Visit Provider Internal Medicine Cardiovascular Disease | DX: Z01.818 Encounter for other preprocedural examination (principal); C18.9 Malignant neoplasm of colon, unspecified | CPT/HCPCS: 93306 ==

== ENCOUNTER 2025-08-12 15:43 | Outpatient (AMB) | payer OTHER, SELFPAY ==
--- OUTSIDE RECORDS SUMMARY | 2024-07-29 15:38 | XMS_ITS | Encounter Summary ---
Author Organization [employer] Address [address] [place] [address] Care Team Providers Care Logistics Administrator Name Role Phone Sherly Donald MD Primary Care Provider [phone] [phone] Encounter Details Date Type Department Care Team [...] 10:22 PM EDT Danielle France RN * [place] Suicide Severity Rating Scale (Screener/Recent Self-Report) Question [...] Description 08/30/2025 11:00 AM EST Office Visit [facility] Hematology Oncology [address] [place] [phone] Jaison Mendez MD [address] [place] [address] 02/27/2026 8:20 AM EDT Consult Gastroenterology - [address] [place] [phone] Missy Allen NP [address] [facility] [address] [place] [address] documented as of this encounter Visit Diagnoses Not on filedocumented in this encounter Additional Health Concerns Infection Onset Date Last Indicated Resolved Time Respiratory Rule-Out 08/01/2025 08/01/2025 025 6:13 AM EDT COVID-19 Rule-Out 08/01/2025 08/01/2025 08/01/2025 6:13 AM EDT documented as of this encounter Care Teams Logistics Administrator Relationship Specialty Start Date End Date Sherly Donald MD [address] [place] [address] PCP - General Internal Medicine 05/29/21 documented as of this encounter
--- OUTSIDE RECORDS SUMMARY | 2025-08-01 | XMS_ITS | Encounter Summary ---
Author Organization [facility] Address [address] [facility] [address] [place] [phone] Phone Care Team Providers Care Chief Knowledge Officer Name Role Phone Sherly Hernández MD Primary Care Provider [phone] Self-Referred, Patient Unavailable Unavailab Castro Adam MD Unavailable [phone] Ying Salgado RN Unavailable [email or web address] Encounter Details Date Type Department Care Team (Late st Contact Info) Description 08/01/2025 Hospital Encounter [facility] General Imaging [address] [place] [address] Mario Stearns MD, PhD [address] [place] [phone] [email or web address] Social History Tobacco Use Types Packs/Day Years Used Date Smoking Tobacco: Never Smokeless Tobacco: Never Education Answer Date Recorded Are you interested [...] Orientation Straight 07/02/2021 3: 47 PM EDT documented as of this encounter Plan of Treatment Upcoming Encounters Date Type Department Care Team (Late st Contact Info) Description 08/22/2025 8:00 AM EST Office Visit [facility] [address] [facility] 7th [address], [address] [place] [address] Mario Stearns MD, PhD [address] [facility] [address] [place] [address] [email or web address] [email or web address] Results Name Type Priority Associated Diagnoses Date /Time CT Abdomen/Pelvis Outside with Interpretation or Consult Imaging Routine 08/01/2025 12:00 AM EDT Scheduled Orders Name Type Priority Associated Diagnoses Orde r Schedule CT Abdomen/Pelvis Outside with Interpretation or Consult Imaging Routine As Needed for 1 Occurrences starting 08/10/2025 until 08/10/2025 documented as of this encounter Visit Diagnoses Not on filedocumented in this encounter Care Teams Chief Knowledge Officer Relationship Specialty Start Date End Date Sherly Hernández MD PCP - General 12/20/24 Self-Referred, Patient 01/14/25 Castro Cabello MD [address] [place] [phone] [email or web address] Medical Oncology 01/17/25 Ying Salgado, DIXIE [address] [place] [address] [email or web address] Registered Nurse 01/26/25 documented as of this encounter Additional Source Comments The information contained in this document represents components of the legal health record. It is not the complete legal health record.[facility]
--- OUTSIDE RECORDS SUMMARY | 2025-08-01 00:05 | XMS_ITS | Encounter Summary ---
Author Organization [facility] Address [address] [facility] [address] [place] [phone] Phone Care Team Providers Care Storage Engineer Name Role Phone Sherly Hernández MD Primary Care Provider [phone] Self-Referred, Patient Unavailable Unavailab Castro Adam MD Unavailable [phone] Ying Salgado RN Unavailable [email or web address] Encounter Details Date Type Department Care Team (Late st Contact Info) Description 08/01/2025 12:05 AM EDT Hospital Encounter [facility] General Imaging [address] [place] [address] Mario Stearns MD, PhD [address] [place] [phone] [email or web address] Social History Tobacco Use Types Packs/Day Years [...] 08/22/2025 8:00 AM EST Office Visit [facility] [address] [facility], [address] [place] [address] Mario Stearns MD, PhD [address] [facility] [address] [place] [address] [email or web address] [email or web address] Results Name Type Priority Associated Diagnoses Date /Time CT Chest Outside With Interpretation Or Consult Imaging Routine 2024 12:05 AM EDT Scheduled Orders Name Type Priority Associated Diagnoses Orde r Schedule CT Chest Outside With Interpretation Or Consult Imaging Routine As Nee ded for 1 Occurrences starting 08/10/2025 until 08/10/2025 documented as of this encounter Visit Diagnoses Not on filedocumented in this encounter Care Teams Storage Engineer Relationship Specialty Start Date End Date Sherly Hernández MD PCP - General 12/20/24 Self-Referred, Patient 01/14/25 Castro Cabello MD [address] [place] [phone] [email or web address] Medical Oncology 01/17/25 Ying Salgado, DIXIE [address] [place] [address] [email or web address] Registered Nurse 01/26/25 documented as of this encounter Additional Source Comments The information contained in this document represents components of the legal health record. It is not the complete legal health record.[facility]
--- NOTE | 2025-08-12 15:01 | MHC.PC.OV ---
Intake Visit Reasons: Fill Forms Allergies No Known Allergies Allergy (Verified 08/05/25 10:11) Tobacco use date assessed: 08/05/25 Dental Screening Dental Screen Date: 08/05/25 [facility] Medical History (Updated 08/05/25 @ 11:12 by Wan Mcknight MD) Atelectasis pulmonary Metastatic carcinoma Pulmonary nodules Morbid obesity due to excess calories History of chemotherapy Colon cancer metastasized to lung Family History Father No problems noted. Mother High blood pressure Diabetes Social History Housing: House Alcohol intake: current Alcohol intake frequency: holidays/special occasions only Patient Tobacco Use Status: Never used Tobacco service: No Current occupational status: unemployed and disabled Cognitive needs: Yes (cane and walker) Hearing needs: No Vision needs: No Questionnaire Thrive Questionnaire Date Thrive assessed: 08/05/25 ALYSSA-7 AMB Questionnaire ALYSSA-7 Date ALYSSA - 7 assessed: 08/05/25 Source: Developed by Drs. Bran Mason, Zoya Skinner, Dejan Olmedo and colleagues, with an educational wally from [email or web address]. Physical exam (Primary Care) Tobacco/Smoking Status: Tobacco use Status Tobacco use date assessed 08/05/25 08/12/25 15:01 Patient Tobacco Use Status Never used Tobacco 08/12/25 15:01 Thrive Assessment: Date of Thrive Assessment Date Thrive assessed 08/05/25 08/12/25 15:01 Coding
--- NOTE | 2025-08-12 15:44 | MHC.PC.OV ---
Vital Signs 08/12/25 15:45 Height 5 ft 11.85 in Weight 295 lb 2 oz BMI 40.2 BP 105/57 L Blood Pressure Location Lt brachial Position Sitting Respiration 16 Pulse 93 Pulse Source Pulse Oximeter Temp 98 F Temp Source Oral Pulse Oximetry (%) 97 Oxygen Delivery Method Room Air Intake Visit Reasons: Fill Forms Intake Note: establish care have colon cancer stage 4 metastasized shes in her last days. Vice President Of Advertising Required: No Accompanied by: Self / Same As Patient Allergies No Known Allergies Allergy (Verified 08/12/25 15:45) Medication List - Last Reconciled 08/12/25 by Wan Mcknight MD acetaminophen mg PO albuterol sulfate 90 mcg/actuation (Ventolin HFA) 2 puffs inhalation Q6H PRN bupropion HCl XL 150 mg PO QAM bupropion HCl XL 300 mg PO QAM chlorhexidine gluconate 0.12% 10 mL PO BID hydroquinone 4% appl topical BEDTIME ibuprofen 600 mg PO TID PRN mirtazapine 45 mg PO BEDTIME morphine ER 60 mg PO BID oxycodone 15 mg PO TID PRN oxycodone mg PO sennosides-docusate sodium 8.6-50 mg (Senexon-S) 1 tab PO DAILY Tobacco use date assessed: 08/12/25 Dental Screening Dental Screen Date: 08/12/25 Did you have a dental visit in the last 12 months?: Yes Did you have a dental problem in the last 6 months where you did not have access to dental care?: No Was dental information given to patient?: Patient has dentist HPI HPI Comments History of Present Illness Details History of Present Illness pt is pending an appt with onc at [facility] where clinical trials are performed, unfortunately her insurance is not accepted by the physician. She is trying to find a way in. She is also requesting a letter for more PATTERN[employer] hours due to her condition. She is also requesting another letter for her utilitties since they are threatening to cut off her service Social History: - The patient requires assistance and company due to her current condition, as she cannot be alone for extended periods. - The patient has concerns about changing her insurance, as it may affect her current care and language preferences with her healthcare provider. [facility] Medical History (Updated 08/05/25 @ 11:12 by Wan Mcknight MD) Atelectasis pulmonary Metastatic carcinoma Pulmonary nodules Morbid obesity due to excess calories History of chemotherapy Colon cancer metastasized to lung Family History Father No problems noted. Mother High blood pressure Diabetes Social History Housing: House Alcohol intake: current Alcohol intake frequency: holidays/special occasions only Patient Tobacco Use Status: Never used Tobacco service: No Current occupational status: unemployed and disabled Cognitive needs: Yes (cane and walker) Hearing needs: No Vision needs: No Questionnaire Thrive Questionnaire Date Thrive assessed: 07/14/25 I am a: Patient What is your living situation today?: I have a steady place to live Within the past 12 months, did the food you bought not last and you didn't have the money to get more?: Often true Within the past 12 months, did you worry whether your food would run out before you got money to buy more?: Sometimes True Do you have trouble paying for medicines?: Yes Do you have trouble getting transportation to medical appointments?: No Do you have trouble paying your heating and electricity bill?: Yes Do you have trouble taking care of your child, family member or friend?: No Are you currently unemployed and looking for a job?: No Are you interested in more education?: No Please select the resources that you would like help with: None Currently or been in a relationship where the following occur: I choose not to answer THRIVE Score: 3 ALYSSA-7 AMB Questionnaire ALYSSA-7 Date ALYSSA - 7 assessed: 08/05/25 Source: Developed by Drs. Bran Mason, Zoya Skinner, Dejan Olmedo and colleagues, with an educational wally from [employer]. Review of Systems Narrative Review of Systems - Respiratory: Reports dyspnea 10-point ROS reviewed and negative except as noted in HPI Physical exam (Primary Care) Vital Signs: Last Vital Signs Temp 98 F 08/12/25 15:45 Pulse 93 08/12/25 15:45 Resp 16 08/12/25 15:45 BP 105/57 L 08/12/25 15:45 Pulse Ox 97 08/12/25 15:45 Oxygen Delivery Method Room Air 08/12/25 15:45 BMI result Body Mass Index 40.2 Tobacco/Smoking Status: Tobacco use Status Tobacco use date assessed 08/12/25 08/12/25 15:54 Patient Tobacco Use Status Never used Tobacco 08/12/25 15:54 Thrive Assessment: Date of Thrive Assessment Date Thrive assessed 07/14/25 08/12/25 15:54 Currently or been in a relationship where the following occur: I choose not to answer Narrative Physical Exam General: Well-appearing, in no acute distress. Vital signs: Within normal limits. HEENT: Normocephalic, atraumatic. PERRLA, EOMI. Conjunctiva clear, sclera anicteric. Oropharynx clear, mucous membranes moist. TMs intact bilaterally. Neck: Supple, no lymphadenopathy, no thyromegaly, no JVD or carotid bruits. Cardiovascular: RRR, normal S1/S2, no murmurs, rubs, or gallops. Peripheral pulses 2+ and symmetric. No edema. Respiratory: Lungs clear to auscultation bilaterally, no wheezes, rales, or rhonchi. increased effort Abdomen: Soft, non-tender, non-distended. Normoactive bowel sounds. No hepatosplenomegaly, no masses. Patient reports feeling like their belly is pretty big and inflated. MSK: Full range of motion, no joint swelling or deformity. Normal gait. Skin: Warm, dry, intact. No rashes, lesions, or pallor. Neuro: Alert and oriented x3. Cranial nerves II-XII intact. Strength 5/5 throughout. Sensation intact. Reflexes 2+ symmetric. Normal coordination and gait. Psych: Appropriate mood and affect. Normal judgment and insight. Coding Level of Care Code Est Pt Level 2 (56296) Diagnoses Colon cancer metastasized to lung C18.9; C78.00 Metastatic carcinoma C79.9 Morbid obesity due to excess calories E66.01 Pulmonary nodules R91.8 Atelectasis pulmonary J98.11 Dyspnea R06.00 Fatigue R53.83 Assessment & Plan Assessment & Plan (1) Colon cancer metastasized to lung: Code(s): C18.9 - Malignant neoplasm of colon, unspecified; C78.00 - Secondary malignant neoplasm of unspecified lung Category: Medical (2) Metastatic carcinoma: Code(s): C79.9 - Secondary malignant neoplasm of unspecified site Category: Medical (3) Morbid obesity due to excess calories: Code(s): E66.01 - Morbid (severe) obesity due to excess calories Category: Medical (4) Pulmonary nodules: Code(s): R91.8 - Other nonspecific abnormal finding of lung field Category: Medical (5) Atelectasis pulmonary: Code(s): J98.11 - Atelectasis Category: Medical (6) Dyspnea: Code(s): R06.00 - Dyspnea, unspecified (7) Fatigue: Code(s): R53.83 - Other fatigue Plan Consent Patient was informed and verbally consented to the use of an ambient scribe for clinic note documentation during this visit. Patient Instructions - A letter will be provided to extend the hours of personal care assistance. - A letter for utility assistance will be prepared and provided by Friday. Medical Decision Making Total time spent caring for the patient today was 15 minutes. This includes time spent before the visit reviewing the chart, time spent documenting, and time spent reviewing laboratory results, diagnostic imaging, medications, performing a medically necessary evaluation, counseling on diagnoses, care coordination.
[2025-08-12 15:45] VITALS: BP 105/57; PULSE 93; RESP 16; TEMP 36.6; O2SAT 97; BMI 40.2
--- OUTSIDE RECORDS SUMMARY | 2025-08-12 17:01 | XMS_ITS | Encounter Summary ---
Author Organization [facility] Address [address] [place] [address] Care Team Providers Care Mathematics Education Professor Name Role Phone Sherly Donald MD Primary Care Provider [phone] Encounter Details Date Type Department Care Team (Late Contact Info) Description 02/07/[address] [facility] - Main Lab [address] [place] [phone] Jorge Anderson MD [address] [place] [address] Microscopic colitis, unspecified Social History Tobacco Use [...] 08/30/2025 11:00 AM EST Office Visit [facility] Hematology Oncology [address] [place] [phone] Jaison Mendez MD [address] [place] [address] 02/27/2026 8:20 AM EDT Consult Gastroenterology - [address] [facility] [address] [place] [address] Missy Allen, KARL [address] [facility] [address] [place] [address] documented as of this encounter Procedures Procedure [...] available upon request. 05/11/2025 1:33 PM EDT [facility] Clinical Information Historical slide request for [facility] Cancer ([facility]) [id number] & [id number] 05/11/2025 1:33 PM EDT [facility] Gross Description A. 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 Cabello slides ([id number] (23) and [id number] (8) sent: DFCI - path processing ([facility]) [address] [facility], [address] [address] FED[employer] #[id number] 01/25/24 [place] -- received a second request for a block At the request of Dr. Cabello [phone] Block A1 sent SL/BLANK [employer] Tracking #: [id number] 05/11/2025 1:33 PM EDT EXTERNAL LAB (NON-INTERFAC ED) Disclaimer Unless otherwise specified, all tissue is 10% NB formalin fixed and paraffin embedded. 05/11/2025 1:33 PM EDT [facility] Tissue Colon structure / Unknown 02/07/2025 11:53 AM EDT 02/07/2025 11:54 AM EDT us Jorge Anderson MD LAB PATHOLOGY ORDERABLES Fi nal Result [facility] ([facility]) [facility] [address] [place] [address], EXTERNAL LAB (NON-INTERFACED) documented in this encounter Visit Diagnoses Diagnosis Microscopic colitis, unspecified documented in this encounter Additional Health Concerns Infection Onset Date Last Indicated Resolved Time Respiratory Rule-Out 08/01/2025 08/01/2025 025 6:13 AM EDT COVID-19 Rule-Out 08/01/2025 08/01/2025 08/01/2025 6:13 AM EDT documented as of this encounter Care Teams Mathematics Education Professor Relationship Specialty Start Date End Date Sherly Donald MD [address] [place] [address] PCP - General Internal Medicine 05/29/21 documented as of this encounter
--- OUTSIDE RECORDS SUMMARY | 2025-08-12 17:01 | XMS_ITS | Clinical Summary ---
Author Organization [employer] [facility] Address [address] [place] [address] Care Team Providers Care Animation Camera Operator Name Role Phone Sherly Donald Primary [...] 09/01/2018, 08/22/2017, Additional history exists Pneumococcal Vaccine Aged Out 05/29/2021, 12/26/19 21 No longer eligible based on patient's age to complete this topic RSV Ped < 20 months Aged Out No longe r eligible based on patient's age to complete this topic Care Teams Animation Camera Operator Relationship Specialty Start Date End Date Sherly Donald [address] [place] [phone] PCP - General Internal Medicine 06/04/21
--- OUTSIDE RECORDS SUMMARY | 2025-08-12 17:01 | XMS_ITS | Encounter Summary ---
Author Organization [employer] Address [address] [place] [address] Care Team Providers Care Risk Management Internship Name Role Phone Sherly Donald MD Primary Care Provider [phone] Encounter Details Date Type Department Care Team (Late st Contact Info) Description 08/04/2025 Telephone [facility] Hematology Oncology [address] [place] [address] Moon Contreras MA Social History [...] PM EST documented as of this encounter Functional Status * Calculated C-SSRS Risk Score (Lifetime/Recent) Answer Date of Assessment Author No Risk Indicated 08/05/2025 10:22 PM EDT Danielle France RN * [place] Suicide Severity Rating Scale (Screener/Recent Self-Report) Question Answer Date of Assessment Author 1. Wish to be (Past 1 Month) No 025 10:22 PM EDT Danielle France, RN 2. Non-Specific Active Suici nathan Thoughts (Past 1 Month) No 08/05/2025 10:22 PM EDT Danielle France , RN 6. Suicidal Behavior (Lifetime) No 10:22 PM EDT Danielle France RN documented as of this encounter Progress Notes * Moon Contreras MA - 08/09/2025 11:50 AM EDT Patient calling for update on the referral to [place] * Moon Contreras MA - 08/04/2025 2:12 PM EDT Patient is next in line for Phase 1 Bispecific antibody clinical trial at [facility] in [place] and would like to know if Md recommends this for her since is with immunotherapy. If not, there will be ainhibitor KRAS clinical trial coming up at [place] but not sure when. Patient also asks for a referralto be sent to Dr. Mario Stearns @ [facility] - - KRAS clinical trial [id number] Phase 2. documented in this encounter Plan of Treatment Upcoming Encounters Date Type Department Care Team (Late st Contact Info) Description 08/30/2025 11:00 AM EST Office Visit [facility] Hematology Oncology [address] [place] [phone] Jaison Mendez MD [address] [place] [address] 02/27/2026 8:20 AM EDT Consult Gastroenterology - 299 [facility] [address] [facility] [address] [place] [address] Missy Allen, KARL 175 [facility] [address] [place] [address] documented as of this encounter Visit Diagnoses Not on filedocumented in this encounter Care Teams Risk Management Internship Relationship Specialty Start Date End Date Sherly Donald MD [address] [place] [address] PCP - General Internal Medicine 05/29/21 documented as of this encounter
--- OUTSIDE RECORDS SUMMARY | 2025-08-12 17:01 | XMS_ITS | Encounter Summary ---
Author Organization [facility] Address [address] [place] [address] Care Team Providers Care Home Appliance Tech Name Role Phone HernándezBenito Sherly Primary Care Provider Encounter Details Date Type Department Care Team Description 06/18/2021 Nurse Only [facility] Oncology Services [address] [place] [address] Rom Arboleda RN Social History Tobacco Use [...] oral chemotherapy and side effects. Scriptsent to [facility] RX awaiting out come. documented in this encounter Plan of Treatment Not on file documented as of this encounter Visit Diagnoses Not on filedocumented in this encounter Care Teams Home Appliance Tech Relationship Specialty Start Date End Date Sherly Donald [address] [place] [phone] PCP - General Internal Medicine 06/04/21 documented as of this encounter
--- OUTSIDE RECORDS SUMMARY | 2025-08-12 17:02 | XMS_ITS ---
Author Organization [facility] Address [address] [place] [address] Phone Care Team Providers Care Tanbark Peeler Name Role Phone Sherly Donald MD Primary Care Provider [phone] Active Problems Problem Noted Date Diagnosed Date Multiple pulmonary nodules 12/14/2024 Overview (12/14/2024): -Also seen: New non enlarged mildly FDG avid Right lower quadrant lymph node in the mesentery -Seen in Pet CT scan done at [place] 10-28-24: bilateral FDG avid pulmonary nodules, new [...] therapist, whose name is Franci therapist in [place] [facility] 09/29/2024 Overview (09/29/2024): -2ary to chemotherapy [...]
--- OUTSIDE RECORDS SUMMARY | 2025-08-12 17:02 | XMS_ITS | Encounter Summary ---
Author Organization [employer] Address [address] [place] [address] Care Team Providers Care Abalone Processor Name Role Phone Sherly Donald MD Primary Care Provider [phone] Encounter Details Date Type Department Care Team (Late st Contact Info) Description 08/11/2025 Telephone [facility] Hematology Oncology [address] [place] [phone] Jaison Mendez MD [address] [place] [address] Social History Tobacco Use Types Packs/Day Years [...] Progress Notes * Pravin Estrada MA - 08/11/2025 9:06 AM EDT Message given to Dr. Mendez, he will be completing phone call to Dr. Schroeder today. * Ashley Griffiths - 08/11/2025 8:29 AM EDT calling to speak with you regarding mutual patient, please call [phone] documented in this encounter Plan of Treatment Upcoming Encounters Date Type Department Care Team (Late st Contact Info) Description 08/30/2025 11:00 AM EST Office Visit [facility] Hematology Oncology [address] [place] [phone] Jaison Mendez MD [address] [place] [address] 02/27/2026 8:20 AM EDT Consult Gastroenterology - 299 [facility] [address] [facility] [address] [place] [phone] Missy Allen NP 175 [facility] [address] [place] [address] documented as of this encounter Visit Diagnoses Not on filedocumented in this encounter Care Teams Abalone Processor Relationship Specialty Start Date End Date Sherly Donald MD [address] [place], [place] PCP - General Internal Medicine 05/29/21 documented as of this encounter
--- OUTSIDE RECORDS SUMMARY | 2025-08-12 17:02 | XMS_ITS | Encounter Summary ---
Author Organization [facility] Address [address] [facility] [address] [place] [address] Phone Care Team Providers Care Emergency Detail Driver Name Role Phone Sherly Hernández MD Primary Care Provider [phone] Self-Referred, Patient Unavailable Unavailab Castro Adam MD Unavailable [phone] Ying Salgado RN Unavailable [email or web address] Encounter Details Date Type Department Care Team (Late st Contact Info) Description 08/10/2025 Ancillary Orders [facility] [address] [place] [address] Mario Stearns MD, PhD [address] [place] [phone] [email or web address] Social History Tobacco Use Types Packs/Day Years [...] Description 08/22/2025 8:00 AM EST Office Visit [facility] [address] [facility], 7th Floor, [address] [place] [address] Mario Stearns MD, PhD [address] [facility] [address] [place] [address] [email or web address] [email or web address] Results Name Type Priority Associated Diagnoses Date /Time CT Abdomen/Pelvis Outside with Interpretation or Consult Imaging Routine 08/01/2025 12:00 AM EDT Scheduled Orders Name Type Priority Associated Diagnoses Orde r Schedule CT Abdomen/Pelvis Outside with Interpretation or Consult Imaging Routine [address] arting 08/10/2025 until 11/10/2025 documented as of this encounter Visit Diagnoses Not on filedocumented in this encounter Care Teams Emergency Detail Driver Relationship Specialty Start Date End Date Sherly Hernández MD PCP - General 12/20/24 Self-Referred, Patient 01/14/25 Castro Cabello MD [address] [place] [address] [email or web address] Medical Oncology 01/17/25 Ying Salgado, DIXIE [address] [place] [address] [email or web address] Registered Nurse 01/26/25 documented as of this encounter Additional Source Comments The information contained in this document represents components of the legal health record. It is not the complete legal health record.[facility]
--- OUTSIDE RECORDS SUMMARY | 2025-08-12 17:02 | XMS_ITS | Clinical Summary ---
Author Organization [facility], Address [address] [place] [address] Phone Care Team Providers Care Clinical Application Manager Name Role Phone Sherly Donald Primary [...] Health Medicaid [facility] [facility] Medicaid Care Teams Clinical Application Manager Relationship Specialty Start Date End Date Sherly Donald [address] [place] [address] PCP - General Internal Medicine 04/28/23
--- OUTSIDE RECORDS SUMMARY | 2025-08-12 17:02 | XMS_ITS | Clinical Summary ---
Author Organization [address] Address [address] [place] [address] Care Team Providers Care Director Of Operations For Therapy Name Role Phone Castro Gomes MD Primary Care Provider [phone] Allergies No known active allergies Medications albuterol [...] Encounters Date Type Department Care Team Description 08/05/2025 Telephone [facility] PHASE I CLINIC [address] [address] Gage Hussein MD FYI 08/02/2025 Telephone [facility] PHASE I CLINIC [address] [address] Gage Hussein MD Advice Only 08/01/2025 11:18 AM EDT - 08/01/2025 11:59 PM EDT Hospital Encounter [facility] RO[facility] [address] [place] [address] System, Provider Not In Discharge Disposition: Home or Self Care 08/01/2025 11:17 AM EDT Hospital Encounter [facility] [address] [place] [address] System, Provider Not In Discharge Disposition: Home or Self Care 08/01/2025 Orders Only [facility] [address] [place] [address] System, Provider Not In 08/01/2025 Orders Only [facility] [address] [place] [address] System, Provider Not In 08/01/2025 Orders Only [facility] [address] [place] [address] System, Provider Not In 08/01/2025 Orders Only [facility] [address] [place] [address] System, Provider Not In 08/01/2025 Telephone [facility] PHASE I CLINIC [address] [address] Gage Hussein MD Appointment; FYI 08/01/2025 Documentation [facility] PHASE I CLINIC [address] [address] Felicity Rodriguez NP 07/27/2025 Orders Only [facility] [address] [place] [address] System, Provider Not In 07/27/2025 Orders Only [facility] [address] [place] [address] System, Provider Not In 07/27/2025 Orders Only [facility] [address] [place] [address] System, Provider Not In 07/27/2025 Orders Only [facility] [address] [place] [address] System, Provider Not In 07/25/2025 12:05 AM EDT - 07/25/2025 11:59 PM EDT Hospital Encounter [facility] [address] [place] [address] System, Provider Not In Discharge Disposition: Home or Self Care 07/25/2025 - 07/25/2025 12:04 AM EDT Hospital Encounter [facility] [address] [place] [address] System, Provider Not In Discharge Disposition: Home or Self Care 07/20/2025 11:00 AM EDT Office Visit [facility] PHASE I CLINIC [address] [address] Gage Hussein MD Malignant neoplasm of colon, unspecified part of colon (HC Code) (HC CODE) (Primary Dx) 07/20/2025 10:45 AM EDT Clinical Support [facility] PHASE I INFUSION [address] [address] Gage Hussein MD 07/20/2025 Telephone [facility] PHASE I CLINIC [address] [address] Gage Hussein MD Appointment 07/19/2025 Telephone [facility] PHASE I CLINIC [address] [address] Jessika Stoner, RN RN New Pt Intake 07/19/2025 Abstract [facility] PHASE I CLINIC [address] [address] Jessika Stoner RN 07/01/2025 Telephone [facility] PHASE I CLINIC [address] [place] [address] Obtain, Unable To Appointment; Referral (Self-referral) from [...] NON REP ORDERABLE S Final Result RAD4 * [facility] Chest (08/01/2025 11:17 AM EDT) Narrative RAD4 - 08/01/2025 11:17 AM EDT DISCLAIMER This procedure captures images only. There is no report. us Provider Not In System IMG [facility] NON REP ORDERABLE S Final Result RAD[facility] * [facility] Bone Scan (07/25/2025 12:05 AM EDT) Only the most recent of2 resultswithin the time period is included. Narrative RAD4 - 08/01/2025 11:20 AM EDT DISCLAIMER This procedure captures images only. There is no report. us Provider Not In System IMG [facility] NON REP ORDERABLE S Final Result Performing Organization Address City/[facility] Co de Phone Number RAD4 * Surgical consults ([facility]) (07/15/2025 10:52 AM EDT) Surgical Consults SURGICAL PATHOLOGY CONSULT REPORT Patient: PRICILLA NIEVES MR #: [id number] Submitted by: Gage Vidal MD FINAL DIAGNOSIS 1. [place], [id number], 8 SLS, 81: COLON, TRANSVERSE, BIOPSY: - INVASIVE MODERATELY DIFFERENTIATED ADENOCARCINOMA, SEE NOTE NOTE: The provided immunostains of MMR stains (MLH1, MSH2, MSH6, and PMS2) performed at the referring hospital and reviewed show no loss of expression of any of the proteins. HER2 immunostain score 1+ (negative). 2. [place], [id number], 24 SLS, 05/18/21: COLON, SPLENIC FLEXURE WITH [...] and edited the final report. Specimen(s) Received: 1:[place], [place], [id number], 8 [facility], 81 2:[place], [id number], 24 [facility], 05/18/21 Clinical History and Impression: 1. Carcinoma colon 2. Colitis [facility] SURGICAL PATHOLOGY 07/15/2025 10:5 2 AM EDT Comment:[place], [place], [id number], 8 S[place], 81/[place], [place], [id number], 24 SLS, 05/18/21 Gage Vidal MD PATHOLOGY/CYTOLOGY ORDERABLES Final Result Performing Organization Address [facility]/State/[facility] Co de Phone Number [facility] SURGICAL PATHOLOGY Department of Pathology [address] [place] [address] from Last 3 Months Insurance [employer] [facility] [employer] [facility] [place] [address] [employer] [facility] MGD Care Teams Director Of Operations For Therapy Relationship Specialty Start Date End Date Castro Gomes MD [address] [place] [address] PCP - General Family Medicine 07/12/25
--- OUTSIDE RECORDS SUMMARY | 2025-08-12 17:02 | XMS_ITS | Clinical Summary ---
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 Do not crush, chew, or split. Max Daily Amount: 60 mg 60 tablet 07/15/20 25 025 Active albuterol HFA (PROAIR HFA ; PROVENTIL HFA ; VENTOLIN HFA) 90 mcg/actuation inhaler Inhale 2 puffs by mouth every 6 (six) hours if needed for wheezing. 6.7 g 11 07/27/20 25 026 Active albuterol HFA (PROAIR HFA ; PROVENTIL HFA ; VENTOLIN HFA) 90 mcg/actuation inhaler Inhale 2 puffs by mouth every 6 (six) hours if needed for wheezing. 6.7 g 11 07/27/20 25 026 Active oxyCODONE (ROXICODONE) 15 mg immediate release tabletIndication s:Colon cancer metastasized to multiple sites (CMS/HCC V24, CMS/HCC V28) Take 1 tablet (15 mg total) by mouth every 4 (four) hours if needed (as needed for severe pain). Max Daily Amount: 90 mg 90 tablet 08/03/20 25 Active omeprazole (PriLOSEC) [address] capsule Take 1 capsule (20 mg total) by mouth 1 (one) time each day for 14 days. Do not crush or chew. 14 each 08/06/20 25 025 Active senna-docusate (PERICOLACE) 8.6-50 mg per tablet Take 1 tablet by mouth 1 (one) time each day. 30 tablet 11 08/09/20 25 026 Active cyclobenzaprine (FLEXERIL) 10 mg tablet Take 1 tablet (10 mg total) by mouth 2 (two) times a day if needed for muscle spasms. 30 tablet 08/09/20 25 Active oxyCODONE (ROXICODONE) 10 mg immediate release tabletIndication s:Malignant neoplasm of splenic flexure (CMS/HCC V24, CMS/HCC V28),Metastases to the liver (CMS/HCC V24, CMS/HCC V28) Take 1 tablet (10 mg total) by mouth every 6 (six) hours if needed for severe pain for up to 12 days. Max Daily Amount: 40 mg 48 tablet 08/09/20 25 025 Active senna-docusate (PERICOLACE) 8.6-50 mg per tablet Take 1 tablet by mouth 1 (one) time each day. 30 tablet 11 04/21/20 25 025 Discontinued(Re order) cyclobenzaprine (FLEXERIL) 10 mg tablet TAKE 1 TABLET BY MOUTH 2 TIMES A DAY IF NEEDED FOR MUSCLE SPASMS FOR UP TO 15 DAYS. 30 tablet 05/09/20 25 025 Discontinued(Re order) oxyCODONE (OxyCONTIN) 30 mg 12 hr abuse-deterrent tabletIndication s:Colon cancer metastasized to multiple sites (CMS/HCC V24, CMS/HCC V28),Pain management Take 1 tablet (30 mg total) by mouth every 12 (twelve) hours. Do not crush, chew, or split. Max Daily Amount: 60 mg 60 tablet 07/01/20 25 025 Discontinued(Re order) fentaNYL (DURAGESIC) 50 mcg/hrIndication s:Malignant neoplasm of splenic flexure (CMS/HCC V24, CMS/HCC V28),Metastases to the liver (CMS/HCC V24, CMS/HCC V28) Place 1 patch on the skin every 3rd (third) day. Max Daily Amount: 1 patch 10 patch 07/05/20 oxyCODONE (ROXICODONE) 10 mg immediate release tabletIndication s:Malignant neoplasm of splenic flexure (CMS/HCC V24, CMS/HCC V28),Metastases to the liver (CMS/HCC V24, CMS/HCC V28) Take 1 tablet (10 mg total) by mouth every 6 (six) hours if needed for severe pain for up to 12 days. Max Daily Amount: 40 mg 48 tablet 07/05/20 025 Discontinued(Re order) oxyCODONE (ROXICODONE) 10 mg immediate release tabletIndication s:Malignant neoplasm of splenic flexure (CMS/HCC V24, CMS/HCC V28),Metastases to the liver (CMS/HCC V24, CMS/HCC V28) Take 1 tablet (10 mg total) by mouth every 6 (six) hours if needed for severe pain for up to 12 days. Max Daily Amount: 40 mg 48 tablet 07/15/20 025 Discontinued(Re order) albuterol HFA (PROAIR HFA ; PROVENTIL HFA ; VENTOLIN HFA) 90 mcg/actuation inhaler Inhale 2 puffs by mouth every 6 (six) hours if needed for wheezing. 6.7 g 11 07/19/20 025 Discontinued(Re order) oxyCODONE (ROXICODONE) 15 mg immediate release tabletIndication s:Colon cancer metastasized to multiple sites (CMS/HCC V24, CMS/HCC V28) Take 1 tablet (15 mg total) by mouth every 4 (four) hours if needed (as needed for severe pain). Max Daily Amount: 90 mg 90 tablet 07/19/20 25 025 Discontinued(Re order) oxyCODONE (ROXICODONE) 10 mg immediate release tabletIndication s:Malignant neoplasm of splenic flexure (CMS/HCC V24, CMS/HCC V28),Metastases to the liver (CMS/HCC V24, CMS/HCC V28) Take 1 tablet (10 mg total) by mouth every 6 (six) hours if needed for severe pain for up to 12 days. Max Daily Amount: 40 mg 48 tablet 07/27/20 25 025 Discontinued(Re order) oxyCODONE (ROXICODONE) 10 mg immediate release tabletIndication s:Malignant neoplasm of splenic flexure (CMS/HCC V24, CMS/HCC V28),Metastases to the liver (CMS/HCC V24, CMS/HCC V28) Take 1 tablet (10 mg total) by mouth every 6 (six) hours if needed for severe pain for up to 12 days. Max Daily Amount: 40 mg 48 tablet 07/27/20 25 025 pantoprazole (PROTONIX) 40 mg EC tablet Take 1 tablet (40 mg total) by mouth 1 (one) time each day before breakfast. Do not crush, chew, or split. 30 each 08/01/20 25 025 Discontinued Active Problems Problem Noted Date Diagnosed Date Multiple pulmonary nodules 12/14/2024 Overview (12/14/2024): -Also seen: New non enlarged mildly FDG avid Right lower quadrant lymph node in the mesentery -Seen in Pet CT scan done at [place] 10-28-24: bilateral FDG avid pulmonary nodules, new [...] anxiety depressive disorder 09/29/2024 Overview (09/29/2024): 04/17/12- [facility], sees both psych and therapist, whose name is Franci therapist in [place] Neuropathy 09/29/2024 Overview (09/29/2024): -2ary to chemotherapy [...] Encounters Date Type Department Care Team Description 08/11/2025 Telephone [facility] Hematology Oncology [address] [place] [phone] Jaison Mendez MD 08/05/2025 10:11 PM EDT - 08/06/2025 6:30 AM EDT Emergency [facility] Emergency [address] [place] [phone] Ирина López MD Diffuse abdominal pain (Primary Dx); Chest pain, unspecified type; Acute gastritis without hemorrhage, unspecified gastritis type Discharge Disposition: Home or Self Care 08/04/2025 Telephone [facility] Hematology Oncology [address] [place] [phone] Moon Contreras MA 07/31/2025 11:19 PM EDT - 08/01/2025 7:15 AM EDT Emergency [facility] Emergency [address] [place] [phone] Sheyla Mazariegos MD Chest pain, unspecified type (Primary Dx); Left upper quadrant abdominal pain; Gastritis without bleeding, unspecified chronicity, unspecified gastritis type Discharge Disposition: Home or Self Care 07/29/2025 Telephone [facility] Hematology Oncology [address] [place] [phone] Jaison Mendez MD 07/26/2025 Telephone [facility] Hematology Oncology [address] [place] [phone] Lena Mckee MA 07/25/2025 1:00 PM EDT - 07/25/2025 11:59 PM EDT Hospital Encounter [facility] Nuclear Medicine [address] [place] [phone] Discharge Disposition: Home or Self Care 07/25/2025 8:00 AM EDT - 07/25/2025 11:59 PM EDT Hospital Encounter [facility] Nuclear Medicine [address] [place] [phone] Metastatic colon cancer to liver (CMS/HCC V24, CMS/HCC V28); Colon cancer metastasized to lung (CMS/HCC V24, CMS/HCC V28) Discharge Disposition: Home or Self Care 07/21/2025 Telephone [facility] [address] [place] [phone] Jaison Mendez MD 07/19/2025 11:15 AM EDT Office Visit [facility] Hematology Oncology [address] [place] [phone] Jaison Mendez MD Colon cancer metastasized to multiple sites ([facility]/HCC V24, [facility] V28) (Primary Dx) 07/05/2025 Telephone [facility] Hematology Oncology [address] [place] [phone] Moon Contreras MA 07/01/2025 Social Work [facility] [address] [place] [phone] Giovanni WorrellkianJORGE valenzuelaSW 06/16/2025 2:30 PM EDT - 06/16/2025 11:59 PM EDT Hospital Encounter [facility] [address] [place] [phone] Jaison Mendez MD Malignant neoplasm of splenic flexure ([facility]/HCC V24, [facility] V28) Discharge Disposition: Home or Self Care 06/09/2025 Telephone [facility] Hematology Oncology [address] [place] [phone] Moon Contreras MA 06/06/2025 11:45 AM EDT Office Visit [facility] Hematology Oncology [address] [place] [phone] Jaison Mendez MD Colon cancer metastasized to multiple sites ([facility]/HCC V24, [facility] V28) (Primary Dx); Pain management 05/26/2025 Telephone [facility] Hematology Oncology [address] [place] [phone] Jaison Mendez MD 05/17/2025 Telephone [facility] Hematology Oncology [address] [place] [phone] Moon Contreras MA from Last 3 Months Immunizations Immunization [...] extremeity venous surgeries VARICOSE VEIN SURGERY PROCEDURE: NC LIGJ DIVJ &/EXCJ VARICOSE VEIN CLUSTER 1 LEG OTHER SURGICAL HISTORY 05/18/2021 PROCEDURE: NC LAPAROSCOPY COLECTOMY PARTIAL W/ANASTOMOSIS; COMMENT: segmental colectomy with anastomosis, en bloc splenectomy, and en bloc distal pancreatectomy - to address adenocarcinoma of transverse colon (no jeronimo involvement or extension to spleen or distal pancreas) - Dr. Jorge Anderson [facility] OTHER SURGICAL HISTORY PROCEDURE: HISTORY OTHER; COMMENT: extended left hepatectomy, partial right hepatectomy, cholecystectomy @ [facility] Medical History Medical History Date Comments Anxiety [...] 40w0 d M Vag-S pont None Living 2006 Term 40w0 d F Vag-S pont None Living Last Filed Vital Signs Vital Sign Reading Time Taken Comments Blood Pressure 128/80 08/06/2025 4:25 AM EDT Pulse 66 08/06/2025 4:25 AM EDT Temperature 37 C (98.6 F) 08/05/2025 10:25 PM EDT Respiratory Rate 18 08/06/2025 4:25 AM EDT Oxygen Saturation 94% 08/06/2025 4:25 AM EDT Inhaled Oxygen Concentration - - Weight 132 kg (290 lb) 08/06/2025 4:25 AM EDT Height 180.3 cm (5' 11 ) 08/06/2025 4:25 AM EDT Body Mass Index 40.45 08/06/2025 4:25 AM EDT Plan of Treatment Upcoming Encounters Date Type Department Care Team (Late st Contact Info) Description 08/30/2025 11:00 AM EST Office Visit [facility] Hematology Oncology [address] [place] [phone] Jaison Mendez MD [address] [place] [address] 02/27/2026 8:20 AM EDT Consult Gastroenterology - [address] [facility] [address] [facility] [address] [place] [phone] Missy Allen, KARL [address] [facility] [address] [place] [address] Health Maintenance Due Date Last Done Comments [...] Procedure Name Priority Date/Time Associated Diagnosis Comments XR CHEST 2 VIEWS STAT 08/06/2025 3:16 AM EDT B-TYPE NATRIURETIC PEPTIDE STAT 08/06/2025 1:44 AM EDT TROPONIN I HIGH SENSITIVITY Timed 08/06/2025 1:44 AM EDT ECG 12-LEAD STAT 08/06/2025 1:[address] ABDOMEN PELVIS W CONTRAST STAT 08/06/2025 1:15 AM EDT POC , URINE DIAGNOSTIC STAT 08/06/2025 12:43 AM EDT KEENE URINE CULTURE TUBE STAT 08/06/20 12:38 AM EDT URINALYSIS WITH REFLEX MICROSCOPIC AND CULTURE STAT 08/06/2025 12:38 AM EDT URINALYSIS WITH REFLEX MICROSCOPIC AND CULTURE STAT 08/06/2025 12:38 AM EDT ECG ANNOTATED 08/06/2025 CBC WITH AUTO DIFFERENTIAL STAT 08/05/2025 11:21 PM EDT LIPASE STAT 08/05/2025 11:21 PM EDT COMPREHENSIVE METABOLIC PANEL STAT 08/05/2025 11:21 PM EDT CBC AND DIFFERENTIAL STAT 08/05/2025 11:21 PM EDT ECG ANNOTATED 08/02/2025 [id number], RSV, FLU A AND B QUALITATIVE RT-PCR, [...] TUMOR PROFILING Routine 05/18/2025 10:57 AM EDT MG MAMMO DIGITAL SCREENING W VALDEMAR BILAT Routine 10/29/2024 1:49 PM EST Encounter for screening mammogram for breast cancer PAP SMEAR Routine 11/05/2022 from Last 3 Months or Most Recently Relevant to Health Maintenance Results * XR Chest 2 Views (08/06/2025 3:16 AM EDT) Anatomical Region Laterality Modality Body Radiographic Mickie ging 08/06/2025 8:54 AM EDT Impressions 08/06/2025 8:57 AM EDT Diffuse volume loss in the left upper lobe. Several pulmonary nodules seen on the accompanying CT are not well-visualized with radiography. -------- FINAL REPORT -------- Dictated By: Jose Richard Dictated Date: 08/06/2025 08:54 ET Assigned Physician: Jose Richard Reviewed and Electronically Signed By: Jose Richard Signed Date: 08/06/2025 08:57 ET Workstation ID: [id number] Transcribed By: Self Edit Transcribed Date: 08/06/2025 08:54 ET Narrative 08/06/2025 8:57 AM EDT PROCEDURE: PA and lateral radiographs of the chest. HISTORY: chest pain, feels like gas bubble is stuck in chest. COMPARISON: 11/21/2023. FINDINGS: Right-sided single-lumen port with the catheter tip in the upper SVC. Multiple surgical clips in the upper abdomen. There is hazy opacity projecting over the left lung on the frontal view, which projects anteriorly on the lateral view, consistent with diffuse volume loss in the left upper lobe. Cardiomediastinal contours are grossly unchanged. Several nodules seen at the lung bases on accompanying CT are difficult to visualize on this exam. Procedure Note Jose Richard MD - 08/06/2025 PROCEDURE: PA and lateral radiographs of the chest. HISTORY: chest pain, feels like gas bubble is stuck in chest. COMPARISON: 11/21/2023. FINDINGS: Right-sided single-lumen port with the catheter tip in the upper SVC.Multiple surgical clips in the upper abdomen. There is hazy opacityprojecting over the left lung on the frontal view, which projectsanteriorly on the lateral view, consistent with diffuse volume loss in theleft upper lobe. Cardiomediastinal contours are grossly unchanged.Several nodules seen at the lung bases on accompanying CT are difficult tovisualize on this exam. IMPRESSION: Diffuse volume loss in the left upper lobe. Several pulmonary nodules seen on the accompanying CT are notwell-visualized with radiography. -------- FINAL REPORT -------- Dictated By: Jose Richard Dictated Date: 08/06/2025 08:54 ET Assigned Physician: Jose Richard Reviewed and Electronically Signed By: Jose Richard Signed Date: 08/06/2025 08:57 ET Workstation ID: [id number] Transcribed By: Self Edit Transcribed Date: 08/06/2025 08:54 ET Ирина López MD IMG XR PROCEDURES Final Result * Troponin I high sensitivity (NOW and then in 1 hour) (08/06/2025 1:44 AM EDT) Only the most recent of3 resultswithin the time period is included. Pathologist [facility] High Sensitivity Troponin I 4 <=54 ng/L LAB CHEMISTRY METHOD 08/06/2025 2:14 AM EDT [facility] Blood Venous blood specimen / Unknown Venipuncture / Unknown 08/06/2025 1:44 AM EDT 08/06/2025 1:49 AM EDT Narrative [facility] - 08/06/2025 2:14 AM EDT High levels of biotin in samples may falsely decrease hsTroponin values. Use caution when interpreting hsTroponin results in patients taking biotin who exhibit renal impairment (eGFR <60) or in patients taking more than 20 mg/day of biotin. Ирина López MD LAB BLOOD ORDERABLES Final Res ult [facility] [address] [place] [address], * B-type natriuretic peptide (08/06/2025 1:44 AM EDT) Only the most recent of2 resultswithin the time period is included. BNP 10 <=100 pcg/mL LAB CHEMISTRY METHOD 08/06/2025 3:16 AM EDT [facility] Blood Venous blood specimen / Unknown Venipuncture / Unknown 08/06/2025 1:44 AM EDT 08/06/2025 1:49 AM EDT Ирина López MD LAB BLOOD ORDERABLES Final Res ult Performing Organization Address [facility] Co de Phone Number [facility] [address] [place] [address], [place] [phone] * ECG 12 lead (08/06/2025 1:25 AM EDT) Only the most recent of3 resultswithin the time period is included. Ventricular Rate ECG 78 BPM GEMUSE Atrial Rate 78 BPM GEMUSE P-R Interval 186 ms GEMUSE QRS Duration 96 ms GEMUSE Q-T Interval 380 ms GEMUSE QTc 433 ms GEMUSE P Wave Hobbs 57 degrees GEMUSE R Hobbs 74 degrees GEMUSE T Hobbs 50 degrees GEMUSE ECG Interpretation Normal sinus rhythm Normal ECG When compared with ECG of 01-AUG-2025 01:08, Incomplete right bundle branch block is no longer Present Confirmed by DENA VENTURA ([id number]) on 08/06/2025 6:39:57 PM GEMUSE 08/06/2025 1:25 AM EDT 08/06/2025 6:39 PM EDT Ирина López MD ECG ORDERABLES Final Result Performing Organization Address [facility] Co de Phone Number GEMUSE * CT Abdomen Pelvis w Contrast (08/06/2025 1:15 AM EDT) Only the most recent of2 resultswithin the time period is included. Anatomical Region Laterality Modality Body Computed Tomogra phy 08/06/2025 1:59 AM EDT Impressions 08/06/2025 1:59 AM EDT 1. No acute inflammatory process identified within the abdomen or pelvis. There is interval resolution of the mildly dilated loops of bowel identified on the prior exam. No bowel obstruction identified on the current exam. 2. Bilateral lower lobe pulmonary nodules redemonstrated, concerning for malignancy/metastatic disease. This document has been electronically signed by: Cale Meléndez MD on 08/06/2025 01:59:26 Narrative 08/06/2025 1:59 AM EDT INDICATION: abdo pain, recent scan c/f SBO but not clinically obstructed, back in ED with more pain CT abdomen and pelvis with contrast Comparison: CT - CT ANGIO CHEST WO AND/OR W CONTRAST - 08/01/25 01:[address] - CT ABDOMEN PELVIS W CONTRAST - 08/01/25 01:45 EDT Findings: Bilateral lower lobe pulmonary nodules are redemonstrated. The gallbladder is surgically absent. There are postsurgical changes compatible with partial hepatectomy. The spleen is not visualized, presumed surgically absent. The pancreas and bilateral adrenal glands are within normal limits for appearance. The solid organs are within normal limits. No hydronephrosis or hydroureter. No bowel obstruction, pneumoperitoneum, or pneumatosis. There are postsurgical changes of the bowel. Tiny, fat containing umbilical hernia. Pelvic contents unremarkable. The bladder is minimally distended with fluid, limiting its evaluation. Normal appendix. No acute fracture visualized. Procedure Note Cale Meléndez MD - 08/06/2025 INDICATION: abdo pain, recent scan c/f SBO but not clinically obstructed, back in ED with more pain CT abdomen and pelvis with contrast Comparison: CT - CT ANGIO CHEST WO AND/OR W CONTRAST - 08/01/25 01:45EDT CT - CT ABDOMEN PELVIS W CONTRAST - 08/01/25 01:45 EDT Findings: Bilateral lower lobe pulmonary nodules are redemonstrated. The gallbladder is surgically absent. There are postsurgical changes compatible with partial hepatectomy. The spleen is not visualized, presumed surgically absent. The pancreas and bilateral adrenal glandsare within normal limits for appearance. The solid organs are within normal limits. No hydronephrosis or hydroureter. No bowel obstruction, pneumoperitoneum, or pneumatosis. There are postsurgical changes of the bowel. Tiny, fat containing umbilicalhernia. Pelvic contents unremarkable. The bladder is minimally distended with fluid, limiting its evaluation. Normal appendix. No acute fracture visualized. IMPRESSION: 1. No acute inflammatory process identified within the abdomen orpelvis. There is interval resolution of the mildly dilated loops of bowel identified on the prior exam. No bowel obstruction identified on the current exam. 2. Bilateral lower lobe pulmonary nodules redemonstrated, concerning for malignancy/metastatic disease. This document has been electronically signed by: Cale Meléndez MD on 08/06/2025 01:59:26 Ирина López MD IMG CT PROCEDURES Final Result * POC , urine manually resulted (08/06/2025 12:43 AM EDT) Only the most recent of2 resultswithin the time period is included. Pathologist [facility] HCG, Ur POC Negative Negative POC hCG Int QC Pass? Yes Yes EXPIRATION DATE POC 12-28-2026 LOT NUMBER POC 113291 Urine Urine specimen obtained by clean catch procedure / Unknown 08/06/2025 12:43 AM EDT Ирина López MD POINT OF CARE TEST ENTER/EDIT ORDERABLES Final Result * Urinalysis with reflex microscopic and culture (08/06/2025 12:38 AM EDT) [facility] Urine 1.023 1.003 - 1.030 LAB URINALYSIS - AUTOMATED METHOD 08/06/2025 12:58 AM [facility] pH, Urine 8.0 5.0 - 8.0 pH LAB URINALYSIS - AUTOMATED METHOD 08/06/2025 12:58 AM [facility] Leukocytes, Urine Negative Negative LAB URINALYSIS - AUTOMATED METHOD 08/06/2025 12:58 AM [facility] Nitrite, Urine Negative Negative LAB URINALYSIS - AUTOMATED METHOD 08/06/2025 12:58 AM [facility] Protein, Urine Negative <=Trace mg/dL LAB URINALYSIS - AUTOMATED METHOD 08/06/2025 12:58 AM [facility] Glucose, Urine Negative Negative mg/dL LAB URINALYSIS - AUTOMATED METHOD 08/06/2025 12:58 AM [facility] Ketones, Urine Negative Negative mg/dL LAB URINALYSIS - AUTOMATED METHOD 08/06/2025 12:58 AM EDT [facility] Urobilinogen, Urine 1.0 0.2 - 1.0 mg/dL LAB URINALYSIS - AUTOMATED METHOD 08/06/2025 12:58 AM EDT [facility] Bilirubin, Urine Negative Negative LAB URINALYSIS - AUTOMATED METHOD 08/06/2025 12:58 AM EDT [facility] Blood, Urine Negative Negative LAB URINALYSIS - AUTOMATED METHOD 08/06/2025 12:58 AM EDT [facility] Urine Urine specimen obtained by clean catch procedure / Unknown Non-blood Collection / Unknown 08/06/2025 12:38 AM EDT 08/06/2025 12:49 AM EDT us Ирина López MD LAB URINE ORDERABLES Final Res ult Performing Organization Address City/[facility]/ZIP Co de Phone Number [facility] [address] [place] [address], [place] [phone] * [place] urine culture tube (08/06/2025 12:38 AM EDT) Extra Tube Hold for add-ons. 08/06/2025 2:01 AM EDT [facility] Comment:Auto resulted. Urine Urine specimen obtained by clean catch procedure / Unknown Non-blood Collection / Unknown 08/06/2025 12:38 AM EDT 08/06/2025 12:49 AM EDT us Ирина López MD LAB URINE ORDERABLES Final Res ult Performing Organization Address City/[facility]/ZIP Co de Phone Number [facility] [address] [place] [address], [place] [phone] * ECG-Annotated (08/06/2025) Only the most recent of2 resultswithin the time period is included. us Provider Onbase MD ECG ORDERABLES Final Result * (ABNORMAL) CBC auto differential (08/05/2025 11:21 PM EDT) Only the most recent of3 resultswithin the time period is included. WBC 12.6(H) 4.8 - 10.8 K/mcL LAB HEMETOLOGY METHOD 08/05/2025 11:35 PM EDT [facility] RBC 4.20 3.80 - 4.80 M/mcL LAB HEMETOLOGY METHOD [facility]/05[facility]25 [facility] Hemoglobin 12.5 11.5 - 16.0 g/dL LAB HEMETOLOGY METHOD 08/05/2025 11:35 [facility] Hematocrit 37.8 35.0 - 47.0 % LAB HEMETOLOGY METHOD 08/05/2025 11:35 [facility] MCV 89.6 79.0 - 98.0 FL LAB HEMETOLOGY METHOD 08/05/2025 11:35 PM [facility] MCH 29.6 27.0 - 32.0 pcg LAB HEMETOLOGY METHOD 08/05/2025 11:35 [facility] MCHC 33.1 32.0 - 37.0 g/dL LAB HEMETOLOGY METHOD 08/05/2025 11:35 PM [facility] RDW 14.4 11.0 - 15.0 % LAB HEMETOLOGY METHOD 08/05/2025 11:35 PM [facility] Platelets 322 130 - 400 K/mcL LAB HEMETOLOGY METHOD 08/05/2025 11:35 PM [facility] MPV 9.7 7.0 - 11.0 FL LAB HEMETOLOGY METHOD 08/05/2025 11:35 PM EDT [facility] NRBC 0.0 <1.0 % LAB HEMETOLOGY METHOD 08/05/2025 11:35 PM EDT [facility] NRBC Absolute 0.00 <0.10 K/mcL LAB HEMETOLOGY METHOD 08/05/2025 11:35 PM [facility] Neutrophils Relative 56.4 % LAB HEMETOLOGY METHOD 08/05/2025 11:35 PM [facility] Lymphocytes Relative 33.6 % LAB HEMETOLOGY METHOD 08/05[facility]25 11:[facility] Monocytes Relative 7.2 % LAB HEMETOLOGY METHOD 08/05/2025 11:35 PM [facility] Eosinophils Relative 2.1 % LAB HEMETOLOGY METHOD 08/05/2025 11:35 PM [facility] Basophils Relative 0.5 % LAB HEMETOLOGY METHOD 08/05/2025 11:35 PM [facility] Immature Granulocytes Relative 0.2 % LAB HEMETOLOGY METHOD 08/05/2025 11:35 PM [facility] Neutrophils Absolute 7.09(H) 1.50 - 7.00 K/mcL LAB HEMETOLOGY METHOD 08/05/2025 11:35 PM [facility] Lymphocytes Absolute 4.23 1.00 - 5.00 K/mcL LAB HEMETOLOGY METHOD 08/05/2025 11:35 PM [facility] Monocytes Absolute 0.90 0.20 - 1.00 K/mcL LAB HEMETOLOGY METHOD 08/05/2025 11:35 PM [facility] Eosinophils Absolute 0.27 0.00 - 0.50 K/mcL LAB HEMETOLOGY METHOD 08/05/2025 11:35 PM [facility] Basophils Absolute 0.06 0.00 - 0.20 K/mcL LAB HEMETOLOGY METHOD 08/05/2025 11:35 PM EDT [facility] Immature Granulocytes Absolute 0.03 0.00 - 0.03 K/mcL LAB HEMETOLOGY METHOD 08/05/2025 11:35 PM EDT [facility] Blood Venous blood specimen / Unknown Venipuncture / Unknown 08/05/2025 11:21 PM EDT 08/05/2025 11:30 PM EDT Ирина López MD LAB BLOOD ORDERABLES Final Res ult Performing Organization Address City/[facility]/ZIP Co de Phone Number [facility] [address] [place] [address], [place] [phone] * Lipase (08/05/2025 11:21 PM EDT) Only the most recent of2 resultswithin the time period is included. Lipase 35 13 - 75 unit/L LAB CHEMISTRY METHOD 08/06/2025 12:07 AM EDT [facility] Blood Venous blood specimen / Unknown Venipuncture / Unknown 08/05/2025 11:21 PM EDT 08/05/2025 11:31 PM EDT Ирина López MD LAB BLOOD ORDERABLES Final Res ult Performing Organization Address [facility]/ZIP Co de Phone Number [facility] [address] [place] [address], [place] [phone] * (ABNORMAL) Comprehensive metabolic panel (08/05/2025 11:21 PM EDT) Only the most recent of3 resultswithin the time period is included. Sodium 139 133 - 145 mmol/L LAB CHEMISTRY METHOD 08/06/2025 12:07 AM EDT [facility] Potassium 4.0 3.5 - 5.5 mmol/L LAB CHEMISTRY METHOD 08/06/2025 12:07 AM EDT [facility] Chloride 105 96 - 110 mmol/L LAB CHEMISTRY METHOD 08/06/2025 12:07 AM [facility] CO2 28 21 - 32 mmol/L LAB CHEMISTRY METHOD 08/06/2025 12:07 AM [facility] Anion Gap 6 3 - 11 LAB CHEMISTRY METHOD 08/06/2025 12:07 AM [facility] Glucose 102(H) 70 - 100 mg/dL LAB CHEMISTRY METHOD 08/06/2025 12:07 AM [facility] BUN 18 5 - 25 mg/dL LAB CHEMISTRY METHOD 08/06/2025 12:07 AM [facility] Creatinine 0.86 0.50 - 1.10 mg/dL LAB CHEMISTRY METHOD 08/06/2025 12:07 AM [facility] eGFR 86 >=60 mL/min/1. 73m2 LAB CHEMISTRY METHOD 08/06/2025 12:07 AM [facility] Comment:Calculation based on the Chronic Kidney Disease Epidemiology Collaboration (CKD-EPI) equation refit without adjustment for race. BUN/Creatinine Ratio 20.9 LAB CHEMISTRY METHOD 08/06/2025 12:07 AM [facility] Calcium 9.3 8.5 - 10.5 mg/dL LAB CHEMISTRY METHOD 08/06/2025 12:07 AM [facility] AST (SGOT) 21 10 - 42 unit/L LAB CHEMISTRY METHOD 08/06/2025 12:07 AM [facility] ALT (SGPT) 23 10 - 60 unit/L LAB CHEMISTRY METHOD 08/06/2025 12:07 AM [facility] Alkaline Phosphatase 83 42 - 121 unit/L LAB CHEMISTRY METHOD 08/06/2025 12:07 AM [facility] Total Protein 7.1 6.0 - 8.0 g/dL LAB CHEMISTRY METHOD 08/06/2025 12:07 AM [facility] Albumin 3.4 3.2 - 5.0 g/dL LAB CHEMISTRY METHOD 08/06/2025 12:07 AM EDT [facility] Total Bilirubin 0.2 0.0 - 1.4 mg/dL LAB CHEMISTRY METHOD 08/06/2025 12:07 AM EDT [facility] Blood Venous blood specimen / Unknown Venipuncture / Unknown 08/05/2025 11:21 PM EDT 08/05/2025 11:31 PM EDT Ирина López MD LAB BLOOD ORDERABLES Final Res ult [facility] [address] [place] [address], [place] [phone] * [id number], RSV, Influenza A and B qualitative RT-PCR (08/01/2025 4:36 AM EDT) Influenza A PCR Not Detected Not Detected LAB MICROBIOLOGY METHOD 08/01/2025 6:13 AM EDT [facility] Influenza B PCR Not Detected Not Detected LAB MICROBIOLOGY METHOD 08/01/2025 6:13 AM EDT [facility] RSV PCR Not Detected Not Detected LAB MICROBIOLOGY METHOD 08/01/2025 6:13 AM EDT [facility] SARS COV-2 Not Detected Not Detected LAB MICROBIOLOGY METHOD 08/01/2025 6:13 AM EDT [facility] Swab Both anterior nares / Unknown Non-blood Collection / Unknown 08/01/2025 4:36 AM EDT 08/01/2025 5:29 AM EDT us Sheyla Mazariegos MD LAB MICROBIOLOGY - GENERAL ORDERABLES Final Result Performing Organization Address [facility]/State/ZIP Co de Phone Number [facility] [address] [place] [address], [place] [phone] * CT Angio Chest wo and/or w [...] suggesting sequela of malignancy/metastatic disease. There are pzqw-xj-nedvlaus left upper lobe and lingula opacities with volume loss in this region, suggesting postobstructive atelectasis. 3. Enlarged subcarinal lymph node. This document has been electronically signed by: Cale Meléndez MD on 08/01/2025 03:11:21 Narrative 08/01/2025 3:11 AM EDT INDICATION: pulmonary embolism CT angiography chest using contrast. 3-D postprocessing Comparison: CT/KO/NC/SR - CT CHEST ABD PEL W CONTRAST [...] of the left lower lobe. There are wvkj-xb-nwizjkoa opacities at the left upper lobe/lingula with associated volume loss, suggesting some degree of atelectasis. There is partial obstruction of the left upper lobe bronchus. No pneumothorax or pleural effusion. No acute fractures. Procedure Note Cale Meléndez MD - 08/01/2025 INDICATION: pulmonary embolism CT angiography chest using contrast. 3-D postprocessing Comparison: CT/KO/NC/SR - CT CHEST ABD PEL W CONTRAST [...] of the left lower lobe. There are ojmv-hv-xwvguioz opacities at the left upper lobe/lingula withassociated [...] suggesting sequela of malignancy/metastatic disease. There are pqle-wm-afbztnmy left upperlobe and lingula opacities with volume loss in this region, suggesting postobstructive atelectasis. 3. Enlarged subcarinal lymph node. This document has been electronically signed by: Cale Meléndez MD on 08/01/2025 03:11:21 Sheyla Mazariegos MD IM CT PROCEDURES Final Res ult * Urinalysis with reflex microscopic (08/01/2025 12:15 AM EDT) Specific [place] Urine 1.006 1.003 - 1.030 LAB URINALYSIS - AUTOMATED METHOD 08/01/2025 12:36 AM [facility] pH, Urine 7.0 5.0 - 8.0 pH LAB URINALYSIS - AUTOMATED METHOD 08/01/2025 12:36 AM [facility] Leukocytes, Urine Negative Negative LAB URINALYSIS - AUTOMATED METHOD 08/01/2025 12:36 AM [facility] Nitrite, Urine Negative Negative LAB URINALYSIS - AUTOMATED METHOD 08/01/2025 12:36 AM [facility] Protein, Urine Negative <=Trace mg/dL LAB URINALYSIS - AUTOMATED METHOD 08/01/2025 12:36 AM [facility] Glucose, Urine Negative Negative mg/dL LAB URINALYSIS - AUTOMATED METHOD 08/01/2025 12:36 AM [facility] Ketones, Urine Negative Negative mg/dL LAB URINALYSIS - AUTOMATED METHOD 08/01/2025 12:36 AM [facility] Urobilinogen, Urine 0.2 0.2 - 1.0 mg/dL LAB URINALYSIS - AUTOMATED METHOD 08/01/2025 12:36 AM [facility] Bilirubin, Urine Negative Negative LAB URINALYSIS - AUTOMATED METHOD 08/01/2025 12:36 AM [facility] Blood, Urine Negative Negative LAB URINALYSIS - AUTOMATED METHOD 08/01/2025 12:36 AM [facility] Urine Urine specimen obtained by clean catch procedure / Unknown Non-blood Collection / Unknown 08/01/2025 12:15 AM EDT 08/01/2025 12:30 AM EDT Sheyla Mazariegos MD LAB URINE ORDERABLES Final Result [facility] [address] [place] [address], * Magnesium (07/31/2025 11:50 PM EDT) Magnesium 2.0 1.9 - 2.6 mg/dL LAB CHEMISTRY METHOD 08/01/2025 12:58 AM [facility] Blood Venous blood specimen / Unknown Venipuncture / Unknown 07/31/2025 11:50 PM EDT 08/01/2025 12:30 AM EDT us Xuan An HISTORICAL SOCIETY DIRECTOR LAB BLOOD ORDERABLES Eboni tanner Result [facility] [address] [place] [address], [place] [phone] * NM Bone/Joint Scan Whole Body (07/25/2025 [...] Signed Date: 07/25/2025 15:35 ET Workstation ID: [id number] Transcribed By: Self Edit Transcribed Date: 07/25/2025 15:34 ET Impressions 07/25/2025 2:18 PM EDT No evidence of osteoblastic metastatic disease is seen. Telerad DEVIKA ([id number]) -------- FINAL REPORT -------- Dictated By: Hanane Chen Dictated Date: 07/25/2025 14:08 ET Assigned Physician: Hanane Chen Reviewed and Electronically Signed By: Hanane Chen Signed Date: 07/25/2025 14:18 ET Workstation ID: [id number] Transcribed By: Self Edit Transcribed Date: 07/25/2025 [...] of osteoblastic metastatic disease is seen. Telerad DEVIKA ([id number]) -------- FINAL REPORT -------- Dictated By: Hanane Chen Dictated Date: 07/25/2025 14:08 ET Assigned Physician: Hanane Chen Reviewed and Electronically Signed By: Hanane Chen Signed Date: 07/25/2025 14:18 ET Workstation ID: [id number] Transcribed By: Self Edit Transcribed Date: 07/25/2025 14:08 ET us Jaison U Andrea MD IMG NM PROCEDURES Edited Res ult - Final * (ABNORMAL) CEA (06/16/2025 3:02 PM EDT) CEA 79.8(H) 0.0 - 5.0 ng/mL LAB CHEMISTRY METHOD 06/16/2025 6:58 PM EDT [facility] Blood Blood sample taken from central line / Unknown Existing Catheter / Unknown 06/16/2025 3:02 PM EDT 06/16/2025 4:30 PM EDT Narrative [facility] - 06/16/2025 6:58 PM EDT The Siemens Advia Ziploopaur Chemiluminescent Immunoassay is used. Results obtained with different assay methods or kits cannot be used interchangeably. Results cannot be interpreted as absolute evidence of the presence or absence of malignant disease. Jaison Ramona Mendez MD LAB BLOOD ORDERABLES Final R esult [facility] [address] [place] [address], [place] [phone] * Molecular intelligence tumor profiling (05/18/2025 10:57 AM EDT) Tissue [facility] Provider LAB MOLECULAR DIAGNOSTICS ORDERABLES Final Result * MG Mammo Digital Screening w Valdemar [...] Signed Date: 10/29/2024 15:36 ET Workstation ID: [id number] Transcribed By: Self Edit Transcribed Date: 10/29/2024 [...] Tomosynthesis. Computer-aided detection was employed with the Plan[employer] AI 3-D. TISSUE DENSITY: There are scattered [...] Tomosynthesis. Computer-aided detection was employed with the PlanHQ AI 3-D. TISSUE DENSITY: There are scattered [...] Signed Date: 10/29/2024 15:36 ET Workstation ID: [id number] Transcribed By: Self Edit Transcribed Date: 10/29/2024 15:15 ET us Self Referral Sppl IMG BI PROCEDURES Final Resul t * Pap smear (11/05/2022) 11/05/2022 Narrative HISTORICAL TESTING LAB RESULTING AGENCY - 11/18/2022 7:41 AM EST [id number] THINPREP PAP: NEGATIVE FOR SQUAMOUS INTRAEPITHELIAL LESION [...] NEGATIVE 2019, LMP 11/01/22, [Z01.419] Katie Fields CNM LAB CYTOLOGY ORDERABLES Final Result HISTORICAL TESTING LAB RESULTING AGENCY from Last 3 Months or Most Recently Relevant to Health Maintenance [place] [address] [place] [address] PLAN Advance Directives Documents on File Type Date Recorded Patient Eyeglass Lens Cutter Expl anation Health Care Decision (hx) 10/02/2022 [...] DIRECTIVE Health Care Decision (hx) 10/02/2022 AD LEMOSN DIRECTIVE Health Care Decision (hx) 10/02/2022 AD LEMONS DIRECTIVE Care Teams Candy Forming Machine Operator Relationship Specialty Start Date End Date Sherly Donald MD [address] [place] [address] PCP - General Internal Medicine 05/29/21
--- OUTSIDE RECORDS SUMMARY | 2025-08-12 17:02 | XMS_ITS | Encounter Summary ---
Author Organization [facility] Address [address] [place] [id number] Care Team Providers Care Manufacturing Planner Name Role Phone Castro Gomes MD Primary Care Provider [phone] Reason for Visit * Reason Onset Date Comments Appointment 08/01/2025 FYI 08/01/2025 Encounter Details Date Type Department Care Team ([facility] st Contact Info) Description 08/01/2025 Telephone [facility] [address] [id number] Gage Hussein MD [address] [place] [phone] Appointment; I Social History Tobacco Use Types [...] work while in the ER today at [facility] ([facility]) and a Bone scan last week-07/25/25. *I am currently working on having images sent to us to be pushed into Epic from [facility]-Radiology [phone]. documented in this encounter Plan of Treatment Not on file documented as of this encounter Visit Diagnoses Not on filedocumented in this encounter Care Teams Manufacturing Planner Relationship Specialty Start Date End Date Castro Gomes MD [address] [place] [address] PCP - General Family Medicine 07/12/25 documented as of this encounter
--- OUTSIDE RECORDS SUMMARY | 2025-08-12 17:02 | XMS_ITS | Encounter Summary ---
Author Organization [facility] Address [address] [facility] [address] [place] [address] Phone Care Team Providers Care Cook Ice Cream Name Role Phone Sherly Hernández MD Primary Care Provider [phone] Self-Referred, Patient Unavailable Unavailab Castro Adam MD Unavailable [phone] Ying Salgado RN Unavailable [email or web address] Encounter Details Date Type Department Care Team (Late st Contact Info) Description 08/10/2025 Ancillary Orders [facility] [address] [place] [address] Mario Stearns MD, PhD [address] [place] [id number] [email or web address] Social History Tobacco Use Types Packs/Day Years [...] Description 08/22/2025 8:00 AM EST Office Visit [facility] [address] [facility] 7th [address], [address] [place] [address] Mario Stearns MD, PhD [address] [facility] [address] [place] [address] [email or web address] Pending Results Name Type Priority Associated Diagnoses Date /Time CT Chest Outside With Interpretation Or Consult Imaging Routine 2024 12:05 AM EDT Scheduled Orders Name Type Priority Associated Diagnoses Orde r Schedule CT Chest Outside With Interpretation Or Consult Imaging Routine 1 Occu rrences starting 08/10/2025 until 11/10/2025 documented as of this encounter Visit Diagnoses Not on filedocumented in this encounter Care Teams Cook Ice Cream Relationship Specialty Start Date End Date Sherly Hernández MD PCP - General 12/20/24 Self-Referred, Patient 01/14/25 Castro Cabello MD [address] [place] [id number] [email or web address] Medical Oncology 01/17/25 Ying Salgado, DIXIE [address] [place] [address] [email or web address] Registered Nurse 01/26/25 documented as of this encounter Additional Source Comments The information contained in this document represents components of the legal health record. It is not the complete legal health record.[facility]
--- OUTSIDE RECORDS SUMMARY | 2025-08-12 17:02 | XMS_ITS | Clinical Summary ---
Author Organization [facility] Address [address] [facility] [address] [place] [address] Phone Care Team Providers Care Ortho Rn Name Role Phone Sherly Hernández MD Primary Care Provider [phone] Self-Referred, Patient Unavailable Unavailab Castro Adam MD Unavailable Ying Salgado RN Unavailable [email or web address] Allergies [...] Followed by PCP/Vein specialist, reports multiple surgeries Encounters Date Type Department Care Team Description 08/10/2025 Ancillary Orders [facility] [address] [place] [address] Mario Stearns MD, PhD 08/10/2025 Ancillary Orders [facility] [address] [place] [address] Mario Stearns MD, PhD 08/01/2025 12:05 AM EDT Hospital Encounter [facility] [address] [place] [address] Mario Stearns MD, PhD 08/01/2025 Hospital Encounter [facility] [address] [place] [address] Mario Stearns MD, PhD from Last 3 Months Family History Medical History Relation Comments Colon [...] 01/31/2025 11:20 AM EDT Plan of Treatment Upcoming Encounters Date Type Department Care Team (Late st Contact Info) Description 08/22/2025 8:00 AM EST Office Visit [facility] [address] [facility], 7th [address], [address] [place] [address] Mario Stearns MD, PhD [address] [place] [address] [email or web address] Health Maintenance Due Date Last Done Comments DEPRESSION SCREENING 1993 HEPATITIS C SCREENING 1999 HIV ONE-TIME SCREENING (18-65 YEARS) 1999 SCREENING FOR DIABETES 2016 Adult Td,Tdap Booster 05/11/2025 05/11/2015 INFLUENZA VACCINE (#1) 2025 , 10/10/2022, 10/17/2021 COVID-19 VACCINE ( - season) 2025 09/16/2023, 10/08/2022, 02/06/2022, Additional history [...] Interpretation) (10/29/2024 12:00 AM EST) Other Narrative [facility] - 01/24/2025 11:10 AM EDT This study is for PACS storage only and not for interpretation. us Castro Cabello MD IMStephanie OUTSIDE IMAGING W/OUT INT ERPRETATION Final Result [facility] from Last 3 Months or Most Recently Relevant to Health Maintenance Insurance ACO ACO ACO ACO ACO ACO Care Teams Ortho Rn Relationship Specialty Start Date End Date Sherly Hernández MD PCP - General 12/20/24 Self-Referred, Patient 01/14/25 Castro Cabello MD [address] [place] [id number] [email or web address] Medical Oncology 01/17/25 Ying Salgado, DIXIE [address] [place] [address] [email or web address] Registered Nurse 01/26/25 Additional Source Comments The information contained in this document represents components of the legal health record. It is not the complete legal health record.[facility]
== END 2025-08-12 16:11 | disposition home or self-care (01) ==
LOC: HO.HMCFMS 15:43
PROVIDERS: PCP Student in an Organized Health Care Education/Training Program; Visit Provider Student in an Organized Health Care Education/Training Program
DX: C18.9 Malignant neoplasm of colon, unspecified (principal); C78.00 Secondary malignant neoplasm of unspecified lung; C79.9 Secondary malignant neoplasm of unspecified site; E66.01 Morbid (severe) obesity due to excess calories; R91.8 Other nonspecific abnormal finding of lung field; J98.11 Atelectasis; R06.00 Dyspnea, unspecified; R53.83 Other fatigue

== ENCOUNTER → 2025-08-12 15:43 | Outpatient (BNVA) | payer OTHER, SELFPAY | PROVIDERS: PCP Student in an Organized Health Care Education/Training Program; Visit Provider Student in an Organized Health Care Education/Training Program | DX: R91.8 Other nonspecific abnormal finding of lung field (principal); C18.9 Malignant neoplasm of colon, unspecified; C78.00 Secondary malignant neoplasm of unspecified lung; C79.9 Secondary malignant neoplasm of unspecified site; E66.01 Morbid (severe) obesity due to excess calories; J98.11 Atelectasis; R06.00 Dyspnea, unspecified; R53.83 Other fatigue; Z68.41 Body mass index [BMI] 40.0-44.9, adult | CPT/HCPCS: 99212 ==

== ENCOUNTER 2025-08-18 15:47 | Outpatient (AMB) | payer OTHER, SELFPAY ==
--- OUTSIDE RECORDS SUMMARY | 2024-07-29 15:38 | XMS_ITS | Encounter Summary ---
Author Organization [employer] Address [address] [place] [address] Care Team Providers Care Professor Of French Name Role Phone Sherly Donald MD Primary Care Provider [phone] Encounter Details Date Type Department Care Team (Late st Contact Info) Description 07/29/2024 3:38 PM EDT Hospital Encounter TH HISTORIC ENCOUNTERS EASTERN CONVERSION ONLY Social History Tobacco Use Types Packs/Day Years Used Date Smoking Tobacco: Never Smokeless Tobacco: Never Alcohol Use Standard Drinks/Week Comments Yes 0 (1 standard drink = 0.6 oz pur e alcohol) Comments No Sex and Gender Information Value Date Recorded Sex Assigned at Female 10/28/2024 12:05 PM EST Legal Sex Female 4:31 PM EST Gender Identity Female 10/28/2024 12:05 PM EST Sexual Orientation Straight 10/28/2024 2: 47 PM EST documented as of this encounter Last Filed Vital Signs Vital Sign Reading Time Taken Comments Blood Pressure - - Pulse - - Temperature - - Respiratory Rate - - Oxygen Saturation - - Inhaled Oxygen Concentration - - Weight 130 kg (286 lb 6.4 oz) 03/29/2024 10:28 A M EDT Height 180.3 cm (5' 11 ) 03/29/2024 10:28 AM EDT Body Mass Index 39.94 03/29/2024 10:28 AM EDT documented in this encounter Functional Status * Calculated C-SSRS Risk Score (Lifetime/Recent) Answer Date of Assessment Author No Risk Indicated 08/05/2025 10:22 PM EDT Danielle France RN * [place] Suicide Severity Rating Scale (Screener/Recent Self-Report) Question Answer Date of Assessment Author 1. Wish to be (Past 1 Month) No 10/17/2 025 10:22 PM EDT Danielle France, DIXIE 2. Non-Specific Active Suici nathan Thoughts (Past 1 Month) No 08/05/2025 10:22 PM EDT Danielle France , DIXIE 6. Suicidal Behavior (Lifetime) No 10:22 PM EDT Danielle France, RN documented as of this encounter Progress Notes * Historical, Notes Results - 07/29/2024 3:30 PM EDT Patient arrives ambulatory to unit for a port blood draw. Port accessed, +BR after multiple flushes. Labs drawn per physician order; cbcd, cmp, cea. Port flushed per protocol. Deaccessed, intact. Patient discharged stable, with steady gait. documented in this encounter Plan of Treatment Upcoming Encounters Date Type Department Care Team (Late st Contact Info) Description 08/30/2025 11:00 AM EST Office Visit [facility] Hematology Oncology [address] [place] [phone] Jaison Mendez MD [address] [place] [address] 02/27/2026 8:20 AM EDT Consult Gastroenterology - [address] [phone] Missy Allen, KARL [address] [place] [phone] documented as of this encounter Visit Diagnoses Not on filedocumented in this encounter Additional Health Concerns Infection Onset Date Last Indicated Resolved Time Respiratory Rule-Out 08/01/2025 08/01/2025 025 6:13 AM EDT COVID-19 Rule-Out 08/01/2025 08/01/2025 08/01/2025 6:13 AM EDT documented as of this encounter Care Teams Professor Of French Relationship Specialty Start Date End Date Sherly Donald MD [address] [place] [address] PCP - General Internal Medicine 05/29/21 documented as of this encounter
[2025-08-18 15:48] VITALS: BP 120/62; PULSE 90; O2SAT 96; BMI 40.4
--- NOTE | 2025-08-18 15:48 | MHC.OFFVIS ---
Vital Signs 08/18/25 15:48 Height 5 ft 11.85 in Weight 297 lb BMI 40.4 BP 120/62 Blood Pressure Location Lt brachial Position Sitting Pulse 90 Pulse Source Pulse Oximeter Pulse Oximetry (%) 96 Oxygen Delivery Method Room Air Intake Visit Reasons: Metastatic CA Integration Specialist Required: Yes Integration Specialist Services: Integration Specialist Offered & Declined Integration Specialist Name: MD speaks north k[place] Accompanied by: Self / Same As Patient Allergies No Known Allergies Allergy (Verified 08/18/25 15:51) HPI Comments Details: The patient is here for pulmonary evaluation. 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 She currently is off all chemotherapy. She is developing worsening respiratory symptoms. She complains of shortness of breath. Moderate severity and also cough. She went to [facility] on August 01 where she was evaluated in the ER. She did have a CT scan demonstrating the metastatic disease. Also with some endobronchial disease. It was recommended bronchoscopy. Today she is here having some coughing episodes. She does have some wheezing on exam. The patient did go for brief walking oximetry she was able to maintain a pulse ox of 95%. We did provide her with a nebulizer that she is going to start twice a day. Also she will start prednisone and a course of antibiotics. The patient also can start a maintenance inhaler. She will return in 6-8 weeks to assess her progress. [facility] Medical History (Updated 08/18/25 @ 19:51 by Jey Schroeder MD) Asthma Atelectasis pulmonary Metastatic carcinoma Pulmonary nodules Morbid obesity due to excess calories History of chemotherapy Colon cancer metastasized to lung Family History Father No problems noted. Mother High blood pressure Diabetes Social History Housing: House Alcohol intake: current Alcohol intake frequency: holidays/special occasions only Patient Tobacco Use Status: Never used Tobacco service: No Current occupational status: unemployed and disabled Cognitive needs: Yes (cane and walker) Hearing needs: No Vision needs: No Review of Systems Const Denies fever(s) Eyes Reports no additional complaints ENT Reports nasal congestion Card Denies chest pain, Reports dyspnea and Reports dyspnea on exertion Resp Reports chest congestion, Reports cough, Denies hemoptysis, Reports pain with cough, Reports dyspnea, Reports dyspnea on exertion and Reports wheezing GI Reports as per HPI Musc Reports abnormal gait and Reports myalgias Skin/Breast Denies rash Neuro Reports abnormal gait Endo Reports no additional complaints Clark/Lymph Reports as per HPI Aller/Immun Reports wheezing Physical Exam Vital Signs: Last Vital Signs Pulse 90 08/18/25 15:48 BP 120/62 08/18/25 15:48 Pulse Ox 96 08/18/25 15:48 Oxygen Delivery Method Room Air 08/18/25 15:48 BMI result Body Mass Index 40.4 Const General: comfortable HEENT Head: Yes normocephalic Neck Neck: Yes supple Chest Chest palpation & inspection: normal inspection of the chest Resp Effort & Inspection: normal respiratory effort and Actively coughing Auscultation: wheezes and diminished lung sounds Cardio Heart sounds: S1 normal heart sound present and S2 normal heart sound present GI Palpation (GI): Soft to palpation Skin General skin exam: no rashes or lesions noted Extrem General: Yes no clubbing, cyanosis or edema Assessment & Plan Assessment & Plan (1) Colon cancer metastasized to lung: Code(s): C18.9 - Malignant neoplasm of colon, unspecified; C78.00 - Secondary malignant neoplasm of unspecified lung Category: Medical (2) Pulmonary nodules: Code(s): R91.8 - Other nonspecific abnormal finding of lung field Category: Medical (3) Atelectasis pulmonary: Code(s): J98.11 - Atelectasis Category: Medical (4) Asthma: Code(s): J45.909 - Unspecified asthma, uncomplicated Category: Medical Qualifiers: Asthma severity: moderate Asthma persistence: persistent Asthma complication type: uncomplicated Qualified Code(s): J45.40 - Moderate persistent asthma, uncomplicated Plan Start Prednisone start Azithromycin start nebulizer BID (provided) start Wixela continue SORAYA Will review images F/U 6-8 weeks Medications: New levalbuterol HCl 1.25 mg (3 mL) inhalation BID 180 mL 0RF 30 days J44.9 - Chronic obstructive pulmonary disease, unspecified prednisone PO daily; Take 2 tabs daily x 5 days, then 1 tablet daily x 5 days 15 tabs 0RF 10 days fluticasone propion-salmeterol 250-50 mcg/dose (Wixela Inhub) 1 inh inhalation Q12H 60 ea 11RF 30 days azithromycin 500 mg PO DAILY 5 tabs 0RF 5 days Coding Level of Care Code New Pt Level 4 (54294) Diagnoses Colon cancer metastasized to lung C18.9; C78.00 Pulmonary nodules R91.8 Atelectasis pulmonary J98.11 Moderate persistent asthma without complication J45.40 Asthma severity: moderate Asthma persistence: persistent Asthma complication type: uncomplicated Time Spent (min) 40
--- OUTSIDE RECORDS SUMMARY | 2025-08-18 18:09 | XMS_ITS | Encounter Summary ---
Author Organization [facility] Address [address] [place] [address] Care Team Providers Care Software Trainer Name Role Phone Sherly Donald MD Primary Care Provider [phone] Encounter Details Date Type Department Care Team (Late Contact Info) Description 02/07/2025 Lab Requisition [facility] - Main Lab [address] [place] [id number] Jorge Anderson MD [address] [address] Microscopic colitis, unspecified Social History Tobacco Use [...] 08/30/2025 11:00 AM EST Office Visit [facility] Hematology Oncology [address] [place] [id number] Jaison Mendez MD [address] [place] [address] 02/27/2026 8:20 AM EDT Consult Gastroenterology - [address] [place] [id number] Missy Allen, KARL [address] [place] [address] documented as of this encounter Procedures Procedure [...] available upon request. 05/11/2025 1:33 PM EDT [facility] Clinical Information Historical slide request for [facility] ([facility]) [id number] & [id number] 05/11/2025 1:33 PM EDT [facility] Gross Description A. 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 Cabello slides ([id number] (23) and [id number] (8) sent: [facility] - path processing ([facility]) [address] [facility], [address] [address] [employer] #[id number] 01/25/24 [place] -- received a second request for a block At the request of Dr. Cabello [phone] Block A1 sent SL/BLANK [employer] Tracking #: [id number] 05/11/2025 1:33 PM EDT EXTERNAL LAB (NON-INTERFAC ED) Disclaimer Unless otherwise specified, all tissue is 10% NB formalin fixed and paraffin embedded. 05/11/2025 1:33 PM EDT [facility] Tissue Colon structure / Unknown 02/07/2025 11:53 AM EDT 02/07/2025 11:54 AM EDT us Jorge Anderson MD LAB PATHOLOGY ORDERABLES Fi nal Result [facility] ([facility] [address] [place] [address], EXTERNAL LAB (NON-INTERFACED) documented in this encounter Visit Diagnoses Diagnosis Microscopic colitis, unspecified documented in this encounter Additional Health Concerns Infection Onset Date Last Indicated Resolved Time Respiratory Rule-Out 08/01/2025 08/01/2025 025 6:13 AM EDT COVID-19 Rule-Out 08/01/2025 08/01/2025 08/01/2025 6:13 AM EDT documented as of this encounter Care Teams Software Trainer Relationship Specialty Start Date End Date Sherly Donald MD [address] [place] [address] PCP - General Internal Medicine 05/29/21 documented as of this encounter
--- OUTSIDE RECORDS SUMMARY | 2025-08-18 18:09 | XMS_ITS | Clinical Summary ---
Author Organization [facility] Address [address] [place] [address] Phone Care Team Providers Care Sports Medicine Physician Name Role Phone Sherly Donald MD Primary Care Provider [phone] Allergies No known active allergies Medications acetaminophen [...] 30 mg 48 tablet 04/20/20 25 Active albuterol HFA (PROAIR HFA ; [...] 6.7 g 11 07/27/20 25 026 Active omeprazole (PriLOSEC) [address] capsule Take 1 capsule (20 mg total) by mouth 1 (one) time each day for 14 days. Do not crush or chew. 14 each 08/06/20 25 025 Active cyclobenzaprine (FLEXERIL) 10 mg tablet Take [...] mg 48 tablet 08/09/20 25 025 Active oxyCODONE (ROXICODONE) 15 mg immediate release tabletIndication s:Colon cancer metastasized to multiple sites (CMS/HCC V24, CMS/HCC V28) Take 1 tablet (15 mg total) by mouth every 4 (four) hours if needed (as needed for severe pain). Max Daily Amount: 90 mg 90 tablet 08/18/20 Active senna-docusate (PERICOLACE) 8.6-50 mg per tablet Take 1 tablet by mouth 1 (one) time each day. 30 tablet 11 08/18/20 25 026 Active senna-docusate (PERICOLACE) 8.6-50 mg per tablet Take 1 tablet by mouth 1 (one) time each day. 30 tablet 11 04/21/20 025 Discontinued(Re order) cyclobenzaprine (FLEXERIL) 10 mg tablet TAKE 1 TABLET BY MOUTH 2 TIMES A DAY IF NEEDED FOR MUSCLE SPASMS FOR UP TO 15 DAYS. 30 tablet 05/09/20 025 Discontinued(Re order) fentaNYL (DURAGESIC) 50 mcg/hrIndication s:Malignant neoplasm of splenic flexure (CMS/HCC V24, CMS/HCC V28),Metastases to the liver (CMS/HCC V24, CMS/HCC V28) Place 1 patch on the skin every 3rd (third) day. Max Daily Amount: 1 patch 10 patch 07/05/20 25 025 oxyCODONE (OxyCONTIN) 30 mg 12 hr abuse-deterrent tabletIndication s:Colon cancer metastasized to multiple sites (CMS/HCC V24, CMS/HCC V28),Pain management Take 1 tablet (30 mg total) by mouth every 12 (twelve) hours. Do not crush, chew, or split. Max Daily Amount: 60 mg 60 tablet 07/15/20 25 025 oxyCODONE (ROXICODONE) 10 mg immediate release tabletIndication s:Malignant neoplasm of splenic flexure (CMS/HCC V24, CMS/HCC V28),Metastases to the liver (CMS/HCC V24, CMS/HCC V28) Take 1 tablet (10 mg total) by mouth every 6 (six) hours if needed for severe pain for up to 12 days. Max Daily Amount: 40 mg 48 tablet 07/15/20 25 025 Discontinued(Re order) albuterol HFA (PROAIR HFA ; PROVENTIL HFA ; VENTOLIN HFA) 90 mcg/actuation inhaler Inhale 2 puffs by mouth every 6 (six) hours if needed for wheezing. 6.7 g 11 07/19/20 25 025 Discontinued(Re order) oxyCODONE (ROXICODONE) 15 mg immediate release tabletIndication s:Colon cancer metastasized to multiple sites (CMS/HCC V24, CMS/HCC V28) Take 1 tablet (15 mg total) by mouth every 4 (four) hours if needed (as needed for severe pain). Max Daily Amount: 90 mg 90 tablet 07/19/20 025 Discontinued(Re order) oxyCODONE (ROXICODONE) 10 mg [...] Amount: 40 mg 48 tablet 07/27/20 25 pantoprazole (PROTONIX) 40 mg EC tablet Take 1 tablet (40 mg total) by mouth 1 (one) time each day before breakfast. Do not crush, chew, or split. 30 each 08/01/20 25 025 Discontinued oxyCODONE (ROXICODONE) 15 mg immediate release tabletIndication s:Colon cancer metastasized to multiple sites (CMS/HCC V24, CMS/HCC V28) Take 1 tablet (15 mg total) by mouth every 4 (four) hours if needed (as needed for severe pain). Max Daily Amount: 90 mg 90 tablet 08/03/20 025 Discontinued(Re order) senna-docusate (PERICOLACE) 8.6-50 mg per tablet Take 1 tablet by mouth 1 (one) time each day. 30 tablet 11 08/09/20 25 025 Discontinued(Re order) Active Problems Problem Noted Date Diagnosed Date Multiple pulmonary nodules 12/14/2024 Overview (12/14/2024): -Also seen: New non enlarged mildly FDG avid Right lower quadrant lymph node in the mesentery -Seen in Pet CT scan done at [place] 10-28-24: bilateral FDG avid pulmonary nodules, new [...] therapist, whose name is Franci therapist in [place] [facility] 09/29/2024 Overview (09/29/2024): -2ary to chemotherapy [...] Type Department Care Team Description 08/11/2025 Telephone [facility] Hematology Oncology [address] [place] [phone] Jaison Mendez MD 08/05/2025 10:11 PM EDT - 08/06/2025 6:30 AM EDT Emergency [facility] Emergency [address] [place] [phone] Ирина López MD Diffuse abdominal pain (Primary Dx); Chest pain, unspecified type; Acute gastritis without hemorrhage, unspecified gastritis type Discharge Disposition: Home or Self Care 08/04/2025 Telephone [facility] Hematology Oncology [address] [place] [phone] Moon Contreras [place] 07/31/2025 11:19 PM EDT - 08/01/2025 7:15 AM EDT Emergency [facility] Emergency [address] [place] [phone] Sheyla Mazariegos MD Chest pain, unspecified type (Primary Dx); Left upper quadrant abdominal pain; Gastritis without bleeding, unspecified chronicity, unspecified gastritis type Discharge Disposition: Home or Self Care 07/29/2025 Telephone [facility] Hematology Oncology [address] [place] [phone] Jaison Mendez MD 07/26/2025 Telephone [facility] Hematology Oncology [address] [place] [phone] Lena Mckee MA 07/25/2025 1:00 PM EDT - 07/25/2025 11:59 PM EDT Hospital Encounter [facility] Nuclear Medicine [address] [place] [phone] Discharge Disposition: Home or Self Care 07/25/2025 8:00 AM EDT - 07/25/2025 11:59 PM EDT Hospital Encounter [facility] Nuclear Medicine [address] [place] [phone] Metastatic colon cancer to liver (CMS/HCC V24, CMS/HCC V28); Colon cancer metastasized to lung (CMS/HCC V24, CMS/HCC V28) Discharge Disposition: Home or Self Care 07/21/2025 Telephone [facility] In[facility] [address] [place] [phone] Jaison Mendez MD 07/19/2025 11:15 AM EDT Office Visit [facility] Hematology Oncology [address] [place] [phone] Jaison Mendez MD Colon cancer metastasized to multiple sites (CMS/HCC V24, CMS/HCC V28) (Primary Dx) 07/05/2025 Telephone [facility] Hematology Oncology [address] [place] [phone] Moon Contreras MA 07/01/2025 Social Work [facility] [address] [place] [phone] Shade WorrellFELICIA 06/16/2025 2:30 PM EDT - 06/16/2025 11:59 PM EDT Hospital Encounter [facility] [address] [place] [phone] Jaison Mendez MD Malignant neoplasm of splenic flexure (CMS/HCC V24, CMS/HCC V28) Discharge Disposition: Home or Self Care 06/09/2025 Telephone [facility] Hematology Oncology [address] [place] [phone] Moon Contreras [place] 06/06/2025 11:45 AM EDT Office Visit [facility] Hematology Oncology [address] [place] [phone] Jaison Mendez MD Colon cancer metastasized to multiple sites (CMS/HCC V24, CMS/[facility] V28) (Primary Dx); Pain management 05/26/2025 Telephone [facility] Hematology Oncology [address] [place] [phone] Jaison Mendez MD from Last 3 Months Immunizations Immunization Administration [...] extremeity venous surgeries VARICOSE VEIN SURGERY PROCEDURE: AR LIGJ DIVJ &/EXCJ VARICOSE VEIN CLUSTER 1 LEG OTHER SURGICAL HISTORY 05/18/2021 PROCEDURE: AR LAPAROSCOPY COLECTOMY PARTIAL W/ANASTOMOSIS; COMMENT: segmental colectomy with anastomosis, en bloc splenectomy, and en bloc distal pancreatectomy - to address adenocarcinoma of transverse colon (no jeronimo involvement or extension to spleen or distal pancreas) - Dr. Jorge Anderson [facility] OTHER SURGICAL HISTORY PROCEDURE: HISTORY OTHER; COMMENT: extended left hepatectomy, partial right hepatectomy, cholecystectomy @ [facility] Medical History Medical History Date Comments Anxiety state DX:Anxiety state Asthma DX:Asthma Abnormal cytological finding in specimen from cervix DX:Abnormal cytological find ing in specimen from cervix Colon cancer (CMS/HCC V24, [facility]/HCC V28) 2020 DX:Colon cancer (HCC) Cancer of liver (CMS/HCC V24 , [facility]/HCC V28) 2021 DX:Cancer of liver (HCC) Metastases to the liver (CMS /HCC V24, [facility]/HCC V28) 11/05/2022 DX:Metastases to the liver ( [...] Description 08/30/2025 11:00 AM EST Office Visit [facility] Hematology Oncology [address] [place] [phone] Jaison Mendez MD [address] [place] [address] 02/27/2026 8:20 AM EDT Consult Gastroenterology - [address] [facility] [address] [facility] [address] [place] [phone] Missy Allen, [employer] [address] [place] [phone] Health Maintenance Due Date Last Done Comments [...] 08/05/2025 11:21 PM EDT ECG ANNOTATED 08/02/2025 [id number], RSV, FLU A AND B QUALITATIVE RT-PCR, [...] Signed Date: 08/06/2025 08:57 ET Workstation ID: [id number] Transcribed By: Self Edit Transcribed Date: 08/06/2025 [...] Signed Date: 08/06/2025 08:57 ET Workstation ID: [id number] Transcribed By: Self Edit Transcribed Date: 08/06/2025 08:54 ET Ирина López MD IMG XR PROCEDURES Final Result * Troponin I high sensitivity (NOW and then in 1 hour) (08/06/2025 1:44 AM EDT) Only the most recent of3 resultswithin the time period is included. Pathologist [facility] High Sensitivity Troponin I 4 <=54 ng/L LAB CHEMISTRY METHOD 08/06/2025 2:14 AM EDT [facility] Blood Venous blood specimen / Unknown Venipuncture / Unknown 08/06/2025 1:44 AM EDT 08/06/2025 1:49 AM EDT Narrative [facility] - 08/06/2025 2:14 AM EDT High levels of biotin in samples may falsely decrease hsTroponin values. Use caution when interpreting hsTroponin results in patients taking biotin who exhibit renal impairment (eGFR <60) or in patients taking more than 20 mg/day of biotin. Ирина López MD LAB BLOOD ORDERABLES Final Res ult Performing Organization Address [facility]/ZIP Co de Phone Number [facility] [address] [place] [address], * B-type natriuretic peptide (08/06/2025 1:44 AM EDT) Only the most recent of2 resultswithin the time period is included. Pathologist [facility] BNP 10 <=100 pcg/mL LAB CHEMISTRY METHOD 08/06/2025 3:16 AM EDT [facility] Blood Venous blood specimen / Unknown Venipuncture / Unknown 08/06/2025 1:44 AM EDT 08/06/2025 1:49 AM EDT Ирина López MD LAB BLOOD ORDERABLES Final Res ult Performing Organization Address City/[facility]/ZIP Co de Phone Number [facility] [address] [place] [address], [place] [phone] * ECG 12 lead (08/06/2025 1:25 AM EDT) Only the most recent of3 resultswithin the time period is included. Ventricular Rate ECG 78 BPM GEMUSE Atrial Rate 78 BPM GEMUSE P-R Interval 186 ms GEMUSE QRS Duration 96 ms GEMUSE Q-T Interval 380 ms GEMUSE QTc 433 ms GEMUSE P Wave [place] 57 degrees GEMUSE R [place] 74 degrees GEMUSE T [place] 50 degrees GEMUSE ECG Interpretation Normal sinus rhythm Normal ECG When compared with ECG of 01-AUG-2025 01:08, Incomplete right bundle branch block is no longer Present Confirmed by DENA VENTURA ([id number]) on 08/06/2025 6:39:57 PM GEMUSE 08/06/2025 1:25 AM EDT 08/06/2025 6:39 PM EDT Ирина López MD ECG ORDERABLES Final Result GEMUSE * CT Abdomen Pelvis w Contrast [...] MD on 08/06/2025 01:59:26 Ирина López MD IM CT PROCEDURES Final Result * POC , urine manually resulted (08/06/2025 12:43 AM EDT) Only the most recent of2 resultswithin the time period is included. HCG, Ur POC Negative Negative POC hCG Int QC Pass? Yes Yes EXPIRATION DATE POC 12-28-2026 LOT NUMBER POC [id number] Urine Urine specimen obtained by clean catch procedure / Unknown 08/06/2025 12:43 AM EDT Ирина López MD POINT OF CARE TEST ENTER/EDIT ORDERABLES Final Result * Urinalysis with reflex microscopic and culture (08/06/2025 12:38 AM EDT) [facility] Specific [place] Urine 1.023 1.003 - 1.030 LAB URINALYSIS - AUTOMATED METHOD 08/06/2025 12:58 AM [facility] pH, Urine 8.0 5.0 - 8.0 pH LAB URINALYSIS - AUTOMATED METHOD 08/06/2025 12:58 AM [facility] Leukocytes, Urine Negative Negative LAB URINALYSIS - AUTOMATED METHOD 08/06/2025 12:58 AM [facility] Nitrite, Urine Negative Negative LAB URINALYSIS - AUTOMATED METHOD 08/06/2025 12:58 AM [facility] Protein, Urine Negative <=Trace mg/dL LAB URINALYSIS - AUTOMATED METHOD 08/06/2025 12:58 AM [facility] Glucose, Urine Negative Negative mg/dL LAB URINALYSIS - AUTOMATED METHOD 08/06/2025 12:58 AM [facility] Ketones, Urine Negative Negative mg/dL LAB URINALYSIS - AUTOMATED METHOD 08/06/2025 12:58 AM [facility] Urobilinogen, Urine 1.0 0.2 - 1.0 mg/dL LAB URINALYSIS - AUTOMATED METHOD 08/06/2025 12:58 AM [facility] Bilirubin, Urine Negative Negative LAB URINALYSIS - AUTOMATED METHOD 08/06/2025 12:58 AM EDT [facility] Blood, Urine Negative Negative LAB URINALYSIS - AUTOMATED METHOD 08/06/2025 12:58 AM EDT [facility] Urine Urine specimen obtained by clean catch procedure / Unknown Non-blood Collection / Unknown 08/06/2025 12:38 AM EDT 08/06/2025 12:49 AM EDT Ирина López MD LAB URINE ORDERABLES Final Res ult Performing Organization Address [facility] Co de Phone Number [facility] [address] [place] [address], [place] [phone] * [place] urine culture tube (08/06/2025 12:38 AM EDT) Extra Tube Hold for add-ons. 08/06/2025 2:01 AM EDT [facility] Comment:Auto resulted. Urine Urine specimen obtained by clean catch procedure / Unknown Non-blood Collection / Unknown 08/06/2025 12:38 AM EDT 08/06/2025 12:49 AM EDT Ирина López MD LAB URINE ORDERABLES Final Res ult Performing Organization Address [facility] de Phone Number [facility] [address] [place] [address], [place] [phone] * ECG-Annotated (08/06/2025) Only the most recent of2 resultswithin the time period is included. Provider Onbase ECG ORDERABLES Final Result * (ABNORMAL) CBC auto differential (08/05/2025 11:21 PM EDT) Only the most recent of3 resultswithin the time period is included. WBC 12.6(H) 4.8 - 10.8 K/[facility] LAB HEMETOLOGY METHOD 08/05/2025 11:35 PM EDT [facility] RBC 4.20 3.80 - 4.80 M/mcL LAB HEMETOLOGY METHOD 08/05/2025 11:35 PM EDT [facility] Hemoglobin 12.5 11.5 - 16.0 g/dL LAB HEMETOLOGY METHOD 08/05/2025 11:35 PM EDT [facility] Hematocrit 37.8 35.0 - 47.0 % LAB HEMETOLOGY METHOD 08/05/2025 11:35 PM EDT [facility] MCV 89.6 79.0 - 98.0 FL LAB HEMETOLOGY METHOD 08/05/2025 11:35 PM EDT [facility] MCH 29.6 27.0 - 32.0 pcg LAB HEMETOLOGY METHOD 08/05/2025 11:35 PM EDT [facility] MCHC 33.1 32.0 - 37.0 g/dL LAB HEMETOLOGY METHOD 08/05/2025 11:35 PM EDT [facility] RDW 14.4 11.0 - 15.0 % LAB HEMETOLOGY METHOD 08/05/2025 11:35 PM EDT [facility] Platelets 322 130 - 400 K/mcL LAB HEMETOLOGY METHOD 08/05/2025 11:35 PM EDT [facility] MPV 9.7 7.0 - 11.0 FL LAB HEMETOLOGY METHOD 08/05/2025 11:35 PM EDT [facility] NRBC 0.0 <1.0 % LAB HEMETOLOGY METHOD 08/05/2025 11:35 PM EDT [facility] NRBC Absolute 0.00 <0.10 K/mcL LAB HEMETOLOGY METHOD 08/05/2025 11:35 PM EDT [facility] Neutrophils Relative 56.4 % LAB HEMETOLOGY METHOD 08/05/2025 11:35 PM EDT [facility] Lymphocytes Relative 33.6 % LAB HEMETOLOGY METHOD 08/05/2025 11:35 PM EDT [facility] Monocytes Relative 7.2 % LAB HEMETOLOGY METHOD 08/05/2025 11:35 PM EDT [facility] Eosinophils Relative 2.1 % LAB HEMETOLOGY METHOD 08/05/2025 11:35 PM EDT [facility] Basophils Relative 0.5 % LAB HEMETOLOGY METHOD 08/05/2025 11:35 PM EDT [facility] Immature Granulocytes Relative 0.2 % LAB HEMETOLOGY METHOD 08/05/2025 11:35 PM EDT [facility] Neutrophils Absolute 7.09(H) 1.50 - 7.00 K/mcL LAB HEMETOLOGY METHOD 08/05/2025 11:35 PM EDT [facility] Lymphocytes Absolute 4.23 1.00 - 5.00 K/mcL LAB HEMETOLOGY METHOD 08/05/2025 11:35 PM EDT [facility] Monocytes Absolute 0.90 0.20 - 1.00 K/mcL LAB HEMETOLOGY METHOD 08/05/2025 11:35 PM T [facility] Eosinophils Absolute 0.27 0.00 - 0.50 K/mcL LAB HEMETOLOGY METHOD 08/05/2025 11:35 PM EDT [facility] Basophils Absolute 0.06 0.00 - 0.20 K/mcL LAB HEMETOLOGY METHOD 08/05/2025 11:35 PM EDT [facility] Immature Granulocytes Absolute 0.03 0.00 - 0.03 K/mcL LAB HEMETOLOGY METHOD 08/05/2025 11:35 PM [facility] Blood Venous blood specimen / Unknown Venipuncture / Unknown 08/05/2025 11:21 PM EDT 08/05/2025 11:30 PM EDT us Ирина López MD LAB BLOOD ORDERABLES Final Res ult Performing Organization Address City/[facility]/ZIP Co de Phone Number [facility] [address] [place] [address], [place] [phone] * Lipase (08/05/2025 11:21 PM EDT) Only the most recent of2 resultswithin the time period is included. Pathologist [facility] Lipase 35 13 - 75 unit/L LAB CHEMISTRY METHOD 08/06/2025 12:07 AM EDT [facility] Blood Venous blood specimen / Unknown Venipuncture / Unknown 08/05/2025 11:21 PM EDT 08/05/2025 11:31 PM EDT us Ирина López MD LAB BLOOD ORDERABLES Final Res ult Performing Organization Address [facility]/ZIP Co de Phone Number [facility] [address] [place] [address], [place] [phone] * (ABNORMAL) Comprehensive metabolic panel (08/05/2025 11:21 PM EDT) Only the most recent of3 resultswithin the time period is included. Pathologist [facility] Sodium 139 133 - 145 mmol/L LAB CHEMISTRY METHOD 08/06/2025 12:07 AM [facility] Potassium 4.0 3.5 - 5.5 mmol/L LAB CHEMISTRY METHOD 08/06/2025 12:07 AM [facility] Chloride 105 96 - 110 mmol/L LAB CHEMISTRY METHOD 08/06/2025 12:07 AM [facility] CO2 28 21 - 32 mmol/L LAB CHEMISTRY METHOD 08/06/2025 12:07 AM [facility] Anion Gap 6 3 - 11 LAB CHEMISTRY METHOD 08/06/2025 12:07 AM [facility] Glucose 102(H) 70 - 100 mg/dL LAB CHEMISTRY METHOD 08/06/2025 12:07 AM [facility] BUN 18 5 - 25 mg/dL LAB CHEMISTRY METHOD 08/06/2025 12:07 AM [facility] Creatinine 0.86 0.50 - 1.10 mg/dL LAB CHEMISTRY METHOD 08/06/2025 12:07 AM [facility] eGFR 86 >=60 mL/min/1. 73m2 LAB CHEMISTRY METHOD 08/06/2025 12:07 AM [facility] Comment:Calculation based on the Chronic Kidney Disease Epidemiology Collaboration (CKD-EPI) equation refit without adjustment for race. BUN/Creatinine Ratio 20.9 LAB CHEMISTRY METHOD 08/06/2025 12:07 AM [facility] Calcium 9.3 8.5 - 10.5 mg/dL LAB CHEMISTRY METHOD 08/06/2025 12:07 AM [facility] AST (SGOT) 21 10 - 42 unit/L LAB CHEMISTRY METHOD 08/06/2025 12:07 AM [facility] ALT (SGPT) 23 10 - 60 unit/L LAB CHEMISTRY METHOD 08/06/2025 12:07 AM [facility] Alkaline Phosphatase 83 42 - 121 unit/L LAB CHEMISTRY METHOD 08/06/2025 12:07 AM [facility] Total Protein 7.1 6.0 - 8.0 g/dL LAB CHEMISTRY METHOD 08/06/2025 12:07 AM [facility] Albumin 3.4 3.2 - 5.0 g/dL LAB CHEMISTRY METHOD 08/06/2025 12:07 AM [facility] Total Bilirubin 0.2 0.0 - 1.4 mg/dL LAB CHEMISTRY METHOD 08/06/2025 12:07 AM [facility] Blood Venous blood specimen / Unknown Venipuncture / Unknown 08/05/2025 11:21 PM EDT 08/05/2025 11:31 PM EDT us Ирина López MD LAB BLOOD ORDERABLES Final Res ult Performing Organization Address City/[facility]/ZIP Co de Phone Number [facility] [address] [place] [address], [place] [phone] * [id number], RSV, Influenza A and B qualitative RT-PCR (08/01/2025 4:36 AM EDT) Pathologist [facility] Influenza A PCR Not Detected Not Detected LAB MICROBIOLOGY METHOD 08/01/2025 6:13 AM EDT [facility] Influenza B PCR Not Detected Not Detected LAB MICROBIOLOGY METHOD 08/01/2025 6:13 AM EDT [facility] RSV PCR Not Detected Not Detected LAB MICROBIOLOGY METHOD 08/01/2025 6:13 AM EDT [facility] SARS COV-2 Not Detected Not Detected LAB MICROBIOLOGY METHOD 08/01/2025 6:13 AM EDT [facility] Swab Both anterior nares / Unknown Non-blood Collection / Unknown 08/01/2025 4:36 AM EDT 08/01/2025 5:29 AM EDT Sheyla Mazariegos MD LAB MICROBIOLOGY - GENERAL ORDERABLES Final Result Performing Organization Address [facility]/ZIP Co de Phone Number [facility] [address] [place] [address], [place] [phone] * CT Angio Chest wo and/or w [...] suggesting sequela of malignancy/metastatic disease. There are [id number] left upper lobe and lingula opacities with volume loss in this region, suggesting postobstructive atelectasis. 3. Enlarged subcarinal lymph node. This document has been electronically signed by: Cale Meléndez MD on 08/01/2025 03:11:21 Narrative 08/01/2025 3:11 AM EDT INDICATION: pulmonary embolism CT angiography chest using contrast. 3-D postprocessing Comparison: CT/KO/AR/SR - CT CHEST ABD PEL W CONTRAST [...] of the left lower lobe. There are axob-ea-uilqigbr opacities at the left upper lobe/lingula with associated volume loss, suggesting some degree of atelectasis. There is partial obstruction of the left upper lobe bronchus. No pneumothorax or pleural effusion. No acute fractures. Procedure Note Cale Meléndez MD - 08/01/2025 INDICATION: pulmonary embolism CT angiography chest using contrast. 3-D postprocessing Comparison: CT/KO/AR/SR - CT CHEST ABD PEL W CONTRAST [...] of the left lower lobe. There are frir-zy-yvhwhave opacities at the left upper lobe/lingula withassociated [...] suggesting sequela of malignancy/metastatic disease. There are xcfv-jp-[id number] left upperlobe and lingula opacities with volume loss in this region, suggesting postobstructive atelectasis. 3. Enlarged subcarinal lymph node. This document has been electronically signed by: Cale Meléndez MD on 08/01/2025 03:11:21 Sheyla Mazariegos MD IM CT PROCEDURES Final Res ult * Urinalysis with reflex microscopic (08/01/2025 12:15 AM EDT) Specific [place] Urine 1.006 1.003 - 1.030 LAB URINALYSIS - AUTOMATED METHOD 08/01/2025 12:36 AM [facility] pH, Urine 7.0 5.0 - 8.0 pH LAB URINALYSIS - AUTOMATED METHOD 08/01/2025 12:36 AM [facility] Leukocytes, Urine Negative Negative LAB URINALYSIS - AUTOMATED METHOD 08/01/2025 12:36 AM [facility] Nitrite, Urine Negative Negative LAB URINALYSIS - AUTOMATED METHOD 08/01/2025 12:36 AM [facility] Protein, Urine Negative <=Trace mg/dL LAB URINALYSIS - AUTOMATED METHOD 08/01/2025 12:36 AM [facility] Glucose, Urine Negative Negative mg/dL LAB URINALYSIS - AUTOMATED METHOD 08/01/2025 12:36 AM EDT [facility] Ketones, Urine Negative Negative mg/dL LAB URINALYSIS - AUTOMATED METHOD 08/01/2025 12:36 AM EDT [facility] Urobilinogen, Urine 0.2 0.2 - 1.0 mg/dL LAB URINALYSIS - AUTOMATED METHOD 08/01/2025 12:36 AM EDT [facility] Bilirubin, Urine Negative Negative LAB URINALYSIS - AUTOMATED METHOD 08/01/2025 12:36 AM EDT [facility] Blood, Urine Negative Negative LAB URINALYSIS - AUTOMATED METHOD 08/01/2025 12:36 AM EDT [facility] Urine Urine specimen obtained by clean catch procedure / Unknown Non-blood Collection / Unknown 08/01/2025 12:15 AM EDT 08/01/2025 12:30 AM EDT Sheyla Mazariegos MD LAB URINE ORDERABLES Final Result Performing Organization Address City/[facility]/ZIP Co de Phone Number [facility] [address] [place] [address], [place] [phone] * Magnesium (07/31/2025 11:50 PM EDT) Magnesium 2.0 1.9 - 2.6 mg/dL LAB CHEMISTRY METHOD 08/01/2025 12:58 AM EDT [facility] Blood Venous blood specimen / Unknown Venipuncture / Unknown 07/31/2025 11:50 PM EDT 08/01/2025 12:30 AM EDT Xuan An NP LAB BLOOD ORDERABLES Eboni l Result [facility] [address] [place] [address], [place] [phone] * NM Bone/Joint Scan Whole Body (07/25/2025 [...] Signed Date: 07/25/2025 15:35 ET Workstation ID: [id number] Transcribed By: Self Edit Transcribed Date: 07/25/2025 15:34 ET Impressions 07/25/2025 2:18 PM EDT No evidence of osteoblastic metastatic disease is seen. Telerad PA ([id number]) -------- FINAL REPORT -------- Dictated By: Hanane Chen Dictated Date: 07/25/2025 14:08 ET Assigned Physician: Hanane Chen Reviewed and Electronically Signed By: Hanane Chen Signed Date: 07/25/2025 14:18 ET Workstation ID: [id number] Transcribed By: Self Edit Transcribed Date: 07/25/2025 [...] osteoblastic metastatic disease is seen. Telerad DEVIKA ([id number]) -------- FINAL REPORT -------- Dictated By: Hanane Chen Dictated Date: 07/25/2025 14:08 ET Assigned Physician: Hanane Chen Reviewed and Electronically Signed By: Hanane Chen Signed Date: 07/25/2025 14:18 ET Workstation ID: [id number] Transcribed By: Self Edit Transcribed Date: 07/25/2025 14:08 ET us Jaison U Andrea ARITA IMG NM PROCEDURES Edited Res ult - Final * (ABNORMAL) CEA (06/16/2025 3:02 PM EDT) CEA 79.8(H) 0.0 - 5.0 ng/mL LAB CHEMISTRY METHOD 06/16/2025 6:58 PM EDT [facility] Blood Blood sample taken from central line / Unknown Existing Catheter / Unknown 06/16/2025 3:02 PM EDT 06/16/2025 4:30 PM EDT Narrative [facility] - 06/16/2025 6:58 PM EDT The Siemens Advia Centaur Chemiluminescent Immunoassay is used. Results obtained with different assay methods or kits cannot be used interchangeably. Results cannot be interpreted as absolute evidence of the presence or absence of malignant disease. Jaison Mendez MD LAB BLOOD ORDERABLES Final R esult [facility] [address] [place] [address], * Molecular intelligence tumor profiling (05/18/2025 10:57 AM EDT) Tissue [facility] Provider LAB MOLECULAR DIAGNOSTICS ORDERABLES [...] Signed Date: 10/29/2024 15:36 ET Workstation ID: [id number] Transcribed By: Self Edit Transcribed Date: 10/29/2024 [...] Tomosynthesis. Computer-aided detection was employed with the [employer] Impressions AI 3-D. TISSUE DENSITY: There are scattered [...] Tomosynthesis. Computer-aided detection was employed with the [employer] profound AI 3-D. TISSUE DENSITY: There are [...] Signed Date: 10/29/2024 15:36 ET Workstation ID: [id number] Transcribed By: Self Edit Transcribed Date: 10/29/2024 15:15 ET us Self Referral Sppl IMG BI PROCEDURES Final Resul t * Pap smear (11/05/2022) 11/05/2022 Narrative HISTORICAL TESTING LAB RESULTING AGENCY - 11/18/2022 7:41 AM EST [id number] THINPREP PAP: NEGATIVE FOR SQUAMOUS INTRAEPITHELIAL LESION [...] HX NEGATIVE 2019, LMP 11/01/22, [Z01.419] Katie SANTOS LAB CYTOLOGY ORDERABLES Final Result HISTORICAL TESTING LAB RESULTING AGENCY from Last 3 Months or Most Recently Relevant to Health Maintenance Insurance [employer] Advance Directives Documents on File Type Date Recorded Patient Lead Ios Developer Expl anation Health Care Decision (hx) 10/02/2022 [...] (hx) 10/02/2022 AD LEMONS DIRECTIVE Care Teams Sports Medicine Physician Relationship Specialty Start Date End Date Sherly Donald MD [address] [place] [address] PCP - General Internal Medicine 05/29/21
--- OUTSIDE RECORDS SUMMARY | 2025-08-18 18:09 | XMS_ITS ---
Author Name [facility] Organization Unknown Results Test Name/Text Value Interpretation Date Range Source HCV Ab SerPl Ql IA Negative 08/16/2025 - [facility] HBV surface Ag SerPl Ql IA Negative 08/16/2025 - [facility] HBV core IgG+IgM SerPl Ql IA Negative 08/16/2025 - [facility] BKR CARCINOEMBRYONIC ANTIGEN (Y DEAN) 406.0 ng/mL Above high normal 08/16/2025 - [facility] Magnesium SerPl-mCnc 2.2 mg/dL 08/16/2025 1.7 - 2. 4 [facility] Bilirub Direct SerPl-mCnc 0.2 mg/dL 08/16/2025 - [facility] CK SerPl-cCnc 115.0 U/L 08/16/2025 26 - [address] [facility] [address] Urate Ur-mCnc 4.5 mg/dL 08/16/2025 2.7 - 7.[address] [facility] [address] Phosphate SerPl-mCnc 2.8 mg/dL 08/16/2025 2.2 - 4. 5 [facility] Globulin Plas-mCnc 3.8 g/dL 08/16/2025 2 - 3.9 [facility] AST SerPl w P-5'-P-cCnc 21.0 U/L 08/16/2025 10 - 35 [facility] Anion Gap SerPl Calculated.3Ions-sCnc 13.0 08/16/2025 7 - 17 [facility] T ALP SerPl-cCnc 84.0 U/L 08/16/2025 9 - 122 [facility] Glucose SerPl-mCnc 98.0 mg/dL 08/16/2025 70 - 100 [facility] Bilirub SerPl-mCnc 0.5 mg/dL 08/16/2025 - [facility] BUN/Creat SerPl 15.3 08/16/2025 8 - 23 [facility] Creat SerPl-mCnc 0.72 mg/dL 08/16/2025 0.4 - 1.3 [facility] BUN SerPl-mCnc 11.0 mg/dL 08/16/2025 6 - 20 [facility] GFR SerPlBld Creatinine-bsd fmla CKD-EPI >60.0 mL/min/1.73m2 08/16/2025 - [facility] BKR CREATININE DELTA 08/16/2025 [facility] AST/ALT SerPl-cRto 1.2 08/16/2025 - [facility] Calcium SerPl-mCnc 9.3 mg/dL 08/16/2025 8.8 - 10.2 [facility] Albumin SerPl BCG-mCnc 4.0 g/dL 08/16/2025 3.6 - 5.1 [facility] HCO3 SerPl-sCnc 23.0 mmol/L 08/16/2025 20 - 30 [facility] Chloride SerPl-sCnc 101.0 mmol/L 08/16/2025 98 - 1 07 [facility] Albumin/Glob SerPl 1.1 08/16/2025 1 - 2.2 [facility] Prot SerPl-mCnc 7.8 g/dL 08/16/2025 5.9 - 8.3 [facility] Potassium SerPl-sCnc 4.2 mmol/L 08/16/2025 3.3 - 5 .3 [facility] ALT SerPl w/o P-5'-P-cCnc 18.0 U/L 08/16/2025 10 - 35 [facility] Sodium SerPl-sCnc 137.0 mmol/L 08/16/2025 136 - 14 4 [facility] LDH SerPl L to P-cCnc 196.0 U/L 08/16/2025 122 - 2 41 [facility] Prothrombin time 11.0 seconds 08/16/2025 9 - 12 [facility] INR PPP 1.02 08/16/2025 0.9 - 1.1 [facility] aPTT PPP 27.0 seconds 08/16/2025 23 - 31 [facility] T Neutrophils # Bld Auto 6.12 x 1000/uL 08/16/2025 2 - 7.6 [facility] Imm Granulocytes # Bld Auto 0.02 x 1000/uL 08/16/2025 0 - 0.3 [facility] Eosinophil # Bld Auto 0.16 x 1000/uL 08/16/2025 0 - 1 [facility] nRBC Bld Auto-Rto 0.0 % 08/16/2025 0 - 1 [facility] Neutrophils NFr Bld Auto 57.1 % 08/16/2025 39 - 72 [facility] Basophils NFr Bld Auto 0.6 % 08/16/2025 0 - 1. 4 [facility] Monocytes # Bld Auto 0.81 x 1000/uL 08/16/2025 0 - 1 [facility] RDW RBC Auto 14.6 % 08/16/2025 11 - 15 [facility] T Hgb Bld-mCnc 13.4 g/dL 08/16/2025 11.7 - 15.5 [facility] Hct VFr Bld Auto 41.1 % 08/16/2025 35 - 45 [facility] MCH RBC Qn Auto 29.4 pg 08/16/2025 27 - 33 [facility] nRBC # Bld Auto 0.0 x 1000/uL 08/16/2025 0 - 1 [facility] Eosinophil NFr Bld Auto 1.5 % 08/16/2025 0 - 5 [facility] WBC # Bld Auto 10.7 x1000/uL 08/16/2025 4 - 11 [facility] Platelet # Bld Auto 372.0 x1000/uL 08/16/2025 150 - 420 [facility] PMV Bld Auto 9.6 fL 08/16/2025 8 - 12 [facility] T Lymphocytes # Bld Auto 3.53 x 1000/uL 08/16/2025 0 .6 - 3.7 [facility] MCHC RBC Auto-EntMCnc 32.6 g/dL 08/16/2025 31 - 36 [facility] Lymphocytes NFr Bld Auto 33.0 % 08/16/2025 17 - 50 [facility] RBC # Bld Auto 4.56 M/uL 08/16/2025 4 - 6 [facility] Monocytes NFr Bld Auto 7.6 % 08/16/2025 4 - 12 [facility] Imm Granulocytes NFr Bld Auto 0.2 % 08/16/2025 0 - 1 [facility] Basophils # Bld Auto 0.06 x 1000/uL 08/16/2025 0 - 1 [facility] RBC Auto 90.1 fL 08/16/2025 80 - 100 [facility] Urobilinogen Ur Strip-mCnc <2.0 mg/dL 08/16/2025 - [facility] Hgb Ur Ql Strip.auto Negative 08/16/2025 - [facility] Clarity Ur Refract.auto Clear 08/16/2025 - [facility] Glucose Ur Strip.auto-mCnc Negative 08/16/2025 - [facility] WBC # Ur Strip Negative 08/16/2025 - [facility] Ketones Ur Strip.auto-mCnc Negative 08/16/2025 - [facility] Bilirub Ur Ql Strip.auto Negative 08/16/2025 - [facility] Color Ur Auto Yellow 08/16/2025 - [facility] CT pH Ur Strip.auto 6.0 08/16/2025 5.5 - 7.5 [facility] Prot Ur Strip.auto-mCnc Negative 08/16/2025 - [facility] Sp Gr Ur Refract.auto 1.019 08/16/2025 1.0 05 - 1.03 [facility] Nitrite Ur Ql Strip.auto Negative 08/16/2025 - [facility]
--- OUTSIDE RECORDS SUMMARY | 2025-08-18 18:09 | XMS_ITS | Clinical Summary ---
Author Organization [facility] Address [address] [place] [address] Phone Care Team Providers Care Business Records Manager Name Role Phone Sherly Hernández MD Primary Care Provider [phone] Self-Referred, Patient Unavailable Unavailab Castro Adam MD Unavailable [phone] Ying Salgado RN Unavailable [email or web address] [...] 08/10/2025 Ancillary Orders [facility] [address] [place] [address] Mario Stearns MD, PhD 08/10/2025 Ancillary Orders [facility] [address] [place] [address] Mario Stearns MD, PhD 08/01/2025 12:05 AM EDT - 08/01/2025 11:59 PM EDT Hospital Encounter [facility] [address] [place] [address] Mario Stearns MD, PhD Discharge Disposition: Home or Self Care 08/01/2025 - 08/01/2025 12:04 AM EDT Hospital Encounter [facility] [address] [place] [address] Mario Stearns MD, PhD Discharge Disposition: Home or Self Care from Last 3 Months Family History Medical [...] Description 08/22/2025 8:00 AM EST Office Visit [facility] [address], [address] [place] [address] Mario Stearns MD, PhD [address] [place] [address] [email or web address] Health Maintenance Due Date Last Done Comments [...] Procedure Name Priority Date/Time Associated Diagnosis Comments CT CHEST OUTSIDE WITH INTERPRETATION OR CONSULT Routine 08/01/2025 12:[address] ABDOMEN/PELVIS OUTSIDE WITH INTERPRETATION OR CONSULT Routine 08/01/2025 12:00 AM EDT OUTSIDE LAB 05/18/2025 BI MAMMOGRAM OUTSIDE (NO INTERPRETATION) Routine 10/29/2024 12:00 AM EST from Last 3 Months or Most Recently Relevant to Health Maintenance Results * CT Chest Outside With Interpretation Or Consult (08/01/2025 12:05 AM EDT) [facility] IMG MEDICAL ASSISTANT PRN COMMENT Obstructing left upper lobe mass, likely metastatic versus primary lung. Pulmonary and jeronimo metastases. Trace pneumothorax. [facility] 08/14/2025 2:41 PM EDT Impressions [facility] - 08/14/2025 3:07 PM EDT * A 4.0 cm mass obstructing left upper lobe bronchus with resultant complete collapse of the lingula and partial collapse of the left upper lobe, suspicious for malignancy (metastasis versus primary lung). Trace left pneumothorax. * New and enlarging nodules in the lower lobes measuring up to 29 mm, likely metastatic. Those in the posterior basal right lower lobe are suspicious for endobronchial spread. * Subcarinal and right hilar lymphadenopathy, suspicious for metastases. A clinically significant result was initiated on 08/14/2025 3:06 PM, Message ID [id number]. Narrative [facility] - 08/14/2025 3:[address] CHEST OUTSIDE WITH INTERPRETATION OR CONSULT Referring clinician's provided indication for this examination in Epic: Study Description:; Modality: TECHNIQUE: Multidetector CT of the chest was performed with intravenous contrast. COMPARISON: CT CHEST OUTSIDE (NO INTERPRETATION) FINDINGS: Devices/Tubes/Lines: None. Lungs: Motion degraded study. Trachea and mainstem bronchi are patent. Left upper lobe bronchus is obstructed by a hypoattenuating mass measuring 4.0 x 2.7 cm (8:113), centered at the takeoff of the lingular bronchus. Resultant complete collapse of the lingula and partial collapse of the left upper lobe. New 12 mm likely endobronchial nodule obstructing the posterior basal segmental bronchus of the right lower lobe (8:134) with increased downstream 29 mm nodule (8:151), previously 11 mm. There is likely endobronchial spread of the tumor in the subsegmental airways of the posterior basal right lower lobe (8:170), although this is suboptimally evaluated due to motion. Pleura: No pleural effusion. Trace pneumothorax on the left with a 5 mm airgap. Mediastinum: No thyroid nodules. No central pulmonary embolism. Dilated left atrium measuring 4.1 cm. No pericardial effusion. Lymph Nodes: Unchanged 9 mm left supraclavicular node. New subcarinal lymphadenopathy measuring up to 18 mm. New right hilar lymphadenopathy measuring up to 12 mm. Unchanged 8 mm right diaphragmatic node. Left hilum is inseparable from the mass obstructing left upper lobe bronchus Upper Abdomen: Reported separately. Chest Wall: No chest wall mass. Bones: No suspicious lytic or blastic lesions. Procedure Note Jennifer Dominguez MD, PhD - 08/14/2025 CT CHEST OUTSIDE WITH INTERPRETATION OR CONSULT Referring clinician's provided indication for this examination in Epic:Study Description:; Modality: TECHNIQUE: Multidetector CT of the chest was performed with intravenous contrast. COMPARISON: CT CHEST OUTSIDE (NO INTERPRETATION) FINDINGS: Devices/Tubes/Lines: None. Lungs: Motion degraded study. Trachea and mainstem bronchi are patent.Left upper lobe bronchus is obstructed by a hypoattenuating mass measuring4.0 x 2.7 cm (8:113), centered at the takeoff of the lingular bronchus.Resultant complete collapse of the lingula and partial collapse of theleft upper lobe. New 12 mm likely endobronchial nodule obstructing theposterior basal segmental bronchus of the right lower lobe (8:134) withincreased downstream 29 mm nodule (8:151), previously 11 mm. There islikely endobronchial spread of the tumor in the subsegmental airways ofthe posterior basal right lower lobe (8:170), although this issuboptimally evaluated due to motion. Pleura: No pleural effusion. Trace pneumothorax on the left with a 5 mmairgap. Mediastinum: No thyroid nodules. No central pulmonary embolism. Dilatedleft atrium measuring 4.1 cm. No pericardial effusion. Lymph Nodes: Unchanged 9 mm left supraclavicular node. New subcarinallymphadenopathy measuring up to 18 mm. New right hilar lymphadenopathymeasuring up to 12 mm. Unchanged 8 mm right diaphragmatic node. Left hilumis inseparable from the mass obstructing left upper lobe bronchus Upper Abdomen: Reported separately. Chest Wall: No chest wall mass. Bones: No suspicious lytic or blastic lesions. IMPRESSION: * A 4.0 cm mass obstructing left upper lobe bronchus with resultantcomplete collapse of the lingula and partial collapse of the left upperlobe, suspicious for malignancy (metastasis versus primary lung). Traceleft pneumothorax. * New and enlarging nodules in the lower lobes measuring up to 29 mm,likely metastatic. Those in the posterior basal right lower lobe aresuspicious for endobronchial spread. * Subcarinal and right hilar lymphadenopathy, suspicious formetastases. A clinically significant result was initiated on 08/14/2025 3:06 PM,Message ID [id number]. Mario Stearns MD, PhD IMG OUTSIDE IMAGING W/ INTER PRETATION Final Result [facility] [address] [place] [address] * CT Abdomen/Pelvis Outside with Interpretation or Consult (08/01/2025 12:00 AM EDT) 08/13/2025 9:07 AM EDT Impressions [facility] - 08/13/2025 3:21 PM EDT No acute abnormality in the abdomen or pelvis. ATTESTATION: I, Dr. Leobardo Julien as teaching physician, have reviewed the images for this case and if necessary edited the report originally created by Navya Velásquez. Narrative [facility] - 08/13/2025 3:[address] ABDOMEN/PELVIS OUTSIDE WITH INTERPRETATION OR CONSULT Referring clinician's provided indication for this examination in Epic: Study Description:; Dx: metastatic colon cancer to liver and lungs TECHNIQUE: CT of the abdomen and pelvis, with intravenous contrast. COMPARISON: NM PET WHOLE BODY OUTSIDE (NO INTERPRETATION) ; MRI ABDOMEN OUTSIDE (NO INTERPRETATION) FINDINGS: Lower Chest: Reported separately Liver: Status post partial left hepatectomy. No focal lesions. Biliary: Cholecystectomy. No biliary ductal dilatation. Spleen: Splenectomy. Pancreas: Tail pancreatectomy. No masses or ductal dilatation in the residual pancreas. Adrenal Glands: No nodules. Kidneys/Ureters: No solid masses or hydronephrosis. No stones. Bowel: Partial colectomy with patent left upper quadrant anastomosis. No distention or wall thickening. Noninflamed appendix. Peritoneum/Retroperitoneum: No masses, free air, or fluid. Lymph Nodes: Mildly prominent 13 mm right inguinal lymph node. Pelvic Organs/Bladder: No masses. Vessels: No abdominal aortic aneurysm. Bones/Soft Tissues: No destructive osseous lesions.Tiny fat-containing umbilical hernia. Postsurgical changes in the anterior abdominal wall. Procedure Note Leobardo Julien MD, MPH - 08/13/2025 CT ABDOMEN/PELVIS OUTSIDE WITH INTERPRETATION OR CONSULT Referring clinician's provided indication for this examination in Epic:Study Description:; Dx: metastatic colon cancer to liver and lungs TECHNIQUE: CT of the abdomen and pelvis, with intravenous contrast. COMPARISON: NM PET WHOLE BODY OUTSIDE (NO INTERPRETATION) ; MRIABDOMEN OUTSIDE (NO INTERPRETATION) FINDINGS: Lower Chest: Reported separately Liver: Status post partial left hepatectomy. No focal lesions. Biliary: Cholecystectomy. No biliary ductal dilatation. Spleen: Splenectomy. Pancreas: Tail pancreatectomy. No masses or ductal dilatation in theresidual pancreas. Adrenal Glands: No nodules. Kidneys/Ureters: No solid masses or hydronephrosis. No stones. Bowel: Partial colectomy with patent left upper quadrant anastomosis. Nodistention or wall thickening. Noninflamed appendix. Peritoneum/Retroperitoneum: No masses, free air, or fluid. Lymph Nodes: Mildly prominent 13 mm right inguinal lymph node. Pelvic Organs/Bladder: No masses. Vessels: No abdominal aortic aneurysm. Bones/Soft Tissues: No destructive osseous lesions.Tiny fat-containingumbilical hernia. Postsurgical changes in the anterior abdominal wall. IMPRESSION: No acute abnormality in the abdomen or pelvis. ATTESTATION: I, Dr. Leobardo Julien as teaching physician, have reviewedthe images for this case and if necessary edited the report originallycreated by Navya Velásquez. us Mario Stearns MD, PhD IMG OUTSIDE IMAGING W/ INTER PRETATION Final Result [address] [address] * Outside Lab (05/18/2025) us Scanning Interface Provider LAB BLOOD ORDERABLES Final Result * Mammogram Outside (No Interpretation) (10/29/2024 12:00 AM EST) Other Narrative [facility] - 01/24/2025 11:10 AM EDT This study is for PACS storage only and not for interpretation. us Castro Cabello MD IMG OUTSIDE IMAGING W/OUT INT ERPRETATION Final Result [facility] from Last 3 Months or Most Recently Relevant to Health Maintenance Insurance ACO ACO ACO ACO ACO ACO Care Teams Business Records Manager Relationship Specialty Start Date End Date Sherly Hernández MD PCP - General 12/20/24 Self-Referred, Patient 01/14/25 Castro Cabello MD [address] [place] [id number] [email or web address] Medical Oncology 01/17/25 Ying Salgado, DIXIE [address] [place] [id number] Registered Nurse 01/26/25 Additional Source Comments The information contained in this document represents components of the legal health record. It is not the complete legal health record.[facility]
--- OUTSIDE RECORDS SUMMARY | 2025-08-18 18:09 | XMS_ITS | Clinical Summary ---
Author Organization [facility], Address [address] [place] [address] Phone Care Team Providers Care Armature Rewinder Name Role Phone Sherly Donald Primary Care [...] Health Medicaid [facility] Medicaid Care Teams Armature Rewinder Relationship Specialty Start Date End Date Sherly Donald [address] [place] [address] PCP - General Internal Medicine 04/28/23
--- OUTSIDE RECORDS SUMMARY | 2025-08-18 18:09 | XMS_ITS ---
Author Organization [facility] Address [address] [place] [address] Phone Care Team Providers Care Appraiser Timber Name Role Phone Sherly Donald MD Primary Care Provider [phone] Active Problems Problem Noted Date Diagnosed Date Multiple pulmonary nodules 12/14/2024 Overview (12/14/2024): -Also seen: New non enlarged mildly FDG avid Right lower quadrant lymph node in the mesentery -Seen in Pet CT scan done at [place] 10-28-24: bilateral FDG avid pulmonary nodules, new [...] and spleen. GI: Dr. Contreras. Surgeon: Dr. Anedrson Metastatic malignant neoplasm (CMS/HCC V24, CMS/ HCC V28) 09/29/2024 Overview (09/29/2024): colon cancer with liver mets s/p partial hepatectomy and ablation Mild binge-eating disorder, in full remission Mixed anxiety depressive disorder 09/29/2024 Overview (09/29/2024): 04/17/12- [facility], sees both psych and therapist, whose name is Franci therapist in [place] Ne[facility] 09/29/2024 Overview (09/29/2024): -2ary to chemotherapy [...]
--- OUTSIDE RECORDS SUMMARY | 2025-08-18 18:09 | XMS_ITS | Encounter Summary ---
Author Organization [facility] Address [address] [place] [address] Care Team Providers Care Medical Recruiter Name Role Phone HernándezBenito Sherly Primary Care Provider Encounter Details Date Type Department Care Team Description 06/18/2021 Nurse Only [facility] [address] [place] [address] Rom Arboleda RN Social History Tobacco Use [...] oral chemotherapy and side effects. Scriptsent to [facility] awaiting out come. documented in this encounter Plan of Treatment Not on file documented as of this encounter Visit Diagnoses Not on filedocumented in this encounter Care Teams Medical Recruiter Relationship Specialty Start Date End Date Sherly Donald [address] [place] [phone] PCP - General Internal Medicine 06/04/21 documented as of this encounter
--- OUTSIDE RECORDS SUMMARY | 2025-08-18 18:09 | XMS_ITS | Clinical Summary ---
Author Organization [employer] [facility] Address [address] [place] [address] Care Team Providers Care Nurse Head Name Role Phone Sherly Donald Primary Care [...] age to complete this topic Care Teams Nurse Head Relationship Specialty Start Date End Date Sherly Donald [address] [place] [id number] PCP - General Internal Medicine 06/04/21
== END 2025-08-18 16:17 | disposition home or self-care (01) ==
LOC: HO.HPS 15:48
PROVIDERS: PCP Student in an Organized Health Care Education/Training Program; Referring Provider Student in an Organized Health Care Education/Training Program; Visit Provider Hospitalist
DX: C18.9 Malignant neoplasm of colon, unspecified (principal); C78.00 Secondary malignant neoplasm of unspecified lung; R91.8 Other nonspecific abnormal finding of lung field; J98.11 Atelectasis; J45.40 Moderate persistent asthma, uncomplicated
CPT/HCPCS: 99204

== ENCOUNTER → 2025-08-18 15:47 | Outpatient (BNVA) | payer OTHER, SELFPAY | PROVIDERS: PCP Student in an Organized Health Care Education/Training Program; Referring Provider Student in an Organized Health Care Education/Training Program; Visit Provider Hospitalist | DX: R91.8 Other nonspecific abnormal finding of lung field (principal); C78.00 Secondary malignant neoplasm of unspecified lung; C18.9 Malignant neoplasm of colon, unspecified; J98.11 Atelectasis; J45.40 Moderate persistent asthma, uncomplicated | CPT/HCPCS: 99202 ==

== ENCOUNTER 2025-08-19 11:01 | Outpatient (AMB) | payer OTHER, SELFPAY ==
--- OUTSIDE RECORDS SUMMARY | 2020-10-03 11:22 | XMS_ITS | Continuity of Care Document ---
Author Organization [facility] Address [address] [place] [address] [place] [phone] Phone Care Team Providers Care Director Of Outside Sales Name Role Phone Castro Cedillo MD Unavailable Unavailable Allergies, Adverse Reactions, Alerts Substance Reaction Status Criticality No Known Allergies Active No Inform ation Procedures Procedure Date Office/Oupt E&M New Pt 45 Mins Duplex Scan-extrem Veins; Comp Add'l Supplies Advance Directives Directive Yes / No Effective Date File Name No Information Encounters Encounter Description Practice Location Reason(s) For Visit Diagnoses Date Provider Providers Copied on Encounter [facility], [address] [address], [place], [place], [id number], tel:[phone] [facility] No Information 0 Nguyen Erazo. [address] [place] [address], [id number] , [place]. tel: [phone] Referring Provider: Vernon Toledo MD F, [address], [place], [address]. tel:[phone] Office/Oupt E&M New Pt 45 Mins [facility], [address] [address], [place], [place], [id number], tel:[phone] [facility] [place] [facility] [place] Body mass index (BMI) 45.0-49.9, adultVaricose veins of bi low extrem w oth complicationsVe nous insufficiency (chronic) (peripheral) 0 Tre Junior. [address], [address], [facility], [address], [place]. tel: [phone] Referring Provider: Brendon Verma, [address], [place], [address] . tel:[phone] [facility], [address] [place] [address], [id number], [place] tel:[phone] [facility] [place] [facility] [place] Chronic venous htn w oth comp of bilateral low extrm 0 Tre Junior. [address], [address], [facility], [address], [place]. tel: [phone] Referring Provider: Brendon Verma, [address], [place], [address] . tel:[phone] Family History Family Member Type Diagnosis Age At Onset No Information Payers Payer name Insurance type Covered republican ID Authoriza tion(s) Medical Assistance [facility] [id number] Social History Type Description Quantity Date Captured Comments Sex Female Smoking Status No Information Chief Complaint And Reason For Visit No Information Reason For Referral Reason For Referral No Information Plan Of Treatment Date Type Action Status Goal Diet education completed Referral Ordered: Duplex Scan-extrem Veins; Comp Bilateral leg ordered History Of Present Illness Encounter Date Complaint History Of Prese nt Illness No Information Functional Status Date Functional Assessmen t No Information Instructions Date Instruction Additional Infor mation Pre and post instruc tions reviewed and provided Related to V V w/Othr Complictns (Lrsk-Oicon-Crgspfis); BILAT Patient education booklet given Related to V V w/Othr Complictns (Yxez-Iuxra-Alicxbix); BILAT Giving Encouragement to Exercise Related to Body mass index [BMI] 45.0-49.9, adult Diet education Related to Body mass index [BMI] 45.0-49.9, adult Assessments Type Assessment Date No Information Patient Care Teams Name Effective Dates (start - stop) Status Members No Information
--- OUTSIDE RECORDS SUMMARY | 2024-07-29 15:38 | XMS_ITS | Encounter Summary ---
Author Organization [employer] Address [address] [place] [address] Care Team Providers Care Framing Mechanic Name Role Phone Sherly Donald MD Primary Care Provider [phone] [phone] Encounter Details Date Type Department Care Team [...] 10:22 PM EDT Danielle France RN * [place] Suicide Severity Rating Scale (Screener/Recent Self-Report) Question [...] Description 08/30/2025 11:00 AM EST Office Visit [facility] Hematology Oncology [address] [place] [phone] Jaison Mendez MD [address] [place] [address] 02/27/2026 8:20 AM EDT Consult Gastroenterology - [address] [phone] Missy Allen, KARL [address] [place] [phone] documented as of this encounter Visit Diagnoses Not on filedocumented in this encounter Additional Health Concerns Infection Onset Date Last Indicated Resolved Time Respiratory Rule-Out 08/01/2025 08/01/2025 025 6:13 AM EDT COVID-19 Rule-Out 08/01/2025 08/01/2025 08/01/2025 6:13 AM EDT documented as of this encounter Care Teams Framing Mechanic Relationship Specialty Start Date End Date Sherly Donald MD [address] [place] [address] PCP - General Internal Medicine 05/29/21 documented as of this encounter
[2025-08-19 11:04] VITALS: BP 102/67; PULSE 90; RESP 16; TEMP 36.8; O2SAT 96; BMI 40.6
--- NOTE | 2025-08-19 11:04 | A.OFFPC_ITS ---
Vital Signs 08/19/25 11:04 Height 5 ft 11.85 in Weight 298 lb 2 oz BMI 40.6 BP 102/67 Blood Pressure Location Lt brachial Position Sitting Respiration 16 Pulse 90 Pulse Source Pulse Oximeter Temp 98.3 F Temp Source Oral Pulse Oximetry (%) 96 Oxygen Delivery Method Room Air Intake Visit Reasons: 2 week follow up Intake Note: establish care have colon cancer stage 4 metastasized shes in her last days. Clinical Office Technician Required: No Accompanied by: Self / Same As Patient Allergies No Known Allergies Allergy (Verified 08/19/25 11:04) Tobacco use date assessed: 08/12/25 Dental Screening Dental Screen Date: 08/12/25 Did you have a dental visit in the last 12 months?: Yes Did you have a dental problem in the last 6 months where you did not have access to dental care?: No Was dental information given to patient?: Patient has dentist HPI HPI Comments History of Present Illness Details History of Present Illness The patient is a 45-year-old female presenting with concerns about participating in a phase 1 clinical trial for her cancer treatment. 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 Previously considered a phase 2 clinical trial as per the patient's oncologist. The patient has self-researched potential treatments, raising concerns about trial-associated mortality due to insufficient explanations from the trial physician. Dyspnea: The patient recently consulted pulmonology, where antibiotics, oral steroids, and inhalation therapy with Wixela were prescribed. She is advised to continue her current sofa use and has a follow-up scheduled in 6-8 weeks. Insomnia: Seven days a week, the patient reports significant sleep disturbance described vaguely as an unidentified feeling that disrupts her ability to rest. Surgical History: - Lobectomy (for liver metastasis) Medications: - Antibiotics (recently prescribed for d yspnea) - Oral steroids (for pulmonary symptoms) - Wixela inhalation therapy (for dyspnea management) Past Medical History - Stage IV Colorectal Cancer Health Maintenance - Engagement in decision-making regardin g treatment, including evaluation of a phase 1 clinical trial. [facility] Medical History (Updated 08/18/25 @ 19:51 by Jey Schroeder MD) Asthma Atelectasis pulmonary Metastatic carcinoma Pulmonary nodules Morbid obesity due to excess calories History of chemotherapy Colon cancer metastasized to lung Family History Father No problems noted. Mother High blood pressure Diabetes Social History Housing: House Alcohol intake: current Alcohol intake frequency: holidays/special occasions only Patient Tobacco Use Status: Never used Tobacco service: No Current occupational status: unemployed and disabled Cognitive needs: Yes (cane and walker) Hearing needs: No Vision needs: No Questionnaire Thrive Questionnaire Date Thrive assessed: 07/14/25 I am a: Patient What is your living situation today?: I have a steady place to live Within the past 12 months, did the food you bought not last and you didn't have the money to get more?: Often true Within the past 12 months, did you worry whether your food would run out before you got money to buy more?: Sometimes True Do you have trouble paying for medicines?: Yes Do you have trouble getting transportation to medical appointments?: No Do you have trouble paying your heating and electricity bill?: Yes Do you have trouble taking care of your child, family member or friend?: No Are you currently unemployed and looking for a job?: No Are you interested in more education?: No Please select the resources that you would like help with: None Currently or been in a relationship where the following occur: I choose not to answer THRIVE Score: 3 ALYSSA-7 AMB Questionnaire ALYSSA-7 Date ALYSSA - 7 assessed: 08/05/25 Source: Developed by Drs. Bran Mason, Zoya Skinner, Dejan Olmedo and colleagues, with an educational wally from [employer]. Review of Systems Narrative Review of Systems - General: Reports an unspecified feeling that interferes with sleep. - Sleep: Reports insomnia seven days a week. 10-point ROS reviewed and negative except as noted in HPI Physical exam (Primary Care) Vital Signs: Last Vital Signs Temp 98.3 F 08/19/25 11:04 Pulse 90 08/19/25 11:04 Resp 16 08/19/25 11:04 BP 102/67 08/19/25 11:04 Pulse Ox 96 08/19/25 11:04 Oxygen Delivery Method Room Air 08/19/25 11:04 BMI result Body Mass Index 40.6 Tobacco/Smoking Status: Tobacco use Status Tobacco use date assessed 08/12/25 08/19/25 11:11 Patient Tobacco Use Status Never used Tobacco 08/19/25 11:11 Thrive Assessment: Date of Thrive Assessment Date Thrive assessed 07/14/25 08/19/25 11:11 Currently or been in a relationship where the following occur: I choose not to answer Narrative Physical Exam General: Well-appearing, in no acute distress. Vital signs: Within normal limits. HEENT: Normocephalic, atraumatic. PERRLA, EOMI. Conjunctiva clear, sclera anicteric. Oropharynx clear, mucous membranes moist. TMs intact bilaterally. Neck: Supple, no lymphadenopathy, no thyromegaly, no JVD or carotid bruits. Cardiovascular: RRR, normal S1/S2, no murmurs, rubs, or gallops. Peripheral pulses 2+ and symmetric. No edema. Respiratory: Lungs clear to auscultation bilaterally, no wheezes, rales, or rhonchi. Normal effort. Abdomen: Soft, non-tender, non-distended. Normoactive bowel sounds. No hepatosplenomegaly, no masses. MSK: Full range of motion, no joint swelling or deformity. Normal gait. Skin: Warm, dry, intact. No rashes, lesions, or pallor. Neuro: Alert and oriented x3. Cranial nerves II-XII intact. Strength 5/5 throughout. Sensation intact. Reflexes 2+ symmetric. Normal coordination and gait. Psych: Appropriate mood and affect. Normal judgment and insight. Coding Level of Care Code Est Pt Level 3 (62350) Diagnoses Colon cancer metastasized to lung C18.9; C78.00 Moderate persistent asthma without complication J45.40 Asthma complication type: uncomplicated Asthma persistence: persistent Asthma severity: moderate History of chemotherapy Z92.21 Metastatic carcinoma C79.9 Morbid obesity due to excess calories E66.01 Assessment & Plan Assessment & Plan (1) Colon cancer metastasized to lung: Code(s): C18.9 - Malignant neoplasm of colon, unspecified; C78.00 - Secondary malignant neoplasm of unspecified lung Category: Medical (2) Asthma: Code(s): J45.909 - Unspecified asthma, uncomplicated Category: Medical Qualifiers: Asthma complication type: uncomplicated Asthma persistence: persistent Asthma severity: moderate Qualified Code(s): J45.40 - Moderate persistent asthma, uncomplicated (3) History of chemotherapy: Code(s): Z92.21 - Personal history of antineoplastic chemotherapy Category: Medical (4) Metastatic carcinoma: Code(s): C79.9 - Secondary malignant neoplasm of unspecified site Category: Medical (5) Morbid obesity due to excess calories: Code(s): E66.01 - Morbid (severe) obesity due to excess calories Category: Medical Plan Consent The patient is contemplating participation in a phase 1 clinical trial and raised concerns regarding the study's safety. She is aware of mortality associated with similar treatments, and expressed dissatisfaction with the lack of information on mortality rates provided by the study physician. No consent was obtained during this visit. The patient will review the trial details and a follow-up discussion is scheduled for Friday to revisit her decision after thorough evaluation of the provided information. Patient was informed and verbally consented to the use of an ambient scribe for clinic note documentation during this visit. Plan 1. Stage Iv Colorectal Cancer With Pulmonary Metastases - The patient is reviewing a phase 1 clinical trial as a potential treatment option. - A detailed evaluation of trial information provided by the patient will be conducted to assist in her decision-making process. - A follow-up discussion is planned for Friday. 2. Dyspnea - Continue prescribed antibiotics and oral steroids for pulmonary symptoms. - Continue the use of Wixela inhalation therapy. - Follow-up with pulmonology in 6-8 weeks as previously scheduled. 3. Insomnia - Discuss sleep hygiene and strategies for managing insomnia. - Consider referral to a sleep specialist if symptoms persist after trial participation decisions. Discussion Notes During our visit, I addressed the patients interest in enrolling in a phase 1 clinical trial for her stage IV colorectal cancer which has metastasized to the lungs. Concerns were raised about the safety of the trial, emphasizing the importance of transparency given past incidents of mortality related to similar treatments. I explained the intended review of the detailed trial documents she brought, aiming for a follow-up conversation on Friday to further assess her circumstances and readiness for informed consent. Treatment options were reviewed along with the potential risks and benefits. No final decision regarding trial participation was made during the visit. Patient Instructions - Review the clinical trial documentation thoroughly. - Maintain current medications including oral steroids, antibiotics, and Wixela inhaler as prescribed. - Monitor for changes in dyspnea and report any significant worsening. - Practice sleep hygiene strategies to manage insomnia. - Review the trial findings together on Friday for decision-making. Medical Decision Making The evaluation of participation in a phase 1 clinical trial for this 45-year-old female with stage IV colorectal cancer with pulmonary metastases hinges on the patient's understanding of the associated risks and benefits. Given the ongoing treatment and management of her dyspnea and insomnia, the patient's concern regarding mortality rates tied to novel treatments requires careful examination of the available documentation. The decision-making process will be revisited after a detailed analysis of the trial information, ensuring an informed choice in the context of ongoing management strategies for her symptoms as well as her overall health objectives. Total time spent caring for the patient today was 20 minutes. This includes time spent before the visit reviewing the chart, time spent documenting, and time spent reviewing laboratory results, diagnostic imaging, medications, performing a medically necessary evaluation, counseling on diagnoses, care coordination. Medications: New food supplemt, lactose-reduced (Ensure Plus) 1 ea PO .3 times a day 5,688 mL 0RF
--- OUTSIDE RECORDS SUMMARY | 2025-08-19 12:32 | XMS_ITS | Encounter Summary ---
Author Organization [facility] Address [address] [place] [address] Care Team Providers Care Day Care Center Director Name Role Phone Sherly Donald MD Primary Care Provider [phone] Encounter Details Date Type Department Care Team (Late Contact Info) Description 02/07/2025 Lab Requisition [facility] Lab [address] [place] [id number] Jorge Anderson MD [address] [address] Microscopic colitis, unspecified Social History Tobacco Use [...] Description 08/30/2025 11:00 AM EST Office Visit [facility] Hematology Oncology [address] [place] [phone] Jaison Mendez MD [address] [place] [address] 02/27/2026 8:20 AM EDT Consult Gastroenterology - [address] [place] [phone] Missy Allen, KARL [address] [place] [address] documented as of this encounter [...] available upon request. 05/11/2025 1:33 PM EDT [facility] Clinical Information Historical slide request for [facility] ([facility]) [id number] & [id number] 05/11/2025 1:33 PM EDT [facility] Gross Description A. 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 Cabello slides ([id number] (23) and [id number] (8) sent: DFCI - path processing ([facility]) [address] [facility], [address] [address] [employer] #[id number] 01/25/24 [place] -- received a second request for a block At the request of Dr. Cabello [phone] Block A1 sent SL/BLANK [employer] Tracking #: [id number] 05/11/2025 1:33 PM EDT EXTERNAL LAB (NON-INTERFAC ED) Disclaimer Unless otherwise specified, all tissue is 10% NB formalin fixed and paraffin embedded. 05/11/2025 1:33 PM EDT [facility] Tissue Colon structure / Unknown 02/07/2025 11:53 AM EDT 02/07/2025 11:54 AM EDT us Jorge Anderson MD LAB PATHOLOGY ORDERABLES Fi nal Result [facility] [address] [place] [address], EXTERNAL LAB (NON-INTERFACED) documented in this encounter Visit Diagnoses Diagnosis Microscopic colitis, unspecified documented in this encounter Additional Health Concerns Infection Onset Date Last Indicated Resolved Time Respiratory Rule-Out 08/01/2025 08/01/2025 025 6:13 AM EDT COVID-19 Rule-Out 08/01/2025 08/01/2025 08/01/2025 6:13 AM EDT documented as of this encounter Care Teams Day Care Center Director Relationship Specialty Start Date End Date Sherly Donald MD [address] [place] [address] PCP - General Internal Medicine 05/29/21 documented as of this encounter
--- OUTSIDE RECORDS SUMMARY | 2025-08-19 12:32 | XMS_ITS | Clinical Summary ---
Author Organization [facility] Address [address] [place] [address] Phone Care Team Providers Care Garment Worker Name Role Phone Sherly Donald MD Primary Care Provider [phone] Allergies No known active allergies Medications acetaminophen [...] -Seen in Pet CT scan done at [place] 10-28-24: bilateral FDG avid pulmonary nodules, new [...] therapist, whose name is Franci therapist in [place] Neuropathy 09/29/2024 Overview (09/29/2024): -2ary to chemotherapy [...] Type Department Care Team Description 08/11/2025 Telephone [facility] Hematology Oncology [address] [place] [address] Jaison Mendez MD 08/05/2025 10:11 PM EDT - 08/06/2025 6:30 AM EDT Emergency [facility] Emergency [address] [place] [phone] Ирина López MD Diffuse abdominal pain (Primary Dx); Chest pain, unspecified type; Acute gastritis without hemorrhage, unspecified gastritis type Discharge Disposition: Home or Self Care 08/04/2025 Telephone [facility] Hematology Oncology [address] [place] [phone] Moon Contreras MA 07/31/2025 11:19 PM EDT - 08/01/2025 7:15 AM EDT Emergency [facility] Emergency [address] [place] [phone] Sheyla Mazariegos MD Chest pain, unspecified type (Primary Dx); Left upper quadrant abdominal pain; Gastritis without bleeding, unspecified chronicity, unspecified gastritis type Discharge Disposition: Home or Self Care 07/29/2025 Telephone [facility] Hematology Oncology [address] [place] [phone] Jaison Mendez MD 07/26/2025 Telephone [facility] Hematology Oncology [address] [place] [phone] Lena Mckee MA 07/25/2025 1:00 PM EDT - 07/25/2025 11:59 PM EDT Hospital Encounter [facility] Nuclear Medicine [address] [place] [phone] Discharge Disposition: Home or Self Care 07/25/2025 8:00 AM EDT - 07/25/2025 11:59 PM EDT Hospital Encounter [facility] Nuclear Medicine [address] [place] [phone] Metastatic colon cancer to liver (CMS/HCC V24, CMS/HCC V28); Colon cancer metastasized to lung (CMS/HCC V24, CMS/HCC V28) Discharge Disposition: Home or Self Care 07/21/2025 Telephone [facility] Infusion Center [address] [place] [phone] Jaison Mendez MD 07/19/2025 11:15 AM EDT Office Visit [facility] Hematology Oncology [address] [place] [phone] Jaison Mendez MD Colon cancer metastasized to multiple sites (CMS/HCC V24, CMS/HCC V28) (Primary Dx) 07/05/2025 Telephone [facility] Hematology Oncology [address] [place] [phone] Moon Contreras MA 07/01/2025 Social Work [facility] Infusion Center [address] [place] [phone] Shade WorrellFELICIA 06/16/2025 2:30 PM EDT - 06/16/2025 11:59 PM EDT Hospital Encounter [facility] Infusion Center [address] [place] [phone] Jaison Mendez MD Malignant neoplasm of splenic flexure (CMS/HCC V24, CMS/HCC V28) Discharge Disposition: Home or Self Care 06/09/2025 Telephone [facility] Hematology Oncology [address] [place] [phone] Moon Contreras [place] 06/06/2025 11:45 AM EDT Office Visit [facility] Hematology Oncology [address] [place] [phone] Jaison Mendez MD Colon cancer metastasized to multiple sites (CMS/HCC V24, CMS/[facility] V28) (Primary Dx); Pain management 05/26/2025 Telephone [facility] Hematology Oncology [address] [place] [phone] Jaison Mendez MD from Last 3 Months [...] extremeity venous surgeries VARICOSE VEIN SURGERY PROCEDURE: [place] LIGJ DIVJ &/EXCJ VARICOSE VEIN CLUSTER 1 LEG OTHER SURGICAL HISTORY 05/18/2021 PROCEDURE: [place] LAPAROSCOPY COLECTOMY PARTIAL W/ANASTOMOSIS; COMMENT: segmental colectomy with anastomosis, en bloc splenectomy, and en bloc distal pancreatectomy - to address adenocarcinoma of transverse colon (no jeronimo involvement or extension to spleen or distal pancreas) - Dr. Jorge Anderson [facility] OTHER SURGICAL HISTORY PROCEDURE: HISTORY OTHER; COMMENT: extended left hepatectomy, partial right hepatectomy, cholecystectomy @ [facility] Medical History Medical History Date Comments Anxiety state DX:Anxiety state Asthma DX:Asthma Abnormal cytological finding in specimen from cervix DX:Abnormal cytological find ing in specimen from cervix Colon cancer (CMS/HCC V24, C SD/HCC V28) 2020 DX:Colon cancer (HCC) Cancer of liver (CMS/HCC V24 , [facility]/HCC V28) 2021 DX:Cancer of liver (HCC) Metastases to the liver (CMS /HCC V24, [facility]/HCC V28) 11/05/2022 DX:Metastases to the liver [...] Visit [facility] Hematology Oncology [address] [place] [phone] Jaison Mendez MD [address] [place] [address] 02/27/2026 8:20 AM EDT Consult Gastroenterology - [address] [facility] [address] [facility] [address] [place] [phone] Missy Allen, WALL CLE[employer]ER [address] [place] [phone] Health Maintenance Due Date Last Done Comments Hepatitis A Vaccines (1 of 2 - Risk 2-dose series) 2000 Hepatitis B Vaccines (1 of 3 - 19+ 3-dose series) 2000 HPV Vaccines (1 - Risk 3-dose SCDM series) 2008 Cholesterol Screening (Lipid Panel) 09/27/2022 HIV Screening 09/27/2022 Social Influencers of Health Screening [...] on patient's age to complete this topic Hepatitis C Screening Completed 08/16/2025 IPV Vaccines Aged Out No longer eligi [...] 08/05/2025 11:21 PM EDT ECG ANNOTATED 08/02/2025 [id number], RSV, FLU A AND B QUALITATIVE RT-PCR, [...] Signed Date: 08/06/2025 08:57 ET Workstation ID: [id number] Transcribed By: Self Edit Transcribed Date: 08/06/2025 [...] Signed Date: 08/06/2025 08:57 ET Workstation ID: [id number] Transcribed By: Self Edit Transcribed Date: 08/06/2025 08:54 ET Ирина López MD IMG XR PROCEDURES Final Result * Troponin I high sensitivity (NOW and then in 1 hour) (08/06/2025 1:44 AM EDT) Only the most recent of3 resultswithin the time period is included. [facility] High Sensitivity Troponin I 4 <=54 ng/L LAB CHEMISTRY METHOD 08/06/2025 2:14 AM EDT [facility] Blood Venous blood specimen / Unknown Venipuncture / Unknown 08/06/2025 1:44 AM EDT 08/06/2025 1:49 AM EDT Narrative [facility] - 08/06/2025 2:14 AM EDT High levels of biotin in samples may falsely decrease hsTroponin values. Use caution when interpreting hsTroponin results in patients taking biotin who exhibit renal impairment (eGFR <60) or in patients taking more than 20 mg/day of biotin. Ирина López MD LAB BLOOD ORDERABLES Final Res ult Performing Organization Address City/[facility]/ZIP Co de Phone Number [facility] [address] [place] [address], [place] [phone] * B-type natriuretic peptide (08/06/2025 1:44 AM EDT) Only the most recent of2 resultswithin the time period is included. [facility] BNP 10 <=100 pcg/mL LAB CHEMISTRY METHOD 08/06/2025 3:16 AM EDT [facility] Blood Venous blood specimen / Unknown Venipuncture / Unknown 08/06/2025 1:44 AM EDT 08/06/2025 1:49 AM EDT us Ирина López MD LAB BLOOD ORDERABLES Final Res ult [facility] [address] [place] [address], [place] [phone] * ECG 12 lead (08/06/2025 1:25 AM EDT) Only the most recent of3 resultswithin the time period is included. Ventricular Rate ECG 78 BPM GEMUSE Atrial Rate 78 BPM GEMUSE P-R Interval 186 ms GEMUSE QRS Duration 96 ms GEMUSE Q-T Interval 380 ms GEMUSE QTc 433 ms GEMUSE P Wave [place] 57 degrees GEMUSE R [place] 74 degrees GEMUSE T [place] 50 degrees GEMUSE ECG Interpretation Normal sinus [...] EXPIRATION DATE POC 12-28-2026 LOT NUMBER POC [id number] Urine Urine specimen obtained by clean catch procedure / Unknown 08/06/2025 12:43 AM EDT Ирина López MD POINT OF CARE TEST ENTER/EDIT ORDERABLES Final Result * Urinalysis with reflex microscopic and culture (08/06/2025 12:38 AM EDT) [facility] Specific Spangle Urine 1.023 1.003 - 1.030 LAB URINALYSIS - AUTOMATED METHOD 08/06/2025 12:58 AM [facility] pH, Urine 8.0 5.0 - 8.0 pH LAB URINALYSIS - AUTOMATED METHOD 08/06/2025 12:58 AM [facility] Leukocytes, Urine Negative Negative LAB URINALYSIS - AUTOMATED METHOD 08/06/2025 12:58 AM [facility] Nitrite, Urine Negative Negative LAB URINALYSIS - AUTOMATED METHOD 08/06/2025 12:58 AM [facility] Protein, Urine Negative <=Trace mg/dL LAB URINALYSIS - AUTOMATED METHOD 08/06/2025 12:58 AM [facility] Glucose, Urine Negative Negative mg/dL LAB URINALYSIS - AUTOMATED METHOD 08/06/2025 12:58 AM [facility] Ketones, Urine Negative Negative mg/dL LAB URINALYSIS - AUTOMATED METHOD 08/06/2025 12:58 AM [facility] Urobilinogen, Urine 1.0 0.2 - 1.0 mg/dL LAB URINALYSIS - AUTOMATED METHOD 08/06/2025 12:58 AM [facility] Bilirubin, Urine Negative Negative LAB URINALYSIS - AUTOMATED METHOD 08/06/2025 12:58 AM [facility] Blood, Urine Negative Negative LAB URINALYSIS - AUTOMATED METHOD 08/06/2025 12:58 AM EDT [facility] Urine Urine specimen obtained by clean catch procedure / Unknown Non-blood Collection / Unknown 08/06/2025 12:38 AM EDT 08/06/2025 12:49 AM EDT Ирина López MD LAB URINE ORDERABLES Final Res ult Performing Organization Address [facility]/ZIP Co de Phone Number [facility] [address] [place] [address], [place] [phone] * [place] urine culture tube (08/06/2025 12:38 AM EDT) Extra Tube Hold for add-ons. 08/06/2025 2:01 AM EDT [facility] Comment:Auto resulted. Urine Urine specimen obtained by clean catch procedure / Unknown Non-blood Collection / Unknown 08/06/2025 12:38 AM EDT 08/06/2025 12:49 AM EDT Ирина López MD LAB URINE ORDERABLES Final Res ult Performing Organization Address [facility] de Phone Number [facility] [address] [place] [address], [place] [phone] * ECG-Annotated (08/06/2025) Only the most recent of2 resultswithin the time period is included. Provider Onbase ECG ORDERABLES Final Result * (ABNORMAL) CBC auto differential (08/05/2025 11:21 PM EDT) Only the most recent of3 resultswithin the time period is included. WBC 12.6(H) 4.8 - 10.8 K/[facility] LAB HEMETOLOGY METHOD 08/05/2025 11:35 PM EDT [facility] RBC 4.20 3.80 - 4.80 M/mcL LAB HEMETOLOGY METHOD 08/05/2025 11:35 PM EDT [facility] Hemoglobin 12.5 11.5 - 16.0 g/dL LAB HEMETOLOGY METHOD 08/05[facility]2025 [facility] Hematocrit 37.8 35.0 - 47.0 % LAB HEMETOLOGY METHOD 08/05/2025 11:35 PM EDT [facility] MCV 89.6 79.0 - 98.0 FL LAB HEMETOLOGY METHOD 08/05/2025 11:[facility] MCH 29.6 27.0 - 32.0 pcg LAB HEMETOLOGY METHOD 08/05/2025 11:[facility] MCHC 33.1 32.0 - 37.0 g/dL LAB HEMETOLOGY METHOD 08/05/2025 11:35 PM EDT [facility] RDW 14.4 11.0 - 15.0 % LAB HEMETOLOGY METHOD 08/05/2025 11:35 PM [facility] Platelets 322 130 - 400 K/mcL LAB HEMETOLOGY METHOD 08/05/2025 11:35 PM [facility] MPV 9.7 7.0 - 11.0 FL LAB HEMETOLOGY METHOD 08/05/2025 11:35 PM EDT [facility] NRBC 0.0 <1.0 % LAB HEMETOLOGY METHOD 08/05/2025 11:35 PM EDT [facility] NRBC Absolute 0.00 <0.10 K/mcL LAB HEMETOLOGY METHOD 08/05/2025 11:[facility] Neutrophils Relative 56.4 % LAB HEMETOLOGY METHOD 08/05/2025 11:35 PM EDT [facility] Lymphocytes Relative 33.6 % LAB HEMETOLOGY METHOD 08/05/2025 11:35 PM EDT [facility] Monocytes Relative 7.2 % LAB HEMETOLOGY METHOD 08/05/2025 11:35 PM EDT [facility] Eosinophils Relative 2.1 % LAB HEMETOLOGY METHOD 08/05/2025 11:35 PM T [facility] Basophils Relative 0.5 % LAB HEMETOLOGY METHOD 08/05/2025 11:35 PM EDT [facility] Immature Granulocytes Relative 0.2 % LAB HEMETOLOGY METHOD 08/05/2025 11:35 PM EDT [facility] Neutrophils Absolute 7.09(H) 1.50 - 7.00 K/mcL LAB HEMETOLOGY METHOD 08/05/2025 11:35 PM [facility] Lymphocytes Absolute 4.23 1.00 - 5.00 K/mcL LAB HEMETOLOGY METHOD 08/05/2025 11:35 PM T [facility] Monocytes Absolute 0.90 0.20 - 1.00 K/mcL LAB HEMETOLOGY METHOD 08/05/2025 11:35 PM T [facility] Eosinophils Absolute 0.27 0.00 - 0.50 K/mcL LAB HEMETOLOGY METHOD 08/05/2025 11:35 PM [facility] Basophils Absolute 0.06 0.00 - 0.20 K/mcL LAB HEMETOLOGY METHOD 08/05/2025 11:35 PM EDT [facility] Immature Granulocytes Absolute 0.03 0.00 - 0.03 K/mcL LAB HEMETOLOGY METHOD 08/05/2025 11:35 PM [facility] Blood Venous blood specimen / Unknown Venipuncture / Unknown 08/05/2025 11:21 PM EDT 08/05/2025 11:30 PM EDT us Ирина López MD LAB BLOOD ORDERABLES Final Res ult Performing Organization Address [facility]/ZIP Co de Phone Number [facility] [address] [place] [address], * Lipase (08/05/2025 11:21 PM EDT) Only the most recent of2 resultswithin the time period is included. Lipase 35 13 - 75 unit/L LAB CHEMISTRY METHOD 08/06/2025 12:07 AM [facility] Blood Venous blood specimen / Unknown Venipuncture / Unknown 08/05/2025 11:21 PM EDT 08/05/2025 11:31 PM EDT Ирина López MD LAB BLOOD ORDERABLES Final Res ult Performing Organization Address [facility] Co de Phone Number [facility] [address] [place] [address], [place] [phone] * (ABNORMAL) Comprehensive metabolic panel (08/05/2025 11:21 PM EDT) Only the most recent of3 resultswithin the time period is included. Sodium 139 133 - 145 mmol/L LAB CHEMISTRY METHOD 08/06/2025 12:07 AM [facility] Potassium 4.0 3.5 - 5.5 mmol/L LAB CHEMISTRY METHOD 08/06/2025 12:07 AM [facility] Chloride 105 96 - 110 mmol/L LAB CHEMISTRY METHOD 08/06/2025 12:07 AM [facility] CO2 28 21 - 32 mmol/L LAB CHEMISTRY METHOD 08/06/2025 12:07 AM [facility] Anion Gap 6 3 - 11 LAB CHEMISTRY METHOD 08/06/2025 12:07 AM [facility] Glucose 102(H) 70 - 100 mg/dL LAB CHEMISTRY METHOD 08/06/2025 12:07 AM [facility] BUN 18 5 - 25 mg/dL LAB CHEMISTRY METHOD 08/06/2025 12:07 AM [facility] Creatinine 0.86 0.50 - 1.10 mg/dL LAB CHEMISTRY METHOD 08/06/2025 12:07 AM [facility] eGFR 86 >=60 mL/min/1. 73m2 LAB CHEMISTRY METHOD 08/06/2025 12:07 AM [facility] Comment:Calculation based on the Chronic Kidney Disease Epidemiology Collaboration (CKD-EPI) equation refit without adjustment for race. BUN/Creatinine Ratio 20.9 LAB CHEMISTRY METHOD 08/06/2025 12:07 AM [facility] Calcium 9.3 8.5 - 10.5 mg/dL LAB CHEMISTRY METHOD 08/06/2025 12:07 AM [facility] AST (SGOT) 21 10 - 42 unit/L LAB CHEMISTRY METHOD 08/06/2025 12:07 AM [facility] ALT (SGPT) 23 10 - 60 unit/L LAB CHEMISTRY METHOD 08/06/2025 12:07 AM [facility] Alkaline Phosphatase 83 42 - 121 unit/L LAB CHEMISTRY METHOD 08/06/2025 12:07 AM [facility] Total Protein 7.1 6.0 - 8.0 g/dL LAB CHEMISTRY METHOD 08/06/2025 12:07 AM [facility] Albumin 3.4 3.2 - 5.0 g/dL LAB CHEMISTRY METHOD 08/06/2025 12:07 AM [facility] Total Bilirubin 0.2 0.0 - 1.4 mg/dL LAB CHEMISTRY METHOD 08/06/2025 12:07 AM [facility] Blood Venous blood specimen / Unknown Venipuncture / Unknown 08/05/2025 11:21 PM EDT 08/05/2025 11:31 PM EDT us Ирина Kokkinos MD LAB BLOOD ORDERABLES Final Res ult Performing Organization Address City/[facility]/ZIP Co de Phone Number [facility] [address] [place] [address], [place] [phone] * [id number], RSV, Influenza A and B qualitative RT-PCR (08/01/2025 4:36 AM EDT) Influenza A PCR Not Detected Not Detected LAB MICROBIOLOGY METHOD 08/01/2025 6:13 AM EDT [facility] Influenza B PCR Not Detected Not Detected LAB MICROBIOLOGY METHOD 08/01/2025 6:13 AM EDT [facility] RSV PCR Not Detected Not Detected LAB MICROBIOLOGY METHOD 08/01/2025 6:13 AM EDT [facility] SARS COV-2 Not Detected Not Detected LAB MICROBIOLOGY METHOD 08/01/2025 6:13 AM EDT [facility] Swab Both anterior nares / Unknown Non-blood Collection / Unknown 08/01/2025 4:36 AM EDT 08/01/2025 5:29 AM EDT Sheyla Mazariegos MD LAB MICROBIOLOGY - GENERAL ORDERABLES Final Result Performing Organization Address [facility] Co de Phone Number [facility] [address] [place] [address], [place] [phone] * CT Angio Chest wo and/or w [...] suggesting sequela of malignancy/metastatic disease. There are wxxv-vo-otubxsbm left upper lobe and lingula opacities with volume loss in this region, suggesting postobstructive atelectasis. 3. Enlarged subcarinal lymph node. This document has been electronically signed by: Cale Meléndez MD on 08/01/2025 03:11:21 Narrative 08/01/2025 3:11 AM EDT INDICATION: pulmonary embolism CT angiography chest using contrast. 3-D postprocessing Comparison: CT/KO/[place]/SR - CT CHEST ABD PEL W CONTRAST [...] of the left lower lobe. There are qzui-hd-omnoeypo opacities at the left upper lobe/lingula with associated volume loss, suggesting some degree of atelectasis. There is partial obstruction of the left upper lobe bronchus. No pneumothorax or pleural effusion. No acute fractures. Procedure Note Cale Meléndez MD - 08/01/2025 INDICATION: pulmonary embolism CT angiography chest using contrast. 3-D postprocessing Comparison: CT/KO/[place]/SR - CT CHEST ABD PEL W CONTRAST [...] of the left lower lobe. There are vsyw-wh-cughylfj opacities at the left upper lobe/lingula withassociated [...] suggesting sequela of malignancy/metastatic disease. There are mxlf-av-upnhitkg left upperlobe and lingula opacities with volume loss in this region, suggesting postobstructive atelectasis. 3. Enlarged subcarinal lymph node. This document has been electronically signed by: Cale Meléndez MD on 08/01/2025 03:11:21 Sheyla Mazariegos MD IMG CT PROCEDURES Final Res ult * Urinalysis with reflex microscopic (08/01/2025 12:15 AM EDT) Specific Spangle Urine 1.006 1.003 - 1.030 LAB URINALYSIS - AUTOMATED METHOD 08/01/2025 12:36 AM [facility] pH, Urine 7.0 5.0 - 8.0 pH LAB URINALYSIS - AUTOMATED METHOD 08/01/2025 12:36 AM [facility] Leukocytes, Urine Negative Negative LAB URINALYSIS - AUTOMATED METHOD 08/01/2025 12:36 AM [facility] Nitrite, Urine Negative Negative LAB URINALYSIS - AUTOMATED METHOD 08/01/2025 12:36 AM [facility] Protein, Urine Negative <=Trace mg/dL LAB URINALYSIS - AUTOMATED METHOD 08/01/2025 12:36 AM [facility] Glucose, Urine Negative Negative mg/dL LAB URINALYSIS - AUTOMATED METHOD 08/01/2025 12:36 AM [facility] Ketones, Urine Negative Negative mg/dL LAB URINALYSIS - AUTOMATED METHOD 08/01/2025 12:36 AM EDT [facility] Urobilinogen, Urine 0.2 0.2 - 1.0 mg/dL LAB URINALYSIS - AUTOMATED METHOD 08/01/2025 12:36 AM EDT [facility] Bilirubin, Urine Negative Negative LAB URINALYSIS - AUTOMATED METHOD 08/01/2025 12:36 AM EDT [facility] Blood, Urine Negative Negative LAB URINALYSIS - AUTOMATED METHOD 08/01/2025 12:36 AM EDT [facility] Urine Urine specimen obtained by clean catch procedure / Unknown Non-blood Collection / Unknown 08/01/2025 12:15 AM EDT 08/01/2025 12:30 AM EDT us Sheyla Mazariegos MD LAB URINE ORDERABLES Final Result [facility] [address] [place] [address], [place] [phone] * Magnesium (07/31/2025 11:50 PM EDT) Magnesium 2.0 1.9 - 2.6 mg/dL LAB CHEMISTRY METHOD 08/01/2025 12:58 AM EDT [facility] Blood Venous blood specimen / Unknown Venipuncture / Unknown 07/31/2025 11:50 PM EDT 08/01/2025 12:30 AM EDT us Xuan An NP LAB BLOOD ORDERABLES Eboni l Result [facility] [address] [place] [address], [place] [phone] * NM Bone/Joint Scan Whole Body (07/25/2025 [...] Signed Date: 07/25/2025 15:35 ET Workstation ID: [id number] Transcribed By: Self Edit Transcribed Date: 07/25/2025 15:34 ET Impressions 07/25/2025 2:18 PM EDT No evidence of osteoblastic metastatic disease is seen. [facility] [place] ([id number]) -------- FINAL REPORT -------- Dictated By: Hanane Chen Dictated Date: 07/25/2025 14:08 ET Assigned Physician: Hanane Chen Reviewed and Electronically Signed By: Hanane Chen Signed Date: 07/25/2025 14:18 ET Workstation ID: [id number] Transcribed By: Self Edit Transcribed Date: 07/25/2025 [...] of osteoblastic metastatic disease is seen. [facility] [place] ([id number]) -------- FINAL REPORT -------- Dictated By: Hanane Chen Dictated Date: 07/25/2025 14:08 ET Assigned Physician: Hanane Chen Reviewed and Electronically Signed By: Hanane Chen Signed Date: 07/25/2025 14:18 ET Workstation ID: [id number] Transcribed By: Self Edit Transcribed Date: 07/25/2025 14:08 ET us Jaison Ramona Mendez MD IMG NM PROCEDURES Edited Res ult - Final * (ABNORMAL) CEA (06/16/2025 3:02 PM EDT) CEA 79.8(H) 0.0 - 5.0 ng/mL LAB CHEMISTRY METHOD 06/16/2025 6:58 PM EDT [facility] Blood Blood sample taken from central line / Unknown Existing Catheter / Unknown 06/16/2025 3:02 PM EDT 06/16/2025 4:30 PM EDT Narrative [facility] - 06/16/2025 6:58 PM EDT The Siemens Advia Centaur Chemiluminescent Immunoassay is used. Results obtained with different assay methods or kits cannot be used interchangeably. Results cannot be interpreted as absolute evidence of the presence or absence of malignant disease. us Jaison Mendez MD LAB BLOOD ORDERABLES Final R esult [facility] [address] [place] [address], [place] [phone] * MG Mammo Digital Screening w Valdemar [...] Signed Date: 10/29/2024 15:36 ET Workstation ID: [id number] Transcribed By: Self Edit Transcribed Date: 10/29/2024 [...] Computer-aided detection was employed with the iCAD profound AI 3-D. TISSUE DENSITY: There are [...] Computer-aided detection was employed with the iCAD profound AI 3-D. TISSUE DENSITY: There are [...] Signed Date: 10/29/2024 15:36 ET Workstation ID: [id number] Transcribed By: Self Edit Transcribed Date: 10/29/2024 15:15 ET us Self Referral Sppl IMG BI PROCEDURES Final Resul t * Pap smear (11/05/2022) 11/05/2022 Narrative HISTORICAL TESTING LAB RESULTING AGENCY - 11/18/2022 7:41 AM EST [id number] THINPREP PAP: NEGATIVE FOR SQUAMOUS INTRAEPITHELIAL LESION [...] NEGATIVE 2019, LMP 11/01/22, [Z01.419] Katie Fields [facility] CYTOLOGY ORDERABLES Final Result HISTORICAL TESTING LAB RESULTING AGENCY from Last 3 Months or Most Recently Relevant to Health Maintenance Insurance Advance Directives Documents on File Type Date Recorded Patient [employer] Expl anation Health Care Decision (hx) 10/02/2022 [...] (hx) 10/02/2022 AD LEMONS DIRECTIVE Care Teams Garment Worker Relationship Specialty Start Date End Date Sherly Donald MD [address] [place] [address] PCP - General Internal Medicine 05/29/21
--- OUTSIDE RECORDS SUMMARY | 2025-08-19 12:32 | XMS_ITS | Encounter Summary ---
Author Organization [facility] Address [address] [place] [address] Care Team Providers Care Delivery Assistant Name Role Phone HernándezBenito Sherly Primary Care Provider Encounter Details Date Type Department Care Team Description 06/18/2021 Nurse Only [facility] Oncology Services [address] [place] [address] Rom Arboleda RN Social History Tobacco Use [...] oral chemotherapy and side effects. Scriptsent to [facility] RX awaiting out come. documented in this encounter Plan of Treatment Not on file documented as of this encounter Visit Diagnoses Not on filedocumented in this encounter Care Teams Delivery Assistant Relationship Specialty Start Date End Date Sherly Donald [address] [place] [phone] PCP - General Internal Medicine 06/04/21 documented as of this encounter
--- OUTSIDE RECORDS SUMMARY | 2025-08-19 12:32 | XMS_ITS | Clinical Summary ---
Author Organization [facility] Address [address] [place] [address] Care Team Providers Care Environmental Health Physician Name Role Phone Sherly Donald Primary Care [...] age to complete this topic Care Teams Environmental Health Physician Relationship Specialty Start Date End Date Sherly Donald [address] [place] [phone] PCP - General Internal Medicine 06/04/21
--- OUTSIDE RECORDS SUMMARY | 2025-08-19 12:32 | XMS_ITS | Clinical Summary ---
Author Organization [facility], Address [address] [place] [address] Phone Care Team Providers Care Director Patient Name Role Phone Sherly Donald Primary Care [...] Health Medicaid [facility] [facility] Medicaid Care Teams Director Patient Relationship Specialty Start Date End Date Sherly Donald [address] [place] [address] PCP - General Internal Medicine 04/28/23
--- OUTSIDE RECORDS SUMMARY | 2025-08-19 12:33 | XMS_ITS | Clinical Summary ---
Author Organization [facility] Address [address] [facility] [address] [place] [phone] Phone Care Team Providers Care Radiology Receptionist Name Role Phone Sherly Hernández MD Primary Care Provider [phone] Self-Referred, Patient Unavailable Unavailab Castro Adam MD Unavailable [phone] Ying Salgado RN Unavailable [email or web address] [...] 08/10/2025 Ancillary Orders [facility] [address] [place] [address] Mario Stearns MD, PhD 08/10/2025 Ancillary Orders [facility] [address] [place] [address] Mario Stearns MD, PhD 08/01/2025 12:05 AM EDT - 08/01/2025 11:59 PM EDT Hospital Encounter [facility] [address] [place] [address] Mario Stearns MD, PhD Discharge Disposition: Home or Self Care 08/01/2025 - 08/01/2025 12:04 AM EDT Hospital Encounter [facility] [address] [place] [address] Mario Stearns MD, PhD Discharge Disposition: Home [...] Description 08/22/2025 8:00 AM EST Office Visit [facility] [address] [facility]th [address], [address] [place] [address] Mario Stearns MD, PhD [address] [place] [address] [email or web address] Health Maintenance Due Date Last Done Comments [...] OR CONSULT Routine 08/01/2025 12:00 AM EDT BI MAMMOGRAM OUTSIDE (NO INTERPRETATION) Routine 10/29/2024 12:00 AM EST from Last 3 Months or Most Recently Relevant to Health Maintenance Results * CT Chest Outside With Interpretation Or Consult (08/01/2025 12:05 AM EDT) MGB IMG MILITARY ADMINISTRATIVE TECHNICIAN COMMENT Obstructing left upper lobe mass, likely metastatic versus primary lung. Pulmonary and jeronimo metastases. Trace pneumothorax. [facility] 08/14/2025 2:41 PM EDT Impressions [facility] - 08/14/2025 3:07 PM EDT * A [...] initiated on 08/14/2025 3:06 PM, Message ID [id number]. Narrative [facility] - 08/14/2025 3:[address] CHEST [...] was initiated on 08/14/2025 3:06 PM,Message ID [id number]. Mario Stearns MD, PhD IMG OUTSIDE IMAGING W/ INTER PRETATION Final Result [facility] [address] [place] [address] * CT Abdomen/Pelvis Outside with Interpretation or Consult (08/01/2025 12:00 AM EDT) 08/13/2025 9:07 AM EDT Impressions [facility] - 08/13/2025 3:21 PM EDT No acute abnormality in the abdomen or pelvis. ATTESTATION: I, Dr. Leobardo Julien as teaching physician, have reviewed the images for this case and if necessary edited the report originally created by Navya Velásquez. Narrative [facility] - 08/13/2025 3:[address] ABDOMEN/PELVIS [...] OUTSIDE IMAGING W/ INTER PRETATION Final Result [address] [address] * Mammogram Outside (No Interpretation) (10/29/2024 12:00 AM EST) Other Narrative ALPHONSE - 01/24/2025 11:10 AM EDT This study is for PACS storage only and not for interpretation. us Casrto Cabello MD IMG OUTSIDE IMAGING W/OUT INT ERPRETATION Final Result RONDA_FERNIE from Last 3 Months or Most Recently Relevant to Health Maintenance Insurance [employer] [place] [address] [place] [address] [place] [address] [place] [address] ACO Care Teams Radiology Receptionist Relationship Specialty Start Date End Date Sherly Hernández MD PCP - General 12/20/24 Self-Referred, Patient 01/14/25 Castro Cabello MD [address] [place] [phone] [email or web address] Medical Oncology 01/17/25 Ying Salgado, DIXIE [address] [place] [phone] [email or web address] Registered Nurse 01/26/25 Additional Source Comments The information contained in this document represents components of the legal health record. It is not the complete legal health record.[facility]
--- OUTSIDE RECORDS SUMMARY | 2025-08-19 12:33 | XMS_ITS ---
Author Organization [facility] Address [address] [place] [address] Phone Care Team Providers Care Casual Shoe Inspector Name Role Phone Sherly Donald MD Primary Care Provider [phone] Active Problems Problem Noted Date Diagnosed Date Multiple pulmonary nodules 12/14/2024 Overview (12/14/2024): -Also seen: New non enlarged mildly FDG avid Right lower quadrant lymph node in the mesentery -Seen in Pet CT scan done at [place] 10-28-24: bilateral FDG avid pulmonary nodules, new [...] therapist, whose name is Franci therapist in [place] Neuropathy 09/29/2024 Overview (09/29/2024): -2ary to chemotherapy [...]
== END 2025-08-19 11:39 | disposition home or self-care (01) ==
LOC: HO.HMCFMS 11:01
PROVIDERS: PCP Student in an Organized Health Care Education/Training Program; Visit Provider Student in an Organized Health Care Education/Training Program
DX: C18.9 Malignant neoplasm of colon, unspecified (principal); C78.00 Secondary malignant neoplasm of unspecified lung; J45.40 Moderate persistent asthma, uncomplicated; Z92.21 Personal history of antineoplastic chemotherapy; C79.9 Secondary malignant neoplasm of unspecified site; E66.01 Morbid (severe) obesity due to excess calories

== ENCOUNTER → 2025-08-19 11:01 | Outpatient (BNVA) | payer OTHER, SELFPAY | PROVIDERS: PCP Student in an Organized Health Care Education/Training Program; Visit Provider Student in an Organized Health Care Education/Training Program | DX: J45.40 Moderate persistent asthma, uncomplicated (principal); C18.9 Malignant neoplasm of colon, unspecified; C78.00 Secondary malignant neoplasm of unspecified lung; C79.9 Secondary malignant neoplasm of unspecified site; E66.01 Morbid (severe) obesity due to excess calories; Z92.21 Personal history of antineoplastic chemotherapy; Z68.41 Body mass index [BMI] 40.0-44.9, adult | CPT/HCPCS: 99212 ==

== ENCOUNTER 2025-09-05 12:52 | Outpatient (AMB) | payer OTHER, SELFPAY ==
--- NOTE | 2025-09-05 13:05 | MHC.AMNUTRGE ---
VS Expanded 09/05/25 13:07 09/05/25 13:29 Height 5 ft 11.8 in 5 ft 11.8 in Weight 295 lb 295 lb BMI 40.2 40.2 Intake Visit Reasons: Obesity Allergies No Known Allergies Allergy (Verified 08/19/25 11:04) Nutrition Presentation Details: Pt presents for MNT for morbid obesity. Pt has colon CA with oligometastatic disease to the liver. Pt reports maintaining positive. Pt reports working on diet modifications, working on reducing on sugar and choosing healthier food options. There are times in which appetite is low, noted Pt has ensure plus prescribed Pt has a MACHINE WELDER who helps with meal preparation. Pt reports wt fluctuates between 290-300 lbs food frequency fish: 0/wk veg: in juices form the majority of the time fruits: in juices dairy: 2x/d meal pattern green juice (apple, celery , lemon,water) lunch:sandwich : peanut butter or cheese dinner: root vegetables and chicken stewed, water XAV-Ohayuhg-Hn.Jeor Equation Height: 5 ft 11.8 in Weight: 295 lb Resting Metabolic Rate: 2099.09 Calculated Activity Level: Mild Activity Calories Needed to Maintain Weight: 2886.25 Diagnosis Nutrition problem #1: overweight/obesity As related to (etiology) #1: diagnosis As evidenced by (sign/symptom) #1: high BMI [facility] Medical History (Updated 08/18/25 @ 19:51 by Jey Schroeder MD) Asthma Atelectasis pulmonary Metastatic carcinoma Pulmonary nodules Morbid obesity due to excess calories History of chemotherapy Colon cancer metastasized to lung Family History Father No problems noted. Mother High blood pressure Diabetes Social History Housing: House Alcohol intake: current Alcohol intake frequency: holidays/special occasions only Patient Tobacco Use Status: Never used Tobacco service: No Current occupational status: unemployed and disabled Cognitive needs: Yes (cane and walker) Hearing needs: No Vision needs: No Assessment & Plan Assessment & Plan (1) Morbid obesity due to excess calories: Code(s): E66.01 - Morbid (severe) obesity due to excess calories Category: Medical Plan: current wt: 134 kg ( 09/13 ) est kcal needs as per MSJ: 2800 est protein needs as per 1 g/kg BW: 134 est fluid needs as per 30 ml/kg BW: 4000 Recommended fiber > 12 g /day and gradually increase up to 25-28 g /day or as tolerated Nutrition topics discussed : Reviewed (R), Pt verbalized understanding (V) , not applicable (N/A) R, : Healthy Plate Method Concept: R, : Carbohydrates: food sources of carbohydrates, relationship of carbohydrates to blood glucose, fatty liver GI health. Recommended total amount of carbohydrates per meals and snack. Differences between simple carbohydrates and complex carbohydrates R, : Lean protein foods including vegan , vegetarian sources of protein. Benefits of protein (including but not limited to healing, nutritional value , benefits in weight loss, glucose control R, V, N/A: Fats : Source of fats, benefits of fats. Difference between saturated and unsaturated fats. Saturated fats and its contribution to inflammation R, : Fiber: food sources and role of fiber in the diet (including but not limited to its role as a prebiotic, benefits in constipation, role in IBS , role in glucose control and cholesterol level) R, : Hydration: role of hydration and prevention of dehydration or over hydration. Foods and water content. R, V, N/A: Vitamins and Minerals in foods and supplements R, V, N/A: Interpreting food labels, including serving size, macronutrients, vitamins, minerals, allergens, ingredient list , % daily value Patient Instructions: Work on reducing on sugars (pastries/cookies and similar foods) Include fish twice a week (tuna/salmon) Choose whole grain foods in adequate portion sizes Work on having 3 meals/day reducing total carb to less than 90 g at meal following healthy plate method Coding Level of Care Code Nutr Indiv Intake (07127) Diagnoses Morbid obesity due to excess calories E66.01
[2025-09-05 13:07] VITALS: BMI 40.2
[2025-09-05 13:29] VITALS: BMI 40.2
== END 2025-09-05 14:36 | disposition home or self-care (01) ==
LOC: HO.ENCR 12:53
PROVIDERS: PCP Student in an Organized Health Care Education/Training Program; Visit Provider Dietitian, Registered
DX: E66.01 Morbid (severe) obesity due to excess calories (principal)

== ENCOUNTER → 2025-09-05 12:52 | Outpatient (BNVA) | payer OTHER, SELFPAY | PROVIDERS: PCP Student in an Organized Health Care Education/Training Program; Visit Provider Dietitian, Registered | DX: E66.01 Morbid (severe) obesity due to excess calories (principal) | CPT/HCPCS: 97802 ==